=== PATIENT | male | born 1965 | race Caucasian/White ===

== ENCOUNTER 2022-01-12 10:28 | Outpatient (CLI) | payer OTHER, SELFPAY ==
--- NOTE | ~2022-01-12 | XR_ITS ---
XR lumbar spine min 4V DATE: 01/12/2022 10:41 INDICATION: Low back pain TECHNIQUE: AP, lateral, coned lateral lumbosacral and bilateral oblique views COMPARISON: None FINDINGS: There is diffuse idiopathic skeletal hyperostosis of the included lower thoracic spine. No fracture or bone destruction, spondylolysis or spondylolisthesis of the lumbar spine. There is mil d lumbar degenerative disc disease. The sacroiliac joints are intact. IMPRESSION: Diffuse idiopathic skeletal hyperostosis of the thoracic spine Mild degenerative disc disease of the lumbar spine Reviewed, dictated and finalized at location A. ING PROFESSOR
[2022-01-12 18:24] LABS: Basophils Absolute Auto 0.1 K/mm3 (0.0-0.1); Eosinophils Absolute Auto 0.1 K/mm3 (0-0.3); Eosinophils Percent Auto 0.7 % (0-4.4); Hematocrit 46.8 % (42.0-52.0); Hemoglobin 15.6 g/dL (14.0-18.0); Immature Granulocyte Absolute 0.03 K/mm3 (0.00-0.031); Immature Granulocyte Percent A 0.4 % (0-0.5); Lymphocytes Absolute Auto 1.49 K/mm3 (0.9-3.2); Lymphocytes Percent Auto 21.8 % (18.3-44.2); Mean Corpuscular HGB Conc 33.3 g/dl (32-36); Mean Corpuscular Hemoglobin 33.8 pg (26-34); Mean Corpuscular Volume 101.5 fl (80-100); Mean Platelet Volume 11.5 fl (7.4-10.4); Monocytes Percent Auto 13.9 % (2.6-8.5); Neutrophils Absolute Auto 4.3 K/mm3 (1.3-6.7); Neutrophils Percent Auto 62.2 % (45.5-73.1); Platelet Count Result 200 k/mm3 (150-375); Red Blood Count 4.61 M/mm3 (4.6-6.20); Red Cell Distribution Width 11.3 % (11.5-14.5); White Blood Count 6.8 K/mm3 (4.5-10.0)
[2022-01-12 18:52] LABS: Alanine Aminotransferase 228 U/L (6-50); Albumin Level 4.8 g/dL (3.5-5.1); Alkaline Phosphatase 77 U/L (38-126); Anion Gap 11 mmol/L (8-16); Aspartate Amino Transferase 221 U/L (17-59); Bilirubin,Total 0.5 mg/dL (0.2-1.3); Blood Urea Nitrogen 8 mg/dL (9-20); Calcium 8.9 mg/dL (8.4-10.2); Carbon Dioxide 26 mmol/L (22-30); Chloride 99 mmol/L (98-107); Cholesterol 164 mg/dL (0-200); Estimated Glomerular Filt Rate > 60; Glucose 104 mg/dL (65-110); HDL Direct 56 mg/dL; Potassium 4.9 mmol/L (3.4-5.0); Sodium 136 mmol/L (137-145); Triglycerides 54 mg/dL (<150)
[2022-01-12 19:05] LABS: LDL Cholesterol Direct 90 mg/dL
[2022-01-12 19:12] LABS: Prostate Specific Antigen 1.1 ng/mL (< OR = 4.0)
== END 2022-01-12 10:29 | disposition home or self-care (01) ==
LOC: ANHBWCLAB 10:29
PROVIDERS: PCP Family Medicine; Visit Provider Family Medicine
DX: Z00.00 Encounter for general adult medical examination without abnormal findings (principal); F41.9 Anxiety disorder, unspecified; I10 Essential (primary) hypertension; J44.9 Chronic obstructive pulmonary disease, unspecified; M19.90 Unspecified osteoarthritis, unspecified site; T78.40XA Allergy, unspecified, initial encounter; M54.50 Low back pain, unspecified; M51.36 Other intervertebral disc degeneration, lumbar region; M48.16 Ankylosing hyperostosis [Forestier], lumbar region
CPT/HCPCS: 36415; 72110; 80053; 80061; 84153; 85025; G0103

== ENCOUNTER 2022-02-03 10:00 | Outpatient (CLI) | payer OTHER, SELFPAY ==
[2022-02-03 18:51] LABS: Alanine Aminotransferase 250 U/L (6-50); Albumin Level 4.5 g/dL (3.5-5.1); Alkaline Phosphatase 74 U/L (38-126); Aspartate Amino Transferase 272 U/L (17-59); Bilirubin,Total 0.7 mg/dL (0.2-1.3)
[2022-02-03 19:23] LABS: Hepatitis B Surface Antigen Negative (Negative)
[2022-02-03 19:29] LABS: HAV RESULT Negative (Negative); Hepatitis B Core IgM Result Negative (Negative)
[2022-02-03 19:40] LABS: Hepatitis C Virus Antibody Negative (Negative)
[2022-02-09 21:47] LABS: ALT 208 U/L (9-46); Alpha-2-Macroglobulin 233 mg/dL (106-279); Apolipoprotein A1 162 mg/dL (94-176); Fibrosis Score 0.47; Fibrosis Stage F1-F2; GGT 225 U/L (3-85); Haptoglobin 190 mg/dL (43-212); Necroinflammat Act Grade A3; Total Bilirubin 0.6 mg/dL (0.2-1.2)
== END 2022-02-03 10:01 | disposition home or self-care (01) ==
LOC: ANHBWCLAB 10:01
PROVIDERS: PCP Family Medicine; Visit Provider Family Medicine
DX: R74.8 Abnormal levels of other serum enzymes (principal)
CPT/HCPCS: 36415; 80074; 80076; 81596

== ENCOUNTER 2022-02-23 10:28 | Outpatient (CLI) | payer OTHER, SELFPAY ==
--- NOTE | ~2022-02-23 | US_ITS ---
Limited Abdominal Sonogram: Real-time sonographic imaging of the right upper quadrant was performed. Clinical History: Abnormal serum enzymes Findings: The liver appears echogenic, with no evidence of mass lesion or bile duct dilatation. Main portal vein demonstrates normal direction of flow. The gallbladder is well distended, and appears no rmal with no evidence of gallstone or wall thickening. The common bile duct measures 5 mm. The visua lized pancreas, aorta, and IVC are unremarkable. Impression: Diffuse fatty infiltration of the liver. Reviewed, dictated and finalized at location M. 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
== END 2022-02-23 10:29 | disposition home or self-care (01) ==
PROVIDERS: PCP Family Medicine; Visit Provider Family Medicine
DX: R74.8 Abnormal levels of other serum enzymes (principal); F10.20 Alcohol dependence, uncomplicated; K76.0 Fatty (change of) liver, not elsewhere classified
CPT/HCPCS: 76705

== ENCOUNTER 2022-03-30 07:59 | Outpatient (CLI) | payer OTHER, SELFPAY ==
[2022-03-30 20:05] LABS: Alanine Aminotransferase 184 U/L (6-50); Albumin Level 4.2 g/dL (3.5-5.1); Alkaline Phosphatase 76 U/L (38-126); Aspartate Amino Transferase 160 U/L (17-59); Bilirubin,Total 0.4 mg/dL (0.2-1.3)
== END 2022-03-30 08:00 | disposition home or self-care (01) ==
LOC: ANHBWCLAB 08:00
PROVIDERS: PCP Family Medicine; Visit Provider Family Medicine
DX: R74.8 Abnormal levels of other serum enzymes (principal)
CPT/HCPCS: 36415; 80076

== ENCOUNTER 2022-07-09 08:07 | Outpatient (CLI) | payer OTHER, SELFPAY ==
--- NOTE | ~2022-07-09 | XR_ITS ---
EXAMINATION: XR lumbar spine 6V w bending DATE: 07/09/2022 09:05 INDICATION: Low back pain. TECHNIQUE: 7 views of lumbar spine including flexion and extension views were obtained. COMPARISON: Lumbar spine radiographs 01/12/2022 FINDINGS: There is 7 degrees dextrocurvature of lumbar spine. The spine is hypomobile with flexion an d extension. Vertebral body heights and intervertebral disc heights are normal. There are endplate os teophytes at all levels. There is multilevel facet joint osteoarthritis, severe on the right from L3- L4 through L5-S1 and severe on the left at L2-L3 and L4-L5. IMPRESSION: 1. Mild lumbar spondylosis. Reviewed, dictated and finalized at location A. IMPRESSION: 1. Mild lumbar spondylosis.
--- NOTE | ~2022-07-09 | XR_ITS ---
Cervical Spine: AP, lateral, open-mouth views Clinical History: Pain Findings: The normal lordotic curve is maintained. The vertebral bodies and posterior elements appea r intact. Facet joint degenerative changes are present throughout the cervical spine. There is advanc ed degenerative disc narrowing at C5-C6 and C6-C7. Pre-vertebral soft tissues are unremarkable. Impression: [id number] degenerative spondylosis, as above. Reviewed, dictated and finalized at location M. Impression: [id number] degenerative spondylosis, as above.
== END 2022-07-09 08:08 | disposition home or self-care (01) ==
PROVIDERS: PCP Family Medicine; Referring Provider Anesthesiology Pain Medicine; Visit Provider Nurse Practitioner Adult Health
DX: M47.816 Spondylosis without myelopathy or radiculopathy, lumbar region (principal); M47.892 Other spondylosis, cervical region
CPT/HCPCS: 72050; 72114

== ENCOUNTER 2022-08-12 00:40 | Observation (INO) | payer OTHER, SELFPAY ==
[2022-08-12] VITALS (44 sets, daily range): BP systolic 84–162; BP diastolic 59–92; PULSE 60–81; RESP 13–22; TEMP 35.8–36.9; O2SAT 97–100
--- NOTE | 2022-08-12 01:22 | ECG_ITS ---
Measurements Intervals [place] Rate: 69 P: 58 [place]: 136 QRS: 56 QRSD: 98 T: 58 QT: 454 QTc: 488 Interpretive Statements SINUS RHYTHM MINIMAL ST DEPRESSION [0.025+ mV ST DEPRESSION] PROLONGED QT INTERVAL NO PREVIOUS ECG AVAILABLE FOR COMPARISON Electronically Signed On 08-12-2022 10:53:07 CDT by Beny Bhat M.D.
[2022-08-12] MEDS: methocarbamoL 750 MG TABLET 1500 MG PO (02:21)
[2022-08-12] MEDS: ACETAMINOPHEN 500 MG TABLET 1000 MG PO (02:21)
[2022-08-12] MEDS: LIDOCAINE 5% PATCH 1 PATCH TRANSDERM (02:22)
[2022-08-12] MEDS: KETOROLAC 15 MG/ML VIAL (*BKC) IV PUSH (02:23)
[2022-08-12] MEDS: SODIUM CHLORIDE 0.9% IV 1,000 ML 999 ML IV CONT ×2 (02:24→02:41)
[2022-08-12 02:32] LABS: Basophils Absolute Auto 0.1 K/mm3 (0.0-0.1); Basophils Percent Auto 0.9 % (0.2-1.2); Eosinophils Absolute Auto 0.1 K/mm3 (0-0.3); Eosinophils Percent Auto 1.4 % (0-4.4); Hemoglobin 12.2 g/dL (14.0-18.0); Immature Granulocyte Absolute 0.02 K/mm3 (0.00-0.031); Immature Granulocyte Percent A 0.3 % (0-0.5); Lymphocytes Absolute Auto 1.85 K/mm3 (0.9-3.2); Mean Corpuscular HGB Conc 35.9 g/dl (32-36); Mean Corpuscular Hemoglobin 35.4 pg (26-34); Mean Corpuscular Volume 98.6 fl (80-100); Mean Platelet Volume 10.7 fl (7.4-10.4); Monocytes Absolute Auto 0.8 K/mm3 (0.1-0.6); Monocytes Percent Auto 13.8 % (2.6-8.5); Neutrophils Percent Auto 51.6 % (45.5-73.1); Platelet Count Result 199 k/mm3 (150-375); Red Blood Count 3.45 M/mm3 (4.6-6.20); White Blood Count 5.8 K/mm3 (4.5-10.0)
[2022-08-12 02:41] LABS: Magnesium 1.6 mg/dL (1.6-2.3)
[2022-08-12 02:45] LABS: Alanine Aminotransferase 87 U/L (6-50); Alkaline Phosphatase 57 U/L (38-126); Anion Gap 13 mmol/L (8-16); Aspartate Amino Transferase 96 U/L (17-59); Bilirubin,Total 0.4 mg/dL (0.2-1.3); Blood Urea Nitrogen 10 mg/dL (9-20); Calcium 8.5 mg/dL (8.4-10.2); Carbon Dioxide 28 mmol/L (22-30); Chloride 95 mmol/L (98-107); Estimated CRCL calculation 34 ml/min; Estimated Glomerular Filt Rate 33; Glucose 110 mg/dL (65-110); Potassium 2.5 mmol/L (3.4-5.0); Sodium 136 mmol/L (137-145)
--- NOTE | 2022-08-12 03:08 | ED.GENADULT ---
HPI - General Adult General Chief complaint: Recheck/Abnormal Lab/Rx Stated complaint: low blood pressure Time Seen by Provider: 08/12/22 01:38 History of Present Illness HPI narrative: This is a 56-year-old male with history of chronic alcohol use presenting with neck and shoulder pain as well as numbness/tingling in his hands and feet. Patient's first complaint is chest and back pain. He has chronic arthritis and is trying to get approved for surgery. He has not had any new trauma. He has not taken anything for pain. Patient is also complaining of tingling and numbness to his hands and feet. This has never happened before. Patient is a daily drinker. He the neck does not report withdrawal symptoms. Cannot remember the last a he went without drinking. Related Data Allergies Allergy/AdvReac Type Severity Reaction Status Date / Time No Known Allergies Allergy Verified 08/12/22 00:45 [facility] Social History Social History (Updated 02/03/22 @ 09:26 by Lesly Jose MA) Smoking packs per day: 2 Smoking cigarettes per day: 40.0 Smoking status: Current every day smoker Alcohol intake: current Alcohol use details: Beer Rum Substance use: never Substance use type: does not use Lack of Transportation: No Lack of Food: Never True Concerned About Future Housing: Decline to Answer Difficulty Paying Gas/Electric Bills: Decline to Answer Difficulty Paying for Meds: Decline to Answer Currently Unemployed: Decline to Answer Education: High School Diploma/GED Difficulty w/ Childcare or Family Care: No Living arrangements: alone Additional occupation/education comments: [employer] Gender identity (if verbalized by the patient): Male Agree to blood products: Yes Exam Narrative: APPEARANCE: No apparent distress. Head: atraumatic. EYES: EOMI, NOSE: Atraumatic NECK: Trachea midline RESPIRATORY: No increased rate of breathing Clear to auscultation CARDIOVASCULAR: RRR, ABDOMINAL: Non-distended, soft nontender MUSCULOSKELETAl: No obvious deformities NEURO: Alert. Cranial nerves 2-12 grossly intact. Sensation light touch, motor function cerebellar function intact for 4 extremities. Gait exam was deferred SKIN:: Warm, dry. Normal color PSYCHIATRIC: Normal affect Course Vital Signs Vital signs: Vital Signs Temperature 98.4 F 08/12/22 00:46 Pulse Rate 70 08/12/22 00:46 Respiratory Rate 18 08/12/22 00:46 Blood Pressure 116/74 08/12/22 00:46 Pulse Oximetry 100 08/12/22 00:46 Oxygen Delivery Room Air 08/12/22 00:46 Temperature 98.4 F 08/12/22 00:46 Pulse Rate 66 08/12/22 02:28 Respiratory Rate 15 08/12/22 02:28 Blood Pressure 90/64 L 08/12/22 02:28 Pulse Oximetry 100 08/12/22 02:28 Oxygen Delivery Room Air 08/12/22 00:46 Medical Decision Making [facility] Narrative Medical decision making narrative: -Presentation: 56-year-old male presenting with acute on chronic neck and back pain. Additionally he has soft blood pressure is having tingling in his hands and feet. Given his history of alcoholism will fluid resuscitate him and check his electrolytes. No indication for imaging for his chronic pain. -DDX includes but is not limited to: A acute on chronic back pain. 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 This may explain the patient's new hypotension. -Hx from independent Sources: at bedside -Discussion of Management/Consultants: Diana - Hospitalist -Independent interpretation of studies: CBC within acceptable limits. Metabolic panel showed a potassium of 2.5. Creatinine is elevated at 2.1 which is increased from creatinine .7 on 01/27. Liver e
[2022-08-12] MEDS: POTASSIUM CHLORIDE 20 MEQ TABLET 80 MEQ PO (03:18)
[2022-08-12] MEDS: POTASSIUM CHLORIDE INJ 40 MEQ in SODIUM CHLORIDE 0.9% IV 500 ML 130 MEQ IVPB (03:34)
[2022-08-12] MEDS: MAGNESIUM SULF 2 GM/WATER 50ML 2 GM/50 ML BAG IVPB (03:35)
[2022-08-12] MEDS: FAMOTIDINE 20 MG/2 ML VIAL IV PUSH (03:55)
[2022-08-12] MEDS: HYDROcodone/acetaminophen (*CRX) 5-325 MG TABLET 1 TAB PO ×3 (03:57→23:45)
[2022-08-12] MEDS: NICOTINE (*PBKC) 21 MG PATCH 1 PATCH TRANSDERM (04:02)
[2022-08-12] MEDS: MAG HYDROX/AL HYDROX/SIMETH 30 ML UDC PO (04:05)
--- NOTE | 2022-08-12 05:51 | ADMGEN ---
This patient, Taran Griffin, was admitted to 3 [facility] Surg Room 320-01. Patient/family oriented to hospital policies and general routines including ID bracelet, bed and alarms, visiting hours, pain management, procedures, bathroom and other care routines, personal items, smoking policy, room service/diet, and visiting hours. Information on how to activate the Rapid Response Team has been discussed. Patient/Family are encouraged to report perceived risks to care and to ask questions if they do not understand what they are told or what they should do.
[2022-08-12 06:47] LABS: Glucose Point of Care 132 mg/dl (65-105)
[2022-08-12 07:05] LABS: Anion Gap 15 mmol/L (8-16); Blood Urea Nitrogen 9 mg/dL (9-20); Calcium 7.4 mg/dL (8.4-10.2); Carbon Dioxide 22 mmol/L (22-30); Chloride 100 mmol/L (98-107); Estimated CRCL calculation 45 ml/min; Estimated Glomerular Filt Rate 45; Glucose 104 mg/dL (65-110); Potassium 3.1 mmol/L (3.4-5.0); Sodium 137 mmol/L (137-145)
[2022-08-12] MEDS: traMADol HCL (*CRX) 50 MG TABLET PO (07:55)
[2022-08-12 09:59] LABS: Magnesium 2.4 mg/dL (1.6-2.3)
[2022-08-12 11:06] LABS: Folic Acid 4.8 ng/mL (2.76->20)
[2022-08-12] MEDS: POTASSIUM CHLORIDE 20 MEQ TABLET 40 MEQ PO (11:37)
[2022-08-12 11:42] LABS: Glucose Point of Care 103 mg/dl (65-105)
[2022-08-12] MEDS: chlordiazePOXIDE (*CRX) 25 MG CAPSULE PO ×3 (12:30→23:45)
--- NOTE | 2022-08-12 16:53 | PM.IMHP ---
H&P: HPI History of Present Illness Date/Time: 08/12/22 16:53 Chief Complaint: Low blood pressure Narrative: ED-HPI narrative: ? This is a 56-year-old male with history of chronic alcohol use presenting with neck and shoulder pain as well as numbness/tingling in his hands and feet. ? Patient's first complaint is chest and back pain.? He has chronic arthritis and is trying to get approved for surgery.? He has not had any new trauma.? He has not taken anything for pain. ?Patient is also complaining of tingling and numbness to his hands and feet.? This has never happened before.? Patient is a daily drinker.? He the neck does not report withdrawal symptoms.? Cannot remember the last a he went without drinking. 56-year-old male with chronic history of alcohol abuse presented to emergency department with low blood pressure upon arrival patient systolic blood pressure was 84/59 most likely secondary to dehydration with alcohol, patient is being hydrated and his blood pressure is trending up, patient with hypokalemia most likely secondary to alcohol abuse and poor p.o. intake, patient is a daily drinker and has never been off alcohol concerning DT we have started the patient on CIWA and Librium 25 mg every 6 hours, continue to monitor, patient also complains of back pain and numbness and tingling in his upper and lower extremitis, concerning for vitamin B 12 deficiency and neuropathy, will check vitamin B12 level, we have started the patient banana bag daily will continue to monitor patient family is present in the room, patient admitted as observation status [facility] Social History Social History (Updated 02/03/22 @ 09:26 by Lesly Jose MA) Smoking packs per day: 1.5 Smoking cigarettes per day: 30.0 Smoking status: Current every day smoker Tobacco type: cigarettes Alcohol intake: current Alcohol use details: Beer Rum Substance use: never Substance use type: does not use Lack of Transportation: YES Lack of Food: Never True Current Housing: I Have Housing Concerned About Future Housing: No Difficulty Paying Gas/Electric Bills: No Difficulty Paying for Meds: No Currently Unemployed: No Education: High School Diploma/GED Difficulty w/ Childcare or Family Care: No Living arrangements: alone Additional occupation/education comments: [employer] Gender identity (if verbalized by the patient): Male Spiritual care concerns: No Agree to blood products: Yes Meds Home Medications and Allergies Home Medications Medication Instructions Recorded Confirmed Type amlodipine 10 mg tablet 10 mg PO DAILY #90 tabs 03/04/22 08/12/22 Rx tamsulosin 0.4 mg capsule 0.8 mg PO DAILY #90 caps 03/04/22 08/12/22 Rx albuterol sulfate 90 mcg/actuation 1 inh inhalation Q4H PRN shortness 05/17/22 08/12/22 Rx aerosol inhaler of breath or wheezing #8.5 grams fluticasone propionate 115 2 puff inhalation BID #12 grams 05/17/22 08/12/22 Rx mcg-salmeterol 21 mcg/actuation HFA inhaler (Advair HFA) finasteride 5 mg tablet See Rx Instructions .Route 06/11/22 08/12/22 Rx .COMPLEX #90 tabs losartan 100 1 tablet PO DAILY #90 tabs 07/05/22 08/12/22 Rx mg-hydrochlorothiazide 12.5 mg tablet carvedilol 12.5 mg tablet 12.5 mg PO Q12H #90 tabs 07/20/22 08/12/22 Rx celecoxib 200 mg capsule See Rx Instructions .Route 07/28/22 08/12/22 Rx .COMPLEX #30 caps Allergies Allergy/AdvReac Type Severity Reaction Status Date / Time No Known Allergies Allergy Verified 08/12/22 00:45 Vital Signs Vital Signs - 24 hr 08/12/22 00:46 08/12/22 02:28 08/12/22 03:45 Temperature 98.4 F Pulse Rate 70 66 64 Respiratory Rate 18 15 14 Blood Pressure 116/74 90/64 L 128/92 H Pulse Oximetry 100 100 100 Oxygen Delivery Room Air 08/12/22 01:37 08/12/22 01:38 08/12/22 01:45 Temperature Pulse Rate 72 71 64 Respiratory Rate 21 H 19 20 Blood Pressure 92/69 L Pulse Oximetry 100 99 Oxygen Delivery
[2022-08-12 16:55] LABS: Glucose Point of Care 97 mg/dl (65-105)
[2022-08-12] MEDS: CYANOCOBALAMIN INJ 1,000 MCG/ML VIAL 1000 MCG IM (17:04)
[2022-08-12 23:59] LABS: Glucose Point of Care 92 mg/dl (65-105)
[2022-08-13 04:00] VITALS: PULSE 58
[2022-08-13] MEDS: chlordiazePOXIDE (*CRX) 25 MG CAPSULE PO (05:01)
[2022-08-13 05:02] VITALS: BP 179/101; PULSE 76; RESP 18; TEMP 36.2; O2SAT 100
[2022-08-13 05:45] VITALS: BP 179/101; PULSE 76; RESP 18; TEMP 36.2; O2SAT 100
--- NOTE | 2022-08-13 05:45 | PC.NURSE ---
called DO Mike d/t elevated bp 179/101, pt home bp meds not restarted at this time.
[2022-08-13 06:16] LABS: Hematocrit 33.3 % (42.0-52.0); Hemoglobin 11.7 g/dL (14.0-18.0); Mean Corpuscular HGB Conc 35.1 g/dl (32-36); Mean Corpuscular Hemoglobin 36.1 pg (26-34); Mean Corpuscular Volume 102.8 fl (80-100); Mean Platelet Volume 11.3 fl (7.4-10.4); Platelet Count Result 157 k/mm3 (150-375); Red Blood Count 3.24 M/mm3 (4.6-6.20); White Blood Count 3.6 K/mm3 (4.5-10.0)
[2022-08-13 06:27] LABS: Anion Gap 4 mmol/L (8-16); Blood Urea Nitrogen 8 mg/dL (9-20); Calcium 7.9 mg/dL (8.4-10.2); Carbon Dioxide 32 mmol/L (22-30); Chloride 99 mmol/L (98-107); Estimated CRCL calculation 77 ml/min; Estimated Glomerular Filt Rate > 60; Glucose 106 mg/dL (65-110); Magnesium 1.8 mg/dL (1.6-2.3); Potassium 3.1 mmol/L (3.4-5.0); Sodium 135 mmol/L (137-145)
[2022-08-13 06:50] LABS: Glucose Point of Care 95 mg/dl (65-105)
[2022-08-13] MEDS: HYDROcodone/acetaminophen (*CRX) 5-325 MG TABLET 1 TAB PO (07:43)
[2022-08-13] MEDS: CYANOCOBALAMIN INJ 1,000 MCG/ML VIAL 1000 MCG IM (07:44)
[2022-08-13 08:00] VITALS: PULSE 69
[2022-08-13] MEDS: POTASSIUM CHLORIDE 20 MEQ TABLET 40 MEQ PO (08:50)
[2022-08-13] MEDS: TAMSULOSIN HCL 0.4 MG CAPSULE 0.8 MG PO (08:50)
[2022-08-13] MEDS: amLODIPine BESYLATE 5 MG TABLET 10 MG PO (08:51)
[2022-08-13] MEDS: LOSARTAN POTASSIUM 100 MG TABLET PO (08:51)
[2022-08-13] MEDS: FINASTERIDE 5 MG TABLET BY MOUTH (08:51)
[2022-08-13] MEDS: hydroCHLOROthiazide 12.5 MG CAPSULE PO (08:51)
[2022-08-13] MEDS: carvediloL 12.5 MG TABLET PO (08:51)
[2022-08-13] MEDS: FLUTICASONE/SALMETEROL 115-21 MCG INHALER 1 PUFF 2 PUFF INHALATION (08:56)
[2022-08-13 08:57] VITALS: O2SAT 94
[2022-08-13] MEDS: CELECOXIB 200 MG CAPSULE BY MOUTH (09:51)
[2022-08-13 12:00] VITALS: PULSE 70
[2022-08-13 12:24] LABS: Glucose Point of Care 105 mg/dl (65-105)
--- NOTE | 2022-08-13 12:37 | PM.DS ---
DS: Admitting Diagnosis Discharge Date 08/13/2022 Admitting Diagnosis Low blood pressure DS: Discharge Diagnosis Discharge Diagnosis (1) Acute hypokalemia: Code(s): E87.6 - Hypokalemia Status: Acute Assessment and Plan: ED-[facility] narrative: ? This is a 56-year-old male with history of chronic alcohol use presenting with neck and shoulder pain as well as numbness/tingling in his hands and feet. ? Patient's first complaint is chest and back pain.? He has chronic arthritis and is trying to get approved for surgery.? He has not had any new trauma.? He has not taken anything for pain. ?Patient is also complaining of tingling and numbness to his hands and feet.? This has never happened before.? Patient is a daily drinker.? He the neck does not report withdrawal symptoms.? Cannot remember the last a he went without drinking. 56-year-old male with chronic history of alcohol abuse presented to emergency department with low blood pressure upon arrival patient systolic blood pressure was 84/59 most likely secondary to dehydration with alcohol, patient is being hydrated and his blood pressure is trending up, patient with hypokalemia most likely secondary to alcohol abuse and poor p.o. intake, patient is a daily drinker and has never been off alcohol concerning DT we have started the patient on CIWA and Librium 25 mg every 6 hours, continue to monitor, patient also complains of back pain and numbness and tingling in his upper and lower extremitis, concerning for vitamin B 12 deficiency and neuropathy, will check vitamin B12 level, we have started the patient banana bag daily will continue to monitor patient family is present in the room, (2) Acute hypotension: Code(s): I95.9 - Hypotension, unspecified Status: Acute Assessment and Plan: Most likely secondary to dehydration due to alcohol abuse and poor p.o. intake (3) ETOH abuse: Code(s): F10.10 - Alcohol abuse, uncomplicated Status: Acute Assessment and Plan: Patient with history of daily drinking for long time, high risk of DT we have placed the patient CIWA protocol and will monitor with a Librium, will monitor patient electrolytes and supplement (4) Cervicalgia: Code(s): M54.2 - Cervicalgia Status: Acute Assessment and Plan: Patient with chronic neck pain CT scan of the cervical spine shows degenerative disc disease (5) Chronic pain: Code(s): G89.29 - Other chronic pain Status: Acute Assessment and Plan: Most likely secondary to osteoarthritis DS: Summary Hospital Course Reason for hospitalization: Low blood pressure Narrative: ED-HPI narrative: ? This is a 56-year-old male with history of chronic alcohol use presenting with neck and shoulder pain as well as numbness/tingling in his hands and feet. ? Patient's first complaint is chest and back pain.? He has chronic arthritis and is trying to get approved for surgery.? He has not had any new trauma.? He has not taken anything for pain. ?Patient is also complaining of tingling and numbness to his hands and feet.? This has never happened before.? Patient is a daily drinker.? He the neck does not report withdrawal symptoms.? Cannot remember the last a he went without drinking. 56-year-old male with chronic history of alcohol abuse presented to emergency department with low blood pressure upon arrival patient systolic blood pressure was 84/59 most likely secondary to dehydration with alcohol, patient is being hydrated and his blood pressure is trending up, patient with hypokalemia most likely secondary to alcohol abuse and poor p.o. intake,? patient is a daily drinker and has never been off alcohol concerning DT we have started the patient on CIWA and Librium 25 mg every 6 hours, continue to monitor, patient also complains of back pain and numbness and tingling in his upper and lower extremitis, concerning for vitamin B 12 deficiency and neuropathy, will check vitamin B12 l
== END 2022-08-13 13:25 | disposition home or self-care (01) ==
LOC: ANHED 03:34 → ANH3MEDSUR 06:09
PROVIDERS: Internal Medicine; Admitting Provider Family Medicine; Emergency Provider Emergency Medicine; PCP Family Medicine; Visit Provider Family Medicine
DX: E87.6 Hypokalemia (principal); I95.9 Hypotension, unspecified; M54.2 Cervicalgia; G89.29 Other chronic pain; M19.90 Unspecified osteoarthritis, unspecified site; R20.0 Anesthesia of skin; I10 Essential (primary) hypertension; R94.31 Abnormal electrocardiogram [ECG] [EKG]; F10.10 Alcohol abuse, uncomplicated; F17.210 Nicotine dependence, cigarettes, uncomplicated; Z79.51 Long term (current) use of inhaled steroids; Z79.899 Other long term (current) drug therapy
CPT/HCPCS: 36415; 80048; 80053; 82607; 82746; 82948; 83735; 84100; 85025; 85027; 93005; 94640; 96361; 96365; 96366; 96367; 96368; 96372; 96374; 96375; 99285; A9270; G0378; G0379; J1885; J3411; J3420; J3475; J3480; J7030; J7040; J7121

== ENCOUNTER 2022-12-20 15:59 | Emergency (ER) | payer OTHER, SELFPAY ==
--- NOTE | ~2022-12-20 | XR_ITS ---
EXAMINATION: XR chest 2V DATE: 12/20/2022 16:29 INDICATION: Right chest pain. TECHNIQUE: Frontal and lateral views of the chest were obtained. COMPARISON: None. FINDINGS: There is no pneumonia, pleural effusion, or pneumothorax. The heart size is normal. There i s mild chronic anterior wedging of multiple vertebral bodies. IMPRESSION: 1. No acute cardiopulmonary disease. Reviewed, dictated and finalized at location E.
--- NOTE | 2022-12-20 16:01 | ECG_ITS ---
Measurements Intervals [place] Rate: 71 P: 60 [place]: 150 QRS: 65 QRSD: 98 T: 56 QT: 412 QTc: 448 Interpretive Statements SINUS RHYTHM POSSIBLE RIGHT VENTRICULAR CONDUCTION DELAY [RSR (QR) IN V1/V2] BORDERLINE ECG COMPARED TO ECG 08/12/2022 01:24:59 PROLONGED QT INTERVAL NO LONGER PRESENT Electronically Signed On 12-20-2022 17:29:01 CDT by Landry Xiong M.D.
[2022-12-20 16:19] LABS: Basophils Absolute Auto 0.1 K/mm3 (0.0-0.1); Basophils Percent Auto 1.3 % (0.2-1.2); Eosinophils Percent Auto 0.6 % (0-4.4); Hematocrit 39.5 % (42.0-52.0); Hemoglobin 13.9 g/dL (14.0-18.0); Immature Granulocyte Absolute 0.03 K/mm3 (0.00-0.031); Immature Granulocyte Percent A 0.5 % (0-0.5); Lymphocytes Absolute Auto 2.62 K/mm3 (0.9-3.2); Lymphocytes Percent Auto 41.9 % (18.3-44.2); Mean Corpuscular HGB Conc 35.2 g/dl (32-36); Mean Corpuscular Hemoglobin 35.8 pg (26-34); Mean Corpuscular Volume 101.8 fl (80-100); Mean Platelet Volume 10.6 fl (7.4-10.4); Monocytes Absolute Auto 0.8 K/mm3 (0.1-0.6); Monocytes Percent Auto 13.4 % (2.6-8.5); Neutrophils Absolute Auto 2.7 K/mm3 (1.3-6.7); Neutrophils Percent Auto 42.3 % (45.5-73.1); Platelet Count Result 165 k/mm3 (150-375); Red Blood Count 3.88 M/mm3 (4.6-6.20); Red Cell Distribution Width 13.1 % (11.5-14.5); White Blood Count 6.3 K/mm3 (4.5-10.0)
[2022-12-20 16:20] VITALS: BP 162/90; PULSE 72; RESP 16; TEMP 36.6; O2SAT 98
[2022-12-20 16:34] LABS: Alanine Aminotransferase 53 U/L (6-50); Albumin Level 3.9 g/dL (3.5-5.1); Alkaline Phosphatase 61 U/L (38-126); Anion Gap 11 mmol/L (8-16); Aspartate Amino Transferase 85 U/L (17-59); Bilirubin,Total 0.7 mg/dL (0.2-1.3); Blood Urea Nitrogen 7 mg/dL (9-20); Carbon Dioxide 25 mmol/L (22-30); Chloride 101 mmol/L (98-107); Estimated CRCL calculation 88 ml/min; Estimated Glomerular Filt Rate > 60; Glucose 114 mg/dL (65-110); Lipase 213 U/L (23-300); Potassium 2.6 mmol/L (3.4-5.0); Sodium 137 mmol/L (137-145)
[2022-12-20 16:36] LABS: Prothrombin Time 13.7 Seconds (11.1-14.7)
[2022-12-20 16:37] LABS: Partial Thromboplastin Time 33.2 SECONDS (22.3-36.8)
[2022-12-20 16:42] LABS: Troponin I < 0.012 ng/mL (0.000-0.034)
--- NOTE | 2022-12-20 17:09 | ED.GENADULT ---
HPI - General Adult General Chief complaint: Chest Pain <LULÚ Whitt Last Filed: 12/21/22 01:48> Stated complaint: right chest pain <LULÚ Whitt Last Filed: 12/21/22 01:48> Time Seen by Provider: 12/20/22 17:05 <Alcides Vail PA-C - Last Filed: 12/21/22 01:48> Source: patient <LULÚ Whitt Last Filed: 12/21/22 01:48> Mode of arrival: ambulatory <LULÚ Whitt Last Filed: 12/21/22 01:48> Limitations: no limitations <LULÚ Whitt Last Filed: 12/21/22 01:48> History of Present Illness HPI narrative: This is a 57-year-old male with PMH of EtOH abuse, suspect lumbar ago, COPD, hypokalemia who presents to the ED with chief complaint right-sided chest wall pain onset 1 month ago. Reports a localized lump to the right chest that he has noticed is painful only when palpating. Denies exertional chest pain, shortness of breath, rashes, fevers, vomiting, nausea, LOC, any injury. Denies palpitations or leg swelling. <Alcides Vail PA-C - Last Filed: 12/21/22 01:48> Related Data Allergies/adverse reactions: Allergies Allergy/AdvReac Type Severity Reaction Status Date / Time No Known Allergies Allergy Verified 12/20/22 16:44 <LULÚ Whitt Last Filed: 12/21/22 01:48> Review of Systems Review of Systems: All systems as dictated in HPI <Alcides Vail PA-C - Last Filed: 12/21/22 01:48> [facility] Social History Social History: Social History (Updated 02/03/22 @ 09:26 by Lesly Jose MA) Smoking packs per day: 1.5 Smoking cigarettes per day: 30.0 Smoking status: Current every day smoker Tobacco type: cigarettes Alcohol intake: current Alcohol use details: Beer Rum Substance use: never Substance use type: does not use Lack of Transportation: YES Lack of Food: Never True Current Housing: I Have Housing Concerned About Future Housing: No Difficulty Paying Gas/Electric Bills: No Difficulty Paying for Meds: No Currently Unemployed: No Education: High School Diploma/GED Difficulty w/ Childcare or Family Care: No Living arrangements: alone Additional occupation/education comments: [employer] Gender identity (if verbalized by the patient): Male Spiritual care concerns: No Agree to blood products: Yes <Alcides Vail PA-C - Last Filed: 12/21/22 01:48> Exam Narrative: GENERAL: Well-appearing, well-nourished, and in no acute distress. HEAD: Normocephalic, atraumatic. EYES: PERRLA and EOMI. ENT: Nares clear, no rhinorrhea or epistaxis. Mucous membranes moist. Oropharynx without tonsillar hypertrophy exudate or other lesions. NECK: Supple. No adenopathy or masses. CHEST: No respiratory distress. Clear to auscultation. No wheezes rales or rhonchi HEART: Regular rate and rhythm. No murmur heard. Normal peripheral pulses. ABDOMEN: Soft, nontender, nondistended, normal active bowel sounds. MSK: Normal range of motion. No edema. SKIN: There is a 2 cm x 2 cm area of rubbery, mobile mass to the right chest wall inferior to the nipple. No erythema, induration or fluctuance present. Minimal tenderness. Warm, dry, no rash. NEURO: Alert and oriented x3. No focal deficits. PSYCH: Normal mood and affect. 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 <Cassie Duggan MD - Last Filed: 12/21/22 06:14> Vital Signs Vital signs: Vital Signs Temperature 36.6 C 12/20/22 16:20 Pulse Rate 72 12/20/22 16:20 Respiratory Rate 16 12/20/22 16:20 Blood Pressure 162/90 H 12/20/22 16:20 Pulse Oximetry 98 12/20/22 16:20 Oxygen Delivery Room Air 12/20/22 16:20 Temperature 36.6 C 12/20/22 16:20 Pulse Rate 68 12/20/22 19:57 Respiratory Rate 20 12/20/22 19:57 Blood Pressure 148/95 H 12/20
[2022-12-20 17:25] VITALS: BP 143/93; PULSE 70; RESP 18; O2SAT 98
[2022-12-20] MEDS: POTASSIUM CHLORIDE 20 MEQ PACKET (FOR LIQUID) 40 MEQ PO (19:00)
[2022-12-20 19:38] LABS: Troponin I < 0.012 ng/mL (0.000-0.034)
[2022-12-20 19:57] VITALS: BP 148/95; PULSE 68; RESP 20; O2SAT 98
[2022-12-20] MEDS: KCL 20 MEQ/SW 100 ML 100 ML 50 MEQ IVPB (20:10)
[2022-12-20 22:37] LABS: Anion Gap 10 mmol/L (8-16); Blood Urea Nitrogen 7 mg/dL (9-20); Calcium 8.3 mg/dL (8.4-10.2); Carbon Dioxide 25 mmol/L (22-30); Chloride 102 mmol/L (98-107); Estimated CRCL calculation 99 ml/min; Estimated Glomerular Filt Rate > 60; Glucose 92 mg/dL (65-110); Potassium 3.5 mmol/L (3.4-5.0); Sodium 137 mmol/L (137-145)
[2022-12-20 22:42] LABS: Troponin I < 0.012 ng/mL (0.000-0.034)
== END 2022-12-20 22:53 | disposition home or self-care (01) ==
PROVIDERS: Emergency Medicine; Emergency Provider Physician Assistant; PCP Family Medicine
DX: R07.89 Other chest pain (principal); E87.6 Hypokalemia; J44.9 Chronic obstructive pulmonary disease, unspecified; F17.210 Nicotine dependence, cigarettes, uncomplicated; N63.10 Unspecified lump in the right breast, unspecified quadrant
CPT/HCPCS: 36415; 71046; 80048; 80053; 83690; 84484; 85025; 85610; 85730; 93005; 96365; 96366; 99284; A9270; J3480

== ENCOUNTER 2023-03-10 22:39 | Emergency (ER) | payer OTHER, SELFPAY ==
[2023-03-10 22:45] VITALS: BP 146/97; PULSE 112; RESP 20; TEMP 36.7; O2SAT 100
[2023-03-11 02:53] LABS: Influenza A QL RT-PCR Positive (Negative); Influenza B QL RT-PCR Negative (Negative); RSV RNA, RT-PCR Negative (Negative); SARS-CoV-2 RNA PCR Negative (Negative)
--- NOTE | 2023-03-11 04:14 | ED.URI ---
HPI - URI/Sore Throat General Chief Complaint: Upper Respiratory Infection Stated Complaint: uri Time Seen by Provider: 03/11/23 02:24 Source: patient Limitations: no limitations History of Present Illness HPI Narrative: Patient is a 57-year-old male presents to the emergency department complaining of 1 week of a cough productive of scant clear sputum. Patient is unsure if he has had no fevers, admits to some mild body aches, admits to his being a sick contact. Patient admits to being vaccinated. Patient in his to trying [id number] medications without any significant relief. Patient admits to mild dehydration. Patient denies chest pain, difficulty breathing, rash, urinary discomfort, diarrhea, vomiting, recent injuries. Patient admits to some intermittent nasal congestion and runny nose. Patient denies ear pain, confusion, headache. Related Data Allergies Allergy/AdvReac Type Severity Reaction Status Date / Time No Known Allergies Allergy Verified 03/10/23 22:53 Review of Systems Review of Systems: A 10 system review of systems was completed on the patient and is negative except for what is stated in the HPI. Nursing and ancillary documentation was reviewed. [facility] Social History Social History (Updated 02/03/22 @ 09:26 by Lesly Jose MA) Smoking packs per day: 1.5 Smoking cigarettes per day: 30.0 Smoking status: Current every day smoker Tobacco type: cigarettes Alcohol intake: current Alcohol use details: Beer Rum Substance use: never Substance use type: does not use Lack of Transportation: YES Lack of Food: Never True Current Housing: I Have Housing Concerned About Future Housing: No Difficulty Paying Gas/Electric Bills: No Difficulty Paying for Meds: No Currently Unemployed: No Education: High School Diploma/GED Difficulty w/ Childcare or Family Care: No Living arrangements: alone Additional occupation/education comments: [employer] Gender identity (if verbalized by the patient): Male Spiritual care concerns: No Agree to blood products: Yes Comments At time of signature, I have reviewed and agree with nursing past medical, surgical, social and family history unless otherwise noted. Please see the nursing chart for further information. There is no relevant family history pertinent to the presenting complaint. Exam Narrative: CONST: No acute distress. Well nourished. HENMT: Head is normocephalic and atraumatic. Tacky mucous membranes. No posterior oropharynx erythema. EYES: No conjunctival icterus, injection, or pallor. PERRL. NECK: No meningeal signs. RESP: Able to speak in full sentences. Normal respiratory effort. CTAB. CARDIO: Regular rate. Regular rhythm. 2+ DP and radial pulses bilaterally. GI: Nondistended. No tenderness to palpation. Soft. : No CVA tenderness to palpation. SKIN: No rashes or lesions noted on exposed skin. NEURO: Oriented x3. Moves all extremities. EXTREM: No pedal edema. PSYCH: Normal affect. Course Vital Signs Vital signs: Vital Signs Temperature 98.0 F 03/10/23 22:45 Pulse Rate 112 H 03/10/23 22:45 Respiratory Rate 20 03/10/23 22:45 Blood Pressure 146/97 H 03/10/23 22:45 Pulse Oximetry 100 03/10/23 22:45 Oxygen Delivery Room Air 03/10/23 22:45 Temperature 98.0 F 03/10/23 22:45 Pulse Rate 92 03/11/23 04:30 Respiratory Rate 16 03/11/23 04:30 Blood Pressure 148/72 H 03/11/23 04:30 Pulse Oximetry 98 03/11/23 04:30 Oxygen Delivery Room Air 03/10/23 22:45 MDM - URI/Sore Throat MDM Narrative Medical decision making narrative: Patient presents with the above complaint. . Examination as noted above. Discussed plan to obtain viral swab. The patient has remained stable throughout the entire ED visit. Counseled patient regarding diagnostic results, potential diagnosis. Anticipatory guidance provided. Follow up established. Patient counseled o
[2023-03-11 04:30] VITALS: BP 148/72; PULSE 92; RESP 16; O2SAT 98
== END 2023-03-11 04:31 | disposition home or self-care (01) ==
PROVIDERS: Emergency Provider Student in an Organized Health Care Education/Training Program; PCP Family Medicine
DX: J10.1 Influenza due to other identified influenza virus with other respiratory manifestations (principal); Z20.822 Contact with and (suspected) exposure to COVID-19; F17.210 Nicotine dependence, cigarettes, uncomplicated
CPT/HCPCS: 87637; 99283

== ENCOUNTER 2023-03-16 08:38 | Outpatient (CLI) | payer OTHER, SELFPAY ==
--- NOTE | ~2023-03-16 | MR_ITS ---
MRI of the lumbar spine Clinical History: Degenerative disc disease Technique: Axial T2-weighted images, and sagittal T1-weighted, T2-weighted, and and T2 fat-sat images were acquired. Findings: There is no fracture or subluxation in the lumbar spine. Vertebral bodies maintain normal h eight and alignment. No suspicious marrow signal abnormality seen. At L1-L2, there is no significant disc bulge or herniation. There is moderate facet arthropathy. No c entral canal stenosis or neural foraminal narrowing. At L2-L3, there is minimal disc bulge and advanced facet arthropathy. No central canal stenosis. Ther e is mild left neural foraminal narrowing. At L3-L4, there is minimal disc bulge and moderate facet arthropathy. No central canal stenosis. Ther e is mild right neural foraminal narrowing. At L4-L5, there is minimal disc bulge with moderate facet arthropathy. No central canal stenosis. The re is mild bilateral neural foraminal narrowing. At L5-S1, there is mild disc bulge and moderate facet arthropathy. No central canal stenosis. There i s moderate bilateral neural foraminal narrowing. Paravertebral soft tissues are unremarkable. Impression: Mild degenerative spondylosis, as above. Reviewed, dictated and finalized at location . [facility] Impression: Mild degenerative spondylosis, as above.
== END 2023-03-16 08:39 | disposition home or self-care (01) ==
PROVIDERS: PCP Family Medicine; Visit Provider Nurse Practitioner Adult Health
DX: M51.36 Other intervertebral disc degeneration, lumbar region (principal); M47.896 Other spondylosis, lumbar region
CPT/HCPCS: 72148

== ENCOUNTER 2023-04-11 09:34 | Outpatient (CLI) | payer OTHER, SELFPAY ==
[2023-04-11 18:20] LABS: Hematocrit 40.8 % (42.0-52.0); Hemoglobin 13.4 g/dL (14.0-18.0); Mean Corpuscular HGB Conc 32.8 g/dl (32-36); Mean Corpuscular Hemoglobin 36.3 pg (26-34); Mean Corpuscular Volume 110.6 fl (80-100); Mean Platelet Volume 11.1 fl (7.4-10.4); Platelet Count Result 238 k/mm3 (150-375); Red Blood Count 3.69 M/mm3 (4.6-6.20); Red Cell Distribution Width 14.6 % (11.5-14.5); White Blood Count 7.1 K/mm3 (4.5-10.0)
[2023-04-11 18:49] LABS: Alanine Aminotransferase 85 U/L (6-50); Albumin Level 4.2 g/dL (3.5-5.1); Alkaline Phosphatase 88 U/L (38-126); Anion Gap 8 mmol/L (8-16); Aspartate Amino Transferase 138 U/L (17-59); Blood Urea Nitrogen 13 mg/dL (9-20); Calcium 9.2 mg/dL (8.4-10.2); Carbon Dioxide 30 mmol/L (22-30); Chloride 101 mmol/L (98-107); Estimated Glomerular Filt Rate > 60; Glucose 111 mg/dL (65-110); Potassium 3.3 mmol/L (3.4-5.0); Sodium 139 mmol/L (137-145)
== END 2023-04-11 09:35 | disposition home or self-care (01) ==
LOC: ANHBWCLAB 09:36
PROVIDERS: PCP Family Medicine; Visit Provider Family Medicine
DX: Z00.00 Encounter for general adult medical examination without abnormal findings (principal); F10.20 Alcohol dependence, uncomplicated; I10 Essential (primary) hypertension; I16.0 Hypertensive urgency; J44.9 Chronic obstructive pulmonary disease, unspecified
CPT/HCPCS: 36415; 80053; 85027

== ENCOUNTER 2023-04-13 05:01 | Emergency (ER) | payer OTHER, SELFPAY ==
--- NOTE | ~2023-04-13 | XR_ITS ---
Clinical Indication: Shortness of breath PA and lateral views of the chest: Comparison: 12/20/2022 Findings: The lungs are clear, without evidence of focal consolidation or pleural effusion. Cardiome diastinal silhouette is within normal limits. Bones and soft tissues are unremarkable. Impression: Normal chest. Reviewed, dictated and finalized at [facility]. [place] [employer] Impression: Normal chest.
[2023-04-13 05:03] VITALS: BP 151/88; PULSE 94; RESP 20; TEMP 36.7; O2SAT 100
--- NOTE | 2023-04-13 05:08 | ECG_ITS ---
Measurements Intervals [place] Rate: 82 P: 58 NM: 140 QRS: 60 QRSD: 100 T: 49 QT: 402 QTc: 472 Interpretive Statements SINUS RHYTHM MODERATE ST DEPRESSION [0.05+ mV ST DEPRESSION] COMPARED TO ECG 12/20/2022 16:06:08 NO SIGNIFICANT CHANGES Electronically Signed On 04-13-2023 15:22:44 WEEKEND ANCHOR by Beny Bhat M.D.
[2023-04-13 05:20] VITALS: BP 177/93; PULSE 77; PULSE 80; RESP 25; O2SAT 100; O2SAT 98
[2023-04-13 05:45] LABS: Basophils Absolute Auto 0.1 K/mm3 (0.0-0.1); Eosinophils Absolute Auto 0.1 K/mm3 (0-0.3); Eosinophils Percent Auto 0.8 % (0-4.4); Hematocrit 38.3 % (42.0-52.0); Hemoglobin 13.3 g/dL (14.0-18.0); Immature Granulocyte Absolute 0.03 K/mm3 (0.00-0.031); Immature Granulocyte Percent A 0.5 % (0-0.5); Lymphocytes Absolute Auto 1.65 K/mm3 (0.9-3.2); Mean Corpuscular HGB Conc 34.7 g/dl (32-36); Mean Corpuscular Hemoglobin 36.6 pg (26-34); Mean Corpuscular Volume 105.5 fl (80-100); Mean Platelet Volume 10.8 fl (7.4-10.4); Monocytes Absolute Auto 0.7 K/mm3 (0.1-0.6); Monocytes Percent Auto 11.5 % (2.6-8.5); Neutrophils Absolute Auto 3.6 K/mm3 (1.3-6.7); Neutrophils Percent Auto 59.2 % (45.5-73.1); Platelet Count Result 216 k/mm3 (150-375); Red Blood Count 3.63 M/mm3 (4.6-6.20); Red Cell Distribution Width 13.8 % (11.5-14.5); White Blood Count 6.1 K/mm3 (4.5-10.0)
[2023-04-13 06:06] LABS: Alanine Aminotransferase 93 U/L (6-50); Albumin Level 4.5 g/dL (3.5-5.1); Alkaline Phosphatase 86 U/L (38-126); Anion Gap 9 mmol/L (8-16); Aspartate Amino Transferase 140 U/L (17-59); Bilirubin,Total 1.1 mg/dL (0.2-1.3); Blood Urea Nitrogen 8 mg/dL (9-20); Calcium 9.5 mg/dL (8.4-10.2); Carbon Dioxide 30 mmol/L (22-30); Chloride 98 mmol/L (98-107); Estimated CRCL calculation 69 ml/min; Estimated Glomerular Filt Rate > 60; Glucose 106 mg/dL (65-110); Potassium 2.6 mmol/L (3.4-5.0); Sodium 137 mmol/L (137-145)
[2023-04-13 06:31] VITALS: PULSE 85; RESP 19; O2SAT 100
[2023-04-13 06:45] LABS: Lipase 281 U/L (23-300)
[2023-04-13 06:57] LABS: INR 0.9; Prothrombin Time 12.4 Seconds (11.1-14.7)
[2023-04-13 06:58] LABS: Partial Thromboplastin Time 31.5 SECONDS (22.3-36.8)
[2023-04-13] MEDS: KCL 20 MEQ/SW 100 ML 100 ML 50 MEQ IVPB (07:25)
[2023-04-13 07:27] VITALS: BP 168/89; PULSE 78; RESP 15; O2SAT 99
[2023-04-13 07:35] LABS: Magnesium 1.7 mg/dL (1.6-2.3)
--- NOTE | 2023-04-13 07:35 | ED.SOB ---
HPI - SOB/Dyspnea General Chief Complaint: Shortness of Breath/Dyspnea Stated Complaint: shortness of breath/dizziness Time Seen by Provider: 04/13/23 07:00 Source: patient and family Limitations: no limitations History of Present Illness HPI Narrative: Patient is a 57-year-old male presents to the emergency department complaining of difficulty breathing and lightheadedness that started around 4:00 a.m. this morning when he woke up the patient has a history of this in the past noted that it was mild and does not know is causing it. Patient is to being a smoker. Patient admits to chronic cough with production of clear sputum and gets some slight discomfort in his chest when he coughs. Patient is to having influenza 1 month ago. Patient admits to chronic alcohol consumption regularly and history of elevated liver enzymes. Patient denies any history of heart disease or blood clots. Patient denies unilateral lower extremity swelling. Patient denies bloody bowel movements, urinary discomfort, abdominal pain, sore throat, nasal congestion, fever, new or change medications. Patient admits to taking potassium supplements at home regularly for chronically low potassium. Related Data Allergies Allergy/AdvReac Type Severity Reaction Status Date / Time No Known Allergies Allergy Verified 04/13/23 05:22 Review of Systems Review of Systems: A 10 system review of systems was completed on the patient and is negative except for what is stated in the HPI. Nursing and ancillary documentation was reviewed. [facility] Social History Social History (Updated 02/03/22 @ 09:26 by Lesly Jose MA) Smoking packs per day: 1.5 Smoking cigarettes per day: 30.0 Smoking status: Current every day smoker Tobacco type: cigarettes Alcohol intake: current Alcohol use details: Beer Rum Substance use: never Substance use type: does not use Lack of Transportation: YES Lack of Food: Never True Current Housing: I Have Housing Concerned About Future Housing: No Difficulty Paying Gas/Electric Bills: No Difficulty Paying for Meds: No Currently Unemployed: No Education: High School Diploma/GED Difficulty w/ Childcare or Family Care: No Living arrangements: alone Additional occupation/education comments: [employer] Gender identity (if verbalized by the patient): Male Spiritual care concerns: No Agree to blood products: Yes Comments At time of signature, I have reviewed and agree with nursing past medical, surgical, social and family history unless otherwise noted. Please see the nursing chart for further information. There is no relevant family history pertinent to the presenting complaint. Exam Narrative: CONST: No acute distress. Well nourished. HENMT: Head is normocephalic and atraumatic. Moist mucous membranes. No posterior oropharynx erythema. EYES: No conjunctival icterus, injection, or pallor. PERRL. NECK: No meningeal signs. RESP: Able to speak in full sentences. Normal respiratory effort. CTAB. CARDIO: Regular rate. Regular rhythm. 2+ DP and radial pulses bilaterally. GI: Nondistended. No tenderness to palpation. Soft. : No CVA tenderness to palpation. SKIN: No rashes or lesions noted on exposed skin. NEURO: Oriented x3. Moves all extremities. No focal neurological deficits. EXTREM/MSK/BACK: No pedal edema. PSYCH: Normal affect. Course Vital Signs Vital signs: Vital Signs Temperature 98.1 F 04/13/23 05:03 Pulse Rate 94 04/13/23 05:03 Respiratory Rate 20 04/13/23 05:03 Blood Pressure 151/88 H 04/13/23 05:03 Pulse Oximetry 100 04/13/23 05:03 Oxygen Delivery Room Air 04/13/23 05:03 Temperature 98.1 F 04/13/23 05:03 Pulse Rate 84 04/13/23 10:45 Respiratory Rate 16 04/13/23 10:45 Blood Pressure 148/92 H 04/13/23 10:45 Pulse Oximetry 98 04/13/23 10:45 Oxygen Delivery Room Air 04/13/23 05:20 MDM - SOB/Dyspnea MDM Narrat
[2023-04-13] MEDS: MAGNESIUM SULF 2 GM/WATER 50ML 2 GM/50 ML BAG IVPB (08:02)
[2023-04-13] MEDS: SODIUM CHLORIDE 0.9% IV 500 ML 999 ML IV CONT (08:02)
[2023-04-13] MEDS: THIAMINE HCL 200 MG/2 ML VIAL 100 MG IV PUSH (08:02)
[2023-04-13] MEDS: POTASSIUM CHLORIDE 20 MEQ PACKET (FOR LIQUID) 40 MEQ PO (08:03)
[2023-04-13] MEDS: NICOTINE (*PBKC) 21 MG PATCH 1 PATCH TRANSDERM (08:08)
[2023-04-13 08:10] VITALS: BP 190/94; PULSE 91; RESP 16; O2SAT 99
[2023-04-13 08:25] LABS: D Dimer 0.54 ug/mL (<0.48)
--- NOTE | 2023-04-13 08:32 | ECG_ITS ---
Measurements Intervals [place] Rate: 77 P: 65 AL: 143 QRS: 58 QRSD: 92 T: 51 QT: 394 QTc: 446 Interpretive Statements SINUS RHYTHM MODERATE ST DEPRESSION [0.05+ mV ST DEPRESSION] COMPARED TO ECG 04/13/2023 05:13:34 NO SIGNIFICANT CHANGES Electronically Signed On 04-13-2023 15:30:38 [employer] by Beny Bhat M.D.
[2023-04-13 08:35] LABS: Influenza A QL RT-PCR Negative (Negative); Influenza B QL RT-PCR Negative (Negative); SARS-CoV-2 RNA PCR Negative (Negative)
[2023-04-13 08:47] LABS: Troponin I 0.013 ng/mL (0.000-0.034)
[2023-04-13 08:53] LABS: NT Pro B Type Natriuretic Pept 27 pg/mL (19.9-100)
[2023-04-13 09:22] LABS: Troponin I < 0.012 ng/mL (0.000-0.034)
[2023-04-13 10:45] VITALS: BP 148/92; PULSE 84; RESP 16; O2SAT 98
== END 2023-04-13 11:11 | disposition home or self-care (01) ==
PROVIDERS: Emergency Medicine; Emergency Provider Student in an Organized Health Care Education/Training Program; PCP Family Medicine
DX: E87.6 Hypokalemia (principal); R06.00 Dyspnea, unspecified; R55 Syncope and collapse; R74.01 Elevation of levels of liver transaminase levels; F17.210 Nicotine dependence, cigarettes, uncomplicated; Z20.822 Contact with and (suspected) exposure to COVID-19
CPT/HCPCS: 36415; 71046; 80053; 83690; 83735; 83880; 84484; 85025; 85380; 85610; 85730; 87636; 93005; 96365; 96366; 96368; 96375; 99284; A9270; J3411; J3475; J3480; J7040

== ENCOUNTER 2023-04-18 13:30 | Outpatient (CLI) | payer OTHER, SELFPAY ==
[2023-04-18 21:14] LABS: Anion Gap 11 mmol/L (8-16); Blood Urea Nitrogen 9 mg/dL (9-20); Calcium 9.3 mg/dL (8.4-10.2); Carbon Dioxide 28 mmol/L (22-30); Chloride 96 mmol/L (98-107); Estimated Glomerular Filt Rate > 60; Glucose 101 mg/dL (65-110); Sodium 135 mmol/L (137-145)
== END 2023-04-18 13:31 | disposition home or self-care (01) ==
LOC: ANHBWCLAB 13:32
PROVIDERS: PCP Family Medicine; Visit Provider Family Medicine
DX: E87.6 Hypokalemia (principal); J44.9 Chronic obstructive pulmonary disease, unspecified; F41.9 Anxiety disorder, unspecified; I16.0 Hypertensive urgency; I95.9 Hypotension, unspecified; F10.10 Alcohol abuse, uncomplicated; N52.9 Male erectile dysfunction, unspecified; I10 Essential (primary) hypertension
CPT/HCPCS: 36415; 80048

== ENCOUNTER 2023-06-01 19:50 | Inpatient (IN) | payer OTHER, SELFPAY ==
--- NOTE | ~2023-06-01 | MR_ITS ---
EXAMINATION: MR brain/brain stem wo/w con DATE: 06/02/2023 15:11 INDICATION: Vertigo. TECHNIQUE: Magnetic resonance imaging (MRI) of the brain and brainstem was performed without and with 16 mL MultiHance intravenous contrast. COMPARISON: Head CT 06/01/2023 FINDINGS: There is an acute infarct in left lentiform nucleus. There are scattered areas of nonspecif ic increased T2-weighted signal intensity in the cerebral white matter, which is within normal limits for the patient's age. There is no intracranial hemorrhage or abnormal mass lesion. The ventricles a re normal in size. The paranasal sinuses are clear. The orbits are normal. There is a trace right mas toid effusion. IMPRESSION: 1. Acute infarct in the left basal ganglia. Reviewed, dictated and finalized at location A.
--- NOTE | ~2023-06-01 | CT_ITS ---
EXAMINATION: CT brain wo con DATE: 06/01/2023 21:03 INDICATION: dizzy . TECHNIQUE: Computed tomography (CT) of the head was performed without intravenous contrast. The mA wa s adjusted according to patient size. Iterative reconstruction technique was employed. The dose-lengt h product was 681.00 mGy-cm. COMPARISON: None. FINDINGS: No acute intracranial hemorrhage or extra-axial fluid collection. No hydrocephalus, mass, or herniation. No acute ischemic infarct. Unremarkable dural venous sinus attenuation. No acute osseous abnormality. The aerated spaces are clear. Mild atrophy and chronic white matter change. Atherosclerotic intracranial calcification. IMPRESSION: No acute intracranial process. Reviewed, dictated and finalized at location K.
--- NOTE | ~2023-06-01 | CT_ITS ---
EXAMINATION: CT cervical spine wo con DATE: 06/01/2023 21:03 INDICATION: chronic neck pain TECHNIQUE: Computed tomography (CT) of the cervical spine was performed without intravenous contrast. Automated exposure control and iterative reconstruction technique were employed. The dose-length pro duct was 681.00 mGy-cm. COMPARISON: None. FINDINGS: Vertebral Body Alignment: Intact. Craniocervical and atlantoaxial alignment: Moderate degenerative change. Alignment intact. Osseous structures/fracture: No evidence of a lytic or blastic process in the visualized spine. No e vidence of acute fracture. Cervical soft tissues: The paraspinal soft tissues planes are maintained. Biapical pleural scarring. Degenerative changes: Multilevel severe degenerative disc disease and facet arthropathy. Multilevel s evere bilateral neural foraminal narrowing. No severe central canal narrowing. IMPRESSION: No acute fracture or traumatic malalignment in the cervical spine. Reviewed, dictated and finalized at location K.
--- NOTE | ~2023-06-01 | MR_ITS ---
EXAMINATION: MR cervical spine wo/w con DATE: 06/02/2023 15:11 INDICATION: Neck pain. TECHNIQUE: Magnetic resonance imaging (MRI) of the cervical spine was performed without and with 16 m L MultiHance intravenous contrast. COMPARISON: CT cervical spine 06/01/2023 FINDINGS: There is 6 degrees levocurvature of cervicothoracic spine. There is 2 mm retrolisthesis of C5 on C6. Vertebral body heights are normal. There is mildly decreased disc height at C3-C4 and sever armida decreased disc height at C5-C6. The spinal cord signal intensity is normal. The following disc le vels are specifically discussed: C2-C3: There is a central extrusion. There is mild bilateral uncovertebral joint osteoarthritis. Ther e is severe bilateral facet joint osteoarthritis. There is mild bilateral neural foraminal stenosis. There is mild central canal stenosis. C3-C4: There is a central extrusion. There is severe bilateral uncovertebral joint osteoarthritis. Th ere is severe right and moderate left facet joint osteoarthritis. There is moderate bilateral neural foraminal stenosis. There is mild central canal stenosis. C4-C5: There is a central extrusion. There is mild bilateral uncovertebral joint osteoarthritis. Ther e is severe right and moderate left facet joint osteoarthritis. There is mild bilateral neural forami nal stenosis. There is mild central canal stenosis. C5-C6: The disc is bulging. There is severe bilateral uncovertebral joint osteoarthritis. There is mi ld bilateral facet joint osteoarthritis. There is moderate and severe left neural foraminal stenosis. There is mild central canal stenosis. C6-C7: There is a central extrusion. There is severe right and moderate left uncovertebral joint oste oarthritis. There is severe bilateral facet joint osteoarthritis. There is mild bilateral neural fora corby stenosis. There is mild central canal stenosis. C7-T1: The disc does not extend beyond the endplate margin. There is no uncovertebral joint osteoarth ritis. There is severe right and moderate left facet joint osteoarthritis. There is mild bilateral ne ural foraminal stenosis. There is no central canal stenosis. IMPRESSION: 1. Severe cervical spondylosis. Reviewed, dictated and finalized at location A.
--- NOTE | ~2023-06-01 | CT_ITS ---
EXAMINATION: CTA brain carotid DATE: 06/02/2023 17:39 INDICATION: acute infarct L basal ganglia TECHNIQUE: Computed tomographic angiography (CTA) of the head was performed without and with 100 mL O [id number] intravenous contrast. CTA of the neck was performed with intravenous contrast. Automated exposure control and iterative reconstruction technique were employed. The dose-length product was 1 871.39 mGy-cm. Maximum intensity projection and volume rendered 3D-reconstructions were created by mio technologist on a separate workstation. COMPARISON: MR brain, same date; CT brain 06/01/2023. FINDINGS: CT BRAIN: No acute large vessel infarct, intracranial hemorrhage, mass, or hydrocephalus. Known small left basa l ganglia acute infarct not confidently identified. CTA HEAD: No large vessel occlusion, aneurysm, high flow vascular malformation, nidus or extravasation. Patent cerebral veins. Symmetric parenchymal enhancement. CTA NECK: Aortic arch and proximal great vessels: Normal arch anatomy. Minimal arch calcification. Right common carotid, carotid bifurcation, and internal carotid artery: Mild calcified and noncalcifi ed plaque at the bifurcation and bulb.There is 0% stenosis of the proximal right internal carotid art sergio relative to normal distal artery lumen diameter (NASCET criteria). Left common carotid, carotid bifurcation, and internal carotid artery: Minimal calcified and noncalci fied plaque at the bifurcation.There is 0% stenosis of the proximal left internal carotid artery rela tive to normal distal artery lumen diameter (NASCET criteria). Vertebral arteries: No significant plaque or stenosis. Right vertebral artery is dominant. Other findings: Degenerative changes in the cervical spine. Mild emphysematous change. IMPRESSION: No acute intracranial process. The known small left basal ganglia infarct is not confidently identifi ed by CT at this time. No large vessel intracranial occlusion, high-grade intracranial stenosis, or aneurysm. No carotid or vertebral artery occlusion, dissection, or significant stenosis. Reviewed, dictated and finalized at location K. IMPRESSION: No acute intracranial process. The known small left basal ganglia infarct is no t confidently identified by CT at this time. No large vessel intracranial occlusion, high-grade intracranial stenosis, or an eurysm. No carotid or vertebral artery occlusion, dissection, or significant stenosis.
[2023-06-01 19:56] VITALS: BP 96/70; PULSE 74; RESP 15; TEMP 36.5; O2SAT 98
[2023-06-01 20:45] VITALS: BP 100/62; PULSE 77; RESP 15; O2SAT 98
--- NOTE | 2023-06-01 20:50 | ECG_ITS ---
Measurements Intervals [place] Rate: 80 P: 54 AR: 160 QRS: 74 QRSD: 97 T: 55 QT: 357 QTc: 412 Interpretive Statements SINUS RHYTHM BASELINE ARTIFACT- I, II, III, AVR, AVL, AVF, V1 NORMAL ECG COMPARED TO ECG 04/13/2023 08:36:06 NO SIGNIFICANT CHANGES Electronically Signed On 06-02-2023 6:24:26 CDT by Shaan Brody D.O.
[2023-06-01] MEDS: MECLIZINE HCL 25 MG TABLET 12.5 MG PO (21:09)
[2023-06-01] MEDS: SODIUM CHLORIDE 0.9% IV 1,000 ML 999 ML IV CONT (21:10)
[2023-06-01 21:19] LABS: Basophils Absolute Auto 0.1 K/mm3 (0.0-0.1); Basophils Percent Auto 0.6 % (0.2-1.2); Eosinophils Absolute Auto 0.1 K/mm3 (0-0.3); Eosinophils Percent Auto 1.6 % (0-4.4); Hemoglobin 14.1 g/dL (14.0-18.0); Immature Granulocyte Absolute 0.04 K/mm3 (0.00-0.031); Immature Granulocyte Percent A 0.5 % (0-0.5); Lymphocytes Absolute Auto 1.44 K/mm3 (0.9-3.2); Lymphocytes Percent Auto 18.7 % (18.3-44.2); Mean Corpuscular HGB Conc 37.1 g/dl (32-36); Mean Corpuscular Volume 96.9 fl (80-100); Mean Platelet Volume 11.8 fl (7.4-10.4); Monocytes Absolute Auto 0.9 K/mm3 (0.1-0.6); Monocytes Percent Auto 12.1 % (2.6-8.5); Neutrophils Absolute Auto 5.1 K/mm3 (1.3-6.7); Neutrophils Percent Auto 66.5 % (45.5-73.1); Platelet Count Result 218 k/mm3 (150-375); Red Blood Count 3.92 M/mm3 (4.6-6.20); Red Cell Distribution Width 12.1 % (11.5-14.5); White Blood Count 7.7 K/mm3 (4.5-10.0)
[2023-06-01 21:36] LABS: Lactic Acid Reflex 1.5 mmol/L (0.7-2.0)
[2023-06-01 21:37] LABS: Alanine Aminotransferase 58 U/L (6-50); Albumin Level 4.3 g/dL (3.5-5.1); Alkaline Phosphatase 70 U/L (38-126); Anion Gap 12 mmol/L (4-12); Aspartate Amino Transferase 53 U/L (17-59); Bilirubin,Total 1.1 mg/dL (0.2-1.3); Blood Urea Nitrogen 12 mg/dL (9-20); Calcium 9.7 mg/dL (8.4-10.2); Carbon Dioxide 24 mmol/L (22-30); Chloride 81 mmol/L (98-107); Estimated CRCL calculation 41 ml/min; Estimated Glomerular Filt Rate 42; Glucose 109 mg/dL (65-110); Magnesium 1.7 mg/dL (1.6-2.3); Potassium 3.6 mmol/L (3.4-5.0); Sodium 117 mmol/L (137-145)
--- NOTE | 2023-06-01 22:03 | ED.DIZZY ---
HPI - Dizziness General Chief Complaint: Dizziness Stated Complaint: dizziness Time Seen by Provider: 06/01/23 20:30 History of Present Illness HPI Narrative: Patient is a 57-year-old male who presents to the emergency department this evening complaining of dizziness. Patient states that this dizziness has been ongoing for the past month and it is precipitated by head movement. Patient states that any time he looks up or down wider left he gets dizzy and if he moves his head a lot he gets double vision. If he keeps his head still, patient denies any dizziness or any changes in vision. Patient denies any similar symptoms in the past and is currently denying any focal weakness, numbness and/or tingling. Patient also denies any nausea or vomiting, any fevers or chills and denies any additional symptoms at this time. There are no other modifying, alleviating, or precipitating factors. Related Data Allergies Allergy/AdvReac Type Severity Reaction Status Date / Time No Known Allergies Allergy Verified 06/01/23 20:03 Review of Systems Review of Systems: All systems are reviewed and are negative unless stated otherwise in the HPI. [facility] Social History Social History Smoking packs per day: 1.5 Smoking cigarettes per day: 30.0 Smoking status: Current every day smoker Tobacco type: cigarettes Alcohol intake: current Alcohol use details: Beer Rum Substance use: never Substance use type: does not use Lack of Transportation: YES Lack of Food: Never True Current Housing: I Have Housing Concerned About Future Housing: No Difficulty Paying Gas/Electric Bills: No Difficulty Paying for Meds: No Currently Unemployed: No Education: High School Diploma/GED Difficulty w/ Childcare or Family Care: No Living arrangements: alone Additional occupation/education comments: [employer] Gender identity (if verbalized by the patient): Male Spiritual care concerns: No Agree to blood products: Yes Exam Narrative: General: Alert, awake, afebrile, in no acute distress. HEENT: PERRL, no rhinorrhea, no post nasal drip, oropharynx clear, no nystagmus. Neck: Trachea midline, no JVD, no lymphadenopathy. Cardiovascular: Regular rate and rhythm, no murmurs, rubs or gallops, no peripheral edema. Respiratory: Clear to auscultation bilaterally, no tachypnea, no wheezing, no rhonchi, no rubs, no respiratory distress. Abdomen: Soft, nontender, nondistended, no rebound, no guarding, no peritoneal signs. Musculoskeletal: No joint swelling or deformity, normal muscle tone. Skin: No rashes or petechia, no signs of infection. Psychiatric: Alert and oriented, normal behavior and judgment for situation. Neurological: Alert and oriented to person, place, and time. Follows all commands. 5/5 motor strength in the bilateral upper and lower extremity, sensation intact in the bilateral upper and lower extremity, cranial nerves 2-12 grossly intact, speech is clear and fluent. Course Vital Signs Vital signs: Vital Signs Temperature 97.7 F 06/01/23 19:56 Pulse Rate 74 06/01/23 19:56 Respiratory Rate 15 06/01/23 19:56 Blood Pressure 96/70 L 06/01/23 19:56 Pulse Oximetry 98 06/01/23 19:56 Oxygen Delivery Room Air 06/01/23 19:56 Temperature 97.7 F 06/01/23 19:56 Pulse Rate 77 06/01/23 22:21 Respiratory Rate 15 06/01/23 22:21 Blood Pressure 102/66 06/01/23 22:21 Pulse Oximetry 100 06/01/23 22:21 Oxygen Delivery Room Air 06/01/23 19:56 MDM - Dizziness MDM Narrative Medical decision making narrative: The patient was evaluated by myself in the emergency department. History is obtained from patient who is an independent historian and physical exam was performed. External medical records were reviewed at this time. IV was established and pertinent tests were ordered. Patient was administered a 1 L IV fluid bolus
[2023-06-01 22:21] VITALS: BP 102/66; PULSE 77; RESP 15; O2SAT 100
[2023-06-01] MEDS: SODIUM CHLORIDE 0.9% IV 1,000 ML 100 ML IV CONT (22:47)
[2023-06-02] VITALS (10 sets, daily range): BP systolic 102–150; BP diastolic 71–80; PULSE 67–86; RESP 18–20; TEMP 36.2–36.6; O2SAT 97–99; BMI 26.9
[2023-06-02] LABS: Appearance Urine Clear (Clear); Color Urine Yellow (Yellow); Protein Urine Negative (Negative)
[2023-06-02 00:02] LABS: Bacteria Urine None Seen /hpf; Non Pathogenic Casts 0-2; RBC Urine 0-2 /hpf (0-2); Squamous Epithelial Cell Urine None Seen /hpf (Few); WBC Urine 0-5 /hpf (0-3)
[2023-06-02 00:03] LABS: Bilirubin Urine Negative (Negative); Blood Urine Negative (Negative); Glucose Urine UA Negative (Negative); Ketones Urine 1+ mg/dL (Negative); Leukocyte Esterase Ur Negative LEU/UL (Negative); Nitrate Urine Negative (Negative); Urobilinogen Urine 0.2 mg/dL (<2.0)
[2023-06-02 00:07] LABS: Add Urine Microscopic? YES
--- NOTE | 2023-06-02 01:13 | PC.NURSE ---
Critical Sodium level of 118 reported to this nurse by Moon Morin RN. Dr. Mckeon on floor during this time as patient being admitted to floor and aware of results. Started IVF orders as they were verified by pharmacy.
[2023-06-02 01:14] LABS: Anion Gap 7 mmol/L (4-12); Blood Urea Nitrogen 12 mg/dL (9-20); Calcium 9.1 mg/dL (8.4-10.2); Carbon Dioxide 23 mmol/L (22-30); Chloride 88 mmol/L (98-107); Estimated CRCL calculation 47 ml/min; Estimated Glomerular Filt Rate 48; Glucose 106 mg/dL (65-110); Potassium 3.9 mmol/L (3.4-5.0); Sodium 118 mmol/L (137-145)
[2023-06-02 01:20] LABS: Folic Acid 4.6 ng/mL (2.76->20)
--- NOTE | 2023-06-02 02:56 | PM.IMHP ---
H&P: HPI History of Present Illness Date/Time: 06/02/23 02:56 Chief Complaint: Dizziness Narrative: 57-year-old male with past medical history of alcoholism in recovery, BPH, essential hypertension, COPD, obstructive sleep apnea without use of CPAP, chronic back pain and GERD who presented to the ER with a month or 2 of dizziness that has worsened over the last couple of days. Patient reports the dizziness is accompanied by intermittent double vision and specially when he looks to the left. S symptoms can be worse when he looks up and down as well. He denies any recent head trauma, ear fullness, ear pain, upper respiratory symptoms fever or chills. He states that he has not drink any alcohol in 2-3 months. He had a CT of brain performed in the ER that was negative for any acute process. A CT of the neck was performed as the patient stated that he is having chronic neck pain and did not think that he would be able to participate in maneuvers to help relieve benign positional vertigo. CT of the neck did not demonstrate any acute process. The patient's electrolyte panel did demonstrate severe hyponatremia which is new compared to April. His sodium was 117. Patient received 1 L of IV fluid bolus and was placed on maintenance fluids with his sodium coming up to 118. The patient does admit to drinking 8-10 20 oz bottles of water a day. He reports frequent urination and routinely estate at 2-3 times a night to urinate. His abdomen is distended but he denies any known history of cirrhosis. He does have a prior ultrasound of the abdomen in 2021 that demonstrated hepatic steatosis. He reports he has been compliant with his medications. He denies any recent medication changes. However review of his external medication history suggest patient was recently was started on duloxetine on May 18 and recently restarted on losartan hydrochlorothiazide in April. Patient's creatinine in the ER was noted to be 1.7 up from baseline 0.9. Patient does have chronic urinary frequency and urgency. He does have a history of BPH and is on medications. He denies sensation of incomplete bladder emptying. Patient does have chronic pens and needles sensation is feet more so on the left foot. He reports that is unchanged from baseline. Review of Systems Review of Systems: 12 systems were reviewed with pertinent positives and negatives per HPI. Except as documented in the HPI, all other systems were reviewed and are negative. [facility] Past Medical History Medical History (Updated 06/02/23 @ 03:32 by Nerissa Mckeon DO) BPH (benign prostatic hyperplasia) Cervicalgia Severe degenerative disc disease and facet arthropathy multiple level severe bilateral neural foraminal narrowing no severe central canal narrowing changes noted on CT 06/01/2023 Erectile dysfunction Essential hypertension GERD (gastroesophageal reflux disease) Hepatic steatosis History of ETOH abuse Lumbago Mild degenerative spondylosis noted on MRI 03/2023 Obstructive sleep apnea Intolerant to CPAP Skin cancer of arm Surgical History Surgical History (Updated 06/02/23 @ 03:19 by Nerissa Mckeon DO) History of arthroscopic knee surgery History of arthroscopic procedure on shoulder Family History Family History (Updated 06/02/23 @ 03:20 by Nerissa Mckeon DO) Mother In good health Father , Age 70 Malignant neoplasm of prostate Social History Social History (Updated 06/02/23 @ 03:21 by Nerissa Mckeon DO) Social History: 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 He reports he is in the process of trying to apply for disability. He is living with his mother. He is . He used to drink at least 6 beers a day but quit doing so about 2 months ago. He continues to smoke 1-1.5 packs of cigarettes per day and has done so since his early 20s. He denies illicit substance use. Code st
[2023-06-02 05:47] LABS: Sodium 119 mmol/L (137-145)
--- NOTE | 2023-06-02 05:47 | PC.NURSE ---
Critical sodium level of 119 called from lab at this time. Reported to Dr. Mckeon and she had already seen the result and was continuing IV fluids and scheduled sodium draws were ordered.
[2023-06-02 06:03] LABS: Free T4 Free Thyroxine 1.62 ng/mL (0.78-2.19)
[2023-06-02] MEDS: FINASTERIDE 5 MG TABLET PO (08:36)
[2023-06-02] MEDS: NICOTINE (*PBKC) 21 MG PATCH 1 PATCH TRANSDERM (08:36)
[2023-06-02] MEDS: DULoxetine HCL 30 MG CAPSULE.DR PO (08:36)
[2023-06-02] MEDS: amLODIPine BESYLATE 5 MG TABLET 10 MG PO (08:36)
[2023-06-02] MEDS: POTASSIUM CHLORIDE 10 MEQ ER TABLET PO ×2 (08:36→17:42)
[2023-06-02] MEDS: TAMSULOSIN HCL 0.4 MG CAPSULE 0.8 MG PO (08:36)
[2023-06-02] MEDS: LOSARTAN POTASSIUM 100 MG TABLET PO (08:36)
[2023-06-02 09:06] LABS: Hematocrit 35.7 % (42.0-52.0); Hemoglobin 12.9 g/dL (14.0-18.0); Mean Corpuscular HGB Conc 36.1 g/dl (32-36); Mean Corpuscular Volume 99.7 fl (80-100); Mean Platelet Volume 11.7 fl (7.4-10.4); Platelet Count Result 183 k/mm3 (150-375); Red Blood Count 3.58 M/mm3 (4.6-6.20); Red Cell Distribution Width 12.1 % (11.5-14.5); White Blood Count 6.7 K/mm3 (4.5-10.0)
[2023-06-02 09:31] LABS: Anion Gap 5 mmol/L (4-12); Blood Urea Nitrogen 9 mg/dL (9-20); Calcium 9.2 mg/dL (8.4-10.2); Carbon Dioxide 24 mmol/L (22-30); Chloride 93 mmol/L (98-107); Estimated CRCL calculation 58 ml/min; Estimated Glomerular Filt Rate > 60; Glucose 90 mg/dL (65-110); Potassium 3.8 mmol/L (3.4-5.0); Sodium 122 mmol/L (137-145)
--- NOTE | 2023-06-02 13:07 | P.PNIM_ITS ---
Progress Note: A&P Assessment and Plan (1) Acute hyponatremia: Code(s): E87.1 - Hypo-osmolality and hyponatremia Status: Acute Assessment and Plan: The patient has acute hyponatremia. Cause could be multifactorial. Alcohol use less likely cause given patient's cessation of alcohol a couple of months ago. * Could be cirrhosis but no other symptoms suggestive of cirrhosis and patient's LFTs have improved compared to prior values. * Free water intake of approximately 10 20 oz bottles of water a day. * Patient's hyponatremia could also be due to medication effect given recent initiation of hydrochlorothiazide and duloxetine. * At this time patient's duloxetine and hydrochlorothiazide will be held. * Patient recieved 2L of IV fluid in ED. Labs improved. * Patient seems euvolemic thus will hold fluid at this time. * Encourage p.o. intake. (2) Acute kidney injury: Code(s): N17.9 - Acute kidney failure, unspecified Status: Acute Assessment and Plan: Patient does not have history of kidney disease. * Presented with a creatinine of 1.7. * Creatinine improved with IV fluids. * Likely due to dehydration from hydrochlorothiazide * Continue to trend. (3) Positional vertigo: Status: Acute Assessment and Plan: patient presented due to dizziness and diplopia worsened with changes of position. * IV fluids and meclizine improving patient's symptoms. * Patient refused this tubular therapy due to neck injury. * MRI of the brain and brainstem ordered * meclizine 12.5 q.i.d. (4) History of ETOH abuse: Code(s): F10.11 - Alcohol abuse, in remission Status: Acute Assessment and Plan: According to family patient/drink was 2-3 months ago. (5) Essential hypertension: Code(s): I10 - Essential (primary) hypertension Status: Acute Assessment and Plan: Hold hydrochlorothiazide. Continue amlodipine and carvedilol (6) Cervicalgia: Code(s): M54.2 - Cervicalgia Status: Acute Assessment and Plan: * Patient denies an injury to his neck. * He has had neck pain for months. * Will at cervical spine to MRI orders. * Analgesics as needed (7) Elevated TSH: Code(s): R79.89 - Other specified abnormal findings of blood chemistry Status: Acute Assessment and Plan: TSH 6.4, T4 1.6 Plan The patient received 1 L fluid bolus in the ER and maintenance fluids. Lavonne ent's sodium increased by 1. Will continue to check serial sodiums with the next check at 04:00. Depending on response will determine if patient has continued on IV fluids versus fluid restriction. Patient's creatinine did improve with IV fluid administration in the ER. Will continue patient's home losartan and monitor urine output. Will check postvoid residual to evaluate for possible urinary retention. Will continue the patient's home medications for BPH. Will hold the patient's home diclofenac given acute kidney injury. Will check urine electrolytes. Patient does have significant vertigo it seems she worsening. 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 Will obtain MRI of the brain and brainstem to rule out CVA. Patient does have mildly elevated TSH. Will check free T4 with repeat labs. Patient does have a history of alcohol abuse but is not currently drinking and alcohol and reportedly has not done so in a couple of months. B12 f
--- NOTE | 2023-06-02 13:07 | PM.IMPN ---
Progress Note: A&P Assessment and Plan (1) Acute hyponatremia: Code(s): E87.1 - Hypo-osmolality and hyponatremia Status: Acute Assessment and Plan: The patient has acute hyponatremia. Cause could be multifactorial. Alcohol use less likely cause given patient's cessation of alcohol a couple of months ago. Could be cirrhosis but no other symptoms suggestive of cirrhosis and patient's LFTs have improved compared to prior values. Free water intake of approximately 10 20 oz bottles of water a day. Patient's hyponatremia could also be due to medication effect given recent initiation of hydrochlorothiazide and duloxetine. At this time patient's duloxetine and hydrochlorothiazide will be held. Patient recieved 2L of IV fluid in ED. Labs improved. Patient seems euvolemic thus will hold fluid at this time. Encourage p.o. intake. (2) Acute kidney injury: Code(s): N17.9 - Acute kidney failure, unspecified Status: Acute Assessment and Plan: Patient does not have history of kidney disease. Presented with a creatinine of 1.7. Creatinine improved with IV fluids. Likely due to dehydration from hydrochlorothiazide Continue to trend. (3) Positional vertigo: Status: Acute Assessment and Plan: patient presented due to dizziness and diplopia worsened with changes of position. IV fluids and meclizine improving patient's symptoms. Patient refused this tubular therapy due to neck injury. MRI of the brain and brainstem ordered meclizine 12.5 q.i.d. (4) History of ETOH abuse: Code(s): F10.11 - Alcohol abuse, in remission Status: Acute Assessment and Plan: According to family patient/drink was 2-3 months ago. (5) Essential hypertension: Code(s): I10 - Essential (primary) hypertension Status: Acute Assessment and Plan: Hold hydrochlorothiazide. Continue amlodipine and carvedilol (6) Cervicalgia: Code(s): M54.2 - Cervicalgia Status: Acute Assessment and Plan: Patient denies an injury to his neck. He has had neck pain for months. Will at cervical spine to MRI orders. Analgesics as needed (7) Elevated TSH: Code(s): R79.89 - Other specified abnormal findings of blood chemistry Status: Acute Assessment and Plan: TSH 6.4, T4 1.6 Plan The patient received 1 L fluid bolus in the ER and maintenance fluids. Patient's sodium increased by 1. Will continue to check serial sodiums with the next check at 04:00. Depending on response will determine if patient has continued on IV fluids versus fluid restriction. Patient's creatinine did improve with IV fluid administration in the ER. Will continue patient's home losartan and monitor urine output. Will check postvoid residual to evaluate for possible urinary retention. Will continue the patient's home medications for BPH. Will hold the patient's home diclofenac given acute kidney injury. Will check urine electrolytes. Patient does have significant vertigo it seems she worsening. 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 Will obtain MRI of the brain and brainstem to rule out CVA. Patient does have mildly elevated TSH. Will check free T4 with repeat labs. Patient does have a history of alcohol abuse but is not currently drinking and alcohol and reportedly has not done so in a couple of months. B12 folate levels were within normal limits. Patient does have chronic neck pain CT did not demonstrate acute process. Patient has requesting an MRI of his neck at this time. Again do not feel that an MRI would change our acute management of the patient in this setting a.m. will defer this as an outpatient evaluation. Patient has been admitted as observation status. Subjective Date/time seen: 06/02/23 13:08 Interval history:
[2023-06-02 14:13] LABS: Sodium 121 mmol/L (137-145)
[2023-06-02] MEDS: MECLIZINE HCL 12.5 MG TABLET PO ×2 (17:42→20:20)
--- NOTE | 2023-06-02 18:22 | PC.NURSE ---
On 06/02/23, the JOINT CLEANING MACHINE OPERATOR, Radha Watts], provided care and completed [facility] documentation on this patient. I have reviewed the JOINT CLEANING MACHINE OPERATOR's documentation and agree with the findings.
[2023-06-02] MEDS: carvediloL 12.5 MG TABLET PO (20:20)
[2023-06-02] MEDS: ACETAMINOPHEN 325 MG TABLET 650 MG PO (20:20)
[2023-06-02 21:20] LABS: Creatinine Urine 18.8 mg/dL
[2023-06-03] VITALS (9 sets, daily range): BP systolic 95–114; BP diastolic 63–74; PULSE 55–84; RESP 16–20; TEMP 35.6–36.4; O2SAT 97–99
--- NOTE | 2023-06-03 | ECHO_ITS ---
Patient Info Name: Taran Griffin Age: 57 years : 1965 Gender: Male Ht: 68 in Wt: 176 lbs BSA: 1.97 m2 HR: 72 bpm BP: 114 / 72 mmHg Heart Rhythm: Sinus Rhythm Technical Quality: Fair Exam Date: 06/03/2023 2:00 PM Exam Location: Echo Lab Patient Status: Inpatient Admit Date: 06/03/2023 Staff Ordering Physician: Ria Back PA-C Ad Taker: Matilde Silva RDCS Attending Provider: Nerissa Mckeon DO Referring Physician: Wong CERVANTES; Exam Type: CA echo dop bubble study w con Study Info Indications - CVA Complete two-dimentional, color flow and Doppler transthoracic echocardiogram is performed with agitated saline and with contrast to opacify the left ventricle and to improve the delineation of the left ventricle endocardial borders. Contrast/Agitated Saline Contrast/Ag. Saline: Definity Amount: 3.00 ml Administered By: Matilde Silva RDCS Existing IV Access: Yes IV Access Condition: patent with no signs of infiltration Contrast/Ag. Saline: Agitated Saline Amount: 20.00 ml Existing IV Access: Yes IV Access Condition: patent with no signs of infiltration Summary 1. Definity contrast administered improved wall motion interpretation. 2. Left ventricular chamber dimension is normal. 3. Left ventricular systolic function is normal, estimated at 60-65%. 4. The left ventricular diastolic function is grade I diastolic dysfunction. 5. E/e' 9 is minimally elevated. 6. No pulmonary hypertension, estimated pulmonary arterial systolic pressure is 22 mmHg. Left Ventricle E/e' 9 is minimally elevated. Definity contrast administered improved wall motion interpretation. Left ventricular chamber dimension is normal. Left ventricular systolic function is normal, estimated at 60-65%. The left ventricular diastolic function is grade I diastolic dysfunction. Right Ventricle Right ventricular systolic function is normal and with normal TAPSE 2.3 cm. Right ventricular chamber dimension is normal. Left Atria Left atrial chamber dimension is normal. Right Atria Right atrial chamber dimension is normal. Atrial Septum Agitated saline injection with and without valsalva maneuver opacified right side cardiac chambers without shunt to left side cardiac chambers. Intact interatrial septum visualized by 2D and agitated saline imaging. Aortic Valve The aortic valve is trileaflet. There is no aortic valve stenosis. There is no aortic valve regurgitation. Pulmonic Valve There is no pulmonic regurgitation. Mitral Valve There is no mitral valve stenosis. There is no mitral valve regurgitation. Tricuspid Valve There is no tricuspid valve regurgitation. No pulmonary hypertension, estimated pulmonary arterial systolic pressure is 22 mmHg. Pericardium/Pleural There is no pericardial effusion. Inferior Vena Cava Normal inferior vena cava with >50% collapse upon inspiration consistent with normal right atrial pressure, 5 mmHg. Aorta The aortic root size at the sinus of Valsalva is normal. Left Ventricular Outflow Tract Name Value Normal LVOT 2D LVOT Diameter 2.0 cm LVOT Doppler LVOT Peak Gradi
[2023-06-03 07:00] LABS: Hematocrit 37.4 % (42.0-52.0); Hemoglobin 12.9 g/dL (14.0-18.0); Mean Corpuscular HGB Conc 34.5 g/dl (32-36); Mean Corpuscular Hemoglobin 35.3 pg (26-34); Mean Corpuscular Volume 102.5 fl (80-100); Mean Platelet Volume 12.5 fl (7.4-10.4); Platelet Count Result 184 k/mm3 (150-375); Red Blood Count 3.65 M/mm3 (4.6-6.20); White Blood Count 6.1 K/mm3 (4.5-10.0)
[2023-06-03 07:12] LABS: Anion Gap 6 mmol/L (4-12); Blood Urea Nitrogen 6 mg/dL (9-20); Calcium 9.7 mg/dL (8.4-10.2); Carbon Dioxide 24 mmol/L (22-30); Chloride 93 mmol/L (98-107); Cholesterol 166 mg/dL (0-200); Estimated CRCL calculation 69 ml/min; Estimated Glomerular Filt Rate > 60; Glucose 82 mg/dL (65-110); HDL Direct 28 mg/dL; Potassium 3.7 mmol/L (3.4-5.0); Sodium 123 mmol/L (137-145); Triglycerides 85 mg/dL (<150)
[2023-06-03 07:23] LABS: LDL Cholesterol Direct 119 mg/dL
[2023-06-03 07:53] LABS: Hemoglobin A1C 5.2 % (<5.7)
[2023-06-03] MEDS: LOSARTAN POTASSIUM 100 MG TABLET PO (08:30)
[2023-06-03] MEDS: POTASSIUM CHLORIDE 10 MEQ ER TABLET PO ×2 (08:30→17:34)
[2023-06-03] MEDS: DULoxetine HCL 30 MG CAPSULE.DR PO (08:30)
[2023-06-03] MEDS: ASPIRIN 81 MG ENTERIC TABLET PO (08:30)
[2023-06-03] MEDS: CLOPIDOGREL BISULFATE 75 MG TABLET PO (08:30)
[2023-06-03] MEDS: FINASTERIDE 5 MG TABLET PO (08:30)
[2023-06-03] MEDS: amLODIPine BESYLATE 5 MG TABLET 10 MG PO (08:30)
[2023-06-03] MEDS: carvediloL 12.5 MG TABLET PO ×2 (08:30→21:21)
[2023-06-03] MEDS: TAMSULOSIN HCL 0.4 MG CAPSULE 0.8 MG PO (08:30)
[2023-06-03] MEDS: MECLIZINE HCL 12.5 MG TABLET PO ×4 (08:30→21:21)
[2023-06-03] MEDS: ATORVASTATIN 40 MG TABLET PO (08:30)
[2023-06-03] MEDS: NICOTINE (*PBKC) 21 MG PATCH 1 PATCH TRANSDERM (08:34)
--- NOTE | 2023-06-03 11:38 | WPDNEURCNPN ---
Assessment and Plan Assessment and plan (1) Cervicalgia: Code(s): M54.2 - Cervicalgia Status: Acute (2) Essential hypertension: Code(s): I10 - Essential (primary) hypertension Status: Acute (3) BPH (benign prostatic hyperplasia): Qualifiers: Lower urinary tract symptom presence: symptoms present Lower urinary tract symptom detail: urinary frequency Qualified Code(s): N40.1 - Benign prostatic hyperplasia with lower urinary tract symptoms; R35.0 - Frequency of micturition Code(s): N40.0 - Benign prostatic hyperplasia without lower urinary tract symptoms Status: Acute (4) Elevated TSH: Code(s): R79.89 - Other specified abnormal findings of blood chemistry Status: Acute (5) History of ETOH abuse: Code(s): F10.11 - Alcohol abuse, in remission Status: Acute (6) Acute hyponatremia: Code(s): E87.1 - Hypo-osmolality and hyponatremia Status: Acute Assessment and Plan: Serum sodium was 117 and is being treated by the Nephrology and hospitalist service. I suspect these may be due to compulsive water drinking sees since this he has a dry mouth and does not want to eat and take a lot of water. Start which can also lead to ketonuria and slight high creatinine particularly since he has a being was normal. However I shall leave this up to the Nephrology Services. (7) Acute kidney injury: Code(s): N17.9 - Acute kidney failure, unspecified Status: Acute (8) Positional vertigo: Status: Acute (9) EtOH dependence: Code(s): F10.20 - Alcohol dependence, uncomplicated Status: Acute (10) Elevated liver enzymes: Code(s): R74.8 - Abnormal levels of other serum enzymes Status: Acute (11) Left sided lacunar stroke: Code(s): I63.81 - Other cerebral infarction due to occlusion or stenosis of small artery Status: Acute Assessment and Plan: most likely associated with heavy smoking and hypertension the this may not be the cause for the dizziness which is most likely from hyponatremia. Plan The CT angiogram head and neck was within normal range. He be given advice regarding risk factor management. The more important issues of course the hyponatremia is the severe and the meds further continued attention by the Nephrology Services. History is he was slightly high. He should be treated with the antiplatelets and statins shall evaluate this further. Consult date: 06/03/23 Time Seen: 11:38 Reason for consult: the patient is 57 years old right-handed white male seen for initial neurological evaluation. He started having vertigo for 2 months. Symptoms developed gradually. His brought to the hospital was found to have a low serum sodium of 117. Patient admits to having dryness of the mouth due to having some procedure done on his salivary glands. He also does not have desire to eat very much. He drinks a lot a water on account of the drive feeling in the mouth. He also has been drinking alcohol in the past heavily but he states that for last 2 months he has not been drinking. The dizziness is described as sense of rotation but no nausea or vomiting. It was also noted that he has a acute infarct in the left basal ganglia on MRI of the brain which was done mainly to look into possible causes for vertigo. CT angiogram head and neck did not show any significant large vessel disease. He also smokes less than 1 biopsy today. There is no family history of stroke. The patient lives with his mother. He is single. No prior history of stroke. He does have history of hypertension. No history of diabetes mellitus. No history of psychiatric problems. Nephrology is also looking into his a hyponatremia. It was noted that his creatinine is also 1.7. TSH was slightly high at 6.5. HPI: Taran Griffin is a 57 year old male Review of Systems Review of Systems: All systems reviewed & are unremarkable exce
--- NOTE | 2023-06-03 13:27 | P.PNIM_ITS ---
Progress Note: A&P Assessment and Plan (1) Left sided lacunar stroke: Code(s): I63.81 - Other cerebral infarction due to occlusion or stenosis of small artery Status: Acute Assessment and Plan: MRI of brain and brainstem showing acute infarct in the left basal ganglia.? - Patient had an LDL of 119 - will start him on Lipitor 40 mg daily - repeat lipid panel - order A1c 5.2 - patient started on 81 mg aspirin and 75 mg Plavix - neurology consulted - PT and OT ordered and cleared patient - ECHO ordered. - check Vasc score - NIHSS 0 (2) Acute hyponatremia: Code(s): E87.1 - Hypo-osmolality and hyponatremia Status: Acute Assessment and Plan: The patient has acute hyponatremia. Cause could be multifactorial. Alcohol use less likely cause given patient's cessation of alcohol a couple of months ago. * Could be cirrhosis but no other symptoms suggestive of cirrhosis and patient's LFTs have improved compared to prior values. * Free water intake of approximately 10 20 oz bottles of water a day. * Patient's hyponatremia could also be due to medication effect given recent initiation of hydrochlorothiazide and duloxetine. * At this time patient's duloxetine and hydrochlorothiazide will be held. * Patient received 2L of IV fluid in ED. Labs improved. * Patient seems euvolemic thus will hold fluid at this time. * Encourage p.o. intake. * Today sodium 123 (3) Acute kidney injury: Code(s): N17.9 - Acute kidney failure, unspecified Status: Acute Assessment and Plan: Patient does not have history of kidney disease. * Presented with a creatinine of 1.7. * Creatinine improved with IV fluids. * Likely due to dehydration from hydrochlorothiazide * Continue to trend. Resolved. (4) Positional vertigo: Status: Acute Assessment and Plan: patient presented due to dizziness and diplopia worsened with changes of position. * IV fluids and meclizine improving patient's symptoms. * Patient refused this tubular therapy due to neck injury. * MRI of the brain and brainstem Revealed a acute infarct in the left basal ganglia * meclizine 12.5 q.i.d. (5) History of ETOH abuse: Code(s): F10.11 - Alcohol abuse, in remission Status: Acute Assessment and Plan: According to family patient/drink was 2-3 months ago. (6) Essential hypertension: Code(s): I10 - Essential (primary) hypertension Status: Acute Assessment and Plan: Hold hydrochlorothiazide. Continue amlodipine and carvedilol (7) Cervicalgia: Code(s): M54.2 - Cervicalgia Status: Acute Assessment and Plan: * Patient denies an injury to his neck. * He has had neck pain for months. * Will at cervical spine to MRI orders. * Analgesics as needed (8) Elevated TSH: Code(s): R79.89 - Other specified abnormal findings of blood chemistry Status: Acute Assessment and Plan: TSH 6.4, T4 1.6 Subjective Date/time seen: 06/03/23 13:27 Interval history: Patient feeling well today. He states that dizziness improved. His sodium is still very low. 1 more day in the hospital can hopefully help improve sodium some more. Patient was found to have an acute CVA. Home neurology consulted on his case. Exam Narrative: GENERAL: Comfortable, no acute d
--- NOTE | 2023-06-03 13:27 | PM.IMPN ---
Progress Note: A&P Assessment and Plan (1) Left sided lacunar stroke: Code(s): I63.81 - Other cerebral infarction due to occlusion or stenosis of small artery Status: Acute Assessment and Plan: MRI of brain and brainstem showing acute infarct in the left basal ganglia.? - Patient had an LDL of 119 - will start him on Lipitor 40 mg daily - repeat lipid panel - order A1c 5.2 - patient started on 81 mg aspirin and 75 mg Plavix - neurology consulted - PT and OT ordered and cleared patient - ECHO ordered. - check Vasc score - NIHSS 0 (2) Acute hyponatremia: Code(s): E87.1 - Hypo-osmolality and hyponatremia Status: Acute Assessment and Plan: The patient has acute hyponatremia. Cause could be multifactorial. Alcohol use less likely cause given patient's cessation of alcohol a couple of months ago. Could be cirrhosis but no other symptoms suggestive of cirrhosis and patient's LFTs have improved compared to prior values. Free water intake of approximately 10 20 oz bottles of water a day. Patient's hyponatremia could also be due to medication effect given recent initiation of hydrochlorothiazide and duloxetine. At this time patient's duloxetine and hydrochlorothiazide will be held. Patient received 2L of IV fluid in ED. Labs improved. Patient seems euvolemic thus will hold fluid at this time. Encourage p.o. intake. Today sodium 123 (3) Acute kidney injury: Code(s): N17.9 - Acute kidney failure, unspecified Status: Acute Assessment and Plan: Patient does not have history of kidney disease. Presented with a creatinine of 1.7. Creatinine improved with IV fluids. Likely due to dehydration from hydrochlorothiazide Continue to trend. Resolved. (4) Positional vertigo: Status: Acute Assessment and Plan: patient presented due to dizziness and diplopia worsened with changes of position. IV fluids and meclizine improving patient's symptoms. Patient refused this tubular therapy due to neck injury. MRI of the brain and brainstem Revealed a acute infarct in the left basal ganglia meclizine 12.5 q.i.d. (5) History of ETOH abuse: Code(s): F10.11 - Alcohol abuse, in remission Status: Acute Assessment and Plan: According to family patient/drink was 2-3 months ago. (6) Essential hypertension: Code(s): I10 - Essential (primary) hypertension Status: Acute Assessment and Plan: Hold hydrochlorothiazide. Continue amlodipine and carvedilol (7) Cervicalgia: Code(s): M54.2 - Cervicalgia Status: Acute Assessment and Plan: Patient denies an injury to his neck. He has had neck pain for months. Will at cervical spine to MRI orders. Analgesics as needed (8) Elevated TSH: Code(s): R79.89 - Other specified abnormal findings of blood chemistry Status: Acute Assessment and Plan: TSH 6.4, T4 1.6 Subjective Date/time seen: 06/03/23 13:27 Interval history: Patient feeling well today. He states that dizziness improved. His sodium is still very low. 1 more day in the hospital can hopefully help improve sodium some more. Patient was found to have an acute CVA. Home neurology consulted on his case. Exam Narrative: GENERAL: Comfortable, no acute distress HENMT: moist mucous membranes EYES: EOM intact b/l NECK: no lymphadenopathy RESPIRATORY: clear to auscultation, no increased respiratory effort CARDIO: Regular rate and rhythm GI: soft, nontender, bowel sounds present SKIN/EXTREMITIES: no rashes, no edema, no redness or tenderness NEURO: PROM intact, answers questions appropriately, A&O x4 Objective Data Vital Signs Vital Signs: Vital Signs - 24 hr 06/02/23 14:00 06/02/23 16:00 06/02/23 20:00 Temperature 97.6 F Pulse Rate 80 86 82 Respiratory Rate 20 18 Blood Pressu
[2023-06-03] MEDS: PERFLUTREN LIPID MICROSPHERES 1.5 ML VIAL DILUTED TO 10 ML TOTAL VOLUME IV PUSH (14:40)
--- NOTE | 2023-06-03 15:07 | IVDEFINITY ---
Prior to administration of IV Definity the patient was educated on the risks and benefits of the imaging enhancing agent including potential adverse side effects. The patient verbalized understanding. Allergies were verified. No exclusion criteria were identified and at least one of the following inclusion criteria were met: 1) physician request, 2) patient technically difficult to image (per the [place] [employer] guidelines of two or more segments not discernable within the apical view), or 3) questionable left ventricular function. ?
[2023-06-04] VITALS: PULSE 67
[2023-06-04 04:00] VITALS: PULSE 68
[2023-06-04 05:15] VITALS: BP 136/82; PULSE 66; RESP 18; TEMP 36.4; O2SAT 99
[2023-06-04 07:06] LABS: Hematocrit 38.2 % (42.0-52.0); Hemoglobin 13.1 g/dL (14.0-18.0); Mean Corpuscular HGB Conc 34.3 g/dl (32-36); Mean Corpuscular Hemoglobin 35.3 pg (26-34); Mean Platelet Volume 12.3 fl (7.4-10.4); Platelet Count Result 174 k/mm3 (150-375); Red Blood Count 3.71 M/mm3 (4.6-6.20); Red Cell Distribution Width 11.9 % (11.5-14.5); White Blood Count 6.4 K/mm3 (4.5-10.0)
[2023-06-04 07:15] LABS: Anion Gap 8 mmol/L (4-12); Blood Urea Nitrogen 8 mg/dL (9-20); Carbon Dioxide 23 mmol/L (22-30); Chloride 95 mmol/L (98-107); Estimated CRCL calculation 63 ml/min; Estimated Glomerular Filt Rate > 60; Glucose 94 mg/dL (65-110); Sodium 126 mmol/L (137-145)
[2023-06-04 08:00] VITALS: PULSE 78
[2023-06-04] MEDS: FINASTERIDE 5 MG TABLET PO (08:33)
[2023-06-04] MEDS: CLOPIDOGREL BISULFATE 75 MG TABLET PO (08:33)
[2023-06-04] MEDS: DULoxetine HCL 30 MG CAPSULE.DR PO (08:33)
[2023-06-04] MEDS: amLODIPine BESYLATE 5 MG TABLET 10 MG PO (08:33)
[2023-06-04] MEDS: TAMSULOSIN HCL 0.4 MG CAPSULE 0.8 MG PO (08:33)
[2023-06-04 08:34] VITALS: PULSE 67
[2023-06-04] MEDS: POTASSIUM CHLORIDE 10 MEQ ER TABLET PO (08:34)
[2023-06-04] MEDS: ASPIRIN 81 MG ENTERIC TABLET PO (08:34)
[2023-06-04] MEDS: LOSARTAN POTASSIUM 100 MG TABLET PO (08:34)
[2023-06-04] MEDS: ATORVASTATIN 40 MG TABLET PO (08:34)
[2023-06-04] MEDS: carvediloL 12.5 MG TABLET PO (08:34)
[2023-06-04] MEDS: MECLIZINE HCL 12.5 MG TABLET PO (08:34)
[2023-06-04] MEDS: NICOTINE (*PBKC) 21 MG PATCH 1 PATCH TRANSDERM (08:41)
[2023-06-04 10:39] VITALS: O2SAT 98
--- NOTE | 2023-06-04 11:28 | WPDNEUROPN ---
Progress Note: A&P Assessment and Plan (1) Left sided lacunar stroke: Code(s): I63.81 - Other cerebral infarction due to occlusion or stenosis of small artery Status: Acute (2) Essential hypertension: Code(s): I10 - Essential (primary) hypertension Status: Acute (3) Hyperlipidemia: Code(s): E78.5 - Hyperlipidemia, unspecified Status: Acute Plan Mr. Griffin is a 57 year old male with a history of alcoholism, HTN, COPD, FRANCK presenting for evaluation of dizziness. He was found to have hyponatremia with sodium of 117. MRI brain was done for evaluation of central cause which showed acute left basal ganglia stroke. CTA brain/carotid was negative. LDL is 119. He is a chronic smoker. He has several risk factors for stroke. Etiology of stroke is likely small vessel stroke (lacunar). This stroke is also an incidental finding, unrelated to symptoms of dizziness (which is likely related to hyponatremia). - Aspirin 81mg daily - Plavix 75mg daily for 3 weeks only - Agree with Lipitor 40mg - Patient has multiple uncontrolled risk factors for stroke. However, given his 'younger' age I would like for him to get a 30 day event monitor prior to discharge Subjective Date/time seen: 06/04/23 11:28 Interval history: Mr. Griffin is a 57 year old male with a history of alcoholism, HTN, COPD, FRANCK presenting for evaluation of dizziness. He was found to have hyponatremia with sodium of 117. MRI brain was done for evaluation of central cause which showed acute left basal ganglia stroke. CTA brain/carotid was negative. LDL is 119. HgbA1c is 5.2. Surface echocardiogram with bubble study was negative for shunt. Patient does not appear to have any symptoms related to the stroke. He was not previously taking any blood thinners. He has been started on aspirin, Plavix, and Lipitor 40mg daily. Blood pressure during this admission has been fairly normal, with the highest being 150 systolic. I do see a documented BP from an admission in April that was as high as 215 systolic. Patient is a chronic smoker. Review of Systems Review of Systems: All systems reviewed & are unremarkable except as noted in HPI and below Exam Const: General: comfortable and no acute distress HENMT: Mouth: Yes moist mucous membranes Eyes: Pupils: Equal, round and reactive pupils present EOM: EOMs intact bilaterally Resp: Effort & Inspection: normal respiratory effort Skin: General skin exam: normal color Neuro: Other: Pupils equal and reactive bilaterally, EOMI, face symmetric, facial sensation intact, tongue protrudes midline. Strength 5/5 throughout. Sensation intact throughout, FNF normal bilaterally. Language comprehension and fluency intact. Gait deferred. Extrem: General: normal to inspection Psych: Mental Status: mental status grossly normal Objective Data Vital Signs Vital Signs: Vital Signs - 24 hr 06/03/23 14:00 06/03/23 12:00 06/03/23 21:21 Temperature 35.6 C L Pulse Rate 84 71 74 Respiratory Rate 16 Blood Pressure 95/63 L Pulse Oximetry 97 Oxygen Delivery 06/03/23 21:56 06/03/23 20:00 06/03/23 20:00 Temperature 36.1 C L Pulse Rate 74 71 Respiratory Rate 18 Blood Pressure 107/66 Pulse Oximetry 99 Oxygen Delivery Room Air 06/04/23 00:00 06/04/23 04:00 06/04/23 05:15 Temperature 36.4 C Pulse Rate 67 68 66 Respiratory Rate 18 Blood Pressure 136/82 Pulse Oximetry 99 Oxygen Delivery 06/04/23 08:34 06/04/23 10:39 Temperature Pulse Rate 67 Respiratory Rate Blood Pressure Pulse Oximetry 98 Oxygen Delivery Room Air Intake/Output Intake/Output: Intake & Output 06/01/23 06/02/23 06/03/23 06/04/23 23:59 23:59 23:59 23:59 Intake Total 1000 1720 1820 1300 Balance 1000 1720 1820 1300 Meds/Results Medications: Active Medications Generic Name Dose Route Start Last Admin Trade Name Freq PRN Reason Stop Dose Admin Acetaminophen 650 m
--- NOTE | 2023-06-04 12:05 | PM.DS ---
DS: Admitting Diagnosis Discharge Date 06/04/23 Admitting Diagnosis dizziness DS: Discharge Diagnosis Discharge Diagnosis (1) Left sided lacunar stroke: Code(s): I63.81 - Other cerebral infarction due to occlusion or stenosis of small artery Status: Acute (2) Acute hyponatremia: Code(s): E87.1 - Hypo-osmolality and hyponatremia Status: Acute (3) Acute kidney injury: Code(s): N17.9 - Acute kidney failure, unspecified Status: Acute (4) Positional vertigo: Status: Acute (5) History of ETOH abuse: Code(s): F10.11 - Alcohol abuse, in remission Status: Acute (6) Essential hypertension: Code(s): I10 - Essential (primary) hypertension Status: Acute (7) Cervicalgia: Code(s): M54.2 - Cervicalgia Status: Acute (8) Elevated TSH: Code(s): R79.89 - Other specified abnormal findings of blood chemistry Status: Acute DS: Summary Hospital Course Hospital Course: this is a 57-year-old male with a past medical history of alcoholism, BPH, hypertension, COPD, obstructive sleep apnea without use of CPAP, chronic back pain GERD presents to the ED due to a month or 2 of dizziness that had worsened the past couple days. Patient did not have any recent trauma, upper respiratory symptoms, fever or chills. CT of the neck was performed as the patient stated that he is having chronic neck pain and did not think that he would be able to participate in maneuvers to help relieve benign positional vertigo.? CT of the neck did not demonstrate any acute process. He was found to have severe hyponatremia with a sodium of 117. 1 L bolus improved patient's sodium to 118. He received an additional bag of fluids and sodium improved to low 120s. IV fluids were discontinued and patient continued p.o. intake without fluid restriction and sodium slowly corrected over the next couple days. His hydrochlorothiazide was held. He was also found have an elevated creatinine of 1.7. This improved with fluids as well. Patient had MRI done due to dizziness. MRI of brain and brainstem showing acute infarct in the left basal ganglia. Lipid panel showed an LDL of 119 patient was started on Lipitor. Patient started on 81 mg aspirin and 75 mg Plavix. Echocardiogram did not show any acute concerning findings. Patient's NIHSS score was 0. Neurology consulted. Neurology recommending a 30 day event monitor at discharge. His labs and vital signs are stable and he is medically clear for discharge at this time. Repeat labs in 1 week. Time Spent with Patient Time attestation: Total time spent providing and/or coordinating discharge services: Exam Narrative: GENERAL: Comfortable, no acute distress HENMT: moist mucous membranes EYES: EOM intact b/l NECK: no lymphadenopathy RESPIRATORY: clear to auscultation, no increased respiratory effort CARDIO: Regular rate and rhythm GI: soft, nontender, bowel sounds present SKIN/EXTREMITIES: no rashes, no edema, no redness or tenderness NEURO: PROM intact, answers questions appropriately, A&O x4 DS: Data Data Completed and Pending Labs on day of discharge: Labs from last 24 hours 06/04/23 06:41 WBC 6.4 RBC 3.71 L Hgb 13.1 L Hct 38.2 L MCV 103.0 H MCH 35.3 H MCHC 34.3 RDW 11.9 Plt Count 174 MPV 12.3 H Sodium 126 L Potassium 4.0 Chloride 95 L Carbon Dioxide 23 Anion Gap 8 BUN 8 L Creatinine 1.10 Estim Creat Clear Calc 63 Estimated GFR > 60 Glucose 94 Calcium 10.0 Discharge Plan Discharge Attending physician on discharge: aMrtha Torre Consulting providers: Shameka Sorto Discharging Clinician: Ria Back Patient Disposition: Home, Self-Care Activity: as tolerated Diet: heart healthy Discharge Instructions: Medications: Plavix daily for 3 weeks. Aspirin 81 mg daily. Atorvastatin 40 mg daily. Meclizine as needed for dizziness Repeat labs in 1 week. 3
[2023-06-05 19:47] LABS: Osmolality, Urine 157 mOsm/kg (50-1200)
== END 2023-06-04 12:50 | disposition home or self-care (01) | DRG 426 ==
LOC: ANHED 23:20 → ANH3MEDSUR 06-02 00:32
PROVIDERS: Internal Medicine Critical Care Medicine; Admitting Provider Internal Medicine; Emergency Provider Emergency Medicine; PCP Family Medicine; Visit Provider Hospitalist
DX: E87.1 Hypo-osmolality and hyponatremia (principal); T50.2X5A Adverse effect of carbonic-anhydrase inhibitors, benzothiadiazides and other diuretics, initial encounter; T43.215A Adverse effect of selective serotonin and norepinephrine reuptake inhibitors, initial encounter; I63.81 Other cerebral infarction due to occlusion or stenosis of small artery; N17.9 Acute kidney failure, unspecified; I10 Essential (primary) hypertension; M54.2 Cervicalgia; N40.0 Benign prostatic hyperplasia without lower urinary tract symptoms; J44.9 Chronic obstructive pulmonary disease, unspecified; G47.33 Obstructive sleep apnea (adult) (pediatric); K21.9 Gastro-esophageal reflux disease without esophagitis; F10.11 Alcohol abuse, in remission; Z85.828 Personal history of other malignant neoplasm of skin; E86.0 Dehydration; H81.10 Benign paroxysmal vertigo, unspecified ear; M47.816 Spondylosis without myelopathy or radiculopathy, lumbar region; K76.0 Fatty (change of) liver, not elsewhere classified; F17.210 Nicotine dependence, cigarettes, uncomplicated; R79.89 Other specified abnormal findings of blood chemistry; R29.700 NIHSS score 0
CPT/HCPCS: 36415; 70450; 70496; 70498; 70553; 72125; 72156; 80048; 80053; 80061; 81001; 82570; 82607; 82746; 83036; 83605; 83735; 83935; 84295; 84439; 84443; 85025; 85027; 93005; 96360; 96375; 97161; 97165; 99285; A9270; A9577; C8929; G0378; G0379; J7030; Q9957; Q9967

== ENCOUNTER 2023-06-15 15:56 | Outpatient (CLI) | payer OTHER, SELFPAY ==
[2023-06-15 18:27] LABS: Hematocrit 40.4 % (42.0-52.0); Hemoglobin 14.1 g/dL (14.0-18.0); Mean Corpuscular HGB Conc 34.9 g/dl (32-36); Mean Corpuscular Hemoglobin 34.5 pg (26-34); Mean Corpuscular Volume 98.8 fl (80-100); Mean Platelet Volume 12.2 fl (7.4-10.4); Platelet Count Result 264 k/mm3 (150-375); Red Blood Count 4.09 M/mm3 (4.6-6.20); Red Cell Distribution Width 12.3 % (11.5-14.5)
[2023-06-15 20:34] LABS: Alanine Aminotransferase 39 U/L (6-50); Albumin Level 4.7 g/dL (3.5-5.1); Alkaline Phosphatase 70 U/L (38-126); Anion Gap 11 mmol/L (4-12); Aspartate Amino Transferase 76 U/L (17-59); Bilirubin,Total 0.8 mg/dL (0.2-1.3); Blood Urea Nitrogen 8 mg/dL (9-20); Calcium 10.4 mg/dL (8.4-10.2); Carbon Dioxide 24 mmol/L (22-30); Chloride 91 mmol/L (98-107); Estimated Glomerular Filt Rate 52; Glucose 115 mg/dL (65-110); Potassium 3.5 mmol/L (3.4-5.0); Sodium 126 mmol/L (137-145)
[2023-06-15 20:58] LABS: Prostate Specific Antigen 0.8 ng/mL (< OR = 4.0)
== END 2023-06-15 15:57 | disposition home or self-care (01) ==
LOC: ANHBWCLAB 15:57
PROVIDERS: PCP Family Medicine; Visit Provider Family Medicine
DX: G89.29 Other chronic pain (principal); I10 Essential (primary) hypertension; I63.81 Other cerebral infarction due to occlusion or stenosis of small artery; M19.90 Unspecified osteoarthritis, unspecified site; R74.8 Abnormal levels of other serum enzymes
CPT/HCPCS: 36415; 80053; 84153; 85027; G0103

== ENCOUNTER 2023-06-29 13:11 | Outpatient (CLI) | payer OTHER, SELFPAY ==
[2023-06-29 21:21] LABS: Alanine Aminotransferase 28 U/L (6-50); Albumin Level 4.4 g/dL (3.5-5.1); Alkaline Phosphatase 68 U/L (38-126); Anion Gap 6 mmol/L (4-12); Aspartate Amino Transferase 93 U/L (17-59); Bilirubin,Total 0.8 mg/dL (0.2-1.3); Blood Urea Nitrogen 11 mg/dL (9-20); Calcium 9.6 mg/dL (8.4-10.2); Carbon Dioxide 28 mmol/L (22-30); Chloride 85 mmol/L (98-107); Estimated Glomerular Filt Rate 57; Glucose 110 mg/dL (65-110); Phosphorus 3.4 mg/dL (2.5-4.5); Potassium 3.1 mmol/L (3.4-5.0); Sodium 119 mmol/L (137-145)
[2023-07-01 15:23] LABS: Ionized Calcium 5.1 mg/dL (4.7-5.5)
== END 2023-06-29 13:12 | disposition home or self-care (01) ==
PROVIDERS: PCP Family Medicine; Visit Provider Family Medicine
DX: E87.1 Hypo-osmolality and hyponatremia (principal); F10.20 Alcohol dependence, uncomplicated; N17.9 Acute kidney failure, unspecified; R74.8 Abnormal levels of other serum enzymes; R79.89 Other specified abnormal findings of blood chemistry
CPT/HCPCS: 36415; 80069; 80076; 82330; 82977; 84443

== ENCOUNTER 2023-06-29 22:21 | Emergency (ER) | payer OTHER, SELFPAY ==
[2023-06-29 22:26] VITALS: BP 119/66; PULSE 80; RESP 15; TEMP 36.1; O2SAT 100
[2023-06-29 22:38] LABS: Hemoglobin 12.6 g/dL (14.0-18.0); Mean Corpuscular Hemoglobin 34.2 pg (26-34); Mean Corpuscular Volume 95.1 fl (80-100); Platelet Count Result 194 k/mm3 (150-375); Red Blood Count 3.68 M/mm3 (4.6-6.20); Red Cell Distribution Width 12.1 % (11.5-14.5); White Blood Count 7.1 K/mm3 (4.5-10.0)
[2023-06-29 23:00] LABS: Alanine Aminotransferase 26 U/L (6-50); Albumin Level 4.7 g/dL (3.5-5.1); Alkaline Phosphatase 63 U/L (38-126); Anion Gap 13 mmol/L (4-12); Aspartate Amino Transferase 36 U/L (17-59); Bilirubin,Total 0.7 mg/dL (0.2-1.3); Blood Urea Nitrogen 9 mg/dL (9-20); Calcium 9.8 mg/dL (8.4-10.2); Carbon Dioxide 24 mmol/L (22-30); Chloride 85 mmol/L (98-107); Estimated CRCL calculation 54 ml/min; Estimated Glomerular Filt Rate 57; Glucose 106 mg/dL (65-110); Potassium 2.8 mmol/L (3.4-5.0); Sodium 122 mmol/L (137-145)
[2023-06-29 23:02] LABS: Eosinophils Absolute Manual 0.49 K/mm3 (0.02-0.50); Eosinophils Percent Manual 7 % (0-4); Lymphocytes Percent Manual 31 % (18-44); Monocytes Absolute Manual 0.56 K/mm3 (0.1-0.90); Monocytes Percent Manual 8 % (3-9); Neutrophils Percent Manual 54 % (46-73); Total Cells Counted 100
[2023-06-29 23:03] LABS: Platelet Estimate Adequate (Adequate)
[2023-06-29 23:04] LABS: Schistocytes None Seen
[2023-06-29 23:14] VITALS: BP 124/61; PULSE 75; RESP 14; O2SAT 100
[2023-06-29] MEDS: SODIUM CHLORIDE 0.9% IV 1,000 ML 150 ML IV CONT (23:14)
[2023-06-29 23:59] LABS: Magnesium 1.7 mg/dL (1.6-2.3)
[2023-06-29] MEDS: POTASSIUM CHLORIDE 20 MEQ ER TABLET 40 MEQ PO ×2 (23:59)
[2023-06-30] MEDS: MAGNESIUM SULF 1 GM/D5W 100 ML 1 GM/100 ML BAG IVPB (00:06)
--- NOTE | 2023-06-30 01:00 | ED.GENADULT ---
HPI - General Adult General Chief complaint: Recheck/Abnormal Lab/Rx Stated complaint: low sodium Time Seen by Provider: 06/29/23 23:17 History of Present Illness HPI narrative: Patient is a 57 year old male who presents to the emergency department this evening after getting a call from his primary care physician stating that his sodium level was low at 119. Patient does have a history of low sodium which is likely multifactorial as patient does have a history of alcohol abuse. Patient states that he quit drinking alcohol approximately 3 months ago. Patient was recently admitted to our facility for hyponatremia and had a full workup including an MRI to rule out any central causes. Patient was evaluated by Neurology. His hydrochlorothiazide/losartan blood pressure was stopped for a short period, however, patient admits that he is currently still taking this medication which could be contributing to his low sodium level. Patient is currently asymptomatic and states that he is only here because he was told to come here secondary to his low sodium. Related Data Home Medications Medication Instructions Recorded Confirmed diclofenac sodium 75 mg 75 mg PO BID PRN Pain 06/02/23 06/02/23 tablet,delayed release duloxetine 30 mg capsule,delayed 30 mg PO DAILY 06/02/23 06/02/23 release duloxetine 60 mg capsule,delayed 60 mg PO DAILY 06/02/23 06/02/23 release finasteride 5 mg tablet 5 mg PO DAILY 06/02/23 06/02/23 Allergies Allergy/AdvReac Type Severity Reaction Status Date / Time No Known Allergies Allergy Verified 06/15/23 09:58 Review of Systems Review of Systems: All systems are reviewed and are negative unless stated otherwise in the HPI. [facility] Past Medical History Medical History BPH (benign prostatic hyperplasia) Cervicalgia Severe degenerative disc disease and facet arthropathy multiple level severe bilateral neural foraminal narrowing no severe central canal narrowing changes noted on CT 06/01/2023 Erectile dysfunction Essential hypertension GERD (gastroesophageal reflux disease) Hepatic steatosis History of ETOH abuse Left sided lacunar stroke Lumbago Mild degenerative spondylosis noted on MRI 03/2023 Obstructive sleep apnea Intolerant to CPAP Skin cancer of arm Surgical History Surgical History History of arthroscopic knee surgery History of arthroscopic procedure on shoulder Family History Family History Mother In good health Father , Age 70 Malignant neoplasm of prostate Social History Social History Social History: 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 He reports he is in the process of trying to apply for disability. He is living with his mother. He is . He used to drink at least 6 beers a day but quit doing so about 2 months ago. He continues to smoke 1-1.5 packs of cigarettes per day and has done so since his early 20s. He denies illicit substance use. Code status: Full code Surrogate decision maker: Mother Smoking packs per day: 1.5 Smoking cigarettes per day: 30.0 Smoking status: Current every day smoker Tobacco type: cigarettes Alcohol intake: current Alcohol use details: Beer Rum Substance use: never Substance use type: does not use Do You Feel Safe in your Home?: Yes Lack of Transportation: YES Lack of Food: Never True Current Housing: I Have Housing Concerned About Future Housing: No Difficulty Paying Gas/Electric Bills: No Difficulty Paying for Meds: No Currently Unemployed: No Education: High School Diploma/GED Difficulty w/ Childcare or Family Care: No Living arrangements: alone Additional occupation/education comme
[2023-06-30 01:49] LABS: Anion Gap 5 mmol/L (4-12); Blood Urea Nitrogen 9 mg/dL (9-20); Carbon Dioxide 27 mmol/L (22-30); Chloride 89 mmol/L (98-107); Estimated CRCL calculation 63 ml/min; Estimated Glomerular Filt Rate > 60; Glucose 101 mg/dL (65-110); Potassium 3.3 mmol/L (3.4-5.0); Sodium 121 mmol/L (137-145)
[2023-06-30 02:53] VITALS: BP 150/75; PULSE 72; RESP 17; O2SAT 99
== END 2023-06-30 02:54 | disposition home or self-care (01) ==
PROVIDERS: Emergency Provider Emergency Medicine; PCP Family Medicine
DX: E87.1 Hypo-osmolality and hyponatremia (principal); E87.6 Hypokalemia; N40.0 Benign prostatic hyperplasia without lower urinary tract symptoms; I10 Essential (primary) hypertension; K21.9 Gastro-esophageal reflux disease without esophagitis; G47.33 Obstructive sleep apnea (adult) (pediatric); Z85.828 Personal history of other malignant neoplasm of skin; F17.210 Nicotine dependence, cigarettes, uncomplicated
CPT/HCPCS: 36415; 80048; 80053; 80069; 80076; 82330; 82977; 83735; 84443; 85025; 96361; 96365; 99284; A9270; J3475; J7030

== ENCOUNTER 2023-09-28 00:59 | Day surgery (SDC) | payer OTHER, SELFPAY ==
[2023-09-23 12:37] VITALS: BMI 25.9
--- NOTE | 2023-09-23 12:55 | PC.NURSE ---
spoke with pt. He loss his phone and that is why we were unable to reach him.
--- NOTE | 2023-09-23 12:57 | PC.NURSE ---
Pt states his Plavix and asa were discontinued by DR. SALINAS.
[2023-09-28 11:29] VITALS: BP 148/93; PULSE 80; RESP 18; TEMP 36.2; O2SAT 100; BMI 23.6
[2023-09-28] MEDS: LACTATED RINGERS 1,000 ML 150 ML IV CONT (11:33)
--- NOTE | 2023-09-28 12:13 | WPDANESEPPF ---
Anes - Initial Pre Proc Eval Procedure: Operation Date: 09/28/23 15:00 Proposed Procedures p Esophagogastroduodenoscopy - Dev Black MD Date/Time: 09/28/23 12:13 Surgeon: Dev Black MD Pre Op Diagnosis: GERD Patient Data Age: 57 Gender: M Height: 1.75 m Weight: 72.4 kg Last Vital Signs Temp 36.2 C L 09/28/23 11:29 Pulse 80 09/28/23 11:29 Resp 18 09/28/23 11:29 BP 148/93 H 09/28/23 11:29 Pulse Ox 100 09/28/23 11:29 O2 Del Method Room Air 09/28/23 11:29 Allergies Allergy/AdvReac Type Severity Reaction Status Date / Time No Known Allergies Allergy Verified 09/28/23 11:28 Home Medications Medication Instructions Recorded Confirmed Type albuterol sulfate 90 mcg/actuation 1 inh inhalation Q4H PRN shortness 05/17/22 09/28/23 Rx aerosol inhaler of breath or wheezing #8.5 grams tamsulosin 0.4 mg capsule 0.8 mg PO DAILY #90 caps 04/11/23 09/28/23 Rx finasteride 5 mg tablet 5 mg PO DAILY 06/02/23 09/28/23 History famotidine 40 mg tablet 40 mg PO DAILY #90 tabs 06/15/23 09/28/23 Rx losartan 100 mg tablet 100 mg PO DAILY #90 tabs 06/30/23 09/28/23 Rx carvedilol 12.5 mg tablet 12.5 mg PO Q12H #90 tabs 07/13/23 09/28/23 Rx Patient hx anesthesia problems: none Family hx anesthesia problems: none Results Review: All pre-operative results and documents have been reviewed as part of the pre-operative evaluation. [facility] Past Medical History Medical History BPH (benign prostatic hyperplasia) Cervicalgia Severe degenerative disc disease and facet arthropathy multiple level severe bilateral neural foraminal narrowing no severe central canal narrowing changes noted on CT 06/01/2023 Erectile dysfunction Essential hypertension GERD (gastroesophageal reflux disease) Hepatic steatosis History of ETOH abuse Hyponatremia Left sided lacunar stroke Lumbago Mild degenerative spondylosis noted on MRI 03/2023 Obstructive sleep apnea Intolerant to CPAP Skin cancer of arm Surgical History Surgical History History of arthroscopic knee surgery History of arthroscopic procedure on shoulder Family History Family History Mother In good health Father , Age 70 Malignant neoplasm of prostate Social History Social History Social History: 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 He reports he is in the process of trying to apply for disability. He is living with his mother. He is . He used to drink at least 6 beers a day but quit doing so about 2 months ago. He continues to smoke 1-1.5 packs of cigarettes per day and has done so since his early 20s. He denies illicit substance use. Code status: Full code Surrogate decision maker: Mother Smoking packs per day: 1 Smoking cigarettes per day: 20.0 Years smoked: 28 Smoking pack-years: 28.00 Smoking status: Current every day smoker Tobacco type: cigarettes Alcohol intake: current Drinks per week: 36 Alcohol use details: BEERS Substance use: never Substance use type: does not use Do You Feel Safe in your Home?: Yes Lack of Transportation: No Lack of Food: Never True Current Housing: I Have Housing Concerned About Future Housing: No Difficulty Paying Gas/Electric Bills: No Difficulty Paying for Meds: No Currently Unemployed: No Education: High School Diploma/GED Difficulty w/ Childcare or Family Care: No Living arrangements: with family Additional occupation/education comments: [employer] Gender identity (if verbalized by the patient): Male Spiritual care concerns: No Agree to blood products: Yes Anes - Eval Final PreProcedure Day of Procedure
--- NOTE | 2023-09-28 12:48 | PM.HPGS ---
History of Present Illness History of Present Illness Consent: Risks, benefits, and alternatives have been discussed and questions answered. Patient agrees to proceed with procedure. Chief complaint: GERD Narrative: Taran Griffin is a 57 year old male with gerd but better since using famotidine, never had egd Review of Systems Review of Systems: All systems reviewed & are unremarkable except as noted in HPI and below PMFSH Past Medical History Medical History (Updated 09/28/23 @ 12:50 by Dev Black MD) BPH (benign prostatic hyperplasia) Cervicalgia Severe degenerative disc disease and facet arthropathy multiple level severe bilateral neural foraminal narrowing no severe central canal narrowing changes noted on CT 06/01/2023 Erectile dysfunction Essential hypertension GERD (gastroesophageal reflux disease) Hepatic steatosis History of ETOH abuse Hyponatremia Left sided lacunar stroke Lumbago Mild degenerative spondylosis noted on MRI 03/2023 Obstructive sleep apnea Intolerant to CPAP Skin cancer of arm Surgical History Surgical History History of arthroscopic knee surgery History of arthroscopic procedure on shoulder Family History Family History Mother In good health Father , Age 70 Malignant neoplasm of prostate Social History Social History Social History: 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 He reports he is in the process of trying to apply for disability. He is living with his mother. He is . He used to drink at least 6 beers a day but quit doing so about 2 months ago. He continues to smoke 1-1.5 packs of cigarettes per day and has done so since his early 20s. He denies illicit substance use. Code status: Full code Surrogate decision maker: Mother Smoking packs per day: 1 Smoking cigarettes per day: 20.0 Years smoked: 28 Smoking pack-years: 28.00 Smoking status: Current every day smoker Tobacco type: cigarettes Alcohol intake: current Drinks per week: 36 Alcohol use details: BEERS Substance use: never Substance use type: does not use Do You Feel Safe in your Home?: Yes Lack of Transportation: No Lack of Food: Never True Current Housing: I Have Housing Concerned About Future Housing: No Difficulty Paying Gas/Electric Bills: No Difficulty Paying for Meds: No Currently Unemployed: No Education: High School Diploma/GED Difficulty w/ Childcare or Family Care: No Living arrangements: with family Additional occupation/education comments: [employer] Gender identity (if verbalized by the patient): Male Spiritual care concerns: No Agree to blood products: Yes Meds Home Medications and Allergies Home Medications Medication Instructions Recorded Confirmed Type albuterol sulfate 90 mcg/actuation 1 inh inhalation Q4H PRN shortness 05/17/22 09/28/23 Rx aerosol inhaler of breath or wheezing #8.5 grams tamsulosin 0.4 mg capsule 0.8 mg PO DAILY #90 caps 04/11/23 09/28/23 Rx finasteride 5 mg tablet 5 mg PO DAILY 06/02/23 09/28/23 History famotidine 40 mg tablet 40 mg PO DAILY #90 tabs 06/15/23 09/28/23 Rx losartan 100 mg tablet 100 mg PO DAILY #90 tabs 06/30/23 09/28/23 Rx carvedilol 12.5 mg tablet 12.5 mg PO Q12H #90 tabs 07/13/23 09/28/23 Rx Allergies Allergy/AdvReac Type Severity Reaction Status Date / Time No Known Allergies Allergy Verified 09/28/23 11:28 Vital Signs Vital Signs - 24 hr 09/28/23 11:29 Temperature 97.2 F L Pulse Rate 80 Respiratory Rate 18 Blood Pressure 148/93 H Pulse Oximetry 100 Oxygen Delivery Room Air Exam Const: General: comfortable and no acute distress HENMT: Face/Nose/Sinus: Normal nares present Eyes: Ge
[2023-09-28 12:58] VITALS: BP 149/86; PULSE 75; RESP 20; O2SAT 100
[2023-09-28 13:08] VITALS: BP 121/76; PULSE 68; RESP 17; O2SAT 100
[2023-09-28 13:18] VITALS: BP 152/91; PULSE 62; RESP 23; O2SAT 100
== END 2023-09-28 13:25 | disposition home or self-care (01) ==
PROVIDERS: PCP Family Medicine; Visit Provider Internal Medicine Gastroenterology
PROC: 0DJ08ZZ Inspection of Upper Intestinal Tract, Via Natural or Artificial Opening Endoscopic (ICD-10-PCS; CPT 43235; principal; 2023-09-28 15:00)
DX: K29.50 Unspecified chronic gastritis without bleeding (principal); K21.9 Gastro-esophageal reflux disease without esophagitis; I10 Essential (primary) hypertension; G47.33 Obstructive sleep apnea (adult) (pediatric); N40.0 Benign prostatic hyperplasia without lower urinary tract symptoms; K76.0 Fatty (change of) liver, not elsewhere classified; Z79.51 Long term (current) use of inhaled steroids; F17.210 Nicotine dependence, cigarettes, uncomplicated
CPT/HCPCS: 43239; 88305; 88342; J2704; J7120

== ENCOUNTER 2024-06-07 09:34 | Inpatient (IN) | payer OTHER, SELFPAY ==
[2024-06-07] VITALS (37 sets, daily range): BP systolic 157–230; BP diastolic 94–123; PULSE 68–129; RESP 10–22; TEMP 36.6–36.9; O2SAT 96–100; BMI 27.8
--- NOTE | ~2024-06-07 | NM_ITS ---
EXAMINATION: NM martin stress w perfusion DATE: 06/08/2024 14:32 INDICATION: Chest pressure. Hypertension. Nausea and vomiting. TECHNIQUE: Rest images were obtained following intravenous administration of 10.4 mCi Tc99m tetrofosm in (Myoview). The patient was infused intravenously with Lexiscan (Regadenoson). Then, 34.7 mCi Tc99m tetrofosmin (Myoview) was administered intravenously, and stress images were obtained. Data was shay nstructed into short axis and horizontal and vertical long axis SPECT images. Gated SPECT images were also obtained. COMPARISON: None. FINDINGS: There is no definite reversible or fixed perfusion abnormality to suggest ischemia or infar ction. There is normal left ventricular chamber size, wall motion and ejection fraction. Left ventr icular ejection fraction measures 67%. IMPRESSION: 1. Normal myocardial perfusion at rest and during stress. 2. Left ventricular ejection fraction measuring 67%. Reviewed, dictated and finalized at location A.
--- NOTE | ~2024-06-07 | CT_ITS ---
EXAMINATION: CTA chest PE abdomen pel DATE: 06/07/2024 11:20 INDICATION: Chest pain, shortness of breath, abdominal pain and elevated lipase. TECHNIQUE: Computed tomography (CT) pulmonary angiogram of the chest was performed with 100 mL Omnipa que-350 intravenous contrast. Additional 3D reconstructions utilizing coronal maximum intensity proje ction (MIP) were performed. CT of the abdomen and pelvis was performed with intravenous contrast util izing the same contrast bolus following a short delay. Automated exposure control and iterative recon struction technique were employed. The dose-length product was 852.41 mGy-cm. COMPARISON: None FINDINGS: Chest: No pulmonary embolism. Mild emphysema. Calcified nodule at the lingula consistent with old granulomat ous disease. No pneumonia, pulmonary edema or pleural effusion. Mild cardiomegaly. No pericardial eff usion. Thoracic aorta is normal in caliber with no dissection. No pathologically enlarged thoracic ly mphadenopathy. Bone island at the sternum. Moderate thoracic spondylosis with chronic minimal to mild anterior wedging of a few mid to lower thoracic vertebral bodies. Abdomen/pelvis: Diffuse hepatic steatosis with focal sparing along the gallbladder fossa. Gallbladder, pancreas, bila teral adrenal glands and kidneys are normal. Splenic calcific lesions consistent with old granulomato us disease. Bowels including the appendix are normal. Bladder is normal. Small fat-containing right i nguinal hernia. No free intraperitoneal gas or fluid. No pathologically enlarged abdominal or pelvic lymphadenopathy. Mild lumbar spondylosis. IMPRESSION: 1. No pulmonary embolism or other acute cardiopulmonary disease. 2. Cardiomegaly. 3. No acute intra-abdominal/pelvic process. 4. Diffuse hepatic steatosis. Reviewed, dictated and finalized at location A.
--- NOTE | 2024-06-07 09:40 | ECG_ITS ---
Test Date: 2024-06-07 09:47:13 Measurements Intervals [place] Rate: 75 P: 56 PA: 124 QRS: 50 QRSD: 105 T: 23 QT: 390 QTc: 436 Interpretive Statements SINUS RHYTHM BORDERLINE R WAVE PROGRESSION, ANTERIOR LEADS BORDERLINE ST-T WAVE ABNORMALITY- INF/LAT LEADS BASELINE ARTIFACT- I, II, III, AVR, AVL, AVF BORDERLINE ECG No previous ECG available for comparison Electronically Signed On 06-07-2024 10:59:30 CDT by Shaan Brody D.O.
[2024-06-07 09:56] LABS: Basophils Absolute Auto 0.1 K/mm3 (0.0-0.1); Basophils Percent Auto 1.4 % (0.2-1.2); Eosinophils Absolute Auto 0.1 K/mm3 (0-0.3); Eosinophils Percent Auto 1.4 % (0-4.4); Hematocrit 37.4 % (42.0-52.0); Hemoglobin 12.8 g/dL (14.0-18.0); Immature Granulocyte Absolute 0.02 K/mm3 (0.00-0.031); Immature Granulocyte Percent A 0.4 % (0-0.5); Lymphocytes Absolute Auto 1.13 K/mm3 (0.9-3.2); Lymphocytes Percent Auto 22.2 % (18.3-44.2); Mean Corpuscular HGB Conc 34.2 g/dl (32-36); Mean Corpuscular Hemoglobin 35.7 pg (26-34); Mean Corpuscular Volume 104.2 fl (80-100); Mean Platelet Volume 10.7 fl (7.4-10.4); Monocytes Absolute Auto 0.8 K/mm3 (0.1-0.6); Neutrophils Percent Auto 59.6 % (45.5-73.1); Platelet Count Result 150 k/mm3 (150-375); Red Blood Count 3.59 M/mm3 (4.6-6.20); Red Cell Distribution Width 12.8 % (11.5-14.5); White Blood Count 5.1 K/mm3 (4.5-10.0)
--- OUTSIDE RECORDS SUMMARY | 2024-06-07 09:59 | XMS_ITS | Clinical Summary ---
Author Organization [facility] Address [address] [place] [address] Phone Care Team Providers Care Painting Technician Name Role Phone Angelito Bhat MD Primary Care Provider Allergies Active Allergy Reactions Criticality Noted Date Comments Lisinopril Other (see Comments) 06/16/2021 Sluggish Medications Escitalopram Oxalate 5 MG Tablet Take 1 Tablet by mouth daily. 30 Tablet 1 2 Active albuterol 108 (90 Base) MCG/ACT Aerosol Solution take 2 Puffs by inhalation every 6 hours as needed for Wheezing. 18 g 2 Active oxyCODONE-aceta minophen (PERCOCET) 5-325 MG Tablet Take 1 Tablet by mouth. 2 Active losartan (COZAAR) 50 MG Tablet Take 1 Tablet by mouth daily. 30 Tablet 3 2 Active dilTIAZem (CARDIZEM CD) 180 MG CAPSULE SR 24 HR Take 1 Capsule by mouth daily. 30 Capsule 2 2 Active Active Problems Problem Noted Date Diagnosed Date Generalized anxiety disorder 08/05/2021 Rotator cuff tear arthropathy of left shoulder 0 08/05/2021 Centrilobular emphysema 08/05/2021 Essential hypertension, benign 06/16/2021 Family History Medical History Relation Name Comments Congestive Heart Failure Mother Hypertension Mother Relation Name Status Comments Father Mother Alive Social History Tobacco Use Types Packs/Day Years Used Date Smoking Tobacco: Every Day Cigarettes Smokeless Tobacco: Never Tobacco Cessation:Ready to Q uit: No; Counseling Given: No Alcohol Use Standard Drinks/Week Comments Yes 0 (1 standard drink = 0.6 oz pur e alcohol) PHQ-2 Answer Date Recorded Total Score - Questions 1-9 0 08/06 Sexually Active Control Partners Comments Yes Sex and Gender Information Value Date Recorded Sex Assigned at Not on file Legal Sex Male 12:40 AM CDT Gender Identity Not on file Sexual Orientation Not on file Last Filed Vital Signs Vital Sign Reading Time Taken Comments Blood Pressure 152/98 08/25/2021 7:21 AM CDT Pulse 92 08/25/2021 7:21 AM CDT Temperature 36.6 C (97.8 F) 08/25/2021 7:21 AM CDT Respiratory Rate 16 08/05/2021 7:37 AM CDT Oxygen Saturation 97% 08/25/2021 7:21 AM CDT Inhaled Oxygen Concentration - - Weight 76.2 kg (168 lb) 08/25/2021 7:21 AM CDT Height 172.7 cm (5' 8 ) 08/25/2021 7:21 AM CDT Body Mass Index 25.54 08/25/2021 7:21 AM CDT Plan of Treatment Health Maintenance Due Date Last Done Comments Hepatitis C Virus (HCV) Screening 1965 TdaP Immunization 1965 Hepatitis B Immunization (1 of 3 - 19+ 3-dose series) 11/11/1983 Pneumococcal Immunization (5 0+ years) (1 of 2 - PCV) 11/11/1983 Colonoscopy 2009 Colorectal Cancer Screening 2009 Cologuard 2014 Immunochemical Fecal Occult Blood 2014 Zoster Immunization (1 of 2) 2014 Influenza Immunization (#1) 2023 SARS-COV-2 Immunization ( season) 2023 Respiratory Syncytial Virus (RSV) Immunization (Adult) (1 - 1-dose 75+ series) 11/11/2039 PSA Discussion Completed 08/05/2021 Meningococcal Immunization (ACWY) Aged Out No longer eligible based on patient's age to complete this topic Rotavirus Immunization Aged Out No lo nger eligible based on patient's age to complete this topic Procedures Procedure Name Priority Date/Time Associated Diagnosis Comments PSA SCREEN Routine 08/05/2021 12:00 AM CDT Screening for prostate cancer from Last 3 Months or Most Recently Relevant to Health Maintenance Results * PSA SCREEN (08/05/2021 12:00 AM CDT) PSA (PROSTATE SPECIFIC ANTIGEN) 0.76 ng/mL SCAN Blood 08/05/2021 Angelito Bhat MD CHEMISTRY ORDERABLES Final Result SCAN from Last 3 Months or Most Recently Relevant to Health Maintenance Insurance MEDICAID [employer] [facility] Care Teams Painting Technician Relationship Specialty Start Date End Date Angelito Bhat MD [address] [place] [id number] PCP - General Internal Medicine 05/27/21
--- OUTSIDE RECORDS SUMMARY | 2024-06-07 09:59 | XMS_ITS | Clinical Summary ---
Author Organization [email or web address] Address [address] [place] [address] Care Team Providers Care Microbiology Instructor Name Role Phone Clifton Garcia MD Primary Care Provider [phone] Source Comments [facility] [email or web address],non-owned Affiliates and Associated Physician Practices is amultiple site organization consisting of ambulatory clinics and hospital sitesin [place], [place], [place] and [place]. This disclosure is being madepursuant to the Care Everywhere program and may not contain all information available regarding this patient. Last updated 17.[facility] [email or web address] Allergies Active Allergy Reactions Criticality Noted Date Comments Lisinopril Other 06/16/2021 Sluggish Medications * Be aware that medications may not be up to date on this document. Alwaysverify current medications with the patient. Medication Sig Dispensed Refills Start Date End Date Status amLODIPine (Norvasc) 10 MG tablet Take 1 (one) tablet by mouth once daily 04/11/2023 Active atorvastatin (Lipitor) 40 MG tablet once daily 06/04/2023 Active carvedilol (Coreg) 12.5 MG tablet TAKE 1 TABLET BY MOUTH EVERY 12 HOURS WITH FOOD OR A MEAL. Active clopidogrel (plaVIX) 75 MG tablet Take 1 (one) tablet by mouth every morning 06/04/2023 Active diclofenac sodium EC (Voltaren) 75 MG tablet 05/19/2023 Active DULoxetine (Cymbalta) 60 MG capsule Active famotidine (Pepcid) 40 MG tablet Take 1 (one) tablet by mouth once daily 10/27/2023 Active finasteride (Proscar) 5 MG tablet Take 1 (one) tablet by mouth once daily 07/13/2023 Active losartan (Cozaar) 100 MG tablet Take 1 (one) tablet by mouth once daily 10/27/2023 Active tamsulosin (Flomax) 0.4 MG capsule Take 2 (two) capsules by mouth once daily Active gabapentin (Neurontin) 300 MG capsule Take 1 (one) capsule by mouth 3 times daily for 30 days 90 capsule 01/11/2024 Active Active Problems No known active problems Social History Tobacco Use Types Packs/Day Years Used Date Smoking Tobacco: Every Day Cigarettes Smokeless Tobacco: Never Tobacco Cessation:Ready to Q uit: Not Asked; Counseling Given: Not Answered Sex and Gender Information Value Date Recorded Sex Assigned at Not on file Gender Identity Not on file Sexual Orientation Not on file Last Filed Vital Signs Vital Sign Reading Time Taken Comments Blood Pressure 161/94 02/14/2024 2:20 PM COMPLIANCE CLERK Pulse 97 02/14/2024 2:20 PM COMPLIANCE CLERK Temperature 36.6 C (97.9 F) 02/14/2024 2:20 PM COMPLIANCE CLERK Respiratory Rate 18 02/14/2024 2:20 PM COMPLIANCE CLERK Oxygen Saturation 100% 02/14/2024 2:20 PM COMPLIANCE CLERK Inhaled Oxygen Concentration - - Weight 77.1 kg (170 lb) 02/14/2024 2:20 PM COMPLIANCE CLERK Height 166.4 cm (5' 5.5 ) 02/14/2024 2:20 PM COMPLIANCE CLERK Body Mass Index 27.86 02/14/2024 2:20 PM COMPLIANCE CLERK Plan of Treatment Upcoming Encounters Date Type Department Care Team (Late st Contact Info) Description 06/11/2024 10:30 AM CDT Appointment [facility] MRI [address] [place] [address] Alberto Bruce MD [address] [place] [address] [address] [place] [address] 06/11/2024 11:30 AM CDT Office Visit [facility] - Neurosurgery [address] [place] [address], [place] [id number] Alberto Bruce MD [address] [place] [address] [address] [place] [address] Health Maintenance Due Date Last Done Comments COLOGUARD (AGES 45-75) - COL ON CA SCREENING 1964 COLON MONITORING 1964 COLONOSCOPY - COLON CA SCREENING 1964 CT COLONOGRAPHY - COLON CA SCREENING 1964 Colorectal Cancer Screening 1964 FIT - COLON CA SCREENING 1964 FLEX SIG - COLON CA SCREENING 1964 HIV SCREENING 11/11/1979 HEPATITIS C SCREENING 11/06/1982 DTAP/TDAP/TD VACCINES (1 - Tdap) 11/11/1983 HEPATITIS B VACCINE (1 of 3 - 19+ 3-dose series) 11/11/1983 PNEUMOCOCCAL VACCINE 50+ (1 of 2 - PCV) 11/11/1983 ZOSTER VACCINE (1 of 2) 2014 COVID-19 VACCINE (1 - 2023-2 5 season) 2023 DEPRESSION SCREENING 03/07/2024 INFLUENZA VACCINE (Season Ended) 2024 01/12/2022 SCREENING FOR DIABETES 02/13/2027 4, 01/11/2024 HIB VACCINE Aged Out No longer eligi ble based on patient's age to complete this topic HPV VACCINE Aged Out No longer eligi ble based on patient's age to complete this topic MENINGOCOCCAL (Group B) VACCINE SHARED DECISION-MAKING Aged Out No longer eligible based on patient's age to complete this topic MENINGOCOCCAL GROUPS A/C/Y/W VACCINE Aged Out No longer eligible b ased on patient's age to complete this topic Procedures Procedure Name Priority Date/Time Associated Diagnosis Comments COMPREHENSIVE METABOLIC PANEL Routine 02/14/2024 2:09 PM COMPLIANCE CLERK Abnormal MRI, lumbar spine from Last 3 Months or Most Recently Relevant to Health Maintenance Results * (ABNORMAL) COMPREHENSIVE METABOLIC PANEL (02/14/2024 2:09 PM COMPLIANCE CLERK) BUN 8 7 - 26 mg/dL 02/14/2024 2:46 PM [facility] Creatinine 1.11 0.71 - 1.16 mg/dL 02/14/2024 2:46 PM [facility] Sodium 135(L) 136 - 145 mmol/L 02/14/2024 2:46 PM [facility] Potassium 4.4 3.5 - 4.5 mmol/L 02/14/2024 2:46 PM [facility] Chloride 102 98 - 107 mmol/L 02/14/2024 2:46 PM [facility] CO2 23 22 - 29 mmol/L 02/14/2024 2:46 PM [facility] Glucose 95 70 - 99 mg/dL 02/14/2024 2:46 PM [facility] Calcium 9.4 8.4 - 10.2 mg/dL 02/14/2024 2:46 PM [facility] Protein Total 7.6 6.0 - 8.3 g/dL 02/14/2024 2:46 PM [facility] Albumin 3.7 3.4 - 5.0 g/dL 02/14/2024 2:46 PM [facility] Bilirubin Total 0.9 0.2 - 1.2 mg/dL 02/14/2024 2:46 PM [facility] Alkaline Phosphatase 85 40 - 150 U/L 02/14/2024 2:46 PM [facility] ALT 36 5 - 55 U/L 02/14/2024 2:46 PM [facility] AST 94(H) 5 - 34 U/L 02/14/2024 2:46 PM [facility] Anion Gap 10 6 - 16 02/14/2024 2:46 PM [facility] BUN/Creatinine Ratio 7 7 - 23 02/14/2024 2:46 PM [facility] Osmolality Calculated 278 275 - 295 mOsm/kg 02/14/2024 2:46 PM [facility] Albumin/Globulin Ratio 0.9(L) 1.1 - 2.3 02/14/2024 2:46 PM [facility] eGFR by CKD-EPI 76(L) >=90 mL/min/1.7 3 m2 02/14/2024 2:46 PM [facility] Blood BLOOD SPECIMEN / Unknown Venipuncture / Unknown 02/14/2024 2:09 PM COMPLIANCE CLERK 02/14/2024 2:15 PM [facility] Christofer Lloyd MD LAB - CHEMISTRY VERÓNICA ALLISON [facility] Organization Address City/State/ZIP Co de Phone Number [facility] [address] [place] [address], [facility] [phone] from Last 3 Months or Most Recently Relevant to Health Maintenance Care Teams Microbiology Instructor Relationship Specialty Start Date End Date Clifton Garcia MD [address] [place] [address] PCP - General Family Medicine 10/07/23
--- OUTSIDE RECORDS SUMMARY | 2024-06-07 09:59 | XMS_ITS | Clinical Summary ---
Author Organization [facility] [address] [facility] Address [address] [place] [address] Care Team Providers Care Veterinary Medicine Doctor Name Role Phone Ron Lee Unavailable [phone] Clifton Garcia MD Primary Care Provider [phone] Allergies No known active allergies Medications albuterol HFA (PROVENTIL HFA,VENTOLIN HFA,PROAIR HFA) 90 mcg/actuation inhaler Inhale 2 puffs 04/20/2019 Active ergocalciferol (VITAMIN D) 50,000 unit capsule 04/23/2019 Active dilTIAZem CD 180 mg 24 hr capsule 06/16/2021 Active escitalopram (LEXAPRO) 5 mg tablet Take 5 mg by mouth daily 06/23/2021 Active ascorbic acid (VITAMIN C) 500 mg tablet,chewable Take 1 tablet/chew tab (500 mg total) by mouth 2 (two) times a day 60 tablet/chew tab 08/10/2021 Active cholecalciferol (VITAMIN D-3) 2000 unit capsule Take 1 capsule (2,000 Units total) by mouth daily 30 capsule 08/10/2021 Active losartan (COZAAR) 50 mg tablet 08/25/2021 Active oxyCODONE-aceta minophen (PERCOCET) 5-325 mg per tabletIndicatio ns:Pain Take 1 tablet by mouth every 6 (six) hours as needed for pain 28 tablet 09/30/2021 Active triamcinolone (KENALOG) 0.1 % cream Apply to affected area 1-2 times daily as needed. Avoid face and groin. 30 g 06/05/2023 Active Active Problems Problem Noted Date Diagnosed Date Centrilobular emphysema 08/05/2021 Generalized anxiety disorder 08/05/2021 Rotator cuff tear arthropathy of left shoulder 0 08/05/2021 Superior glenoid labrum lesion of left shoulder 07/24/2021 Overview (07/24/2021): Added automatically from request for surgery [id number] Arthritis of left acromioclavicular joint 2021 Overview (07/24/2021): Added automatically from request for surgery [id number] Bicipital tendinitis, left 07/24/2021 Overview (07/24/2021): Added automatically from request for surgery [id number] Impingement syndrome of left shoulder 07/24/2021 Overview (07/24/2021): Added automatically from request for surgery [id number] Essential hypertension, benign 06/16/2021 Surgical History Surgery Date Site/Laterality Comments KNEE SURGERY Medical History Medical History Date Comments Hypertension GERD (gastroesophageal reflux disease) Family History Medical History Relation Name Comments Cancer Other Relation Name Status Comments Other Social History Tobacco Use Types Packs/Day Years Used Date Smoking Tobacco: Every Day Cigarettes Smokeless Tobacco: Never Alcohol Use Standard Drinks/Week Comments Yes 0 (1 standard drink = 0.6 oz pur e alcohol) AUDIT-C Answer Date Recorded Q1: How often do you have a drink containing alc ohol? 2-3 times a week 08/10/2021 Q2: How many drinks containi ng alcohol do you have on a typical day when you are drinking? 5 or 6 08/10/2021 Q3: How often do you have si x or more drinks on one occasion? 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 Gender Identity Not on file Sexual Orientation Not on file Obstetrics History Last Filed Vital Signs Vital Sign Reading Time Taken Comments Blood Pressure 90/60 06/05/2023 2:52 PM CDT Pulse 84 06/05/2023 2:52 PM CDT Temperature 37.1 C (98.8 F) 06/05/2023 2:52 PM CDT Respiratory Rate 18 08/11/2021 4:47 PM CDT Oxygen Saturation 98% 06/05/2023 2:52 PM CDT Inhaled Oxygen Concentration - - Weight 78.5 kg (173 lb 1.6 oz) 06/05/2023 2:52 P M CDT Height 172.7 cm (5' 8 ) 06/05/2023 2:52 PM CDT Body Mass Index 26.32 06/05/2023 2:52 PM CDT Plan of Treatment Health Maintenance Due Date Last Done Comments Colon Cancer Screening-Colonoscopy 1964 Depression Screening 1964 Hepatitis C Screening 1964 Prostate Cancer Screening-PSA 1964 Hepatitis B Screening 1982 Regular Well Visit/Exam 18-64 1982 Pneumococcal vaccine <65 (1 of 2 - PCV) 11/11/1983 Zoster Vaccine (1 of 2) 2014 Influenza Vaccine (#1) 2023 01/12/2022 DTaP/Tdap/Td Vaccine (2 - Td or Tdap) 01/13/203210/2021 Insurance [facility] Care Teams Veterinary Medicine Doctor Relationship Specialty Start Date End Date Clifton Garcia MD [address] [place] [address] PCP - General Family Practice 06/05/23 Ron Lee PA [address] [place] [address] Physician Small Machine Bindery Operator Orthopedic Surgery 08/11/21
--- OUTSIDE RECORDS SUMMARY | 2024-06-07 09:59 | XMS_ITS | Referral Summary ---
Author Organization [facility] Address [address] [place] [address] Care Team Providers Care Wrapper Leaf Inspector Name Role Phone Ron Lee Unavailable [phone] Clifton Garcia MD Primary Care Provider [phone] Allergies No known active allergies Medications albuterol [...] (07/24/2021): Added automatically from request for surgery [id number] Arthritis of left acromioclavicular joint 2021 Overview (07/24/2021): Added automatically from request for surgery [id number] Bicipital tendinitis, left 07/24/2021 Overview (07/24/2021): Added automatically from request for surgery [id number] Impingement syndrome of left shoulder 07/24/2021 Overview (07/24/2021): Added automatically from request for surgery [id number] Essential hypertension, benign 06/16/2021 Social History Tobacco Use Types Packs/Day Years [...] on file 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
[2024-06-07 10:07] LABS: INR 0.9; Prothrombin Time 12.3 Seconds (11.1-14.7)
[2024-06-07 10:08] LABS: Partial Thromboplastin Time 28.3 Seconds (22.3-36.8)
[2024-06-07 10:11] LABS: Alanine Aminotransferase 193 U/L (6-50); Albumin Level 4.5 g/dL (3.5-5.1); Alkaline Phosphatase 79 U/L (38-126); Anion Gap 13 mmol/L (4-12); Aspartate Amino Transferase 269 U/L (17-59); Bilirubin,Total 0.7 mg/dL (0.2-1.3); Blood Urea Nitrogen 17 mg/dL (9-20); Calcium 9.2 mg/dL (8.4-10.2); Carbon Dioxide 27 mmol/L (22-30); Chloride 101 mmol/L (98-107); D Dimer 0.54 ug/mL (<0.48); Estimated CRCL calculation 48 ml/min; Estimated Glomerular Filt Rate 50; Glucose 115 mg/dL (65-110); Lipase 887 U/L (23-300); Potassium 3.6 mmol/L (3.4-5.0); Sodium 141 mmol/L (137-145)
[2024-06-07 10:23] LABS: Troponin I 0.013 ng/mL (0.000-0.034)
--- OUTSIDE RECORDS SUMMARY | 2024-06-07 10:37 | XMS_ITS | Clinical Summary ---
Author Organization [facility] [address] [facility] Address [address] [place] [address] Care Team Providers Care Park Maintenance Technician Name Role Phone Ron Lee Unavailable [phone] Clifton Garcia MD Primary Care Provider [phone] Allergies No known active allergies Medications albuterol [...] (07/24/2021): Added automatically from request for surgery [id number] Arthritis of left acromioclavicular joint 2021 Overview (07/24/2021): Added automatically from request for surgery [id number] Bicipital tendinitis, left 07/24/2021 Overview (07/24/2021): Added automatically from request for surgery [id number] Impingement syndrome of left shoulder 07/24/2021 Overview (07/24/2021): Added automatically from request for surgery [id number] Essential hypertension, benign 06/16/2021 Surgical History Surgery [...] on file 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
--- OUTSIDE RECORDS SUMMARY | 2024-06-07 10:37 | XMS_ITS | Clinical Summary ---
Author Organization [facility] Address [address] [place] [address] Phone Care Team Providers Care Machine Rough Rounder Name Role Phone Angelito Bhat MD Primary [...] Relevant to Health Maintenance Insurance MEDICAID [employer]ETNA [facility] Care Teams Machine Rough Rounder Relationship Specialty Start Date End Date Angelito Bhat MD [address] [place] [address] PCP - General Internal Medicine 05/27/21
--- OUTSIDE RECORDS SUMMARY | 2024-06-07 10:37 | XMS_ITS | Clinical Summary ---
Author Organization [facility] Address [address] [place] [address] Care Team Providers Care Maintenance Craftsman Name Role Phone Clifton Garcia MD Primary Care Provider [phone] Source Comments [facility],non-owned Affiliates and Associated Physician Practices is amultiple site organization consisting of ambulatory clinics and hospital sitesin [place], [place], [place] and [place]. This disclosure is being madepursuant to the Care Everywhere program and may not contain all information available regarding this patient. Last updated 17.[facility] Allergies Active Allergy Reactions Criticality Noted Date [...] Comments Blood Pressure 161/94 02/14/2024 2:20 PM TRAINING COORDINATOR Pulse 97 02/14/2024 2:20 PM TRAINING COORDINATOR Temperature 36.6 C (97.9 F) 02/14/2024 2:20 PM TRAINING COORDINATOR Respiratory Rate 18 02/14/2024 2:20 PM TRAINING COORDINATOR Oxygen Saturation 100% 02/14/2024 2:20 PM TRAINING COORDINATOR Inhaled Oxygen Concentration - - Weight 77.1 kg (170 lb) 02/14/2024 2:20 PM TRAINING COORDINATOR Height 166.4 cm (5' 5.5 ) 02/14/2024 2:20 PM TRAINING COORDINATOR Body Mass Index 27.86 02/14/2024 2:20 PM TRAINING COORDINATOR Plan of Treatment Upcoming Encounters Date Type Department Care Team (Late st Contact Info) Description 06/11/2024 10:30 AM CDT Appointment [facility] MRI [address] [place] [address] Alberto Bruce MD [address] [place] [address] [address] [place] [address] 06/11/2024 11:30 AM CDT Office Visit [facility] - Neurosurgery [address] [place] [address], [place] [address] Alberto Bruce MD [address] [place] [address] [address] [place] [address] Health Maintenance Due Date Last Done Comments [...] COMPREHENSIVE METABOLIC PANEL Routine 02/14/2024 2:09 PM TRAINING COORDINATOR Abnormal MRI, lumbar spine from Last 3 Months or Most Recently Relevant to Health Maintenance Results * (ABNORMAL) COMPREHENSIVE METABOLIC PANEL (02/14/2024 2:09 PM TRAINING COORDINATOR) BUN 8 7 - 26 mg/dL 02/14/2024 2:46 PM [facility] Creatinine 1.11 0.71 - 1.16 mg/dL 02/14/2024 2:46 PM [facility] Sodium 135(L) 136 - 145 mmol/L 02/14/2024 2:46 PM [facility] Potassium 4.4 3.5 - 4.5 mmol/L 02/14/2024 2:46 PM [facility] Chloride 102 98 - 107 mmol/L 02/14/2024 2:46 PM [facility] CO2 23 22 - 29 mmol/L 02/14/2024 2:46 PM [facility] Glucose 95 70 - 99 mg/dL 02/14/2024 2:46 PM [facility] Calcium 9.4 8.4 - 10.2 mg/dL 02/14/2024 2:46 PM [facility] Protein Total 7.6 6.0 - 8.3 g/dL 02/14/2024 2:46 PM [facility] Albumin 3.7 3.4 - 5.0 g/dL 02/14/2024 2:46 PM [facility] Bilirubin Total 0.9 0.2 - 1.2 mg/dL 02/14/2024 2:46 PM [facility] Alkaline Phosphatase 85 40 - 150 U/L 02/14/2024 2:46 PM [facility] ALT 36 5 - 55 U/L 02/14/2024 2:46 PM [facility] AST 94(H) 5 - 34 U/L 02/14/2024 2:46 PM [facility] Anion Gap 10 6 - 16 02/14/2024 2:46 PM [facility] BUN/Creatinine Ratio 7 7 - 23 02/14/2024 2:46 PM [facility] Osmolality Calculated 278 275 - 295 mOsm/kg 02/14/2024 2:46 PM [facility] Albumin/Globulin Ratio 0.9(L) 1.1 - 2.3 02/14/2024 2:46 PM [facility] eGFR by CKD-EPI 76(L) >=90 mL/min/1.7 3 m2 02/14/2024 2:46 PM [facility] Blood BLOOD SPECIMEN / Unknown Venipuncture / Unknown 02/14/2024 2:09 PM TRAINING COORDINATOR 02/14/2024 2:15 PM [facility] Christofer Lloyd MD LAB - CHEMISTRY VERÓNICA ALLISON [facility] Organization Address City/State/ZIP Co de Phone Number [facility] [address] [place] [address], [facility] [phone] from Last 3 Months or Most Recently Relevant to Health Maintenance Care Teams Maintenance Craftsman Relationship Specialty Start Date End Date Clifton Garcia MD [address] [place] [address] PCP - General Family Medicine 10/07/23
--- OUTSIDE RECORDS SUMMARY | 2024-06-07 10:37 | XMS_ITS | Referral Summary ---
Author Organization [facility] Address [address] [place] [address] Care Team Providers Care Golf Sales Associate Name Role Phone Ron Lee Unavailable [phone] Clifton Garcia MD Primary Care Provider [phone] Allergies No known active allergies Medications albuterol [...] (07/24/2021): Added automatically from request for surgery [id number] Arthritis of left acromioclavicular joint 2021 Overview (07/24/2021): Added automatically from request for surgery [id number] Bicipital tendinitis, left 07/24/2021 Overview (07/24/2021): Added automatically from request for surgery [id number] Impingement syndrome of left shoulder 07/24/2021 Overview (07/24/2021): Added automatically from request for surgery [id number] Essential hypertension, benign 06/16/2021 Social History Tobacco [...] on file 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
[2024-06-07 10:39] LABS: Influenza A QL RT-PCR Negative (Negative); Influenza B QL RT-PCR Negative (Negative); RSV RNA, RT-PCR Negative (Negative); SARS-CoV-2 RNA PCR Negative (Negative)
--- NOTE | 2024-06-07 11:07 | ED.SOB ---
HPI - SOB/Dyspnea General Chief Complaint: Shortness of Breath/Dyspnea <LULÚ Chaidez Last Filed: 06/07/24 18:18> Stated Complaint: SOB <LULÚ Chaidez Last Filed: 06/07/24 18:18> Time Seen by Provider: 06/07/24 09:51 <LULÚ Chaidez Last Filed: 06/07/24 18:18> Source: patient <LULÚ Chaidez Last Filed: 06/07/24 18:18> Mode of arrival: ambulatory <LULÚ Chaidez Last Filed: 06/07/24 18:18> Limitations: no limitations <LULÚ Chaidez Last Filed: 06/07/24 18:18> History of Present Illness HPI Narrative: Patient is a 58 year old male, with PMH of HTN, daily alcohol use, who presents the ED with report of chest pain. Patient reports he woke up this morning with midsternal chest heaviness. Denies radiation of the pain. Denies aggravating or alleviating factors to the pain. Reports having shortness of breath, lightheadedness. No previous history similar symptoms. No previous cardiac issues. 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 Denies pain or swelling in legs. Denies abdominal pain, nausea, vomiting. Does report having recent productive cough for the past 1 month. Denies fevers. <LULÚ Chaidez Last Filed: 06/07/24 18:18> Related Data Allergies/Adverse Reactions: Allergies Allergy/AdvReac Type Severity Reaction Status Date / Time No Known Allergies Allergy Verified 06/07/24 09:59 <LULÚ hCaidez Last Filed: 06/07/24 18:18> Review of Systems Review of Systems: All systems reviewed & are unremarkable except as noted in HPI. <LULÚ Chaidez Last Filed: 06/07/24 18:18> All systems reviewed & are unremarkable except as noted in HPI and below <LULÚ Chaidez Last Filed: 06/07/24 18:18> [facility] Past Medical History Medical History: Medical History Erectile dysfunction BPH (benign prostatic hyperplasia) CVA (cerebral vascular accident) left basal ganglia COPD (chronic obstructive pulmonary disease) Hyponatremia Left sided lacunar stroke Skin cancer of arm GERD (gastroesophageal reflux disease) Obstructive sleep apnea Intolerant to CPAP Essential hypertension Hepatic steatosis History of ETOH abuse Cervicalgia Severe degenerative disc disease and facet arthropathy multiple level severe bilateral neural foraminal narrowing no severe central canal narrowing changes noted on CT 06/01/2023 Lumbago Mild degenerative spondylosis noted on MRI 03/2023 <LULÚ Chaidez Last Filed: 06/07/24 18:18> Surgical History Surgical History: Surgical History History of arthroscopic procedure on shoulder History of arthroscopic knee surgery <LULÚ Chaidez Last Filed: 06/07/24 18:18> Family History Family History: Family History Mother In good health Father , Age 70 Malignant neoplasm of prostate <LULÚ Chaidez Last Filed: 06/07/24 18:18> Social History Social History: Social History Social History: 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 He reports he is in the process of trying to apply for disability. He is living with his mother. He is . He used to drink at least 6 beers a day but quit doing so about 2 months ago. He continues to smoke 1-1.5 packs of cigarettes per day and has done so since his early 20s. He denies illicit substance use. Code status: Full code Surrogate decision maker: Mother Smoking packs per day: 1 Smoking cigarettes per day: 20.0 Years smoked: 28 Smoking pack-years: 28.00 Smoking status: Current every day smoker Tobacco type: cigarettes Second hand tobacco smoke exposure: Yes Alcohol intake: current Drinks per week: 36 Alcohol use details: BEERS Substance use: never Substance use type: does not use Do You Feel Safe in your Home?: Yes Lack of Transportation: No Lack of Food: Never True Current Housing: I Have Housing Concerned About Future Housing: No Difficulty Paying Gas/Electric Bills: No Difficulty Paying for Meds: No Currently Unemployed: No Education: High School Diploma/GED Difficulty w/ Childcare or Family Care: No Living arrangements: with family Additional occupation/education comments: [employer] Gender identity (if verbalized by the patient): Male Spiritual care concerns: No Agree to blood products: Yes <Josseline Hein PA-C - Last Filed: 06/07/24 18:18> Exam Narrative: GENERAL: Appears older than stated age, non-toxic, in no acute distress. HEAD: Normocephalic, atraumatic. ENT: Rhinophyma RESPIRATORY: Airway patent, respirations nonlabored. Clear to auscultation bilaterally, no rales, rhonchi, wheezing. No significant focal lung sounds. CARDIOVASCULAR: Regular rate and rhythm without murmurs, rubs, or gallops. ABDOMINAL: Soft, no significant tenderness throughout upper abdomen, nondistended. Normoactive BS. MUSCULOSKELETAL: Moves all extremities. No gross deformities. Mild TTP in midsternal chest region. No peripheral edema. No calf tenderness. SKIN: Warm, dry, normal color. NEURO: A&O X3. Speech clear. Cranial nerves II-XII grossly intact. Steady gait. No ataxic movements. PSYCHIATRIC: Appropriate mood and affect. Normal interaction. <Josseline Hein PA-C - Last Filed: 06/07/24 18:18> Course PHOTORESIST CONTACT PRINTER/PA Physician Supervision This visit was performed by both a physician and an APC. I performed all aspects of the MDM as documented. <Michael Montes MD - Last Filed: 06/07/24 22:11> Vital Signs Vital signs: Vital Signs Temperature 97.9 F 06/07/24 09:36 Pulse Rate 72 06/07/24 09:36 Respiratory Rate 20 06/07/24 09:36 Blood Pressure 157/119 H 06/07/24 09:36 Pulse Oximetry 100 06/07/24 09:36 Oxygen Delivery Room Air 06/07/24 09:36 Temperature 98 F 06/07/24 19:53 Pulse Rate 86 06/07/24 20:00 Respiratory Rate 18 06/07/24 20:00 Blood Pressure 184/103 H 06/07/24 21:54 Pulse Oximetry 96 06/07/24 20:00 Oxygen Delivery Room Air 06/07/24 20:00 <Josseline Hein PA-C - Last Filed: 06/07/24 18:18> Vital Signs Temperature 97.9 F 06/07/24 09:36 Pulse Rate 72 06/07/24 09:36 Respiratory Rate 20 06/07/24 09:36 Blood Pressure 157/119 H 06/07/24 09:36 Pulse Oximetry 100 06/07/24 09:36 Oxygen Delivery Room Air 06/07/24 09:36 Temperature 98 F 06/07/24 19:53 Pulse Rate 86 06/07/24 20:00 Respiratory Rate 18 06/07/24 20:00 Blood Pressure 184/103 H 06/07/24 21:54 Pulse Oximetry 96 06/07/24 20:00 Oxygen Delivery Room Air 06/07/24 20:00 <Michael Montes MD - Last Filed: 06/07/24 22:11> MDM - SOB/Dyspnea MDM Narrative Medical decision making narrative: Patient presented to ED with chest pain, shortness of breath, lightheadedness that began this morning. No previous history of heart disease. History of hypertension, daily alcohol use. Patient hypertensive upon arrival. Takes carvedilol and losartan for hypertension. States he took both of these today. EKG with some nonspecific ST depression in lateral leads. No STEMI. Baseline troponin is 0.013. Will continue to trend. D-dimer did result mildly elevated at 0.54. Remainder basic laboratory studies notable for mild anemia, consistent with previous records. Anion gap of 13. Fluids ongoing. Creatinine 1.45. Slight FARTUN compared to previous records. Baseline around 1.1. Blood sugar within normal range. Moderate transaminitis noted, AST 69, ALT 193. Total bilirubin within normal range. Lipase is mildly elevated to 887. Patient denies previous history of pancreatitis. Viral swabs are negative. CTA of chest w/ abd/pelvis obtained and unremarkable. No PE or other abnormalities. Hepatic steatosis. No evidence of acute pancreatitis. Patient reported resolution of chest pain with nitroglycerin in the ED. This did however cause vomiting and he refused any other NTG. CP has since returned. 3 Hr also undetectable. HEART score =4. Patient continues to have intermittent chest pain. Blood pressure continues to be elevated despite pain medication, Ativan, hydralazine. Patient will be admitted for further evaluation. Discussed case with Mishel Joaquin NP hospitalist, accepted patient for admission. Patient in agreement with plan and admission. CIWA protocol ordered. Patient also given protonix, thiamine. <LULÚ Chaidez Last Filed: 06/07/24 18:18> Medical Records Attestation: I reviewed the patient's medical records. <LULÚ Chaidez Last Filed: 06/07/24 18:18> Lab Data Attestation: I reviewed the patient's lab results. <Josseline Hein PA-C - Last Filed: 06/07/24 18:18> Result diagrams: 06/07/24 09:50 06/07/24 09:50 <Josseline Hein PA-C - Last Filed: 06/07/24 18:18> Labs: Lab Results 06/07/24 06/07/24 06/07/24 Range/Units 09:50 09:59 12:45 WBC 5.1 (4.5-10.0) K/mm3 RBC 3.59 L (4.6-6.20) M/mm3 Hgb 12.8 L (14.0-18.0) g/dL Hct 37.4 L (42.0-52.0) % MCV 104.2 H (80-100) fl MCH 35.7 H (26-34) pg MCHC 34.2 (32-36) g/dl RDW 12.8 (11.5-14.5) % Plt Count 150 (150-375) k/mm3 MPV 10.7 H (7.4-10.4) fl Immature Gran % (Auto) 0.4 (0-0.5) % Neut % (Auto) 59.6 (45.5-73.1) % Lymph % (Auto) 22.2 (18.3-44.2) % Potter % (Auto) 15.0 H (2.6-8.5) % Eos % (Auto) 1.4 (0-4.4) % Baso % (Auto) 1.4 H (0.2-1.2) % Lymph # (Auto) 1.13 (0.9-3.2) K/mm3 Potter # (Auto) 0.8 H (0.1-0.6) K/mm3 Eos # (Auto) 0.1 (0-0.3) K/mm3 Baso # (Auto) 0.1 (0.0-0.1) K/mm3 Abs Immat Gran (auto) 0.02 (0.00-0.031) K/mm3 Absolute Neuts (auto) 3.0 (1.3-6.7) K/mm3 Absolute Nucleated RBC 0.000 (0.0-0.012) K/mm3 Nucleated RBC % 0.0 (0.0-0.2) % PT 12.3 (11.1-14.7) Seconds INR 0.9 APTT 28.3 (22.3-36.8) Seconds D-Dimer 0.54 H (<0.48) ug/mL Sodium 141 (137-145) mmol/L Potassium 3.6 (3.4-5.0) mmol/L Chloride 101 (98-107) mmol/L Carbon Dioxide 27 (22-30) mmol/L Anion Gap 13 H (4-12) mmol/L BUN 17 (9-20) mg/dL Creatinine 1.45 H (0.7-1.3) mg/dL Estim Creat Clear Calc 48 ml/min Estimated GFR 50 L (59 - ) Glucose 115 H (65-110) mg/dL POC Capillary Glucose (65-105) mg/dl Calcium 9.2 (8.4-10.2) mg/dL Total Bilirubin 0.7 (0.2-1.3) mg/dL AST 269 H (17-59) U/L ALT 193 H (6-50) U/L Alkaline Phosphatase 79 (38-126) U/L Troponin I 0.013 < 0.012 (0.000-0.034) ng/mL Total Protein 8.0 (6.3-8.2) g/dL Albumin 4.5 (3.5-5.1) g/dL Lipase 887 H (23-300) U/L Influenza A (RT-PCR) Negative (Negative) Influenza B (RT-PCR) Negative (Negative) RSV (RT-PCR) Negative (Negative) SARS-CoV-2 RNA (RT-PCR) Negative (Negative) 06/07/24 Range/Units 14:09 WBC (4.5-10.0) K/mm3 RBC (4.6-6.20) M/mm3 Hgb (14.0-18.0) g/dL Hct (42.0-52.0) % MCV (80-100) fl MCH (26-34) pg MCHC (32-36) g/dl RDW (11.5-14.5) % Plt Count (150-375) k/mm3 MPV (7.4-10.4) fl Immature Gran % (Auto) (0-0.5) % Neut % (Auto) (45.5-73.1) % Lymph % (Auto) (18.3-44.2) % Potter % (Auto) (2.6-8.5) % Eos % (Auto) (0-4.4) % Baso % (Auto) (0.2-1.2) % Lymph # (Auto) (0.9-3.2) K/mm3 Potter # (Auto) (0.1-0.6) K/mm3 Eos # (Auto) (0-0.3) K/mm3 Baso # (Auto) (0.0-0.1) K/mm3 Abs Immat Gran (auto) (0.00-0.031) K/mm3 Absolute Neuts (auto) (1.3-6.7) K/mm3 Absolute Nucleated RBC (0.0-0.012) K/mm3 Nucleated RBC % (0.0-0.2) % PT (11.1-14.7) Seconds INR APTT (22.3-36.8) Seconds D-Dimer (<0.48) ug/mL Sodium (137-145) mmol/L Potassium (3.4-5.0) mmol/L Chloride (98-107) mmol/L Carbon Dioxide (22-30) mmol/L Anion Gap (4-12) mmol/L BUN (9-20) mg/dL Creatinine (0.7-1.3) mg/dL Estim Creat Clear Calc ml/min Estimated GFR (59 - ) Glucose (65-110) mg/dL POC Capillary Glucose 97 (65-105) mg/dl Calcium (8.4-10.2) mg/dL Total Bilirubin (0.2-1.3) mg/dL AST (17-59) U/L ALT (6-50) U/L Alkaline Phosphatase (38-126) U/L Troponin I (0.000-0.034) ng/mL Total Protein (6.3-8.2) g/dL Albumin (3.5-5.1) g/dL Lipase (23-300) U/L Influenza A (RT-PCR) (Negative) Influenza B (RT-PCR) (Negative) RSV (RT-PCR) (Negative) SARS-CoV-2 RNA (RT-PCR) (Negative) <Josseline Hein PA-C - Last Filed: 06/07/24 18:18> Lab Results 06/07/24 06/07/24 06/07/24 Range/Units 09:50 09:59 12:45 WBC 5.1 (4.5-10.0) K/mm3 RBC 3.59 L (4.6-6.20) M/mm3 Hgb 12.8 L (14.0-18.0) g/dL Hct 37.4 L (42.0-52.0) % MCV 104.2 H (80-100) fl MCH 35.7 H (26-34) pg MCHC 34.2 (32-36) g/dl RDW 12.8 (11.5-14.5) % Plt Count 150 (150-375) k/mm3 MPV 10.7 H (7.4-10.4) fl Immature Gran % (Auto) 0.4 (0-0.5) % Neut % (Auto) 59.6 (45.5-73.1) % Lymph % (Auto) 22.2 (18.3-44.2) % Potter % (Auto) 15.0 H (2.6-8.5) % Eos % (Auto) 1.4 (0-4.4) % Baso % (Auto) 1.4 H (0.2-1.2) % Lymph # (Auto) 1.13 (0.9-3.2) K/mm3 Potter # (Auto) 0.8 H (0.1-0.6) K/mm3 Eos # (Auto) 0.1 (0-0.3) K/mm3 Baso # (Auto) 0.1 (0.0-0.1) K/mm3 Abs Immat Gran (auto) 0.02 (0.00-0.031) K/mm3 Absolute Neuts (auto) 3.0 (1.3-6.7) K/mm3 Absolute Nucleated RBC 0.000 (0.0-0.012) K/mm3 Nucleated RBC % 0.0 (0.0-0.2) % PT 12.3 (11.1-14.7) Seconds INR 0.9 APTT 28.3 (22.3-36.8) Seconds D-Dimer 0.54 H (<0.48) ug/mL Sodium 141 (137-145) mmol/L Potassium 3.6 (3.4-5.0) mmol/L Chloride 101 (98-107) mmol/L Carbon Dioxide 27 (22-30) mmol/L Anion Gap 13 H (4-12) mmol/L BUN 17 (9-20) mg/dL Creatinine 1.45 H (0.7-1.3) mg/dL Estim Creat Clear Calc 48 ml/min Estimated GFR 50 L (59 - ) Glucose 115 H (65-110) mg/dL POC Capillary Glucose (65-105) mg/dl Calcium 9.2 (8.4-10.2) mg/dL Total Bilirubin 0.7 (0.2-1.3) mg/dL AST 269 H (17-59) U/L ALT 193 H (6-50) U/L Alkaline Phosphatase 79 (38-126) U/L Troponin I 0.013 < 0.012 (0.000-0.034) ng/mL Total Protein 8.0 (6.3-8.2) g/dL Albumin 4.5 (3.5-5.1) g/dL Lipase 887 H (23-300) U/L Influenza A (RT-PCR) Negative (Negative) Influenza B (RT-PCR) Negative (Negative) RSV (RT-PCR) Negative (Negative) SARS-CoV-2 RNA (RT-PCR) Negative (Negative) 06/07/24 Range/Units 14:09 WBC (4.5-10.0) K/mm3 RBC (4.6-6.20) M/mm3 Hgb (14.0-18.0) g/dL Hct (42.0-52.0) % MCV (80-100) fl MCH (26-34) pg MCHC (32-36) g/dl RDW (11.5-14.5) % Plt Count (150-375) k/mm3 MPV (7.4-10.4) fl Immature Gran % (Auto) (0-0.5) % Neut % (Auto) (45.5-73.1) % Lymph % (Auto) (18.3-44.2) % Potter % (Auto) (2.6-8.5) % Eos % (Auto) (0-4.4) % Baso % (Auto) (0.2-1.2) % Lymph # (Auto) (0.9-3.2) K/mm3 Potter # (Auto) (0.1-0.6) K/mm3 Eos # (Auto) (0-0.3) K/mm3 Baso # (Auto) (0.0-0.1) K/mm3 Abs Immat Gran (auto) (0.00-0.031) K/mm3 Absolute Neuts (auto) (1.3-6.7) K/mm3 Absolute Nucleated RBC (0.0-0.012) K/mm3 Nucleated RBC % (0.0-0.2) % PT (11.1-14.7) Seconds INR APTT (22.3-36.8) Seconds D-Dimer (<0.48) ug/mL Sodium (137-145) mmol/L Potassium (3.4-5.0) mmol/L Chloride (98-107) mmol/L Carbon Dioxide (22-30) mmol/L Anion Gap (4-12) mmol/L BUN (9-20) mg/dL Creatinine (0.7-1.3) mg/dL Estim Creat Clear Calc ml/min Estimated GFR (59 - ) Glucose (65-110) mg/dL POC Capillary Glucose 97 (65-105) mg/dl Calcium (8.4-10.2) mg/dL Total Bilirubin (0.2-1.3) mg/dL AST (17-59) U/L ALT (6-50) U/L Alkaline Phosphatase (38-126) U/L Troponin I (0.000-0.034) ng/mL Total Protein (6.3-8.2) g/dL Albumin (3.5-5.1) g/dL Lipase (23-300) U/L Influenza A (RT-PCR) (Negative) Influenza B (RT-PCR) (Negative) RSV (RT-PCR) (Negative) SARS-CoV-2 RNA (RT-PCR) (Negative) <Michael Montes MD - Last Filed: 06/07/24 22:11> Imaging Data Attestation: I personally reviewed and interpreted this imaging study as follows: <Josseline Hein PA-C - Last Filed: 06/07/24 18:18> Radiologist's impression: ITS Impressions Chest/Abdomen/Pelvis CTA 06/07/24 11:23 IMPRESSION: 1. No pulmonary embolism or other acute cardiopulmonary disease. 2. Cardiomegaly. 3. No acute intra-abdominal/pelvic process. 4. Diffuse hepatic steatosis. <Josseline Hein PA-C - Last Filed: 06/07/24 18:18> ECG Data EKG #1: Attestation: I personally reviewed and interpreted this ECG as follows: <Josseline Hein PA-C - Last Filed: 06/07/24 18:18> ECG completion date: 06/07/24 <Josseline Hein PA-C - Last Filed: 06/07/24 18:18> ECG completion time: 09:47 <Josseline Hein PA-C - Last Filed: 06/07/24 18:18> EKG Interpretation: normal rate (75), sinus rhythm and non-specific ST changes <Josseline Hein PA-C - Last Filed: 06/07/24 18:18> Discharge Plan Discharge Clinical Impression: Atypical chest pain, Elevated blood pressure reading with diagnosis of hypertension, Alcohol abuse, Transaminitis, Elevated lipase, FARTUN (acute kidney injury) <Josseline Hein PA-C - Last Filed: 06/07/24 18:18> Patient Disposition: Still a Patient <Josseline Hein PA-C - Last Filed: 06/07/24 18:18> Condition: Stable <Josseline Heni PA-C - Last Filed: 06/07/24 18:18> Quality HEART score for chest pain patients History: moderately suspicious <Josseline Hein PA-C - Last Filed: 06/07/24 18:18> ECG: non specific repolarization disturbance/LBTB/PM <Josseline Hein PA-C - Last Filed: 06/07/24 18:18> Age: > 45 and < 65 years <Josseline Hein PA-C - Last Filed: 06/07/24 18:18> Risk factors: 1 or 2 risk factors <Josseline Hein PA-C - Last Filed: 06/07/24 18:18> Troponin: < or = to 1x normal limit <Josseline Hein PA-C - Last Filed: 06/07/24 18:18> Heart score: 4 <Josseline Hein PA-C - Last Filed: 06/07/24 18:18> 4 <Michael Montes MD - Last Filed: 06/07/24 22:11>
[2024-06-07] MEDS: ONDANSETRON INJ 4 MG/2 ML VIAL IV PUSH ×2 (11:23→17:51)
[2024-06-07] MEDS: MORPHINE SULFATE (*CRX) 4 MG/ML INJ IV PUSH (11:23)
[2024-06-07] MEDS: SODIUM CHLORIDE 0.9% IV 1,000 ML 999 ML IV CONT (11:25)
[2024-06-07] MEDS: NITROGLYCERIN SL 0.4 MG TABLET SUBLINGUAL (12:10)
--- NOTE | 2024-06-07 12:13 | PC.NURSE ---
1211 nitro given, 5/10 chest pain. pt says feels like pressure 1216 no second dose required
--- NOTE | 2024-06-07 12:41 | ECG_ITS ---
Test Date: 2024-06-07 12:47:27 Measurements Intervals [place] Rate: 76 P: 52 HI: 152 QRS: 32 QRSD: 93 T: 28 QT: 391 QTc: 442 Interpretive Statements SINUS RHYTHM BORDERLINE R WAVE PROGRESSION, ANTERIOR LEADS BORDERLINE ST-T WAVE ABNORMALITY- INF/LAT LEADS BORDERLINE ECG Compared to ECG 06/07/2024 09:47:13 No significant changes Electronically Signed On 06-07-2024 12:55:27 CDT by Shaan Brody D.O.
[2024-06-07 13:14] LABS: Troponin I < 0.012 ng/mL (0.000-0.034)
--- NOTE | 2024-06-07 14:06 | PC.NURSE ---
blood sugar is 97 at this time
[2024-06-07] MEDS: hydrALAZINE HCL 20 MG/ML VIAL 10 MG IV PUSH ×2 (14:07→20:19)
[2024-06-07] MEDS: THIAMINE HCL 200 MG/2 ML VIAL 100 MG IV PUSH (14:10)
[2024-06-07] MEDS: LORazepam INJ (*CRX) 2 MG/ML VIAL 1 MG IV PUSH (14:15)
[2024-06-07 15:03] LABS: Glucose Point of Care 97 mg/dl (65-105)
[2024-06-07] MEDS: PANTOPRAZOLE SODIUM IV 40 MG VIAL IV PUSH (15:14)
[2024-06-07] MEDS: NICOTINE (*PBKC) 21 MG PATCH 1 PATCH TRANSDERM (15:22)
--- NOTE | 2024-06-07 15:39 | ECG_ITS ---
Test Date: 2024-06-07 15:44:20 Measurements Intervals [place] Rate: 74 P: 66 [place]: 124 QRS: 58 QRSD: 98 T: 40 QT: 397 QTc: 441 Interpretive Statements SINUS RHYTHM BORDERLINE R WAVE PROGRESSION, ANTERIOR LEADS BORDERLINE ST ABNORMALITY- INF/LAT LEADS BORDERLINE ECG Compared to ECG 06/07/2024 12:47:27 NO SIGNIFICANT CHANGE Electronically Signed On 06-07-2024 15:58:58 CDT by Shaan Brody D.O.
--- NOTE | 2024-06-07 16:00 | PC.NURSE ---
Mishel Joaquin NP notified of pt's BP after receiving report from ED; pt is in route to IMU 232. Pt received 10mg IVP of hydralazine in ED at 1407, with no decrease in BP. No new orders at this time
[2024-06-07 16:15] LABS: Troponin I 0.013 ng/mL (0.000-0.034)
[2024-06-07] MEDS: LABETALOL HCL INJ 100 MG/20 ML VIAL 20 MG IV PUSH (16:48)
--- NOTE | 2024-06-07 17:22 | ADMGEN ---
This patient, Taran Griffin, was admitted to IMU Room 231-01 at 1621. Patient/family oriented to hospital policies and general routines including ID bracelet, bed and alarms, visiting hours, pain management, procedures, bathroom and other care routines, personal items, smoking policy, room service/diet, and visiting hours. Information on how to activate the Rapid Response Team has been discussed. Patient/Family are encouraged to report perceived risks to care and to ask questions if they do not understand what they are told or what they should do.
--- NOTE | 2024-06-07 17:43 | PM.IMHP ---
H&P: HPI History of Present Illness Date/Time: 06/07/24 17:43 Chief Complaint: Shortness of Breath Narrative: 58 y/o M with PMH of CVA, BPH, hyponatremia, FRANCK intolerant of CPAP, HTN, hepatic steatosis, daily ETOH use, chronic back pain, COPD, skin cancer (BUE), and anxiety presents here with shortness of breath and chest pain. The patient presents here with shortness of breath from home. He reports he was woken up with shortness of breath and midsternal chest pain this morning around 0700. He describes the pain as a heaviness, nonradiating, constant, and no aggravating/alleviating factors. Chest pain is accompanied by mild shortness of breath, lightheadedness, dizziness, and headache. Denies associated nausea, vomiting, diaphoresis, blurred vision. No previous cardiac history. He reports he has significantly elevated blood pressure at baseline, 150/100 - 200/115. Patient also has history of daily alcohol use, has been guarded on quantity. Last drink yesterday evening. No previous history of withdrawal. Initial VS at presentation: 97.9? F, HR 72, RR 20, 157/119, and 100% on RA. ED workup showed: No leukocytosis, hemoglobin 12.8 (at baseline), elevated D-dimer, creatinine 1.45 and GFR 50 (previously 1.1 and GFR >60 06/2023), AST 269, ALT 193, initial troponin 0.013, lipase 887. CTA chest/abd/pelvis showed no PE, no acute cardiopulmonary disease, cardiomegaly, no acute intra-abdominal/pelvic process, diffuse hepatic steatosis. EKG showed sinus rhythm, rate 75, borderline R-wave progression anterior leads, borderline ST-T-wave abnormality inferior/lateral leads, baseline artifact. Review of Systems Review of Systems: All systems reviewed & are unremarkable except as noted in HPI and below PMFSH Past Medical History Medical History Erectile dysfunction BPH (benign prostatic hyperplasia) CVA (cerebral vascular accident) left basal ganglia COPD (chronic obstructive pulmonary disease) Hyponatremia Left sided lacunar stroke Skin cancer of arm GERD (gastroesophageal reflux disease) Obstructive sleep apnea Intolerant to CPAP Essential hypertension Hepatic steatosis History of ETOH abuse Cervicalgia Severe degenerative disc disease and facet arthropathy multiple level severe bilateral neural foraminal narrowing no severe central canal narrowing changes noted on CT 06/01/2023 Lumbago Mild degenerative spondylosis noted on MRI 03/2023 Surgical History Surgical History History of arthroscopic procedure on shoulder History of arthroscopic knee surgery Family History Family History Mother In good health Father , Age 70 Malignant neoplasm of prostate Social History Social History Social History: 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 He reports he is in the process of trying to apply for disability. He is living with his mother. He is . He used to drink at least 6 beers a day but quit doing so about 2 months ago. He continues to smoke 1-1.5 packs of cigarettes per day and has done so since his early 20s. He denies illicit substance use. Code status: Full code Surrogate decision maker: Mother Smoking packs per day: 1 Smoking cigarettes per day: 20.0 Years smoked: 28 Smoking pack-years: 28.00 Smoking status: Current every day smoker Tobacco type: cigarettes Second hand tobacco smoke exposure: Yes Alcohol intake: current Drinks per week: 36 Alcohol use details: BEERS Substance use: never Substance use type: does not use Do You Feel Safe in your Home?: Yes Lack of Transportation: No Lack of Food: Never True Current Housing: I Have Housing Concerned About Future Housing: No Difficulty Paying Gas/Electric Bills: No Difficulty Paying for Meds: No Currently Unemployed: No Education: High School Diploma/GED Difficulty w/ Childcare or Family Care: No Living arrangements: with family Additional occupation/education comments: [employer] Gender identity (if verbalized by the patient): Male Spiritual care concerns: No Agree to blood products: Yes Meds Home Medications and Allergies Home Medications ?Medication ?Instructions ?Recorded ?Confirmed ?Type albuterol sulfate 90 mcg/actuation 1 inh inhalation Q4H PRN shortness 05/17/22 06/07/24 Rx aerosol inhaler of breath or wheezing #8.5 grams famotidine 40 mg tablet 40 mg PO DAILY #90 tabs 10/27/23 06/07/24 Rx carvedilol 12.5 mg tablet See Rx Instructions .Route 02/07/24 06/07/24 Rx .COMPLEX #90 tabs losartan 100 mg tablet 100 mg PO DAILY #90 tabs 05/07/24 06/07/24 Rx Allergies Allergy/AdvReac Type Severity Reaction Status Date / Time No Known Allergies Allergy Verified 06/07/24 09:59 Vital Signs Vital Signs - 24 hr 06/07/24 09:36 06/07/24 09:50 06/07/24 09:53 Temperature 97.9 F Pulse Rate 72 74 73 Respiratory Rate 20 14 Blood Pressure 157/119 H 158/101 H Pulse Oximetry 100 100 Oxygen Delivery Room Air 06/07/24 09:59 06/07/24 10:00 06/07/24 10:16 Temperature Pulse Rate 72 81 Respiratory Rate 16 14 Blood Pressure 185/101 H 191/109 H Pulse Oximetry 100 99 100 Oxygen Delivery Room Air 06/07/24 10:31 06/07/24 10:46 06/07/24 11:01 Temperature Pulse Rate 78 68 69 Respiratory Rate 16 13 14 Blood Pressure 187/105 H 214/111 H 209/105 H Pulse Oximetry 100 99 99 Oxygen Delivery 06/07/24 11:25 06/07/24 11:31 06/07/24 11:46 Temperature Pulse Rate 81 87 84 Respiratory Rate 15 14 13 Blood Pressure 217/108 H 203/104 H 215/118 H Pulse Oximetry 99 98 98 Oxygen Delivery 06/07/24 12:01 06/07/24 12:13 06/07/24 12:13 Temperature Pulse Rate 78 89 88 Respiratory Rate 13 17 15 Blood Pressure 204/101 H 188/104 H 188/104 H Pulse Oximetry 97 96 96 Oxygen Delivery 06/07/24 12:16 06/07/24 12:31 06/07/24 12:46 Temperature Pulse Rate 94 78 80 Respiratory Rate 17 15 22 H Blood Pressure 183/94 H 191/110 H 199/118 H Pulse Oximetry 96 98 99 Oxygen Delivery 06/07/24 13:01 06/07/24 13:16 06/07/24 13:31 Temperature Pulse Rate 74 71 76 Respiratory Rate 13 10 L 17 Blood Pressure 193/115 H 197/116 H 217/117 H Pulse Oximetry 98 99 97 Oxygen Delivery 06/07/24 13:52 06/07/24 14:01 06/07/24 14:16 Temperature Pulse Rate 82 76 79 Respiratory Rate 18 19 15 Blood Pressure 230/121 H 203/119 H 211/116 H Pulse Oximetry 100 100 100 Oxygen Delivery 06/07/24 14:31 06/07/24 14:46 06/07/24 15:01 Temperature Pulse Rate 82 73 74 Respiratory Rate 12 11 L 14 Blood Pressure 213/116 H 218/115 H 215/110 H Pulse Oximetry 100 99 99 Oxygen Delivery 06/07/24 15:16 06/07/24 15:31 06/07/24 16:27 Temperature Pulse Rate 79 73 Respiratory Rate 15 11 L Blood Pressure 207/119 H 218/123 H Pulse Oximetry 98 99 Oxygen Delivery Room Air 06/07/24 16:33 06/07/24 16:48 Temperature 98.4 F Pulse Rate 81 129 H Respiratory Rate 16 Blood Pressure 229/105 H Pulse Oximetry 100 Oxygen Delivery Exam Const: General: comfortable and no acute distress Other: , male, nontoxic appearance HENMT: Face/Nose/Sinus: Normal nares present Mouth: Yes moist mucous membranes Eyes: General: appearance normal, both eyes and all related structures Sclera: sclerae normal Pupils: Equal, round and reactive pupils present EOM: EOMs intact bilaterally Resp: Effort & Inspection: normal respiratory effort Auscultation: clear to auscultation bilaterally Cardio: Rate: regular rate Rhythm: regular rhythm Other: S1-S2 present without murmur, rub, ectopy GI: Other: Abdomen rounded, soft, nontender. Skin: General skin exam: no rashes or lesions noted Wounds: no wounds Other: + cailin complexion Neuro: Speech: normal speech Motor exam (neuro): 5/5 motor strength present throughout Sensory Exam: normal sensation Other: A&O x4, fine tremor to bilateral upper extremities. Extrem: General: normal to inspection Psych: Mental Status: mental status grossly normal Affect: normal affect Other: Good insight and judgment, pleasant. H&P: Results Labs Labs: Short CBC 06/07/24 Range/Units 09:50 WBC 5.1 (4.5-10.0) K/mm3 Hgb 12.8 L (14.0-18.0) g/dL Hct 37.4 L (42.0-52.0) % Plt Count 150 (150-375) k/mm3 BMP 06/07/24 09:50 Sodium 141 Potassium 3.6 Chloride 101 Carbon Dioxide 27 BUN 17 Creatinine 1.45 H Glucose 115 H Calcium 9.2 Cardiac Enzymes 06/07/24 06/07/24 06/07/24 Range/Units 09:50 12:45 15:42 Troponin I 0.013 < 0.012 0.013 (0.000-0.034) ng/mL Liver Function 06/07/24 Range/Units 09:50 Total Bilirubin 0.7 (0.2-1.3) mg/dL AST 269 H (17-59) U/L ALT 193 H (6-50) U/L Alkaline Phosphatase 79 (38-126) U/L Albumin 4.5 (3.5-5.1) g/dL Assessment and Plan Assessment and plan (1) Hypertensive urgency: Code(s): I16.0 - Hypertensive urgency Status: Acute Assessment and Plan: BP upon arrival 187/119. Currently 229/105 despite hydralazine, labetalol, morphine and nitropaste. The patient is currently on carvedilol 12.5 mg b.i.d. and losartan 100 mg daily. Reports he took his home medications this morning. BP at baseline significantly elevated and has on multiple occasions been offered EMS transport from primary care office due to his blood pressure. Will increase patient's carvedilol to 25 mg this evening, assess toleration. Suspect patient will need carvedilol 25 mg b.i.d. Spoke with side panel padder, recommended addition of Norvasc 10 mg daily. Will give dose now. Repeat hydralazine and labetalol IV, if no change than okay to transfer to ICU for Cardene gtt. (2) Shortness of breath: Code(s): R06.02 - Shortness of breath Status: Acute Assessment and Plan: Hemoglobin at baseline. Viral PCR negative. CTA chest/abdomen/pelvis showed no PE or other acute findings, chronic findings including cardiomegaly and diffuse hepatic steatosis. EKG showed sinus rhythm, borderline R-wave progression anterior leads, borderline ST-T-wave abnormality inferior/lateral leads, baseline artifact. Suspect shortness of breath secondary to hypertensive urgency. (3) Atypical chest pain: Code(s): R07.89 - Other chest pain Status: Acute Assessment and Plan: Initial EKG showed sinus rhythm, repeat EKG x2 showed no significant change. Troponin 0.013 -> <0.012 -> than 0.013. Flat. Suspect chest pain secondary to elevated blood pressure, see above. (4) FARTUN (acute kidney injury): Code(s): N17.9 - Acute kidney failure, unspecified Status: Acute Assessment and Plan: Creatinine 1.45, BUN 17, GFR 50. Previously 1.1 and GFR >60 06/2023. Check CK, urine sodium, protein/creatinine, urine protein, urine creatinine, and urea. Monitor I&Os. Consider nephrology consultation if no improvement with fluids and reduction in blood pressure. (5) Transaminitis: Code(s): R74.01 - Elevation of levels of liver transaminase levels Status: Chronic Assessment and Plan: AST 269, ALT 193. Elevated compared to prior in June of 2023. Has history of hepatic steatosis and continues to drink daily. Differential includes worsening liver function secondary to alcohol use verses organ damage secondary to uncontrolled hypertension. Trend. (6) Alcohol abuse: Code(s): F10.10 - Alcohol abuse, uncomplicated Status: Acute Assessment and Plan: Patient is a current daily drinker. Guarded on amount. Last drink yesterday evening. No previous history of withdrawal, DTs, or withdrawal seizures. [facility] protocol in place. Librium and Ativan p.r.n.. Seizure precautions. Neuro checks Q2. Plan Diet: Heart healthy GI Prophylaxis: Pantoprazole DVT Prophylaxis: Lovenox Lines: Peripheral Code Status: Full code Quality VTE Prophylaxis VTE prophylaxis: pharmacologic ordered Critical Care Time: I personally spent 40 minutes of direct patient care including (but not limited to) the physical examination, decision-making, bedside evaluation, review of medical records, review of labs and imaging, discussion with nursing staff and other providers for collaborative, critical care management of this patient. Hospitalist [facility] Advance Care Plan I have confirmed that the patient's Advanced Care Plan is present, code status is documented, or surrogate decision maker is listed in patient medical record.: Yes Medication Reconciliation I have utilized all available resources to obtain, update and review the patients current medications (includes all prescriptions, OTC, herbals, cannabis, and nutritional supplements).: Yes
[2024-06-07] MEDS: NITROGLYCERIN OINTMENT 1 INCH DOSE TRANSDERM (17:49)
[2024-06-07] MEDS: MORPHINE SULFATE (*CRX) 2 MG/ML INJ IV PUSH (17:49)
[2024-06-07] MEDS: chlordiazePOXIDE (*CRX) 25 MG CAPSULE PO (17:50)
[2024-06-07 17:52] LABS: Glucose Point of Care 97 mg/dl (65-105)
[2024-06-07] MEDS: carvediloL 12.5 MG TABLET PO ×2 (19:09→20:19)
[2024-06-07 19:25] LABS: Amphetamine Screen Urine Negative (Negative); Barbiturate Screen Urine Negative (Negative); Benzodiazepines Screen Urine Negative (Negative); Cannabinoid Screen Urine Negative (Negative); Cocaine Screen Urine Negative (Negative); Methadone Screen Urine Negative (Negative); Opiate Screen Urine Positive (Negative); Phencyclidine Screen Urine Negative (Negative)
[2024-06-07] MEDS: amLODIPine BESYLATE 10 MG TABLET PO (20:19)
[2024-06-07 23:56] LABS: Glucose Point of Care 111 mg/dl (65-105)
[2024-06-08] VITALS (19 sets, daily range): BP systolic 134–207; BP diastolic 82–113; PULSE 73–110; RESP 18–20; TEMP 36.4–36.9; O2SAT 85–100
--- NOTE | 2024-06-08 | EST_ITS ---
Patient Info Name: Taran Griffin Age: 58 years : 1965 Gender: Male Ht: 68 in Wt: 185 lbs BSA: 2.03 m2 HR: 73 bpm BP: 198 / 100 mmHg Exam Date: 06/08/2024 1:39 PM Exam Location: Echo Lab Patient Status: Inpatient Admit Date: 06/08/2024 Staff Ordering Physician: Kirill Troy MD Attending Provider: Kirill Troy MD Exercise Technologist: sal avitia Exercise Physician: Shaan Brody DO Exam Type: CA stress martin w NM Study Info Indications - chest pressure A regadenoson stress test was performed. Summary 1. 1. Abnormal lexiscan stress test for ischemic ST changes by ECG criteria. 2. 2. Baseline hypertension. 3. 3. Nuclear scan to follow and will be reported separately. Please correlate with it. 4. 4. Patient informed of the above results. Protocol: Lexiscan Stress ECG Details Stage: REST Duration (min): 2 min : 27 sec HR (bpm): 75 SBP (mmHg): 198 DBP (mmHg): 100 Stage: REST Duration (min): 6 min : 58 sec HR (bpm): 82 SBP (mmHg): 198 DBP (mmHg): 100 Stage: STAGE 1 Duration (min): 0 min : 59 sec HR (bpm): 101 SBP (mmHg): 198 DBP (mmHg): 100 Stage: RECOVERY Duration (min): 1 min : 0 sec HR (bpm): 111 SBP (mmHg): 184 DBP (mmHg): 94 Stage: RECOVERY Duration (min): 2 min : 0 sec HR (bpm): 107 SBP (mmHg): 184 DBP (mmHg): 94 Stage: RECOVERY Duration (min): 3 min : 0 sec HR (bpm): 104 SBP (mmHg): 187 DBP (mmHg): 91 Stage: RECOVERY Duration (min): 3 min : 33 sec HR (bpm): 103 SBP (mmHg): 187 DBP (mmHg): 91 Rest HR: 82 bpm Peak HR: 111 bpm Rest Sys BP: 198 mmHg Peak Sys BP: 187 mmHg Max Pred HR: 161 bpm % Max Pred HR: 69 % Target HR: 137 bpm Max RPP: 20,757 bpm*mmHg Termination Reason: Completed protocol Cardiac Symptoms: Shortness of breath Total Time: 1 min : 0 sec Rest Man BP: 100 mmHg Peak Man BP: 91 mmHg Total Dose: 0.4 mg Resting ECG Sinus rhythm. Stress ECG [address] depression in inferior leads and V5-V6. Arrhythmias None. Report Signatures
[2024-06-08] MEDS: LABETALOL HCL INJ 100 MG/20 ML VIAL 20 MG IV PUSH ×2 (00:28→17:03)
[2024-06-08 06:57] LABS: Glucose Point of Care 101 mg/dl (65-105)
[2024-06-08] MEDS: LOSARTAN POTASSIUM 100 MG TABLET PO (08:43)
[2024-06-08] MEDS: carvediloL 12.5 MG TABLET PO ×2 (08:43→20:28)
[2024-06-08] MEDS: amLODIPine BESYLATE 10 MG TABLET PO (08:43)
[2024-06-08] MEDS: chlordiazePOXIDE (*CRX) 25 MG CAPSULE PO ×2 (08:43→20:28)
[2024-06-08] MEDS: THIAMINE HCL 200 MG/2 ML VIAL 100 MG IV PUSH (08:44)
[2024-06-08] MEDS: NICOTINE (*PBKC) 21 MG PATCH 1 PATCH TRANSDERM (08:44)
[2024-06-08] MEDS: FAMOTIDINE 20 MG TABLET 40 MG PO (08:44)
[2024-06-08] MEDS: PANTOPRAZOLE SODIUM IV 40 MG VIAL IV PUSH (08:44)
[2024-06-08] MEDS: ENOXAPARIN 40 MG/0.4 ML SYRINGE SUB-Q (08:45)
--- NOTE | 2024-06-08 08:50 | ECG_ITS ---
Test Date: 2024-06-08 09:21:22 Measurements Intervals Angela Rate: 78 P: 57 [place]: 142 QRS: 28 QRSD: 94 T: 24 QT: 397 QTc: 454 Interpretive Statements SINUS RHYTHM BORDERLINE ST-T WAVE ABNORMALITY- INFERIOR LEADS BASELINE ARTIFACT- I, II, III, AVR, AVL, AVF BORDERLINE ECG Compared to ECG 06/07/2024 15:44:20 No significant changes Electronically Signed On 06-08-2024 09:34:42 CDT by Shaan Brody D.O.
[2024-06-08] MEDS: ONDANSETRON INJ 4 MG/2 ML VIAL IV PUSH (09:05)
[2024-06-08] MEDS: MORPHINE SULFATE (*CRX) 2 MG/ML INJ IV PUSH ×2 (09:29→15:05)
[2024-06-08 11:19] LABS: Glucose Point of Care 105 mg/dl (65-105)
[2024-06-08 15:36] LABS: Troponin I < 0.012 ng/mL (0.000-0.034)
--- NOTE | 2024-06-08 15:54 | PM.IMPN ---
Progress Note: A&P Assessment and Plan (1) Hypertensive urgency: Code(s): I16.0 - Hypertensive urgency Status: Acute Assessment and Plan: BP upon arrival 187/119. Currently 229/105 despite hydralazine, labetalol, morphine and nitropaste. The patient is currently on carvedilol 12.5 mg b.i.d. and losartan 100 mg daily. Reports he took his home medications this morning. BP at baseline significantly elevated and has on multiple occasions been offered EMS transport from primary care office due to his blood pressure. continue norvasc, coreg, losartan. hydralazin as needed (2) Shortness of breath: Code(s): R06.02 - Shortness of breath Status: Acute Assessment and Plan: Hemoglobin at baseline. Viral PCR negative. CTA chest/abdomen/pelvis showed no PE or other acute findings, chronic findings including cardiomegaly and diffuse hepatic steatosis. EKG showed sinus rhythm, borderline R-wave progression anterior leads, borderline ST-T-wave abnormality inferior/lateral leads, baseline artifact. Suspect shortness of breath secondary to hypertensive urgency. stress test negative (3) Atypical chest pain: Code(s): R07.89 - Other chest pain Status: Acute Assessment and Plan: Initial EKG showed sinus rhythm, repeat EKG x2 showed no significant change. Troponin 0.013 -> <0.012 -> than 0.013. Flat. Suspect chest pain secondary to elevated blood pressure, see above. stress test negative (4) FARTUN (acute kidney injury): Code(s): N17.9 - Acute kidney failure, unspecified Status: Acute Assessment and Plan: Creatinine 1.45, BUN 17, GFR 50. Previously 1.1 and GFR >60 06/2023. Check CK, urine sodium, protein/creatinine, urine protein, urine creatinine, and urea. will repeat rfp (5) Transaminitis: Code(s): R74.01 - Elevation of levels of liver transaminase levels Status: Chronic Assessment and Plan: AST 269, ALT 193. Elevated compared to prior in June of 2023. Has history of hepatic steatosis and continues to drink daily. Differential includes worsening liver function secondary to alcohol use verses organ damage secondary to uncontrolled hypertension. Trend. (6) Alcohol abuse: Code(s): F10.10 - Alcohol abuse, uncomplicated Status: Acute Assessment and Plan: Patient is a current daily drinker. Guarded on amount. Last drink yesterday evening. No previous history of withdrawal, DTs, or withdrawal seizures. [facility] protocol in place. Librium and Ativan p.r.n.. Seizure precautions. Neuro checks Q2. Plan Diet: Heart healthy GI Prophylaxis: Pantoprazole DVT Prophylaxis: Lovenox Lines: Peripheral Code Status: Full code Subjective Date/time seen: 06/08/24 15:54 Interval history: per HPI: 58 y/o M with PMH of CVA, BPH, hyponatremia, FRANCK intolerant of CPAP, HTN, hepatic steatosis, daily ETOH use, chronic back pain, COPD, skin cancer (BUE), and anxiety presents here with shortness of breath and chest pain. The patient presents here with shortness of breath from home. He reports he was woken up with shortness of breath and midsternal chest pain this morning around 0700. He describes the pain as a heaviness, nonradiating, constant, and no aggravating/alleviating factors. Chest pain is accompanied by mild shortness of breath, lightheadedness, dizziness, and headache. Denies associated nausea, vomiting, diaphoresis, blurred vision. No previous cardiac history. He reports he has significantly elevated blood pressure at baseline, 150/100 - 200/115. Patient also has history of daily alcohol use, has been guarded on quantity. Last drink yesterday evening. No previous history of withdrawal. Initial VS at presentation: 97.9? F, HR 72, RR 20, 157/119, and 100% on RA. ED workup showed: No leukocytosis, hemoglobin 12.8 (at baseline), elevated D-dimer, creatinine 1.45 and GFR 50 (previously 1.1 and GFR >60 06/2023), AST 269, ALT 193, initial troponin 0.013, lipase 887. CTA chest/abd/pelvis showed no PE, no acute cardiopulmonary disease, cardiomegaly, no acute intra-abdominal/pelvic process, diffuse hepatic steatosis. EKG showed sinus rhythm, rate 75, borderline R-wave progression anterior leads, borderline ST-T-wave abnormality inferior/lateral leads, baseline artifact. 06/08/24 Patient was seen and examined at bedside. He is feeling better. Chest pain improving. He described chest pain as heaviness midsternal Did not radiate. Patient had nausea vomiting, sweating. Troponin negative. stress test normal. Uncontrolled blood pressure. Continue with amlodipine, Coreg. Hydralazine p.r.n., Review of Systems Review of Systems: All systems reviewed & are unremarkable except as noted in HPI and below Exam Const: General: comfortable and no acute distress Other: , male, nontoxic appearance HENMT: Face/Nose/Sinus: Normal nares present Mouth: Yes moist mucous membranes Eyes: General: appearance normal, both eyes and all related structures Sclera: sclerae normal Pupils: Equal, round and reactive pupils present EOM: EOMs intact bilaterally Resp: Effort & Inspection: normal respiratory effort Auscultation: clear to auscultation bilaterally Cardio: Rate: regular rate Rhythm: regular rhythm Other: S1-S2 present without murmur, rub, ectopy GI: Other: Abdomen rounded, soft, nontender. Skin: General skin exam: no rashes or lesions noted Wounds: no wounds Other: + cailin complexion Neuro: Cranial nerves: Yes Equal, round and reactive pupils present Speech: normal speech Motor exam (neuro): 5/5 motor strength present throughout Sensory Exam: normal sensation Other: A&O x4, fine tremor to bilateral upper extremities. Extrem: General: normal to inspection Psych: Mental Status: mental status grossly normal Affect: normal affect Other: Good insight and judgment, pleasant. Objective Data Vital Signs Vital Signs: Vital Signs - 24 hr 06/07/24 16:27 06/07/24 16:33 06/07/24 16:48 Temperature 98.4 F Pulse Rate 81 129 H Pulse Rate [Monitor] Respiratory Rate 16 Blood Pressure 229/105 H Pulse Oximetry 100 Oxygen Delivery Room Air 06/07/24 18:00 06/07/24 19:09 06/07/24 19:53 Temperature 98 F Pulse Rate 100 81 86 Pulse Rate [Monitor] Respiratory Rate 18 Blood Pressure 215/101 H Pulse Oximetry 96 Oxygen Delivery 06/07/24 20:00 06/07/24 20:00 06/07/24 21:54 Temperature Pulse Rate 86 82 Pulse Rate [Monitor] Respiratory Rate 18 Blood Pressure 184/103 H Pulse Oximetry 96 Oxygen Delivery Room Air 06/07/24 22:00 06/07/24 23:57 06/08/24 00:00 Temperature 98.2 F Pulse Rate 82 80 Pulse Rate [Monitor] Respiratory Rate 18 Blood Pressure 181/97 H 181/97 H Pulse Oximetry 99 Oxygen Delivery 06/08/24 00:00 06/08/24 00:00 06/08/24 04:00 Temperature Pulse Rate 80 77 Pulse Rate [Monitor] Respiratory Rate 18 Blood Pressure Pulse Oximetry 99 97 Oxygen Delivery Room Air Room Air 06/08/24 04:00 06/08/24 04:00 06/08/24 05:57 Temperature 98.2 F Pulse Rate 73 92 76 Pulse Rate [Monitor] Respiratory Rate 18 Blood Pressure 162/101 H Pulse Oximetry 98 Oxygen Delivery 06/08/24 07:36 06/08/24 08:00 06/08/24 08:00 Temperature 98.4 F Pulse Rate 90 102 H Pulse Rate [Monitor] Respiratory Rate 20 Blood Pressure 206/113 H 206/113 H Pulse Oximetry 97 Oxygen Delivery 06/08/24 09:02 06/08/24 10:00 06/08/24 11:35 Temperature 98.2 F Pulse Rate 85 80 80 Pulse Rate [Monitor] Respiratory Rate 20 Blood Pressure 173/102 H 142/93 H Pulse Oximetry 100 Oxygen Delivery 06/08/24 12:00 06/08/24 12:00 06/08/24 12:00 Temperature Pulse Rate 78 Pulse Rate [Monitor] 87 Respiratory Rate Blood Pressure 142/93 H Pulse Oximetry Oxygen Delivery Room Air 06/08/24 14:21 06/08/24 14:30 Temperature 97.5 F L Pulse Rate 110 H 84 Pulse Rate [Monitor] Respiratory Rate 20 Blood Pressure 182/91 H Pulse Oximetry 100 Oxygen Delivery Intake/Output Intake/Output: Intake & Output 06/05/24 06/06/24 06/07/24 06/08/24 23:59 23:59 23:59 23:59 Intake Total 1650 1800 Output Total 400 701 Balance 1250 1099 Meds/Results Medications: Active Medications Generic Name Dose Route Start Last Admin Trade Name Freq PRN Reason Stop Dose Admin Acetaminophen 650 mg 06/07/24 14:53 Acetaminophen 325 Mg Tablet PO Q4H PRN Mild Pain (1-3) or Fever Albuterol 1 puff 06/07/24 19:05 Albuterol Sulfate (*Sp) Aerosol 1 Puff INHALATION Q4H PRN shortness of breath or wheezing Amlodipine Besylate 10 mg 06/07/24 20:15 06/08/24 08:43 Amlodipine Besylate 10 Mg Tablet PO 10 mg DAILY AKIKO Administration Carvedilol 12.5 mg 06/07/24 19:10 06/08/24 08:43 Carvedilol 12.5 Mg Tablet PO 12.5 mg Q12HR AKIKO Administration Chlordiazepoxide HCl 25 mg 06/07/24 17:39 06/08/24 08:43 Chlordiazepoxide (*Crx) 25 Mg Capsule PO 25 mg Q6H PRN Administration Withdrawal Enoxaparin Sodium 40 mg 06/08/24 09:00 06/08/24 08:45 Enoxaparin 40 Mg/0.4 Ml Syringe SUB-Q 40 mg DAILY AKIKO Administration Famotidine 40 mg 06/08/24 09:00 06/08/24 08:44 Famotidine 20 Mg Tablet PO 40 mg DAILY [facility] Administration Labetalol HCl 20 mg 06/07/24 22:12 06/08/24 00:28 Labetalol Hcl Inj 100 Mg/20 Ml Vial IV PUSH 20 mg Q4HR PRN Administration Hypertension Lorazepam 2 mg 06/07/24 13:53 Lorazepam Inj (*Crx) 2 Mg/Ml Vial IV PUSH Q2H PRN CIWA > 15 Losartan Potassium 100 mg 06/08/24 09:00 06/08/24 08:43 Losartan Potassium 100 Mg Tablet PO 100 mg DAILY [facility] Administration Morphine Sulfate 2 mg 06/07/24 17:39 06/08/24 15:05 Morphine Sulfate (*Crx) 2 Mg/Ml Inj IV PUSH 2 mg Q4H PRN Administration Pain Rated 7-10 Nicotine 1 patch 06/07/24 15:20 06/08/24 08:44 Nicotine (*Pbkc) 21 Mg Patch TRANSDERM 1 patch DAILY AKIKO Administration Nitroglycerin 0.4 mg 06/07/24 14:59 Nitroglycerin Sl 0.4 Mg Tablet SUBLINGUAL Q5MIN PRN Chest Pain Ondansetron HCl 4 mg 06/07/24 13:53 06/08/24 09:05 Ondansetron Inj 4 Mg/2 Ml Vial IV PUSH 4 mg Q6H PRN Administration Nausea And Vomiting Pantoprazole Sodium 40 mg 06/08/24 09:00 06/08/24 08:44 Pantoprazole Sodium Iv 40 Mg Vial IV PUSH 40 mg QAM AKIKO Administration Thiamine HCl 100 mg 06/08/24 09:00 06/08/24 08:44 Thiamine Hcl 200 Mg/2 Ml Vial IV PUSH 100 mg QAM AKIKO Administration Radiology Results: ITS Impressions Chest/Abdomen/Pelvis CTA 06/07/24 11:23 IMPRESSION: 1. No pulmonary embolism or other acute cardiopulmonary disease. 2. Cardiomegaly. 3. No acute intra-abdominal/pelvic process. 4. Diffuse hepatic steatosis. Lexiscan Stress Test 06/08/24 15:06 IMPRESSION: 1. Normal myocardial perfusion at rest and during stress. 2. Left ventricular ejection fraction measuring 67%. Labs Labs: Laboratory Results - last 24 hr 06/07/24 06/07/24 06/07/24 15:42 17:50 18:53 POC Capillary Glucose 97 Troponin I 0.013 Urine Opiates Screen Positive A Urine Methadone Screen Negative Ur Barbiturates Screen Negative Ur Phencyclidine Scrn Negative Ur Amphetamine Screen Negative U Benzodiazepines Scrn Negative Urine Cocaine Screen Negative U Cannabinoids Screen Negative 06/07/24 06/08/24 06/08/24 23:49 06:50 11:16 POC Capillary Glucose 111 H 101 105 Troponin I Urine Opiates Screen Urine Methadone Screen Ur Barbiturates Screen Ur Phencyclidine Scrn Ur Amphetamine Screen U Benzodiazepines Scrn Urine Cocaine Screen U Cannabinoids Screen 06/08/24 14:52 POC Capillary Glucose Troponin I < 0.012 Urine Opiates Screen Urine Methadone Screen Ur Barbiturates Screen Ur Phencyclidine Scrn Ur Amphetamine Screen U Benzodiazepines Scrn Urine Cocaine Screen U Cannabinoids Screen Quality VTE Prophylaxis VTE prophylaxis: pharmacologic ordered
[2024-06-08 16:49] LABS: Albumin Level 4.2 g/dL (3.5-5.1); Anion Gap 10 mmol/L (4-12); Blood Urea Nitrogen 18 mg/dL (9-20); Carbon Dioxide 28 mmol/L (22-30); Chloride 94 mmol/L (98-107); Estimated CRCL calculation 60 ml/min; Estimated Glomerular Filt Rate > 60; Glucose 99 mg/dL (65-110); Phosphorus 2.1 mg/dL (2.5-4.5); Potassium 2.9 mmol/L (3.4-5.0); Sodium 132 mmol/L (137-145)
[2024-06-08] MEDS: POTASSIUM CHLORIDE 20 MEQ PACKET (FOR LIQUID) 40 MEQ PO (18:03)
[2024-06-08] MEDS: hydrALAZINE HCL 25 MG TABLET PO (18:04)
[2024-06-08 18:19] LABS: Glucose Point of Care 115 mg/dl (65-105)
[2024-06-09] VITALS (18 sets, daily range): BP systolic 144–201; BP diastolic 83–106; PULSE 68–106; RESP 16–20; TEMP 36.6–36.8; O2SAT 96–100
[2024-06-09 00:35] LABS: Glucose Point of Care 84 mg/dl (65-105)
[2024-06-09 05:04] LABS: Anion Gap 10 mmol/L (4-12); Blood Urea Nitrogen 15 mg/dL (9-20); Calcium 8.8 mg/dL (8.4-10.2); Carbon Dioxide 26 mmol/L (22-30); Chloride 96 mmol/L (98-107); Estimated CRCL calculation 62 ml/min; Estimated Glomerular Filt Rate > 60; Glucose 86 mg/dL (65-110); Potassium 2.7 mmol/L (3.4-5.0); Sodium 132 mmol/L (137-145)
[2024-06-09 05:26] LABS: Magnesium 1.4 mg/dL (1.6-2.3)
[2024-06-09 05:43] LABS: Hematocrit 34.8 % (42.0-52.0); Hemoglobin 12.1 g/dL (14.0-18.0); Immature Platelet Fraction Pct 11.1 % (0.9-11.2); Mean Corpuscular HGB Conc 34.8 g/dl (32-36); Mean Corpuscular Hemoglobin 35.8 pg (26-34); Mean Platelet Volume 10.9 fl (7.4-10.4); Platelet Count Result 83 k/mm3 (150-375); Red Blood Count 3.38 M/mm3 (4.6-6.20); Red Cell Distribution Width 12.3 % (11.5-14.5); White Blood Count 5.1 K/mm3 (4.5-10.0)
[2024-06-09] MEDS: POTASSIUM CHLORIDE INJ 40 MEQ in SODIUM CHLORIDE 0.9% IV 500 ML 130 MEQ IVPB (06:13)
[2024-06-09] MEDS: chlordiazePOXIDE (*CRX) 25 MG CAPSULE PO (06:15)
[2024-06-09] MEDS: NICOTINE (*PBKC) 21 MG PATCH 1 PATCH TRANSDERM (09:17)
[2024-06-09] MEDS: amLODIPine BESYLATE 10 MG TABLET PO (09:18)
[2024-06-09] MEDS: hydrALAZINE HCL 25 MG TABLET PO ×3 (09:18→17:44)
[2024-06-09] MEDS: LOSARTAN POTASSIUM 100 MG TABLET PO (09:18)
[2024-06-09] MEDS: THIAMINE HCL 200 MG/2 ML VIAL 100 MG IV PUSH (09:18)
[2024-06-09] MEDS: carvediloL 12.5 MG TABLET PO ×2 (09:18→22:23)
[2024-06-09] MEDS: FAMOTIDINE 20 MG TABLET 40 MG PO (09:18)
[2024-06-09] MEDS: PANTOPRAZOLE SODIUM IV 40 MG VIAL IV PUSH (09:19)
[2024-06-09] MEDS: POTASSIUM CHLORIDE 20 MEQ PACKET (FOR LIQUID) 40 MEQ PO (09:19)
[2024-06-09 10:30] LABS: Alanine Aminotransferase 137 U/L (6-50); Albumin Level 3.8 g/dL (3.5-5.1); Alkaline Phosphatase 64 U/L (38-126); Aspartate Amino Transferase 148 U/L (17-59); Bilirubin,Total 1.7 mg/dL (0.2-1.3)
[2024-06-09] MEDS: MAGNESIUM SULF 2 GM/WATER 50ML 2 GM/50 ML BAG IVPB (11:24)
[2024-06-09 11:32] LABS: Glucose Point of Care 90 mg/dl (65-105)
--- NOTE | 2024-06-09 14:40 | P.PNIM_ITS ---
Progress Note: A&P Assessment and Plan (1) Hypertensive urgency: Code(s): I16.0 - Hypertensive urgency Status: Acute Assessment and Plan: under better control continue norvasc, coreg, losartan. hydralazinadded will increase to 50 mg (2) Shortness of breath: Code(s): R06.02 - Shortness of breath Status: Acute Assessment and Plan: Hemoglobin at baseline. Viral PCR negative. CTA chest/abdomen/pelvis showed no PE or other acute findings, chronic findings including cardiomegaly and diffuse hepatic steatosis. EKG showed sinus rhythm, borderline R-wave progression anterior leads, borderline ST-T-wave abnormality inferior/lateral leads, baseline artifact. Suspect shortness of breath secondary to hypertensive urgency. stress test negative (3) Atypical chest pain: Code(s): R07.89 - Other chest pain Status: Acute Assessment and Plan: Initial EKG showed sinus rhythm, repeat EKG x2 showed no significant change. Troponin 0.013 -> <0.012 -> than 0.013. Flat. Suspect chest pain secondary to elevated blood pressure, see above. stress test negative (4) FARTUN (acute kidney injury): Code(s): N17.9 - Acute kidney failure, unspecified Status: Acute Assessment and Plan: improving, continue to monitor (5) Transaminitis: Code(s): R74.01 - Elevation of levels of liver transaminase levels Status: Chronic Assessment and Plan: AST 269, ALT 193. Elevated compared to prior in June of 2023. Has history of hepatic steatosis and continues to drink daily. Differential includes worsening liver function secondary to alcohol use verses organ damage secondary to uncontrolled hypertension. Trend.improving ASt and ALT (6) Alcohol abuse: Code(s): F10.10 - Alcohol abuse, uncomplicated Status: Acute Assessment and Plan: Patient is a current daily drinker. Guarded on amount. Last drink 2 days ago. No previous history of withdrawal, DTs, or withdrawal seizures. [facility] protocol in place. Librium and Ativan p.r.n.. Seizure precautions. Neuro checks Q2. (7) Electrolyte abnormality: Code(s): E87.8 - Other disorders of electrolyte and fluid balance, not elsewhere classified Status: Acute Assessment and Plan: Replete as needed (8) Thrombocytopenia: Code(s): D69.6 - Thrombocytopenia, unspecified Status: Acute Assessment and Plan: possible liver disease/alcohol abuse Hold Lovenox continue to monitor Plan Diet: Heart healthy GI Prophylaxis: Pantoprazole DVT Prophylaxis: Lovenox Lines: Peripheral Code Status: Full code Subjective Date/time seen: 06/09/24 14:40 Interval history: per HPI: 58 y/o M with PMH of CVA, BPH, hyponatremia, FRANCK intolerant of CPAP, HTN, hepatic steatosis, daily ETOH use, chronic back pain, COPD, skin cancer (BUE), and anxiety presents here with shortness of breath and chest pain. The patient presents here with shortness of breath from home. He reports he was woken up with shortness of breath and midsternal chest pain this morning around 0700. He describes the pain as a heaviness, nonradiating, constant, and no aggravating/alleviating factors. Chest pain is accompanied by mild shortness of breath, lightheadedness, dizziness, and headache. Denies associated nausea, vomiting, diaphoresis, blurred vision. No previous cardiac history. He reports he has significantly elevated blood pressure at baseline, 150/100 - 200/115. Patient also has history of daily alcohol use, has been guarded on quantity. Last drink yesterday evening. No previous history of withdrawal. Initial VS at presentation: 97.9? F, HR 72, RR 20, 157/119, and 100% on RA. ED workup showed: No leukocytosis, hemoglobin 12.8 (at baseline), elevated D- dimer, creatinine 1.45 and GFR 50 (previously 1.1 and GFR >60 06/2023), AST 269, ALT 193, initial troponin 0.013, lipase 887. CTA chest/abd/pelvis showed no PE, no acute cardiopulmonary disease, cardiomegaly, no acute intra-abdominal/pelvic process, diffuse hepatic steatosis. EKG showed sinus rhythm, rate 75, borderline R-wave progression anterior leads, borderline ST-T-wave abnormality inferior/l ateral leads, baseline artifact. 06/08/24 Patient was seen and examined at bedside. He is feeling better. Chest pain improving. He described chest pain as heaviness midsternal Did not radiate. Juan wong had nausea vomiting, sweating. Troponin negative. stress test normal. Uncontrolled blood pressure. Continue with amlodipine, Coreg. Hydralazine p.r.n., 06/09/24 Patient was seen and examined at bedside. he is feeling better. denies chest pain, abd pain, nausea vomiting. Bp still is high but under better control. potassium 2.7, mag 1.4. plt is 86. discussed with the patient will keep patient overnight to better control BP and replete electrolyte and monitor low PLT. Review of Systems Review of Systems: All systems reviewed & are unremarkable except as noted in HPI and below Exam Const: General: comfortable and no acute distress Other: , male, nontoxic appearance HENMT: Face/Nose/Sinus: Normal nares present Mouth: Yes moist mucous membranes Eyes: General: appearance normal, both eyes and all related structures Sclera: sclerae normal Pupils: Equal, round and reactive pupils present EOM: EOMs intact bilaterally Resp: Effort & Inspection: normal respiratory effort Auscultation: clear to auscultation bilaterally Cardio: Rate: regular rate Rhythm: regular rhythm Other: S1-S2 present without murmur, rub, ectopy GI: Other: Abdomen rounded, soft, nontender. Skin: General skin exam: no rashes or lesions noted Wounds: no wounds Other: + cailin complexion Neuro: Cranial nerves: Yes Equal, round and reactive pupils present Speech: normal speech Motor exam (neuro): 5/5 motor strength present throughout Sensory Exam: normal sensation Other: A&O x4, fine tremor to bilateral upper extremities. Extrem: General: normal to inspection Psych: Mental Status: mental status grossly normal Affect: normal affect Other: Good insight and judgment, pleasant. Objective Data Vital Signs Vital Signs: Vital Signs - 24 hr 06/08/24 16:00 06/08/24 16:00 06/08/24 16:00 Temperature Pulse Rate 81 Pulse Rate [Monitor] 87 Respiratory Rate Blood Pressure 191/102 H Pulse Oximetry Oxygen Delivery Room Air 06/08/24 16:10 06/08/24 17:00 06/08/24 18:00 Temperature 98.3 F Pulse Rate 96 87 Pulse Rate [Monitor] Respiratory Rate 20 Blood Pressure 207/105 H 191/102 H Pulse Oximetry 85 L Oxygen Delivery 06/08/24 18:00 06/08/24 18:35 06/08/24 20:00 Temperature 98.3 F Pulse Rate 81 85 Pulse Rate [Monitor] Respiratory Rate 20 Blood Pressure 134/83 148/82 H Pulse Oximetry 99 Oxygen Delivery 06/08/24 20:00 06/08/24 20:28 06/08/24 22:00 Temperature Pulse Rate 81 76 Pulse Rate [Monitor] Respiratory Rate Blood Pressure Pulse Oximetry Oxygen Delivery Room Air 06/09/24 00:00 06/09/24 00:00 06/09/24 00:00 Temperature 98 F Pulse Rate 85 74 Pulse Rate [Monitor] Respiratory Rate 18 Blood Pressure 144/91 H Pulse Oximetry 100 Oxygen Delivery Room Air 06/09/24 02:00 06/09/24 04:00 06/09/24 04:00 Temperature Pulse Rate 69 68 Pulse Rate [Monitor] Respiratory Rate Blood Pressure Pulse Oximetry Oxygen Delivery Room Air 06/09/24 05:50 06/09/24 06:00 06/09/24 08:00 Temperature 97.9 F Pulse Rate 76 80 Pulse Rate [Monitor] 87 Respiratory Rate 16 Blood Pressure 174/100 H 174/91 H Pulse Oximetry 96 Oxygen Delivery 06/09/24 08:00 06/09/24 08:00 06/09/24 08:03 Temperature 98.3 F Pulse Rate 76 73 Pulse Rate [Monitor] Respiratory Rate 20 Blood Pressure 169/95 H Pulse Oximetry 100 Oxygen Delivery Room Air 06/09/24 11:48 06/09/24 12:00 06/09/24 12:00 Temperature 97.9 F Pulse Rate 80 Pulse Rate [Monitor] 87 Respiratory Rate 18 Blood Pressure 174/91 H Pulse Oximetry 100 Oxygen Delivery Room Air Intake/Output Intake/Output: Intake & Output 06/06/24 06/07/24 06/08/24 06/09/24 23:59 23:59 23:59 23:59 Intake Total 1650 3300 360 Output Total 400 701 301 Balance 1250 2599 59 Meds/Results Medications: Active Medications Generic Name Dose Route Start Last Admin Trade Name Freq PRN Reason Stop Dose Admin Acetaminophen 650 mg 06/07/24 14:53 Acetaminophen 325 Mg Tablet PO Q4H PRN Mild Pain (1-3) or Fever Albuterol 1 puff 06/07/24 19:05 Albuterol Sulfate (*Sp) Aerosol 1 Puff INHALATION Q4H PRN shortness of breath or wheezing Amlodipine Besylate 10 mg 06/07/24 20:15 06/09/24 09:18 Amlodipine Besylate 10 Mg Tablet PO 10 mg DAILY AKIKO Administration Carvedilol 12.5 mg 06/07/24 19:10 06/09/24 09:18 Carvedilol 12.5 Mg Tablet PO 12.5 mg Q12HR AKIKO Administration Chlordiazepoxide HCl 25 mg 06/07/24 17:39 06/09/24 06:15 Chlordiazepoxide (*Crx) 25 Mg Capsule PO 25 mg Q6H PRN Administration Withdrawal Enoxaparin Sodium 40 mg 06/08/24 09:00 06/08/24 08:45 Enoxaparin 40 Mg/0.4 Ml Syringe SUB-Q 40 mg DAILY AKIKO Administration Famotidine 40 mg 06/08/24 09:00 06/09/24 09:18 Famotidine 20 Mg Tablet PO 40 mg DAILY [facility] Administration Hydralazine HCl 25 mg 06/08/24 17:40 06/09/24 13:41 Hydralazine Hcl 25 Mg Tablet PO 25 mg TID AKIKO Administration Labetalol HCl 20 mg 06/07/24 22:12 06/08/24 17:03 Labetalol Hcl Inj 100 Mg/20 Ml Vial IV PUSH 20 mg Q4HR PRN Administration Hypertension Lorazepam 2 mg 06/07/24 13:53 Lorazepam Inj (*Crx) 2 Mg/Ml Vial IV PUSH Q2H PRN CIWA > 15 Losartan Potassium 100 mg 06/08/24 09:00 06/09/24 09:18 Losartan Potassium 100 Mg Tablet PO 100 mg DAILY [facility] Administration Morphine Sulfate 2 mg 06/07/24 17:39 06/08/24 15:05 Morphine Sulfate (*Crx) 2 Mg/Ml Inj IV PUSH 2 mg Q4H PRN Administration Pain Rated 7-10 Nicotine 1 patch 06/07/24 15:20 06/09/24 09:17 Nicotine (*Pbkc) 21 Mg Patch TRANSDERM 1 patch DAILY [facility] Administration Nitroglycerin 0.4 mg 06/07/24 14:59 Nitroglycerin Sl 0.4 Mg Tablet SUBLINGUAL Q5MIN PRN Chest Pain Ondansetron HCl 4 mg 06/07/24 13:53 06/08/24 09:05 Ondansetron Inj 4 Mg/2 Ml Vial IV PUSH 4 mg Q6H PRN Administration Nausea And Vomiting Pantoprazole Sodium 40 mg 06/08/24 09:00 06/09/24 09:19 Pantoprazole Sodium Iv 40 Mg Vial IV PUSH 40 mg QAM AKIKO Administration Thiamine HCl 100 mg 06/08/24 09:00 06/09/24 09:18 Thiamine Hcl 200 Mg/2 Ml Vial IV PUSH 100 mg QAM AKIKO Administration Radiology Results: ITS Impressions Chest/Abdomen/Pelvis CTA 06/07/24 11:23 IMPRESSION: 1. No pulmonary embolism or other acute cardiopulmonary disease. 2. Cardiomegaly. 3. No acute intra-abdominal/pelvic process. 4. Diffuse hepatic steatosis. Lexiscan Stress Test 06/08/24 15:06 IMPRESSION: 1. Normal myocardial perfusion at rest and during stress. 2. Left ventricular ejection fraction measuring 67%. Labs Labs: Laboratory Results - last 24 hr 06/08/24 06/08/24 06/09/24 14:52 18:07 00:33 WBC RBC Hgb Hct MCV MCH MCHC RDW Plt Count MPV % Immature Plt Fraction Sodium 132 L Potassium 2.9 L Chloride 94 L Carbon Dioxide 28 Anion Gap 10 BUN 18 Creatinine 1.15 Estim Creat Clear Calc 60 Estimated GFR > 60 Glucose 99 POC Capillary Glucose 115 H 84 Calcium 9.0 Phosphorus 2.1 L Magnesium Total Bilirubin AST ALT Alkaline Phosphatase Troponin I < 0.012 Total Protein Albumin 4.2 06/09/24 06/09/24 06/09/24 04:31 04:41 05:37 WBC 5.1 RBC 3.38 L Hgb 12.1 L Hct 34.8 L MCV 103.0 H MCH 35.8 H MCHC 34.8 RDW 12.3 Plt Count 83 L MPV 10.9 H % Immature Plt Fraction 11.1 Sodium 132 L Potassium 2.7 L* Chloride 96 L Carbon Dioxide 26 Anion Gap 10 BUN 15 Creatinine 1.10 Estim Creat Clear Calc 62 Estimated GFR > 60 Glucose 86 POC Capillary Glucose Calcium 8.8 Phosphorus Magnesium 1.4 L Cancelled Total Bilirubin 1.7 H AST 148 H ALT 137 H Alkaline Phosphatase 64 Troponin I Total Protein 7.0 Albumin 3.8 06/09/24 11:29 WBC RBC Hgb Hct MCV MCH MCHC RDW Plt Count MPV % Immature Plt Fraction Sodium Potassium Chloride Carbon Dioxide Anion Gap BUN Creatinine Estim Creat Clear Calc Estimated GFR Glucose POC Capillary Glucose 90 Calcium Phosphorus Magnesium Total Bilirubin AST ALT Alkaline Phosphatase Troponin I Total Protein Albumin Quality VTE Prophylaxis VTE prophylaxis: pharmacologic ordered
[2024-06-09 15:52] LABS: Glucose Point of Care 100 mg/dl (65-105)
[2024-06-10] VITALS (9 sets, daily range): BP systolic 147–184; BP diastolic 90–100; PULSE 68–102; RESP 16–20; TEMP 36.8–37; O2SAT 100
[2024-06-10] LABS: Glucose Point of Care 133 mg/dl (65-105)
[2024-06-10] MEDS: LABETALOL HCL INJ 100 MG/20 ML VIAL 20 MG IV PUSH (00:14)
[2024-06-10 04:56] LABS: Hemoglobin 11.6 g/dL (14.0-18.0); Immature Platelet Fraction Pct 12.8 % (0.9-11.2); Mean Corpuscular HGB Conc 34.1 g/dl (32-36); Mean Corpuscular Hemoglobin 35.9 pg (26-34); Mean Corpuscular Volume 105.3 fl (80-100); Mean Platelet Volume 11.9 fl (7.4-10.4); Red Blood Count 3.23 M/mm3 (4.6-6.20); Red Cell Distribution Width 12.3 % (11.5-14.5); White Blood Count 5.5 K/mm3 (4.5-10.0)
[2024-06-10 04:59] LABS: Platelet Count Result 77 k/mm3 (150-375)
[2024-06-10 05:07] LABS: Alanine Aminotransferase 151 U/L (6-50); Alkaline Phosphatase 65 U/L (38-126); Anion Gap 12 mmol/L (4-12); Aspartate Amino Transferase 182 U/L (17-59); Bilirubin,Total 1.7 mg/dL (0.2-1.3); Blood Urea Nitrogen 12 mg/dL (9-20); Calcium 8.9 mg/dL (8.4-10.2); Carbon Dioxide 21 mmol/L (22-30); Chloride 100 mmol/L (98-107); Estimated CRCL calculation 66 ml/min; Estimated Glomerular Filt Rate > 60; Glucose 90 mg/dL (65-110); Potassium 2.9 mmol/L (3.4-5.0); Sodium 133 mmol/L (137-145)
[2024-06-10 06:09] LABS: Glucose Point of Care 84 mg/dl (65-105)
[2024-06-10] MEDS: THIAMINE HCL 200 MG/2 ML VIAL 100 MG IV PUSH (09:18)
[2024-06-10] MEDS: PANTOPRAZOLE SODIUM IV 40 MG VIAL IV PUSH (09:18)
[2024-06-10] MEDS: NICOTINE (*PBKC) 21 MG PATCH 1 PATCH TRANSDERM (09:18)
[2024-06-10] MEDS: hydrALAZINE HCL 25 MG TABLET PO (09:19)
[2024-06-10] MEDS: carvediloL 12.5 MG TABLET PO (09:19)
[2024-06-10] MEDS: LOSARTAN POTASSIUM 100 MG TABLET PO (09:19)
[2024-06-10] MEDS: amLODIPine BESYLATE 10 MG TABLET PO (09:19)
[2024-06-10] MEDS: FAMOTIDINE 20 MG TABLET 40 MG PO (09:19)
[2024-06-10] MEDS: POTASSIUM CHLORIDE 20 MEQ PACKET (FOR LIQUID) 40 MEQ PO (09:22)
--- NOTE | 2024-06-10 11:37 | PM.DS ---
DS: Admitting Diagnosis Discharge Date 06/10/24 Admitting Diagnosis SOB, Chest pain DS: Discharge Diagnosis Discharge Diagnosis (1) Hypertensive urgency: Code(s): I16.0 - Hypertensive urgency Status: Acute Assessment and Plan: under better control continue norvasc, coreg, losartan. hydralazina 50 mg (2) Shortness of breath: Code(s): R06.02 - Shortness of breath Status: Acute Assessment and Plan: Hemoglobin at baseline. Viral PCR negative. CTA chest/abdomen/pelvis showed no PE or other acute findings, chronic findings including cardiomegaly and diffuse hepatic steatosis. EKG showed sinus rhythm, borderline R-wave progression anterior leads, borderline ST-T-wave abnormality inferior/lateral leads, baseline artifact. Suspect shortness of breath secondary to hypertensive urgency. stress test negative (3) Atypical chest pain: Code(s): R07.89 - Other chest pain Status: Acute Assessment and Plan: Initial EKG showed sinus rhythm, repeat EKG x2 showed no significant change. Troponin 0.013 -> <0.012 -> than 0.013. Flat. Suspect chest pain secondary to elevated blood pressure, see above. stress test negative (4) FARTUN (acute kidney injury): Code(s): N17.9 - Acute kidney failure, unspecified Status: Acute Assessment and Plan: improving, continue to monitor (5) Transaminitis: Code(s): R74.01 - Elevation of levels of liver transaminase levels Status: Chronic Assessment and Plan: AST 269, ALT 193. Elevated compared to prior in June of 2023. Has history of hepatic steatosis and continues to drink daily. Differential includes worsening liver function secondary to alcohol use verses organ damage secondary to uncontrolled hypertension. Trend.improving ASt and ALT (6) Alcohol abuse: Code(s): F10.10 - Alcohol abuse, uncomplicated Status: Acute Assessment and Plan: Patient is a current daily drinker. Guarded on amount. Last drink 2 days ago. No previous history of withdrawal, DTs, or withdrawal seizures. [facility] protocol in place. Librium and Ativan p.r.n.. Seizure precautions. Neuro checks Q2. (7) Electrolyte abnormality: Code(s): E87.8 - Other disorders of electrolyte and fluid balance, not elsewhere classified Status: Acute Assessment and Plan: Replete as needed (8) Thrombocytopenia: Code(s): D69.6 - Thrombocytopenia, unspecified Status: Acute Assessment and Plan: possible liver disease/alcohol abuse Hold Lovenox continue to monitor Plan Diet: Heart healthy GI Prophylaxis: Pantoprazole DVT Prophylaxis: Lines: Peripheral Code Status: Full code DS: Summary Hospital Course Hospital Course: per HPI: 58 y/o M with PMH of CVA, BPH, hyponatremia, FRANCK intolerant of CPAP, HTN, hepatic steatosis, daily ETOH use, chronic back pain, COPD, skin cancer (BUE), and anxiety presents here with shortness of breath and chest pain. The patient presents here with shortness of breath from home. He reports he was woken up with shortness of breath and midsternal chest pain this morning around 0700. He describes the pain as a heaviness, nonradiating, constant, and no aggravating/alleviating factors. Chest pain is accompanied by mild shortness of breath, lightheadedness, dizziness, and headache. Denies associated nausea, vomiting, diaphoresis, blurred vision. No previous cardiac history. He reports he has significantly elevated blood pressure at baseline, 150/100 - 200/115. Patient also has history of daily alcohol use, has been guarded on quantity. Last drink yesterday evening. No previous history of withdrawal. Initial VS at presentation: 97.9? F, HR 72, RR 20, 157/119, and 100% on RA. ED workup showed: No leukocytosis, hemoglobin 12.8 (at baseline), elevated D-dimer, creatinine 1.45 and GFR 50 (previously 1.1 and GFR >60 06/2023), AST 269, ALT 193, initial troponin 0.013, lipase 887. CTA chest/abd/pelvis showed no PE, no acute cardiopulmonary disease, cardiomegaly, no acute intra-abdominal/pelvic process, diffuse hepatic steatosis. EKG showed sinus rhythm, rate 75, borderline R-wave progression anterior leads, borderline ST-T-wave abnormality inferior/lateral leads, baseline artifact. 06/10/24 Patient was seen and examined at bedside. He is feeling better. Chest pain improving. He described chest pain as heaviness midsternal Did not radiate. Patient had nausea vomiting, sweating. Troponin negative. stress test normal. Uncontrolled blood pressure. Continue with amlodipine, Coreg. Hydralazine 50 mg tid, blood pressure was under better control. Patient had low potassium and replete electrolyte. Patient had low platelet. abnormal LFTs GI team consulted. Patient left AMA Status at Discharge Overall status at discharge: patient is progressing back to baseline Time Spent with Patient Time attestation: Total time spent providing and/or coordinating discharge services: Exam Const: General: comfortable and no acute distress Other: , male, nontoxic appearance HENMT: Face/Nose/Sinus: Normal nares present Mouth: Yes moist mucous membranes Eyes: General: appearance normal, both eyes and all related structures Sclera: sclerae normal Pupils: Equal, round and reactive pupils present EOM: EOMs intact bilaterally Resp: Effort & Inspection: normal respiratory effort Auscultation: clear to auscultation bilaterally Cardio: Rate: regular rate Rhythm: regular rhythm Other: S1-S2 present without murmur, rub, ectopy GI: Other: Abdomen rounded, soft, nontender. Skin: General skin exam: no rashes or lesions noted Wounds: no wounds Other: + cailin complexion Neuro: Cranial nerves: Yes Equal, round and reactive pupils present Speech: normal speech Motor exam (neuro): 5/5 motor strength present throughout Sensory Exam: normal sensation Other: A&O x4, fine tremor to bilateral upper extremities. Extrem: General: normal to inspection Psych: Mental Status: mental status grossly normal Affect: normal affect Other: Good insight and judgment, pleasant. DS: Data Data Completed and Pending Labs on day of discharge: Labs from last 24 hours 06/10/24 06/10/24 06/09/24 06:06 04:43 23:58 WBC 5.5 RBC 3.23 L Hgb 11.6 L Hct 34.0 L MCV 105.3 H MCH 35.9 H MCHC 34.1 RDW 12.3 Plt Count 77 L MPV 11.9 H % Immature Plt Fraction 12.8 H Sodium 133 L Potassium 2.9 L Chloride 100 Carbon Dioxide 21 L Anion Gap 12 BUN 12 Creatinine 1.03 Estim Creat Clear Calc 66 Estimated GFR > 60 Glucose 90 POC Capillary Glucose 84 133 H Calcium 8.9 Total Bilirubin 1.7 H AST 182 H ALT 151 H Alkaline Phosphatase 65 Total Protein 7.0 Albumin 4.0 06/09/24 15:31 WBC RBC Hgb Hct MCV MCH MCHC RDW Plt Count MPV % Immature Plt Fraction Sodium Potassium Chloride Carbon Dioxide Anion Gap BUN Creatinine Estim Creat Clear Calc Estimated GFR Glucose POC Capillary Glucose 100 Calcium Total Bilirubin AST ALT Alkaline Phosphatase Total Protein Albumin Discharge Plan Discharge Consulting providers: Dev Black Patient Disposition: Left Against Medical Advice Activity: as tolerated Diet: as tolerated, heart healthy and low sodium Discharge Instructions: patient follow-up with GI, Hematology and PCP as outpatient Quit alcohol/smoking Patient Language: Brazilian Follow-up/Referrals: Clifton Garcia MD [Primary Care Provider] - Dev Black MD [Physician] - Discharge Medications: New amlodipine 10 mg Tablet 10 mg PO DAILY Qty: 30 0RF hydralazine 25 mg Tablet 25 mg PO TID Qty: 90 0RF Continued albuterol sulfate 90 mcg/actuation HFA aerosol inhaler 1 inh inhalation Q4H PRN (Reason: shortness of breath or wheezing) Qty: 8.5 0RF famotidine 40 mg tablet 40 mg PO DAILY Qty: 90 1RF carvedilol 12.5 mg tablet See Rx Instructions .ROUTE .COMPLEX Qty: 90 0RF Dose Instruction: TAKE 1 TABLET BY MOUTH EVERY 12 HOURS Rx Instructions: TAKE 1 TABLET BY MOUTH EVERY 12 HOURS losartan 100 mg tablet 100 mg PO DAILY Qty: 90 1RF Date of admission: 06/08/24 09:28 Primary Care Provider: Clifton Garcia Admitting Provider: Yaa Weldon Attending physician on admission: Kirill Troy Condition: Stable Quality VTE Prophylaxis VTE prophylaxis: pharmacologic ordered
== END 2024-06-10 11:39 | disposition left against medical advice (07) | DRG 199 ==
LOC: ANHED 09:57 → ANHIMU 15:37
PROVIDERS: Emergency Medicine; Student in an Organized Health Care Education/Training Program; Admitting Provider Internal Medicine; Emergency Provider Physician Assistant; PCP Family Medicine; Visit Provider Internal Medicine
DX: I16.0 Hypertensive urgency (principal); N17.9 Acute kidney failure, unspecified; I10 Essential (primary) hypertension; J44.9 Chronic obstructive pulmonary disease, unspecified; D69.6 Thrombocytopenia, unspecified; K21.9 Gastro-esophageal reflux disease without esophagitis; K76.0 Fatty (change of) liver, not elsewhere classified; N40.0 Benign prostatic hyperplasia without lower urinary tract symptoms; M50.30 Other cervical disc degeneration, unspecified cervical region; M54.50 Low back pain, unspecified; G89.29 Other chronic pain; G47.33 Obstructive sleep apnea (adult) (pediatric); F10.90 Alcohol use, unspecified, uncomplicated; F17.210 Nicotine dependence, cigarettes, uncomplicated; Z20.822 Contact with and (suspected) exposure to COVID-19; Z86.73 Personal history of transient ischemic attack (TIA), and cerebral infarction without residual deficits
CPT/HCPCS: 36415; 71275; 74177; 78452; 80048; 80053; 80069; 80307; 82040; 82247; 82948; 83690; 83735; 84075; 84155; 84450; 84460; 84484; 85025; 85027; 85055; 85380; 85610; 85730; 87637; 93005; 93017; 96361; 96372; 96374; 96375; 96376; 99285; A9270; A9502; G0378; G0379; J0360; J1650; J2060; J2270; J2405; J2470; J2785; J3411; J3475; J3480; J7030; J7040; Q9967

== ENCOUNTER 2024-12-08 19:22 | Observation (INO) | payer OTHER, SELFPAY ==
[2024-12-08] VITALS (7 sets, daily range): BP systolic 171–193; BP diastolic 89–104; PULSE 79–110; RESP 18–25; TEMP 36.3; O2SAT 97–100
--- NOTE | ~2024-12-08 | CT_ITS ---
CT abdomen pelvis w con Clinical History: N/V/D 1 month; hypokalemia . Comparison: CT chest abdomen pelvis 06/07/2024 Technique: Axial images lung bases to symphysis pubis 100 mL Omnipaque 350 Coronal, sagittal reformats CT images acquired with automatic exposure control for dose reduction DLP: 296 mGy-cm Findings: Lung bases: Clear. Visualized heart and pericardium: Unremarkable. Liver: Steatosis. Gallbladder: Unremarkable. Spleen: Unremarkable. Pancreas: Unremarkable. Adrenal glands: Unremarkable. Kidneys: Right kidney- No hydronephrosis. No renal stones. Left kidney- No hydronephrosis. No renal stones. Distal esophagus/stomach: Unremarkable. Small bowel loops: Normal caliber and wall thickness. Colon: Areas of apparent wall thickening likely merely underdistention. Normal RLQ appendix. Nodes: No enlarged nodes. Peritoneum: No ascites. No free air. Urinary bladder: Unremarkable. Prostate: Unremarkable. Bones: No acute bony abnormality. Soft tissues: Unremarkable. Aorta: No aneurysm or dissection. Atherosclerotic disease. IVC: Unremarkable. Main portal vein/SMV/splenic vein: Patent. IMPRESSION: 1. No acute findings. Reviewed, dictated and finalized at location R. IMPRESSION: 1. No acute findings.
--- NOTE | ~2024-12-08 | XR_ITS ---
Examination: XR chest 1V Clinical History: intermittent CP/SOB Comparison: CTA chest 06/07/2024 Technique: Portable AP Findings: Mild cardiomegaly. Lungs clear. No acute bony abnormality. IMPRESSION: 1. No acute cardiopulmonary findings given portable technique. Reviewed, dictated and finalized at location R.
--- OUTSIDE RECORDS SUMMARY | 2024-12-08 19:24 | XMS_ITS | Clinical Summary ---
Author Organization [facility] [place] [facility] Address [address] [place] [address] Phone Care Team Providers Care Furnace Packer Name Role Phone Angelito Bhat MD Primary Care Provider [phone] Allergies Active Allergy Reactions Criticality Noted Date [...] 7:21 AM CDT Height 172.7 cm (5' 8) 08/25/2021 7:21 AM CDT Body Mass Index 25.54 08/25/2021 7:21 AM CDT Plan of Treatment Health Maintenance Due Date Last Done Comments Hepatitis C Virus (HCV) Screening 1965 TdaP Immunization 1964 Pneumococcal Immunization (5 0+ years) (1 of 2 - PCV) 11/11/1983 Cologuard 2009 Colonoscopy 2009 Colorectal Cancer Screening 2009 Immunochemical Fecal Occult Blood 2009 Zoster Immunization (1 of 2) 2014 Influenza Immunization (#1) 2024 SARS-COV-2 Immunization ( season) 2024 Respiratory Syncytial Virus (RSV) Immunization (Adult) (1 - Risk 60-74 years 1-dose series) 2024 PSA Discussion Completed 08/05/2021 Hepatitis B Immunization Aged Out No longer eligible based on patient's age to complete this topic Human Papillomavirus (HPV) Immunization Aged Out No longer eligible b ased on patient's age to complete this topic Meningococcal Immunization (ACWY) Aged Out No longer [...] Relevant to Health Maintenance Insurance MEDICAID [facility] Care Teams Furnace Packer Relationship Specialty Start Date End Date Angelito Bhat MD PCP - General Internal Medicine 05/27/21
--- OUTSIDE RECORDS SUMMARY | 2024-12-08 19:24 | XMS_ITS | Clinical Summary ---
Author Organization [facility] Address [address] [place] [address] Care Team Providers Care Community Living Specialist Name Role Phone Clifton Garcia MD Primary Care Provider [phone] Source Comments [facility],non-owned Affiliates and Associated Physician Practices is amultiple site organization consisting of ambulatory clinics and hospital sitesin [place], [place], [place] and [place]. This disclosure is being madepursuant to the Care Everywhere program and may not contain all information available regarding this patient. Last updated 17.[facility] Allergies Active Allergy Reactions Criticality Noted Date Comments Lisinopril Other 06/16/2021 Sluggish Medications * Be aware that medications may not be up to date on this document. Alwaysverify current medications with the patient. 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 Gender Identity Not on file Sexual Orientation Not on file Last Filed Vital Signs Vital Sign Reading Time Taken Comments Blood Pressure 161/94 02/14/2024 2:20 PM LE[employer] AND LAND SUPERVISOR Pulse 97 02/14/2024 2:20 PM LEASES AND LAND SUPERVISOR Temperature 36.6 C (97.9 F) 02/14/2024 2:20 PM LE[employer]ES AND LAND SUPERVISOR Respiratory Rate 18 02/14/2024 2:20 PM LEASES AND LAND SUPERVISOR Oxygen Saturation 100% 02/14/2024 2:20 PM LE[employer]ES AND LAND SUPERVISOR Inhaled Oxygen Concentration - - Weight 77.1 kg (170 lb) 02/14/2024 2:20 PM LEASES AND LAND SUPERVISOR Height 166.4 cm (5' 5.5) 02/14/2024 2:20 PM LEASES AND LAND SUPERVISOR Body Mass Index 27.86 02/14/2024 2:20 PM LEASES AND LAND SUPERVISOR Plan of Treatment Health Maintenance Due Date [...] 11/06/1982 DTAP/TDAP/TD VACCINES (1 - Tdap) 11/11/1983 PNEUMOCOCCAL VACCINE 50+ (1 of 2 - PCV) 11/11/1983 ZOSTER VACCINE (1 of 2) 2014 DEPRESSION SCREENING 03/07/2024 COVID-19 VACCINE (1 - 2023-2 5 season) 2024 INFLUENZA VACCINE (#1) 2024 01/12/2022 SCREENING FOR DIABETES 02/13/2027 , 01/11/2024 Respiratory Syncytial Virus (RSV) Vaccine Pt: or over 60 yrs (1 - 1-dose 75+ series) 11/11/2039 HEPATITIS B VACCINE Aged Out No longe r eligible based on patient's age to complete this topic HIB VACCINE Aged Out No longer eligi [...] COMPREHENSIVE METABOLIC PANEL Routine 02/14/2024 2:09 PM [employer]AND SUPERVISOR Abnormal MRI, lumbar spine from Last 3 Months or Most Recently Relevant to Health Maintenance Results * (ABNORMAL) COMPREHENSIVE METABOLIC PANEL (02/14/2024 2:09 PM LEAS[employer] AND LAND SUPERVISOR) BUN 8 7 - 26 mg/dL 02/14/2024 2:46 PM [facility] Creatinine 1.11 0.71 - 1.16 mg/dL 02/14/2024 2:46 PM [facility] Sodium 135(L) 136 - 145 mmol/L 02/14/2024 2:46 PM [facility] Potassium 4.4 3.5 - 4.5 mmol/L 02/14/2024 2:46 PM [facility] Chloride 102 98 - 107 mmol/L 02/14/2024 2:46 PM [facility] CO2 23 22 - 29 mmol/L 02/14/2024 2:46 PM [facility] Glucose 95 70 - 99 mg/dL 02/14/2024 2:46 PM [facility] Calcium 9.4 8.4 - 10.2 mg/dL 02/14/2024 2:46 PM [facility] Protein Total 7.6 6.0 - 8.3 g/dL 02/14/2024 2:46 PM [facility] Albumin 3.7 3.4 - 5.0 g/dL 02/14/2024 2:46 PM [facility] Bilirubin Total 0.9 0.2 - 1.2 mg/dL 02/14/2024 2:46 PM [facility] Alkaline Phosphatase 85 40 - 150 U/L 02/14/2024 2:46 PM [facility] ALT 36 5 - 55 U/L 02/14/2024 2:46 PM [facility] AST 94(H) 5 - 34 U/L 02/14/2024 2:46 PM [facility] Anion Gap 10 6 - 16 02/14/2024 2:46 PM [facility] BUN/Creatinine Ratio 7 7 - 23 02/14/2024 2:46 PM [facility] Osmolality Calculated 278 275 - 295 mOsm/kg 02/14/2024 2:46 PM [facility] Albumin/Globulin Ratio 0.9(L) 1.1 - 2.3 02/14/2024 2:46 PM [facility] eGFR by CKD-EPI 76(L) >=90 mL/min/1.7 3 m2 02/14/2024 2:46 PM [facility] Blood BLOOD SPECIMEN / Unknown Venipuncture / Unknown 02/14/2024 2:09 PM [employer]AND SUPERVISOR 02/14/2024 2:15 PM [facility] us Christofer Lloyd MD LAB - CHEMISTRY ORDERABLES Fin al Result Performing Organization Address [facility]/State/ZIP Co de Phone Number [facility] [address] [place] [address], [facility] [phone] from Last 3 Months or Most Recently Relevant to Health Maintenance Insurance [facility] Care Teams Community Living Specialist Relationship Specialty Start Date End Date Clifton Garcia MD [address] [place] [address] PCP - General Family Medicine 10/07/23
--- OUTSIDE RECORDS SUMMARY | 2024-12-08 19:24 | XMS_ITS | Clinical Summary ---
Author Organization [facility] Address [address] [place] [address] Care Team Providers Care Public Transportation Inspector Name Role Phone Ron Lee Unavailable [phone] Clifton Garcia MD Primary Care Provider [phone] Allergies No known active allergies Medications albuterol [...] (07/24/2021): Added automatically from request for surgery [id number] Arthritis of left acromioclavicular joint 2021 Overview (07/24/2021): Added automatically from request for surgery [id number] Bicipital tendinitis, left 07/24/2021 Overview (07/24/2021): Added automatically from request for surgery [id number] Impingement syndrome of left shoulder 07/24/2021 Overview (07/24/2021): Added automatically from request for surgery [id number] Essential hypertension, benign 06/16/2021 Surgical History Surgery [...] on file Legal 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 Gender Identity Not on file Sexual Orientation [...] P M CDT Height 172.7 cm (5' 8) 06/05/2023 2:52 PM CDT Body Mass Index [...] (1 of 2) 2014 Influenza Vaccine (#1) 2024 01/12/2022 DTaP/Tdap/Td Vaccine (2 - Td or Tdap) 01/13/203210/2021 Insurance [facility] Care Teams Public Transportation Inspector Relationship Specialty Start Date End Date Clifton Garcia MD [address] [place] [address] PCP - General Family Practice 06/05/23 Ron Lee PA [address] [place] [address] Physician [employer]ber [employer] Worker Orthopedic Surgery 08/11/21
--- NOTE | 2024-12-08 21:54 | PC.NURSE ---
Pt significant other pulled this RN out of room to mention that the pt has a hx of alcoholism. Pt last drink was 4 days ago per significant other. She continues to state that pt has a hx of enlarged liver from drinking and it has gone into his pancreas.
--- NOTE | 2024-12-08 21:56 | ED_ITS ---
HPI - Nausea/Vomiting/Diarrhea General Chief complaint: Weakness Stated complaint: flu like symptoms, diarrhea, n/v x1 month Time Seen by Provider: 12/08/24 21:54 Source: patient and other (Girlfriend) Mode of arrival: ambulatory Limitations: no limitations History of Present Illness HPI Narrative: Patient presents report of flu-like symptoms. In particular he has been experiencing nausea, vomiting, and diarrhea for 1 month. Diarrhea and emesis have been bloody. He has experienced weight loss. He continues to feel nauseated. He notes he will occasionally experience chest pain and shortness of breath he does smoke 2 packs per day. He has been feeling weak. He has not seen his primary care physician for this although he does have 1 (Dr Garcia). He is having bowel daily that loose fluffy pieces. No recent travel or antibiotics. He will occasionally experience abdominal pain. He has chronic back pain his waiting insurance approval obtain for discussion potential future surgery. Lives with his girlfriend but otherwise no sick contacts. Does drink alcohol daily has been told he has enlarged liver. Girlfriend reports that he drinks a lot of rum. Related Data Allergies Allergy/AdvReac Type Severity Reaction Status Date / Time No Known Allergies Allergy Verified 06/07/24 09:59 [facility] Past Medical History Medical History Nicotine abuse Chronic GERD Erectile dysfunction BPH (benign prostatic hyperplasia) CVA (cerebral vascular accident) left basal ganglia COPD (chronic obstructive pulmonary disease) Hyponatremia Left sided lacunar stroke Skin cancer of arm GERD (gastroesophageal reflux disease) Obstructive sleep apnea Intolerant to CPAP Essential hypertension Hepatic steatosis History of ETOH abuse Cervicalgia Severe degenerative disc disease and facet arthropathy multiple level severe bilateral neural foraminal narrowing no severe central canal narrowing changes noted on CT 06/01/2023 Lumbago Mild degenerative spondylosis noted on MRI 03/2023 Surgical History Surgical History History of esophagogastroduodenoscopy (EGD) History of arthroscopic procedure on shoulder History of arthroscopic knee surgery Family History Family History Mother In good health Father , Age 70 Malignant neoplasm of prostate Social History Social History Social History: 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 He is on disability. He lives with his girlfriend. He is . He used to drink at least 6 beers a day; had stated he quit doing so about 2 months ago but does continue to drink daily (girlfriend reports heavy rum consumption) He continues to smoke up to 2 packs of cigarettes per day; has smoked since his early 20s. He denies illicit substance use. Code status: Full code Surrogate decision maker: Mother Smoking packs per day: 2 Smoking cigarettes per day: 40.0 Years smoked: 40 Smoking pack-years: 80.00 Smoking status: Current every day smoker Tobacco type: cigarettes Second hand tobacco smoke exposure: Yes Alcohol intake: current Alcohol use details: rum Substance use: current Substance use type: marijuana Do You Feel Safe in your Home?: Yes Lack of Transportation: No Lack of Food: Never True Current Housing: I Have Housing Concerned About Future Housing: No Difficulty Paying Gas/Electric Bills: No Difficulty Paying for Meds: No Currently Unemployed: No Education: High School Diploma/GED Difficulty w/ Childcare or Family Care: No Living arrangements: with family Additional living arrangements comments: girlfriend Additional occupation/education comments: [employer] Gender identity (if verbalized by the patient): Male Spiritual care concerns: No Agree to blood products: Yes Exam 2 Narrative: GENERAL: Chronically ill-appearing although in no acute distress. HEAD: Normocephalic, atraumatic. EYES: Non injected, non icteric ENT: Nares clear, no rhinorrhea or epistaxis. Gross auditory acuity intact. NECK: Supple. No meningismus. CHEST: Speaking in full sentences. No respiratory distress. HEART: Tachycaric rate and rhythm. . ABDOMEN: Soft, nondistended. No rigidity or guarding. Not peritoneal EXTREMITIES: Normal range of motion. No lower extremity edema. SKIN: Warm, dry. NEURO: No focal deficits. Alert and oriented. Answering questions. Following commands. Normal speech without aphasia or dysarthria. PSYCH: Normal mood and affect. Course Vital Signs Vital signs: Vital Signs Temperature 97.3 F L 12/08/24 19:29 Pulse Rate 110 H 12/08/24 19:29 Respiratory Rate 18 12/08/24 19:29 Blood Pressure 171/102 H 12/08/24 19:29 Pulse Oximetry 100 12/08/24 19:29 Oxygen Delivery Room Air 12/08/24 19:29 Temperature 98 F 12/09/24 16:00 Pulse Rate 82 12/09/24 18:00 Respiratory Rate 24 H 12/09/24 16:00 Blood Pressure 171/89 H 12/09/24 16:00 Pulse Oximetry 100 12/09/24 16:00 Oxygen Delivery Room Air 12/09/24 16:00 MDM - Nausea/Vomiting/Diarrhea MDM Narrative Medical decision making narrative: Patient presents with report of nausea, vomiting, and diarrhea of 1 months duration. Emesis and stool have not been bloody. He has been feeling weak. In the emergency department is afebrile with vital signs notable for hypertension and tachycardia. On repeat assessment the tachycardia resolved without interval intervention. My differential diagnosis for chronic diarrhea includes, but not limited to: Infectious (giardia, E histolytica, C difficile), medications (antibiotics, antacids, lactulose, sorbitol, chemotherapy, colchicine, gold), inflammatory etiology (such as IBD, radiation enteritis, ischemic colitis, diverticulitis). Also possible are malabsorption issues due to bile salt deficiency (cirrhosis, cholestasis, ileal disease, bacterial overgrowth), pancreatic insufficiency, mucosal abnormalities (celiac sprue, tropical sprue, Whipple disease), or lactose intolerance. They are also secretory causes such as hormonal (VIP, carcinoid tumor, medullary cancer of thyroid, a linear Taylor, glucagon, thyroxine), laxative abuse, neoplasm; finally motility issues may be the cause (IBS, scleroderma, hyperthyroidism, diabetic autonomic neuropathy). Patient has a leukocytosis and a normocytic anemia, the anemia is chronic/stable from previous. Patient's potassium is reported as 1.6, critical low. Both IV and oral repletion are ordered however he will require admission. Despite this, patient's magnesium is normal and in fact mildly elevated. Patient has acute on chronic hyponatremia, a drop of 5 mEq from previous. Hyperbilirubinemia but fractionated levels not abnormal. Patient has an AST elevation. Per review of the EMR he has chronic transaminitis and today's actually represents an improvement. Patient flags as a sepsis risk. Lactic acid, CRP, and the 1 L of IV fluids is ordered. Given intra-abdominal pathology considered, will also give a first dose of prospect antibiotics following ED sepsis protocol bundle/order set. Viral swab negative. Urinalysis with ketonuria but no marked signs of infection. UDS positive for cannabinoids. Ethanol in thyroid normal. Lipase mildly elevated not to a degree to suggest acute pancreatitis. CRP elevated. Lactic acid normal. Spoke with hospitalist ANNE Ying who accepts admission. Recommends IMU bed. This will obviously be with telemetry given the degree of hypokalemia. She will place orders for further repletion and repeat BMP. Unclear why EKG not scanning into/crossing over in EMR. Paper copy in chart. Differential Diagnosis Differential diagnosis: Likely traveler's diarrhea, food poisoning, gastroenteritis, clostridium difficile infection, drug-induced nausea and vomiting, dehydration and other (Rhabdomyolysis, thyroid dysfunction; electrolyte abnormalities, ACS; IBD; sequelae of alcohol consumption; malnutrition; malginancy) Lab Data Attestation: I reviewed the patient's lab results. 12/09/24 04:19 12/09/24 15:16 Labs: Lab Results 12/08/24 12/09/24 Range/Units 22:24 00:01 WBC 12.3 H (4.5-10.0) K/mm3 RBC 3.50 L (4.6-6.20) M/mm3 Hgb 11.2 L (14.0-18.0) g/dL Hct 33.5 L (42.0-52.0) % MCV 95.7 (80-100) fl MCH 32.0 (26-34) pg MCHC 33.4 (32-36) g/dl RDW 16.8 H (11.5-14.5) % Plt Count 280 D (150-375) k/mm3 MPV 11.9 H (7.4-10.4) fl Immature Gran % (Auto) 0.7 H (0-0.5) % Neut % (Auto) 82.7 H (45.5-73.1) % Lymph % (Auto) 9.0 L (18.3-44.2) % Wilkin % (Auto) 6.9 (2.6-8.5) % Eos % (Auto) 0.2 (0-4.4) % Baso % (Auto) 0.5 (0.2-1.2) % Lymph # (Auto) 1.10 (0.9-3.2) K/mm3 Wilkin # (Auto) 0.8 H (0.1-0.6) K/mm3 Eos # (Auto) 0.0 (0-0.3) K/mm3 Baso # (Auto) 0.1 (0.0-0.1) K/mm3 Abs Immat Gran (auto) 0.08 H (0.00-0.031) K/mm3 Absolute Neuts (auto) 10.2 H (1.3-6.7) K/mm3 Absolute Nucleated RBC 0.000 (0.0-0.012) K/mm3 Nucleated RBC % 0.0 (0.0-0.2) % Sodium 128 L (137-145) mmol/L Potassium < 2.0 L* (3.4-5.0) mmol/L Chloride 95 L (98-107) mmol/L Carbon Dioxide 22 (22-30) mmol/L Anion Gap 11 (4-12) mmol/L BUN 8 L (9-20) mg/dL Creatinine 0.80 (0.7-1.3) mg/dL Estim Creat Clear Calc Not Reportable Estimated GFR > 60 (59 - ) Glucose 108 (65-110) mg/dL Lactic Acid 1.5 (0.7-2.0) mmol/L Calcium 9.0 (8.4-10.2) mg/dL Magnesium 2.6 H (1.6-2.3) mg/dL Total Bilirubin 2.4 H (0.2-1.3) mg/dL Direct Bilirubin 0.0 (0-0.3) mg/dL Indirect Bilirubin 0.9 (0-1.1) mg/dL AST 87 H (17-59) U/L ALT 42 (6-50) U/L Alkaline Phosphatase 98 (38-126) U/L Total Creatine Kinase 55 (55-170) U/L Troponin I 0.025 (0.000-0.034) ng/mL C-Reactive Protein 8.7 H (<1.0) mg/dL Total Protein 7.4 (6.3-8.2) g/dL Albumin 3.7 (3.5-5.1) g/dL Lipase 448 H (23-300) U/L TSH 2.220 (0.465-4.680) uIU/mL Urine Color Yellow (Yellow) Urine Appearance Clear (Clear) Urine pH 7.0 (5.0-9.0) Ur Specific Jasper 1.008 (1.001-1.035) Urine Protein 1+ H (Negative) mg/dL Urine Glucose (UA) Negative (Negative) mg/dL Urine Ketones 1+ H (Negative) mg/dL Ur Blood (Man) Negative (Negative) Urine Nitrate Negative (Negative) Urine Bilirubin Negative (Negative) Urine Urobilinogen 2.0 H (<2.0) mg/dL Leukocyte Esterase Rfl Negative (Negative) KEVIN/UL Urine RBC 0-2 (0-2) /hpf Urine WBC 0-5 (0-3) /hpf Ur Squamous Epith Cells None seen (Few) /hpf Urine Bacteria None seen /hpf Urine Casts 0-2 Urine Opiates Screen Negative (Negative) Urine Methadone Screen Negative (Negative) Ur Barbiturates Screen Negative (Negative) Ur Phencyclidine Scrn Negative (Negative) Ur Amphetamine Screen Negative (Negative) U Benzodiazepines Scrn Negative (Negative) Urine Cocaine Screen Negative (Negative) U Cannabinoids Screen Positive A (Negative) Ethyl Alcohol < 10 (<10) mg/dL Influenza A (RT-PCR) Negative (Negative) Influenza B (RT-PCR) Negative (Negative) RSV (RT-PCR) Negative (Negative) SARS-CoV-2 RNA (RT-PCR) Negative (Negative) Imaging Data Attestation: I personally reviewed and interpreted this imaging study as follows: My impression: Chest x-ray with right hemidiaphragm elevation, possibly due to patient's known/ stated history of enlarged liver. Also obscured borders of heart. This is on my independent interpretation. Radiologist's impression: CT Abd Pelvis w/ contrast Stat rad: Lung bases and heart within normal limits. Liver shows hepatic steatosis. Gallbladder within normal limits. Spleen within normal limits. Pancreas within normal limits. Adrenal glands within normal limits. Kidneys within normal limits. Urinary bladder within normal limits. Gastrointestinal within normal limits. Appendix within normal limits. Vasculature: Atherosclerotic changes of the aorta. Lymphadenopathy within normal limits. Pelvic organs within normal limits. Musculoskeletal: Degenerative changes. Impression: No acute findings. ECG Data EKG #1: Attestation: I personally reviewed and interpreted this ECG as follows: ECG completion date: 12/08/24 ECG completion time: 22:39 Interpretation: Normal sinus rhythm at a rate of 81 beats per minute. AL interval 147. QRS 109. QT/QTC 414/451. Good R-wave progression across the precordial leads. Nonspecific ST and T-wave abnormalities. Normal axis. Discharge Plan Discharge Clinical Impression: Nausea and vomiting, Chronic diarrhea, Leukocytosis, Normocytic anemia, Hypokalemia, Chronic hyponatremia, Elevated AST (SGOT), Marijuana use, CRP elevated, Alcohol use, Hepatic steatosis, Aortic atherosclerosis Patient Disposition: Still a Patient Condition: Stable
[2024-12-08 22:45] LABS: Hematocrit 33.5 % (42.0-52.0); Hemoglobin 11.2 g/dL (14.0-18.0); Immature Granulocyte Percent A 0.7 % (0-0.5); Lymphocytes Absolute Auto 1.10 K/mm3 (0.9-3.2); Mean Corpuscular HGB Conc 33.4 g/dl (32-36); Mean Corpuscular Hemoglobin 32.0 pg (26-34); Mean Corpuscular Volume 95.7 fl (80-100); Nucleated Red Blood Cells Absolute Auto 0.000 K/mm3 (0.0-0.012); Nucleated Red Blood Cells Perc 0.0 % (0.0-0.2); Platelet Count Result 280 k/mm3 (150-375); Red Blood Count 3.50 M/mm3 (4.6-6.20); White Blood Count 12.3 K/mm3 (4.5-10.0)
[2024-12-08 22:51] LABS: Add Urine Microscopic? YES; Appearance Urine Clear (Clear); Glucose Urine UA Negative (Negative); Leukocyte Esterase Ur Negative LEU/UL (Negative); Nitrate Urine Negative (Negative); Non Pathogenic Casts 0-2; Specific Grav Ur 1.008 (1.001-1.035)
[2024-12-08 23:06] LABS: Cannabinoid Screen Urine Positive (Negative)
[2024-12-08 23:23] LABS: Influenza A QL RT-PCR Negative (Negative); Influenza B QL RT-PCR Negative (Negative); RSV RNA, RT-PCR Negative (Negative); SARS-CoV-2 RNA PCR Negative (Negative)
[2024-12-08 23:24] LABS: Alanine Aminotransferase 42 U/L (6-50); Albumin Level 3.7 g/dL (3.5-5.1); Alkaline Phosphatase 98 U/L (38-126); Anion Gap 11 mmol/L (4-12); Aspartate Amino Transferase 87 U/L (17-59); Bilirubin,Total 2.4 mg/dL (0.2-1.3); Blood Urea Nitrogen 8 mg/dL (9-20); Calcium 9.0 mg/dL (8.4-10.2); Carbon Dioxide 22 mmol/L (22-30); Chloride 95 mmol/L (98-107); Creatine Kinase 55 U/L (55-170); Estimated Glomerular Filt Rate > 60; Glucose 108 mg/dL (65-110); Magnesium 2.6 mg/dL (1.6-2.3); Potassium < 2.0 mmol/L (3.4-5.0); Sodium 128 mmol/L (137-145); Total Protein 7.4 g/dL (6.3-8.2)
[2024-12-08 23:33] LABS: Troponin I 0.025 ng/mL (0.000-0.034)
[2024-12-08 23:56] LABS: Lipase 448 U/L (23-300)
[2024-12-09] VITALS (18 sets, daily range): BP systolic 132–203; BP diastolic 82–105; PULSE 63–111; RESP 16–25; TEMP 36.2–36.8; O2SAT 94–100; BMI 23.1
[2024-12-09] MEDS: POTASSIUM BICARBONATE 25 MEQ TABEF 50 MEQ PO
[2024-12-09] MEDS: SODIUM CHLORIDE 0.9% IV 1,000 ML 999 ML IV CONT
[2024-12-09 00:14] LABS: Thyroid Stimulating Hormone 2.220 uIU/mL (0.465-4.680)
[2024-12-09] MEDS: KCL 20 MEQ/SW 100 ML 100 ML 50 MEQ IVPB ×2 (00:26→06:25)
[2024-12-09 00:48] LABS: CRP 8.7 mg/dL (<1.0)
[2024-12-09] MEDS: DICYCLOMINE HCL 10 MG CAPSULE PO (01:32)
[2024-12-09] MEDS: ONDANSETRON INJ 4 MG/2 ML VIAL IV PUSH (02:33)
--- NOTE | 2024-12-09 02:35 | ADMIMU ---
This patient, Taran Griffin, was admitted to IMU status, and placed in IMU Room 231-01 at 0214. Patient/family oriented to hospital policies and general routines including ID bracelet, bed and alarms, visiting hours, pain management, procedures, bathroom and other care routines, personal items, smoking policy, room service/diet, and visiting hours. Valuables list has been completed. Information on how to activate the Rapid Response Team has been discussed. Patient/Family are encouraged to report perceived risks to care and to ask questions if they do not understand what they are told or what they should do.
[2024-12-09] MEDS: VANCOMYCIN 1,750 MG/NS 500 ML 1,750 MG/500 ML BAG 250 MG IVPB (02:46)
[2024-12-09] MEDS: CEFEPIME 2 GM in SODIUM CHLORIDE 0.9% IV 50 ML 100 ML IVPB (02:46)
--- NOTE | 2024-12-09 02:55 | P.HP_ITS ---
H&P: HPI History of Present Illness Date/Time: 12/09/24 02:55 Chief Complaint: Weakness Narrative: This is a 59-year-old male patient with past history of CVA, COPD, hypertension, obstructive sleep apnea, alcoholism and hyponatremia. The patient stated that he has had flu-like symptoms for at least the last month. He has had nausea vomiting diarrhea. He stated that the stool is more like a mesh potato consi stency. He denies any blood in his stool and he denies any hematemesis. The patient stated that he has been out of his blood pressure medication for over week and has not been able to get refills. His sodium level was 128 with a baseline around 132. His potassium was less than 2.0. His chloride is low at 95. C reactive protein 8.7. Lipase 448. EKG was obtained in the emergency room and reported as no abnormalities. EKG was read as normal sinus rhythm with a heart rate 81. Nonspecific ST wave abnormalities. The patient was given potassium bicarb, potassium chloride, normal saline, cefepime, vancomycin, Bentyl, and vancomycin. CT Abd Pelvis w/ contrast Stat rad: Lung bases and heart within normal limits. Liver shows hepatic steatosis. Gallbladder within normal limits. Spleen within normal limits. Pancreas within normal limits. Adrenal glands within normal limits. Kidneys within normal limits. Urinary bladder within normal limits. Gastrointestinal within normal limits. Appendix within normal limits. Vasculature: Atherosclerotic changes of the aorta. Lymphadenopathy within normal limits. Pelvic organs within normal limits. Musculoskeletal: Degenerative changes.Impression: No acute findings. The patient is being admitted to observation status on the date of service of 12/09/2024. Review of Systems Constitutional: Constitutional: Reports as per HPI and Reports no additional constitutional complaints Eyes: Eyes: Reports as per HPI and Reports no additional eye complaints ENT: Reports no additional ear, nose, mouth, and throat complaints and Reports Normal hearing present Cardiovascular: Cardiovascular: Reports no additional cardiovascular complaints Respiratory: Respiratory: Reports as per HPI and Reports no additional respiratory complaints Gastrointestinal: Gastrointestinal: Reports as per HPI and Reports no additional gastrointestinal complaints Musculoskeletal: Musculoskeletal: Reports no additional musculoskeletal complaints Integumentary/Breasts: Skin/Breast: Reports system reviewed and no additional complaints, except as docu Neurologic: Reports no additional neurologic complaints and Reports Normal hearing present Psychiatric: Psychiatric: Reports no additional psychiatric complaints and Reports as per HPI Hematologic/Lymphatic: Hematologic/Lymphatic: Reports no additional hematologic/lymphatic complaints Allergic/Immunologic: Allergic/Immunologic: Reports no additional allergic/immunologic complaints [facility] Past Medical History Medical History Nicotine abuse Chronic GERD Erectile dysfunction BPH (benign prostatic hyperplasia) CVA (cerebral vascular accident) left basal ganglia COPD (chronic obstructive pulmonary disease) Hyponatremia Left sided lacunar stroke Skin cancer of arm GERD (gastroesophageal reflux disease) Obstructive sleep apnea Intolerant to CPAP Essential hypertension Hepatic steatosis History of ETOH abuse Cervicalgia Severe degenerative disc disease and facet arthropathy multiple level severe bilateral neural foraminal narrowing no severe central canal narrowing changes noted on CT 06/01/2023 Lumbago Mild degenerative spondylosis noted on MRI 03/2023 Surgical History Surgical History History of esophagogastroduodenoscopy (EGD) History of arthroscopic procedure on shoulder History of arthroscopic knee surgery Family History Family History Mother In good health Father , Age 70 Malignant neoplasm of prostate Social History Social History Social History: 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 He is on disability. He lives with his girlfriend. He is . He used to drink at least 6 beers a day; had stated he quit doing so about 2 months ago but does continue to drink daily (girlfriend reports heavy rum consumption) He continues to smoke up to 2 packs of cigarettes per day; has smoked since his early 20s. He denies illicit substance use. Code status: Full code Surrogate decision maker: Mother Smoking packs per day: 2 Smoking cigarettes per day: 40.0 Years smoked: 40 Smoking pack-years: 80.00 Smoking status: Current every day smoker Tobacco type: cigarettes Second hand tobacco smoke exposure: Yes Alcohol intake: current Alcohol use details: rum Substance use: current Substance use type: marijuana Do You Feel Safe in your Home?: Yes Lack of Transportation: No Lack of Food: Never True Current Housing: I Have Housing Concerned About Future Housing: No Difficulty Paying Gas/Electric Bills: No Difficulty Paying for Meds: No Currently Unemployed: No Education: High School Diploma/GED Difficulty w/ Childcare or Family Care: No Living arrangements: with family Additional living arrangements comments: girlfriend Additional occupation/education comments: [employer] Gender identity (if verbalized by the patient): Male Spiritual care concerns: No Agree to blood products: Yes Meds Home Medications and Allergies Home Medications ?Medication ?Instructions ?Recorded ?Confirmed ?Type albuterol sulfate 90 mcg/actuation 1 inh inhalation Q4 H PRN shortness 05/17/22 12/09/24 Rx aerosol inhaler of breath or wheezing #8.5 g sobia famotidine 40 mg tablet 40 mg PO DAILY #90 tabs 10/0612/09/24 Rx carvedilol 12.5 mg tablet See Rx Instructions .Route 1 04/09/23 12/09/24 Rx .COMPLEX #90 tabs losartan 100 mg tablet 100 mg PO DAILY #90 tabs 05/2912/09/24 Rx Allergies Allergy/AdvReac Type Severity Reaction Status Date / Time No Known Allergies Allergy Verified 06/07/24 09:59 Vital Signs Vital Signs - 24 hr 12/08/24 19:29 12/08/24 21:16 12/08/24 21:31 Temperature 97.3 F L Pulse Rate 110 H 80 79 Respiratory Rate 18 22 H 21 H Blood Pressure 171/102 H 193/98 H 188/89 H Pulse Oximetry 100 97 98 Oxygen Delivery Room Air 12/08/24 21:44 12/08/24 21:46 12/08/24 22:00 Temperature Pulse Rate 80 84 82 Respiratory Rate 20 22 H 25 H Blood Pressure 188/89 H 177/97 H 183/104 H Pulse Oximetry 100 100 100 Oxygen Delivery 12/08/24 23:15 12/09/24 01:22 12/09/24 02:35 Temperature 98.2 F Pulse Rate 82 111 H 106 H Respiratory Rate 23 H 25 H 19 Blood Pressure 175/94 H 187/96 H 191/97 H Pulse Oximetry 100 94 100 Oxygen Delivery Exam Const: General: cooperative, healthy appearing, comfortable, no acute distress, well developed, awake, Physically active, average body habitus and well nourished Nutritional Appearance: average body habitus and well nourished Orientation/consciousness: oriented to person, oriented to place, oriented to time and patient oriented x3 Limitations: no limitations HENMT: Head: normal to inspection, No palpable skull fracture present, normocephalic, atraumatic and abrasion Ears: hearing grossly normal bilaterally Face/Nose/Sinus: Normal external nose present Eyes: General: appearance normal, both eyes and all related structures Alignment and Position: alignment normal Periorbital: periorbital findings normal Eyelids: eyelids normal Pupils: Equal, round and reactive pupils present EOM: EOMs intact bilaterally Neck: Neck: normal visual inspection, full ROM, no lymphadenopathy, trachea midline and supple Chest: Chest palpation & inspection: normal inspection of the chest Resp: Effort & Inspection: normal respiratory effort Auscultation: clear to auscultation bilaterally Cardio: Palpation: normal PMI Rate: regular rate Rhythm: regular rhythm Heart sounds: S1 normal heart sound present and S2 normal heart sound present GI: Inspection: normal to inspection Auscultation: normal bowel sounds Rectal Exam: deferred : General: Yes no CVA tenderness Back/Spine/Pelvis: Back: no CVA tenderness Cervical Spine: cervical ROM normal Skin: General skin exam: normal color Lesions: no lesions Rashes: no rashes Trauma: no lacerations or abrasions Wounds: no wounds Hair: normal Nails: normal Neuro: General: oriented to person, oriented to place, oriented to time and patient oriented x3 Cranial nerves: Yes Equal, round and reactive pupils present and Yes Normal hearing present Cognition (Neuro): normal cognition Speech: normal speech Gait exam (Neuro): Normal gait present Motor exam (neuro): 5/5 motor strength present throughout Sensory Exam: normal sensation Extrem: General: normal to inspection Right upper extremity: normal to inspection and shoulder/upper arm Left upper extremity: normal to inspection and shoulder/upper arm Right lower extremity: normal to inspection Left lower extremity: normal to inspection Psych: Appearance: grossly normal Mental Status: mental status grossly normal Speech and movement: Normal speech and movement present Affect: normal affect Attitude: cooperative Thought process: Normal thought process present Thought content: Yes Normal thought content present Insight: Good insight present (Psych) Judgement: Good judgement present (Psych) H&P: Results Labs Labs: Short CBC 12/08/24 Range/Units 22:24 WBC 12.3 H (4.5-10.0) K/mm3 Hgb 11.2 L (14.0-18.0) g/dL Hct 33.5 L (42.0-52.0) % Plt Count 280 D (150-375) k/mm3 BMP 12/08/24 22:24 Sodium 128 L Potassium < 2.0 L* Chloride 95 L Carbon Dioxide 22 BUN 8 L Creatinine 0.80 Glucose 108 Calcium 9.0 Cardiac Enzymes 12/08/24 Range/Units 22:24 Total Creatine Kinase 55 (55-170) U/L Troponin I 0.025 (0.000-0.034) ng/mL Liver Function 12/08/24 Range/Units 22:24 Total Bilirubin 2.4 H (0.2-1.3) mg/dL Direct Bilirubin 0.0 (0-0.3) mg/dL AST 87 H (17-59) U/L ALT 42 (6-50) U/L Alkaline Phosphatase 98 (38-126) U/L Albumin 3.7 (3.5-5.1) g/dL Urine 12/08/24 Range/Units 22:24 Urine Color Yellow (Yellow) Urine Appearance Clear (Clear) Urine pH 7.0 (5.0-9.0) Ur Specific [place] 1.008 (1.001-1.035) Urine Protein 1+ H (Negative) mg/dL Urine Glucose (UA) Negative (Negative) mg/dL ECG Interpretation: EKG #1: Attestation: I personally reviewed and interpreted this ECG as follows: ECG completion date: 12/08/24 ECG completion time: 22:39 Interpretation: Normal sinus rhythm at a rate of 81 beats per minute. PA interval 147. QRS 109. QT/QTC 414/451. Good R-wave progression across the precordial leads. Nonspecific ST and T-wave abnormalities. Normal axis. Imaging CT scan - abdomen: Radiologist's impression: CT Abd Pelvis w/ contrast Stat rad: Lung bases and heart within normal limits. Liver shows hepatic steatosis. Gallbladder within normal limits. Spleen within normal limits. Pancreas within normal limits. Adrenal glands within normal limits. Kidneys within normal limits. Urinary bladder within normal limits. Gastrointestinal within normal limits. Appendix within normal limits. Vasculature: Atherosclerotic changes of the aorta. Lymphadenopathy within normal limits. Pelvic organs within normal limits. Musculoskeletal: Degenerative changes. Impression: No acute findings. Assessment and Plan Assessment and plan (1) Hypokalemia: Code(s): E87.6 - Hypokalemia Status: Acute Assessment and Plan: -patient's potassium level was less than 2. Was replenished with p.o. as well as IV potassium. -repeat potassium level in 3 hours. -may consider IV fluids with potassium in it and supplement when necessary. -IMU status -repeat EKG this a.m. -his magnesium level was elevated. -most likely this is due to the nausea vomiting and diarrhea. (2) Acute hyponatremia: Code(s): E87.1 - Hypo-osmolality and hyponatremia Status: Acute Assessment and Plan: -acute on chronic hyponatremia. -this could be related to beer potomania. The patient has a history of alcoholism. -his sodium level is 128 with a baseline of 133. - TSH is 2.220. -check urine sodium -check urine and blood osmolality. (3) GERD (gastroesophageal reflux disease): Code(s): K21.9 - Gastro-esophageal reflux disease without esophagitis Status: Acute Assessment and Plan: -IV Pepcid. -Zofran and monitor QTC. Current QTC is 482. (4) Hypertension: Code(s): I10 - Essential (primary) hypertension Status: Acute Assessment and Plan: -p.r.n. hydralazine with parameters. -the patient stated that he had been out of his blood pressure pills for 1 week. -continue with Coreg and losartan. The patient may need a prescription when he is discharged from the hospital. (5) EtOH dependence: Code(s): F10.20 - Alcohol dependence, uncomplicated Status: Acute Assessment and Plan: -CIWA scores -p.r.n. Librium. -monitor for signs and symptoms of withdrawals. -may add folic acid and thiamine. (6) Diarrhea: Code(s): R19.7 - Diarrhea, unspecified Status: Acute Assessment and Plan: -stool culture has been ordered. -may consider consulting GI. -I did not send the stool for C diff as he has mashed potato consistency stool according to the patient -replace electrolytes as necessary. -the patient stated he has been having diarrhea for 1 month. -probiotics have been started. -his white count was noted to be 12.3 and he is afebrile. -CT of the abdomen and pelvis did not show anything acute. Plan Patient's white count was mildly elevated at 12.3 which could be reactive. His CRP was elevated to 8.7 therefore the ER physician gave him a round of antibiotics. I did not continue any antibiotics at this point. The patient has already been having diarrhea and I feel that giving him empiric antibiotics with just worsen his diarrhea. His lactic is normal. No signs and symptoms of infectious process was seen at this time. CRP could be elevated for many other reasons. Quality VTE Prophylaxis VTE prophylaxis: mechanical ordered
[2024-12-09] MEDS: SODIUM CHLORIDE 0.9% IV 1,000 ML 100 ML IV CONT (03:47)
[2024-12-09 04:33] LABS: Hematocrit 29.6 % (42.0-52.0); Hemoglobin 9.9 g/dL (14.0-18.0); Mean Corpuscular HGB Conc 33.4 g/dl (32-36); Mean Corpuscular Hemoglobin 31.9 pg (26-34); Mean Corpuscular Volume 95.5 fl (80-100); Platelet Count Result 219 k/mm3 (150-375); Red Blood Count 3.10 M/mm3 (4.6-6.20); White Blood Count 11.2 K/mm3 (4.5-10.0)
--- NOTE | 2024-12-09 05:00 | ECG_ITS ---
Test Date: 2024-12-09 09:41:42 Measurements Intervals [place] Rate: 69 P: 65 WV: 158 QRS: 49 QRSD: 91 T: 48 QT: 449 QTc: 482 Interpretive Statements SINUS RHYTHM CANNOT R/O SEPTAL INFARCT, AGE INDETERMINATE ST-T WAVE ABNORMALITY IN INF/LAT LEADS- CONSIDER ISCHEMIA BASELINE ARTIFACT- I, II, III, AVR, AVL, AVF, V2 ABNORMAL ECG Compared to ECG 06/08/2024 09:21:22 POSSIBLE ISCHEMIA NOW PRESENT Electronically Signed On 12-09-2024 10:25:51 CDT by Shaan Brody D.O.
[2024-12-09 05:17] LABS: Anion Gap 11 mmol/L (4-12); Blood Urea Nitrogen 8 mg/dL (9-20); Calcium 7.9 mg/dL (8.4-10.2); Carbon Dioxide 18 mmol/L (22-30); Chloride 102 mmol/L (98-107); Estimated CRCL calculation 92 ml/min; Estimated Glomerular Filt Rate > 60; Glucose 102 mg/dL (65-110); Potassium < 2.0 mmol/L (3.4-5.0); Sodium 131 mmol/L (137-145)
[2024-12-09] MEDS: POTASSIUM CHLORIDE 20 MEQ ER TABLET 40 MEQ PO (06:05)
[2024-12-09] MEDS: NICOTINE (*PBKC) 21 MG PATCH 1 PATCH TRANSDERM (09:29)
[2024-12-09] MEDS: FAMOTIDINE 20 MG TABLET 40 MG PO (09:30)
[2024-12-09] MEDS: LOSARTAN POTASSIUM 100 MG TABLET PO (09:30)
[2024-12-09] MEDS: SACCHAROMYCES BOULARDII 250 MG CAPSULE PO ×3 (09:31→17:13)
[2024-12-09 10:29] LABS: Potassium 2.1 mmol/L (3.4-5.0)
[2024-12-09] MEDS: chlordiazePOXIDE (*CRX) 10 MG CAPSULE PO ×2 (10:58→20:00)
[2024-12-09] MEDS: THIAMINE HCL 200 MG/2 ML VIAL 100 MG IV PUSH (10:58)
[2024-12-09] MEDS: DEXTROSE 5%/0.9% SOD CHL 1,000 ML 100 ML IV CONT (11:02)
[2024-12-09] MEDS: POTASSIUM CHLORIDE INJ 40 MEQ in SODIUM CHLORIDE 0.9% IV 500 ML 130 MEQ IVPB ×2 (11:07→17:10)
[2024-12-09] MEDS: FOLIC ACID 1 MG/0.2 ML INJ IV PUSH (11:09)
[2024-12-09] MEDS: POTASSIUM CHLORIDE 20 MEQ PACKET (FOR LIQUID) 40 MEQ PO ×2 (12:28→17:14)
[2024-12-09] MEDS: MULTIVITAMINS THERAPEUTIC TAB (*BKC) 1 TABLET PO (12:31)
[2024-12-09 16:00] LABS: Anion Gap 10 mmol/L (4-12); Blood Urea Nitrogen 8 mg/dL (9-20); Calcium 7.8 mg/dL (8.4-10.2); Carbon Dioxide 16 mmol/L (22-30); Chloride 106 mmol/L (98-107); Estimated CRCL calculation 92 ml/min; Estimated Glomerular Filt Rate > 60; Glucose 109 mg/dL (65-110); Potassium 2.8 mmol/L (3.4-5.0); Sodium 132 mmol/L (137-145)
--- NOTE | 2024-12-09 16:10 | P.PNCROSS_ITS ---
Event Note Event Note Event Note: Patient's nausea and vomiting could very well be due to cannabis hyperemesis sy ndrome, or gastroenteritis/colitis. He is an active marijuana smoker. Counseling provided. Consider QTC interval when giving multiple doses of antiemetics. Could use capsaicin cream on the upper abdomen to help alleviate symptoms. Ideally, the patient should stop smoking tobacco and marijuana altogether. Subsequently, his nausea vomiting and diarrhea have caused severe electrolyte abnormalities. He is to remain in the IMU on telemetry. We are continuing to replace his potassium. Continue D5 normal saline as well. Monitor for alcohol withdrawals. He tells me he has not drank in a few weeks however his endorsement may be unreliable. Monitor diarrhea. Continue PPI/H2 beni. Thiamine, folic acid, multivitamin daily. When I told the patient I would like to keep him overnight to monitor severe electrolyte abnormalities he became verbally cantankerous and told me I should not keep him prisoner. He told me that if his potassium is greater than 2 he is safe to go home. I let him know my professional and clinical judgment deems otherwise. I let him know if he leaves against medical advice he risks rapid deterioration and possibly . This was witnessed by his SHIN Ferreira.
[2024-12-09] MEDS: FAMOTIDINE 20 MG/2 ML VIAL IV PUSH (20:00)
[2024-12-09 20:14] LABS: Anion Gap 8 mmol/L (4-12); Blood Urea Nitrogen 9 mg/dL (9-20); Calcium 7.8 mg/dL (8.4-10.2); Carbon Dioxide 16 mmol/L (22-30); Chloride 107 mmol/L (98-107); Estimated CRCL calculation 88 ml/min; Estimated Glomerular Filt Rate > 60; Glucose 100 mg/dL (65-110); Magnesium 2.3 mg/dL (1.6-2.3); Potassium 3.0 mmol/L (3.4-5.0); Sodium 131 mmol/L (137-145)
[2024-12-10] VITALS: BP 160/80; PULSE 80; PULSE 83; RESP 18; TEMP 36.3; O2SAT 100
[2024-12-10 02:00] VITALS: PULSE 88
[2024-12-10 03:18] VITALS: PULSE 76
[2024-12-10 04:00] VITALS: BP 148/84; PULSE 101; PULSE 81; RESP 18; TEMP 36.3; O2SAT 100
[2024-12-10 04:05] VITALS: PULSE 79
[2024-12-10 06:00] VITALS: PULSE 68
[2024-12-10] MEDS: DEXTROSE 5%/0.9% SOD CHL 1,000 ML 100 ML IV CONT (06:36)
--- NOTE | 2024-12-10 07:48 | PC.NURSE ---
During change of shift, patient's chair alarm started going off. This RN and the off going RN went into the room to assess the situation. The patient was up and Looking for my clothes. This RN asked the patient why he was looking for his clothes as he is hooked up to an I with medication infusing. The patient stated I am leaving. This RN discussed with the patient that he had some morning labs that still needed to be drawn, and asked if he was going to stay to have them drawn. The patient stated They have been drawing my labs. This RN stated It will be against medical advice and you will need to sign some paperwork. The patient agreed. The off going nurse had stated that the patient was saying that he was at the [facility] earlier in the morning and that she had offered him Librium as ordered and he might be starting to go through some alcohol withdraw, but the patient refused and stated he wouldn't need it he was going home. This RN left the room and called the oncoming physician to make him aware. Discussed with the physician that the patient may be in the beginnings of alcohol withdraw, but that he is refusing any medications to prevent that further. The physician asked about the patients orientation and if competent to make decisions for himself. This RN stated that I just got here, but I will do a neuro exam on him and make sure he is competent before I allow him to sign anything, however; if he is competent I will allow him to sign and leave. This RN went back into the room, discussed with the patient that I did in fact talk to the doctor and we just want to make sure it is safe for him to go. The patient is noted to be oriented to person, place, time, year, and president. When asked if he has a ride home, he states he is going to call someone to come get him. The patient did sign the AMA paperwork and used his personal phone to call for a ride. The off going RN removed his life care planner and IV. When asked a few minutes later if he had a ride, the patient stated that my mom is on the way to get me and should be here in a few minutes. The patient was still sitting in the chair drinking coffee. This RN informed him that unless he has changed his mind about staying vs. leaving, he is welcome to wait for her at the main entrance of the hospital. The patient then left the room.
--- NOTE | 2024-12-10 14:33 | PM.IMPN ---
Subjective Date/time seen: 12/10/24 14:33 Interval history: Patient left AMA before encounter this morning Objective Data Vital Signs Vital Signs: Vital Signs - 24 hr 12/09/24 16:00 12/09/24 16:00 12/09/24 16:00 Temperature 98 F Pulse Rate 80 88 Pulse Rate [Monitor] Respiratory Rate 24 H Blood Pressure 171/89 H Pulse Oximetry 100 Oxygen Delivery Room Air 12/09/24 18:00 12/09/24 20:00 12/09/24 20:00 Temperature 97.2 F L Pulse Rate 82 87 Pulse Rate [Monitor] 80 Respiratory Rate 19 Blood Pressure 178/93 H Pulse Oximetry 100 Oxygen Delivery 12/09/24 20:00 12/09/24 20:43 12/09/24 22:00 Temperature Pulse Rate 86 63 80 Pulse Rate [Monitor] Respiratory Rate 20 Blood Pressure Pulse Oximetry 97 Oxygen Delivery Room Air 12/09/24 23:18 12/10/24 00:00 12/10/24 00:00 Temperature 97.3 F L Pulse Rate 83 80 Pulse Rate [Monitor] 87 Respiratory Rate 18 Blood Pressure 160/80 H Pulse Oximetry 100 Oxygen Delivery 12/10/24 02:00 12/10/24 03:18 12/10/24 04:00 Temperature 97.4 F L Pulse Rate 88 81 Pulse Rate [Monitor] 76 Respiratory Rate 18 Blood Pressure 148/84 H Pulse Oximetry 100 Oxygen Delivery 12/10/24 04:00 12/10/24 04:05 12/10/24 06:00 Temperature Pulse Rate 101 H 68 Pulse Rate [Monitor] 79 Respiratory Rate Blood Pressure Pulse Oximetry Oxygen Delivery Intake/Output Intake/Output: Intake & Output 12/07/24 12/08/24 12/09/24 12/10/24 23:59 23:59 23:59 23:59 Intake Total 2460 1360 Output Total 251 553 Balance 2209 807 Meds/Results Radiology Results: ITS Impressions Abdomen/Pelvis CT 12/09/24 09:44 IMPRESSION: 1. No acute findings. Chest X-Ray 12/09/24 09:44 IMPRESSION: 1. No acute cardiopulmonary findings given portable technique. Labs Labs: Laboratory Results - last 24 hr 12/09/24 12/09/24 12/09/24 15:16 19:50 20:40 Sodium 132 L 131 L Potassium 2.8 L* 3.0 L Chloride 106 107 Carbon Dioxide 16 L 16 L Anion Gap 10 8 BUN 8 L 9 Creatinine 0.71 0.75 Estim Creat Clear Calc 92 88 Estimated GFR > 60 > 60 Glucose 109 100 POC Capillary Glucose 93 Calcium 7.8 L 7.8 L Magnesium 2.3 Ur Random Sodium 12/10/24 02:35 Sodium Potassium Chloride Carbon Dioxide Anion Gap BUN Creatinine Estim Creat Clear Calc Estimated GFR Glucose POC Capillary Glucose Calcium Magnesium Ur Random Sodium 45
[2024-12-13 10:09] LABS: Osmolality, Serum 271 mOsmol/kg (275-295)
== END 2024-12-10 07:43 | disposition left against medical advice (07) ==
LOC: ANHED 22:34 → ANHIMU 12-09 02:45
PROVIDERS: Nurse Practitioner; Admitting Provider General Practice; Emergency Provider Student in an Organized Health Care Education/Training Program; PCP Family Medicine; Visit Provider Internal Medicine
DX: R11.2 Nausea with vomiting, unspecified (principal); R19.7 Diarrhea, unspecified; R06.02 Shortness of breath; E87.6 Hypokalemia; E87.1 Hypo-osmolality and hyponatremia; F10.20 Alcohol dependence, uncomplicated; I10 Essential (primary) hypertension; K21.9 Gastro-esophageal reflux disease without esophagitis; Z53.29 Procedure and treatment not carried out because of patient's decision for other reasons; F12.90 Cannabis use, unspecified, uncomplicated; F17.210 Nicotine dependence, cigarettes, uncomplicated; M54.9 Dorsalgia, unspecified; G89.29 Other chronic pain; Z86.73 Personal history of transient ischemic attack (TIA), and cerebral infarction without residual deficits; G47.33 Obstructive sleep apnea (adult) (pediatric); Z99.89 Dependence on other enabling machines and devices; Z20.822 Contact with and (suspected) exposure to COVID-19
CPT/HCPCS: 36415; 71045; 74177; 80048; 80053; 80307; 81001; 82077; 82248; 82550; 82948; 83605; 83690; 83735; 83930; 84132; 84300; 84443; 84484; 85025; 85027; 86140; 87637; 93005; 96361; 96374; 96375; 99285; A9270; G0378; G0379; J0360; J0692; J2405; J3373; J3411; J3480; J7030; J7040; J7042; Q9967

== ENCOUNTER 2025-01-10 11:15 | Outpatient (CLI) | payer OTHER, SELFPAY ==
--- OUTSIDE RECORDS SUMMARY | 2025-01-10 19:03 | XMS_ITS | Clinical Summary ---
Author Organization [facility] [employer] Address [address] [place] [address] Care Team Providers Care Bond Runner Name Role Phone Clifton Garcia MD Primary Care Provider [phone] Source Comments [facility] [employer],non-owned Affiliates and Associated Physician Practices is amultiple site organization consisting of ambulatory clinics and hospital sitesin [place], [place], [place] and [place]. This disclosure is being madepursuant to the Care Everywhere program and may not contain all information available regarding this patient. 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 Gender Identity Not on file Sexual Orientation Not on file Last Filed Vital Signs Vital Sign Reading Time Taken Comments Blood Pressure 161/94 02/14/2024 2:20 PM [employer] CLE[employer] HELPER Pulse 97 02/14/2024 2:20 PM [employer] CLE[employer] HELPER Temperature 36.6 C (97.9 F) 02/14/2024 2:20 PM RUG CLE[employer]ER HELPER Respiratory Rate 18 02/14/2024 2:20 PM [employer] CLE[employer] HELPER Oxygen Saturation 100% 02/14/2024 2:20 PM RUG CLEAN[employer] HELPER Inhaled Oxygen Concentration - - Weight 77.1 kg (170 lb) 02/14/2024 2:20 PM RUG CLEANER HELPER Height 166.4 cm (5' 5.5) 02/14/2024 2:20 PM [employer] CLE[employer] HELPER Body Mass Index 27.86 02/14/2024 2:20 PM RUG CLEANER HELPER Plan of Treatment Health Maintenance Due Date [...] COMPREHENSIVE METABOLIC PANEL Routine 02/14/2024 2:09 PM [employer] CLE[employer] HELPER Abnormal MRI, lumbar spine from Last 3 Months or Most Recently Relevant to Health Maintenance Results * (ABNORMAL) COMPREHENSIVE METABOLIC PANEL (02/14/2024 2:09 PM RUG CLEANER HELPER) BUN 8 7 - 26 mg/dL 02/14/2024 2:[address] [facility] Creatinine 1.11 0.71 - 1.16 mg/dL 02/14/2024 2:[address] [facility] Sodium 135(L) 136 - 145 mmol/L 02/14/2024 2:[address] [facility] Potassium 4.4 3.5 - 4.5 mmol/L 02/14/2024 2:[address] [facility] Chloride 102 98 - 107 mmol/L 02/14/2024 2:[address] [facility] CO2 23 22 - 29 mmol/L 02/14/2024 2:[address] [facility] Glucose 95 70 - 99 mg/dL 02/14/2024 2:[address] [facility] Calcium 9.4 8.4 - 10.2 mg/dL 02/14/2024 2:[address] [facility] Protein Total 7.6 6.0 - 8.3 g/dL 02/14/2024 2:[address] [facility] Albumin 3.7 3.4 - 5.0 g/dL 02/14/2024 2:[address] [facility] Bilirubin Total 0.9 0.2 - 1.2 mg/dL 02/14/2024 2:[address] [facility] Alkaline Phosphatase 85 40 - 150 U/L 02/14/2024 2:[address] [facility] ALT 36 5 - 55 U/L 02/14/2024 2:[address] [facility] AST 94(H) 5 - 34 U/L 02/14/2024 2:[address] [facility] Anion Gap 10 6 - 16 02/14/2024 2:[address] [facility] BUN/Creatinine Ratio 7 7 - 23 02/14/2024 2:[address] [facility] Osmolality Calculated 278 275 - 295 mOsm/kg 02/14/2024 2:[address] [facility] Albumin/Globulin Ratio 0.9(L) 1.1 - 2.3 02/14/2024 2:[address] [facility] eGFR by CKD-EPI 76(L) >=90 mL/min/1.7 3 m2 02/14/2024 2:[address] [facility] Blood BLOOD SPECIMEN / Unknown Venipuncture / Unknown 02/14/2024 2:09 PM RUG CLEANER HELPER 02/14/2024 2:15 PM [employer] Christofer Lloyd MD LAB - CHEMISTRY ORDERABLES Fin al Result Performing Organization Address [facility]/State/ZIP Co de Phone Number [facility] [address] [place] [address], [facility] [phone] from Last 3 Months or Most Recently Relevant to Health Maintenance Insurance [facility] Care Teams Bond Runner Relationship Specialty Start Date End Date Clifton Garcia MD [address] [place] [address] PCP - General Family Medicine 10/07/23
--- OUTSIDE RECORDS SUMMARY | 2025-01-10 19:03 | XMS_ITS | Clinical Summary ---
Author Organization [facility] Address [address] [place] [address] Phone Care Team Providers Care Coupon And Bond Collection Clerk Name Role Phone Angelito Bhat MD Primary Care Provider [phone] Allergies Active Allergy Reactions Criticality Noted Date [...] Screening 2009 Immunochemical Fecal Occult Blood 2009 Respiratory Syncytial Virus (RSV) Immunization (Adult) (1 - Risk 50-74 years 1-dose series) 2014 Zoster Immunization (1 of 2) 2014 Influenza Immunization (#1) 2024 SARS-COV-2 Immunization ( - season) 2024 PSA Discussion Completed 08/05/2021 Hepatitis B [...] Relevant to Health Maintenance Insurance MEDICAID [employer] [facility] Care Teams Coupon And Bond Collection Clerk Relationship Specialty Start Date End Date Angelito Bhat MD PCP - General Internal Medicine 05/27/21
--- OUTSIDE RECORDS SUMMARY | 2025-01-10 19:03 | XMS_ITS | Clinical Summary ---
Author Organization [facility] 8 [facility] Address [address] [place] [address] Care Team Providers Care Binding Cutter Name Role Phone Ron Lee Unavailable [phone] Clifton Garcia MD Primary Care Provider [phone] Austin Campos MD Unavailable Allergies No known active allergies Medications albuterol HFA (PROVENTIL HFA,VENTOLIN HFA,PROAIR HFA) 90 mcg/actuation inhaler Inhale 2 puffs 0 Active ergocalciferol (VITAMIN D) 50,000 unit capsule 0 Active dilTIAZem CD 180 mg 24 hr capsule 2 Active escitalopram (LEXAPRO) 5 mg tablet Take 1 tablet (5 mg total) by mouth daily 2 Active ascorbic acid (VITAMIN C) 500 mg tablet,chewable Take 1 tablet/chew tab (500 mg total) by mouth 2 (two) times a day 60 tablet/chew tab 2 Active cholecalciferol (VITAMIN D-3) 2000 unit capsule Take 1 capsule (2,000 Units total) by mouth daily 30 capsule 2 Active losartan (COZAAR) 50 mg tablet 2 Active oxyCODONE-acetam inophen (PERCOCET) 5-325 mg per tabletIndication s:Pain Take 1 tablet by mouth every 6 (six) hours as needed for pain 28 tablet 2 Active triamcinolone (KENALOG) 0.1 % cream Apply to affected area 1-2 times daily as needed. Avoid face and groin. 30 g 4 Active aspirin 81 mg chewable tablet Take 1 tablet (81 mg total) by mouth daily 30 tablet 1 5 02/28/20 Active folic acid (FOLVITE) 1 mg tablet Take 1 tablet (1 mg total) by mouth daily 30 tablet 1 5 02/28/[address] (PROTONIX) 40 mg EC tabletIndication s:Mucositis Prophylaxis Take 1 tablet (40 mg total) by mouth daily 30 tablet 5 01/29/20 Active potassium chloride (KLOR-CON) 20 mEq packet Take 1 packet (20 mEq total) by mouth daily for 4 days Dissolve each packet in at least 4 ounces (120 mL) of cold water or other beverage prior to administratio n. 4 packet 5 01/03/20 Active Problems Problem Noted Date Diagnosed Date Elevated liver enzymes 12/27/2024 Hypokalemia 12/27/2024 Moderate protein-calorie malnutrition 12/25/2024 FARTUN (acute kidney injury) 12/24/2024 Chronic diarrhea 12/24/2024 Centrilobular emphysema 08/05/2021 Generalized anxiety disorder 08/05/2021 Rotator cuff tear arthropathy of left shoulder 0 08/05/2021 Superior glenoid labrum lesion of left shoulder 07/24/2021 Overview (07/24/2021): Added automatically from request for surgery [id number] Arthritis of left acromioclavicular joint 2021 Overview (07/24/2021): Added automatically from request for surgery [id number] Bicipital tendinitis, left 07/24/2021 Overview (07/24/2021): Added automatically from request for surgery [id number] Impingement syndrome of left shoulder 07/24/2021 Overview (07/24/2021): Added automatically from request for surgery [id number] Essential hypertension, benign 06/16/2021 Encounters Date Type Department Care Team Description 12/29/2024 Results Follow-Up [facility] Gastroenterology at [address] [place] [address] Austin Campos MD Surgical pathology, Pancreatic elastase, stool, Calprotectin, fecal, Additional followed-up results: 2 12/26/2024 10:53 AM CDT Anesthesia Event [address] [address] Ted Hernández MD 12/26/2024 10:10 AM CDT - 12/26/2024 10:40 AM CDT Surgery [address] [address] Austin Campos MD COLON REMOVAL SNARE 12/24/2024 3:09 PM CDT - 12/28/2024 5:41 PM CDT Hospital Encounter [facility] Acute Medicine [address] [place] [id number] Simon Barajas MD Sinha, Chandni, MD Nations, Matthew Austin, DO FARTUN (acute kidney injury) (Primary Dx); Hypokalemia; Colitis; Diarrhea, unspecified type; Chronic diarrhea; Elevated liver enzymes Discharge Disposition: Discharge to home or self care 12/24/2024 2:50 PM CDT - 12/24/2024 11:59 PM CDT Hospital Encounter [facility] Emergency, Room R Discharge Disposition: Discharge to home or self care from Last 3 Months Surgical History Surgery Date Site/Laterality Comments KNEE SURGERY Medical History Medical History Date Comments Hypertension GERD (gastroesophageal reflux disease) COPD (chronic obstructive pulmonary disease) Stroke (HCC) Family History Medical History Relation Name Comments Cancer Other Relation Name Status Comments Other Social History Tobacco Use Types Packs/Day Years Used Date Smoking Tobacco: Every Day Cigarettes 2 40.8 Started: 1984 Smokeless Tobacco: Never Tobacco Cessation:Ready to Q uit: Not Asked; Counseling Given: Not Answered Alcohol Use Standard Drinks/Week Comments Yes 0 (1 standard drink = 0.6 oz pur e alcohol) Social Connection and Isolation Panel Answer Date Recorded In a typical week, how many times do you talk on the phone with family, friends, or neighbors? Three times a week 12/26/19 How often do you get togethe r with friends or relatives? Three times a week 12/25/2024 How often do you attend chur ch or oriental orthodox services? Never 12/25/2024 Do you belong to any clubs o r organizations such as bahai groups, unions, fraternal or athletic groups, or school groups? No 12/25/2024 How often do you attend meet ings of the clubs or organizations you belong to? Never 12/25/2024 Are you , , di vorced, , never , or living with a partner? Living with partner 12/25/2024 AUDIT-C Answer Date Recorded Q1: How often do you have a drink containing alcohol? Never 12/24/2024 Q2: How many drinks containi ng alcohol do you have on a typical day when you are drinking? Patient does not drink Q3: How often do you have si x or more drinks on one occasion? Less than monthly 12/24/2024 Overall Financial Resource Strain (CARDIA) Answe r Date Recorded How hard is it for you to pa y for the very basics like food, housing, medical care, and heating? Not hard at all 12/25/2024 Hunger Vital Sign Answer Date Recorded Within the past 12 months, y ou worried that your food would run out before you got the money to buy more. Never true 12/26/19 25 Within the past 12 months, t he food you bought just didn't last and you didn't have money to get more. Never true 12/25/2024 PRAPARE - Transportation Answer Date Re corded In the past 12 months, has l ack of transportation kept you from medical appointments or from getting medications? No 12/06 In the past 12 months, has l ack of transportation kept you from meetings, work, or from getting things needed for daily living? No 12/25/2024 Housing Stability Vital Sign Answer Giuseppe e Recorded In the last 12 months, was t here a time when you were not able to pay the mortgage or rent on time? No 12/25/2024 In the past 12 months, how m any times have you moved where you were living? 0 12/25/2024 At any time in the past 12 m [facility], were you homeless or living in a detention (including now)? No 12/25/2024 [facility] Utilities Answer Date Recorded In the past 12 months has th [employer], gas, oil, or water company threatened to shut off services in your home? No 12/25/2024 Personal Safety Answer Date Recorded Have you ever been in or are you currently in a harmful physical or emotional relationship or is someone making you feel afraid or unsafe? Denies 12/24/2024 Sex and Gender Information Value Date Recorded Sex Assigned at Not on file Legal Sex Male 6:08 PM [employer]OL GR[employer] SURFACE Gender Identity Not on file Sexual Orientation Not on file Last Filed Vital Signs Vital Sign Reading Time Taken Comments Blood Pressure 139/98 12/28/2024 3:31 PM CDT Pulse 65 12/28/2024 3:31 PM CDT Temperature 36.2 C (97.2 F) 12/28/2024 3:31 PM CDT Respiratory Rate 20 12/28/2024 3:31 PM CDT Oxygen Saturation 100% 12/28/2024 3:31 PM CDT Inhaled Oxygen Concentration - - Weight 74.4 kg (164 lb 0.4 oz) 12/26/2024 10:42 AM CDT Height 172.7 cm (5' 8) 12/24/2024 8:53 PM CDT Body Mass Index 24.94 12/24/2024 8:53 PM CDT Plan of Treatment Health Maintenance Due Date Last Done Comments Depression Screening 1964 Hepatitis C Screening 1964 Prostate Cancer Screening-PSA 1964 Hepatitis B Screening 1982 Regular Well Visit/Exam 18-64 1982 Pneumococcal vaccine <65 (1 of 2 - PCV) 11/11/1983 Lung Cancer Screening 2014 Zoster Vaccine (1 of 2) 2014 Influenza Vaccine (#1) 2024 01/12/2022 DTaP/Tdap/Td Vaccine (2 - Td or Tdap) 01/13/203210/2021 Colon Cancer Screening-Colonoscopy 12/26/20342024 Colon Cancer Screening-CT Colonography Discontinued Colon Cancer Screening-DNA Stool Discontinued 12/27/19 Colon Cancer Screening-FIT Discontinued 12/26/2024 Colon Cancer Screening-Sigmoidoscopy Discontinued 12/06 Procedures Procedure Name Priority Date/Time Associated Diagnosis Comments EGFR Timed 12/28/2024 3:57 PM CDT BASIC METABOLIC PANEL Timed 12/28/2024 3:57 PM CDT SODIUM, URINE, RANDOM Routine 12/28/2024 2:41 PM CDT URINALYSIS AND REFLEX TO MICROSCOPIC AND CULTURE Routine 12/28/2024 2:41 PM CDT FIBRO TEST-ACTI TEST Add-On 12/28/2024 8:16 AM CDT EGFR Routine 12/28/2024 3:33 AM CDT DIFFERENTIAL AUTO Routine 12/28/2024 3:3 3 AM CDT IRON PROFILE W/ IBC Routine 12/28/2024 3 :33 AM CDT FERRITIN Routine 12/28/2024 3:33 AM CDT VITAMIN B12 Routine 12/28/2024 3:33 AM CDT FOLATE Routine 12/28/2024 3:33 AM CDT COMPREHENSIVE METABOLIC PANEL Routine 12/28/2024 3:33 AM CDT CBC WITH AUTO DIFFERENTIAL Routine 12/28/2024 3:33 AM CDT MAGNESIUM Add-On 12/28/2024 3:29 AM CDT EGFR Timed 12/27/2024 6:32 PM CDT BASIC METABOLIC PANEL Timed 12/27/2024 6:32 PM CDT US RUQ IP Routine 12/27/2024 2:49 PM CDT POTASSIUM LEVEL Timed 12/27/2024 11:31 AM CDT MAGNESIUM Routine 12/27/2024 11:31 AM CDT EGFR Routine 12/27/2024 4:39 AM CDT DIFFERENTIAL AUTO Routine 12/27/2024 4:3 9 AM CDT LIPID PANEL Routine 12/27/2024 4:39 AM CDT COMPREHENSIVE METABOLIC PANEL Routine 12/27/2024 4:39 AM CDT CBC WITH AUTO DIFFERENTIAL Routine 12/27/2024 4:39 AM CDT COLONOSCOPY 12/26/2024 10:47 AM CDT ENDO ADD ON COLON BIOPSY 12/26/2024 10:47 AM CDT Diarrhea, unspecified type COLON REMOVAL SNARE 12/26/2024 1 0:47 AM CDT Diarrhea, unspecified type SURGICAL PATHOLOGY STAT 12/26/2024 9: 42 AM CDT Diarrhea, unspecified type TISSUE TRANSGLUTAMINASE, IGA Routine 12/26/2024 3:17 AM CDT CREATINE KINASE (CK), TOTAL Add-On 12/26/2024 3:17 AM CDT EGFR Routine 12/26/2024 3:17 AM CDT DIFFERENTIAL AUTO Routine 12/26/2024 3:1 7 AM CDT CELIAC REFLEX PANEL Routine 12/26/2024 3 :17 AM CDT COMPREHENSIVE METABOLIC PANEL Routine 12/26/2024 3:17 AM CDT CBC WITH AUTO DIFFERENTIAL Routine 12/26/2024 3:17 AM CDT CRYPTOSPORIDIUM AND GIARDIA ANTIGEN ASSAY Routine 12/25/2024 10:50 PM CDT CALPROTECTIN, FECAL Routine 12/25/2024 9 :27 PM CDT FECAL FAT, QUANTITATIVE Routine 12/26/19 9:27 PM CDT PANCREATIC ELASTASE, STOOL Routine 12/25/2024 9:27 PM CDT EGFR Timed 12/25/2024 1:43 PM CDT BASIC METABOLIC PANEL Timed 12/25/2024 1:43 PM CDT TRANSTHORACIC ECHO (TTE) COMPLETE W DOPPLER/CF WO CONTRAST Routine 12/25/2024 10:45 AM CDT EGFR Routine 12/25/2024 4:58 AM CDT DIFFERENTIAL AUTO Routine 12/25/2024 4:5 8 AM CDT MAGNESIUM Routine 12/25/2024 4:58 AM CDT COMPREHENSIVE METABOLIC PANEL Routine 12/25/2024 4:58 AM CDT CBC WITH AUTO DIFFERENTIAL Routine 12/25/2024 4:58 AM CDT URINALYSIS, MICROSCOPIC ONLY STAT 12/24/2024 11:15 PM CDT DRUGS OF ABUSE SCREEN, URINE WITHOUT CONFIRMATION STAT 12/24/2024 11:15 PM CDT STOOL CULTURE Routine 12/24/2024 11:15 PM CDT C. DIFFICILE TESTING Routine 12/24/2024 11:15 PM CDT URINALYSIS AND REFLEX TO MICROSCOPIC AND CULTURE STAT 12/24/2024 11:15 PM CDT TROPONIN T HIGH-SENSITIVITY 6-HOUR Timed 12/24/2024 10:11 PM CDT BLOOD GAS, VENOUS STAT 12/24/2024 9:1 0 PM CDT D-DIMER, QUANTITATIVE Routine 12/24/2024 9:10 PM CDT TROPONIN T HIGH-SENSITIVITY 4-HR Timed 12/24/2024 9:10 PM CDT POTASSIUM LEVEL STAT 12/24/2024 6:29 PM CDT TROPONIN T HIGH-SENSITIVITY 2-HOUR Timed 12/24/2024 6:[address] CHEST ABDOMEN PELVIS WO CONTRAST ED 12/24/2024 5:37 PM CDT INFLUENZA A/B, RSV, AND COVID-19 PCR STAT 12/24/2024 4:34 PM CDT EGFR STAT 12/24/2024 4:32 PM CDT DIFFERENTIAL AUTO STAT 12/24/2024 4:3 2 PM CDT MAGNESIUM Add-On 12/24/2024 4:32 PM CDT ETHANOL STAT 12/24/2024 4:32 PM CDT TROPONIN T HIGH-SENSITIVITY SERIES (BASELINE, 2HR, 4HR, 6HR) STAT 12/24/2024 4:32 PM CDT SEPSIS LACTATE WITH REFLEX STAT 12/24/2024 4:32 PM CDT COMPREHENSIVE METABOLIC PANEL STAT 12/24/2024 4:32 PM CDT CBC WITH AUTO DIFFERENTIAL STAT 12/24/2024 4:32 PM CDT PRO B-TYPE NATRIURETIC PEPTIDE STAT 12/24/2024 4:32 PM CDT XR CHEST 1 VIEW ED 12/24/2024 3:48 PM CDT ECG 12-LEAD Routine 12/24/2024 3:14 PM CDT from Last 3 Months Results * eGFR (12/28/2024 3:57 PM CDT) eGFR >90 >=60 mL/min/1. 73 m2 Comment: Interpretive Data Reference Interval Normal >/= 90 mL/min/1.73m2 Mildly decreased* 60 - 89 mL/min/1.73m2 Mildly to moderately decreased 45 - 59 mL/min/1.73m2 Moderately to severely decreased 30 - 44 mL/min/1.73m2 Severely decreased 15 - 29 mL/min/1.73m2 Kidney Failure < 15 mL/min/1.73m2 *Relative to young adult level Estimated glomerular filtration rate is determined by the 2020 CKD-EPI equation recommended by the National Kidney Foundation (A Unifying Approach to GFR Estimation: Recommendations of the NKF-ASK Task Force on Reassessing the Inclusion of Race in Diagnosing Kidney Disease, JASN 2020). The CKD-EPI equation should not be used for patients with unstable renal function and has not been validated in children and those over 70. Current interpretive data was last reviewed 2021. Blood 12/28/2024 3:57 PM CDT 12/28/2024 4:16 PM CDT Jonathan Silveira [facility] DO LAB BLOOD ORDERABLES F inal Result HAILEE SHAFER ([place]) 1 [facility] Department [place] [address] * (ABNORMAL) Basic metabolic panel (12/28/2024 3:57 PM CDT) Sodium 133(L) 135 - 145 mmol/L Potassium, pl 4.2 3.3 - 4.9 mmol/L HAILEE SHAFER ([place]) Chloride 103 97 - 110 mmol/L [facility] ([place]) CO2 21(L) 22 - 32 mmol/L [facility] ([place]) Anion gap 9 2 - 15 mmol/L [facility] ([place]) BUN 4(L) 6 - 25 mg/dL [facility] ([place]) Creatinine 0.88 0.80 - 1.30 mg/dL [facility] ([place]) Glucose 103 70 - 199 mg/dL [facility] ([place]) Comment: Interpretive Data Fasting glucose >/= 126 mg/dl is diagnostic for diabetes. Fasting is defined as no caloric intake for at least 8 hours. Fasting glucose between 100 mg/dl to 125 mg/dl is diagnostic of prediabetes. In a patient with classic symptoms of hyperglycemia or hyperglycemic crisis, a random glucose >/= 200 mg/dl is diagnostic for diabetes. In the absence of unequivocal hyperglycemia, results should be confirmed by repeat testing. The classification and Diagnosis of Diabetes Diabetes Care 2021; 46: S19-S40. Current interpretive data was last revised 2022. Calcium 7.9(L) 8.5 - 10.3 mg/dL [facility] ([place]) Blood 12/28/2024 3:57 PM CDT 12/28/2024 4:16 PM CDT Jonathan Silveira [facility] DO LAB BLOOD ORDERABLES F inal Result [facility] ([place]) 1 [facility] Department [place] [address] * Urinalysis reflex to microscopic and culture Urine (12/28/2024 2:41 PM CDT) Color, ur Yellow Yellow Clarity, ur Clear Clear HAILEE A ([place]) Specific gravity, ur 1.008 1.003 - 1.030 [facility] ([place]) pH, urine 8.0 [facility] ([place]) Comment: Interpretive Data U rine pH is affected by diet, medications, systemic acid-base disturbances, and renal tubular function. pH may affect urinary stone formation. For example, urine pH below 6.0 may help reduce the tendency for calcium phosphate stones and pH greater than 6.0 may reduce the tendency for uric acid stone formation. Source: [facility] Current Interpretive Data was last revised on 2017 Protein, ur ql Negative Negative [facility] ([place]) Glucose, ur ql Negative Negative [facility] ([place]) Ketones, ur Negative Negative [facility] ([place]) Bilirubin, ur Negative Negative [facility] ([place]) Blood, ur Negative Negative [facility] ([place]) Urobilinogen, ur <2.0 <2.0 mg/dL [facility] ([place]) Nitrite, ur Negative Negative [facility] ([place]) Leukocyte esterase, ur Negative Negative [facility] ([place]) UA reflex comment Reflex conditions for microscopic UA and culture not met. [facility] ([place]) Urine 12/28/2024 2:41 PM CDT 12/28/2024 2:44 PM CDT us Rogelio Leiva MD LAB MICROBIOLOGY - GENERAL OR DERABLES Final Result Performing Organization Address [facility]/ZIP Co de Phone Number HAILEE SHAFER ([place]) 1 [facility] [place] [address] * Sodium, urine, random (12/28/2024 2:41 PM CDT) Pathologist [facility] Sodium, ur 92 mmol/L Comment: Interpretive Data No reference range established. Current interpretive data was last revised 2018. Urine 12/28/2024 2:41 PM CDT 12/28/2024 2:44 PM CDT Narrative [facility] ([place]) - 12/28/2024 2:55 PM CDT No normal range us Rogelio Leiva MD LAB URINE ORDERABLES Final Re sult Performing Organization Address City/[facility]/ZIP Co de Phone Number HAILEE SHAFER ([place]) 1 [facility] [place] [address] * (ABNORMAL) Fibro Test-Acti Test (12/28/2024 8:16 AM CDT) FibroTest Score 0.71 [facility] Lab FibroTest Stage F3 HARIKA SHAFER ([place]) FibroTest Interpretation SEE BELOW HAILEE SHAFER ([place]) Comment: RESULT: advanced fibrosis FibroTest estimates liver fibrosis FibroTest Score Stage Interpretation 0.00-0.21 F0 no fibrosis 0.21-0.27 F0-F1 no fibrosis 0.27-0.31 F1 minimal fibrosis 0.31-0.48 F1-F2 minimal fibrosis 0.48-0.58 F2 moderate fibrosis 0.58-0.72 F3 advanced fibrosis 0.72-0.74 F3-F4 advanced fibrosis 0.74-1.00 F4 severe fibrosis (Cirrhosis) ActiTest Score 0.37 TOMÁS SHAFER ([place]) ActiTest Grade A1-A2 TOMÁS Norman [facility] ([place]) ActiTest Interpretation SEE BELOW HAILEE SHAFER ([place]) Comment: RESULT: minimal activity ActiTest estimates necroinflammatory activity ActiTest Score Grade Interpretation 0.00-0.17 A0 no activity 0.17-0.29 A0-A1 no activity 0.29-0.36 A1 minimal activity 0.36-0.52 A1-A2 minimal activity 0.52-0.60 A2 significant activity 0.60-0.62 A2-A3 significant activity 0.62-1.00 A3 severe activity FibroTest-ActiTest Comment See Comment HAILEE SHAFER ([place]) Comment: The reliability of results is dependent on compliance with the preanalytical and analytical conditions recommended by [employer]. The tests have to be deferred for: acute hemolysis, acute hepatitis, acute inflammation, extra hepatic cholestasis. The advice of a specialist should be sought for interpretation in chronic hemolysis and Gilbert's syndrome. The test interpretation is not validated in liver transplant patients. Isolated extreme values of one of the components should lead to caution in interpreting the results. In case of discordance between a biopsy result and a test, it is recommended to seek advice of a specialist. The causes of these discordances could be due to a flaw of the test or to a flaw in the biopsy: i.e. a liver biopsy has a 33% variability rate for one fibrosis stage. FibroTest is interpretable for chronic hepatitis B and C, alcoholic and non alcoholic steatosis. ActiTest is interpretable for chronic hepatitis B and C. ADDITIONAL INFORMATION This test was developed and its performance characteristics determined by [facility] in a manner consistent with CLIA requirements. This test has not been cleared or approved by the U.S. Food and Drug Administration. [email or web address] Serial Number [id number] [facility] ([place]) APOLIPOPROTEIN A1 65(L) >=120 mg/dL [facility] ([place]) [id number], Ser 231 100 - 280 mg/dL [facility] ([place]) Haptoglobin, S 213(H) 30 - 200 mg/dL [facility] ([place]) Alanine Aminotransferase (ALT), S 43 7 - 55 Units/L [facility] ([place]) Gamma Glutamyltransferase (GGT), S 184(H) 8 - 61 Units/L [facility] ([place]) Bilirubin, Total, S 0.6 0.0 - 1.2 mg/dL [facility] ([place]) Comment: Test Performed by: [facility] [address] [place] [address] Addiction Professional: Alma Saez Ph.D.; CLIA# [id number] Test Performed by: [facility] [address] [place] [address] Addiction Professional: Alma Saez Ph.D.; CLIA# [id number] Blood 12/28/2024 8:16 AM CDT 12/28/2024 8:21 AM CDT us Austin Campos MD LAB BLOOD ORDERABLES Final Resul t [facility] ([place]) 1 [facility] Department [place] [address] [place] [facility] * eGFR (12/28/2024 3:33 AM CDT) eGFR >90 >=60 mL/min/1. 73 m2 Comment: Interpretive Data Reference Interval Normal >/= 90 mL/min/1.73m2 Mildly decreased* 60 - 89 mL/min/1.73m2 Mildly to moderately decreased 45 - 59 mL/min/1.73m2 Moderately to severely decreased 30 - 44 mL/min/1.73m2 Severely decreased 15 - 29 mL/min/1.73m2 Kidney Failure < 15 mL/min/1.73m2 *Relative to young adult level Estimated glomerular filtration rate is determined by the 2020 CKD-EPI equation recommended by the National Kidney Foundation (A Unifying Approach to GFR Estimation: Recommendations of the NKF-ASK Task Force on Reassessing the Inclusion of Race in Diagnosing Kidney Disease, JASN 2020). The CKD-EPI equation should not be used for patients with unstable renal function and has not been validated in children and those over 70. Current interpretive data was last reviewed 2021. Blood 12/28/2024 3:33 AM CDT 12/28/2024 3:41 AM CDT us Joshua Robertson MD LAB BLOOD ORDERABLES [facility] Result [facility] ([place]) 1 [facility] Department [place] [address] * Differential, auto (12/28/2024 3:33 AM CDT) Neutrophil abs 4.39 1.50 - 6.50 K/cumm Imm gran abs 0.03 0.00 - 0.10 K/cumm [facility] ([place]) Lymphocyte abs 1.47 0.80 - 3.30 K/cumm [facility] ([place]) Monocyte abs 0.57 0.20 - 0.80 K/cumm [facility] ([place]) Eosinophil abs 0.11 0.00 - 0.50 K/cumm [facility] ([place]) Basophil abs 0.03 0.00 - 0.10 K/cumm [facility] ([place]) Neutrophil pct 66.4 % [facility] ([place]) Comment: Interpretive Data Percent cell count reference ranges are not reported, since discordance with absolute values may lead to misinterpretation of CBC data. Current Interpretive Data was last revised on 2017. Imm gran pct 0.5 % [facility] ([place]) Comment: Interpretive Data Percent cell count reference ranges are not reported, since discordance with absolute values may lead to misinterpretation of CBC data. Current Interpretive Data was last revised on 2017. Lymphocyte pct 22.3 % [facility] ([place]) Comment: Interpretive Data Percent cell count reference ranges are not reported, since discordance with absolute values may lead to misinterpretation of CBC data. Current Interpretive Data was last revised on 2017. Monocyte pct 8.6 % [facility] ([place]) Comment: Interpretive Data Percent cell count reference ranges are not reported, since discordance with absolute values may lead to misinterpretation of CBC data. Current Interpretive Data was last revised on 2017. Eosinophil pct 1.7 % [facility] ([place]) Comment: Interpretive Data Percent cell count reference ranges are not reported, since discordance with absolute values may lead to misinterpretation of CBC data. Current Interpretive Data was last revised on 2017. Basophil pct 0.5 % [facility] ([place]) Comment: Interpretive Data Percent cell count reference ranges are not reported, since discordance with absolute values may lead to misinterpretation of CBC data. Current Interpretive Data was last revised on 2017. Blood 12/28/2024 3:33 AM CDT 12/28/2024 3:41 AM CDT us Joshua Robertson MD LAB BLOOD ORDERABLES Fi nal Result HAILEE SHAFER ([place]) 1 [facility] Department [place] [address] * (ABNORMAL) Iron profile w/ IBC (12/28/2024 3:33 AM CDT) Iron 50 50 - 150 mcg/dL TIBC 154(L) 250 - 400 mcg/dL HA[facility]E [facility]AFER ([place]) Transferrin saturation 32 20 - 50 % [facility] ([place]) Blood 12/28/2024 3:33 AM CDT 12/28/2024 3:41 AM CDT us Jonathan Rasmussen DO LAB BLOOD ORDERABLES F inal Result [facility] ([place]) 1 [facility] [place] [address] * (ABNORMAL) CBC with auto differential (12/28/2024 3:33 AM CDT) WBC 6.60 3.80 - 9.90 K/cumm Hgb 8.9(L) 13.0 - 17.5 g/dL [facility] ([place]) Hct 27.8(L) 38.9 - 50.3 % [facility] ([place]) Plt 218 150 - 400 K/cumm [facility] ([place]) MPV 11.3 9.1 - 12.3 fL [facility] ([place]) RBC 2.85(L) 4.30 - 5.80 M/cumm [facility] ([place]) MCV 97.5(H) 81.3 - 96.4 fL [facility] ([place]) MCH 31.2 27.1 - 33.3 pg [facility] ([place]) MCHC 32.0(L) 32.3 - 35.7 g/dL [facility] ([place]) RDW CV 14.7 11.1 - 14.9 % [facility] ([place]) RDW SD 51.1(H) 35.7 - 48.1 fL [facility] ([place]) NRBC abs 0.00 0.00 - 0.01 K/cumm [facility] ([place]) Blood 12/28/2024 3:33 AM CDT 12/28/2024 3:41 AM CDT us Joshua Robertson MD LAB BLOOD ORDERABLES Fi nal Result [facility] ([place]) 1 [facility] [place] [address] * (ABNORMAL) Folate (12/28/2024 3:33 AM CDT) [facility] Folic acid 2.4(L) >=5.0 ng/mL Blood 12/28/2024 3:33 AM CDT 12/28/2024 3:41 AM CDT [facility] DO LAB BLOOD ORDERABLES F inal Result HAILEE SHAFER ([place]) [address] [facility] [place] [address] * (ABNORMAL) Ferritin (12/28/2024 3:33 AM CDT) [facility] Ferritin 739(H) 30 - 400 ng/mL Blood 12/28/2024 3:33 AM CDT 12/28/2024 3:41 AM CDT [facility] LAB BLOOD ORDERABLES F inal Result Performing Organization Address [facility] Co de Phone Number HAILEE SHAFER ([place]) [address] [facility] [place] [address] * Vitamin B12 (12/28/2024 3:33 AM CDT) [facility] Vitamin B12 650 230 - 1,250 pg/mL Blood 12/28/2024 3:33 AM CDT 12/28/2024 3:41 AM CDT Jonathan [facility] LAB BLOOD ORDERABLES F inal Result Performing Organization Address City/[facility]/ZIP Co de Phone Number HAILEE SHAFER ([place]) [address] [facility] [place] [address] * (ABNORMAL) Comprehensive metabolic panel (12/28/2024 3:33 AM CDT) [facility] Sodium 137 135 - 145 mmol/L Potassium, pl 3.0(C) 3.3 - 4.9 mmol/L [facility] ([place]) Comment:Critical Result call ed by [id number] at 2024-12-28 04:53:55. Result Read Back by Latonya Lim RN [facility] Chloride 103 97 - 110 mmol/L [facility] ([place]) CO2 23 22 - 32 mmol/L [facility] ([place]) Anion gap 11 2 - 15 mmol/L [facility] ([place]) BUN 3(L) 6 - 25 mg/dL [facility] ([place]) Creatinine 0.90 0.80 - 1.30 mg/dL [facility] ([place]) Glucose 94 70 - 199 mg/dL [facility] ([place]) Comment: Interpretive Data Fasting glucose >/= 126 mg/dl is diagnostic for diabetes. Fasting is defined as no caloric intake for at least 8 hours. Fasting glucose between 100 mg/dl to 125 mg/dl is diagnostic of prediabetes. In a patient with classic symptoms of hyperglycemia or hyperglycemic crisis, a random glucose >/= 200 mg/dl is diagnostic for diabetes. In the absence of unequivocal hyperglycemia, results should be confirmed by repeat testing. The classification and Diagnosis of Diabetes Diabetes Care 2021; 46: S19-S40. Current interpretive data was last revised 2022. Calcium 8.0(L) 8.5 - 10.3 mg/dL [facility] ([place]) Bilirubin, total 0.5 0.1 - 1.2 mg/dL [facility] ([place]) Protein, pl 5.3(L) 6.5 - 8.5 g/dL [facility] ([place]) Albumin 2.7(L) 3.5 - 5.0 g/dL [facility] ([place]) Alk phos 79 40 - 130 Units/L [facility] ([place]) ALT 37 7 - 55 Units/L [facility] ([place]) AST 89(H) 10 - 50 Units/L [facility] ([place]) Blood 12/28/2024 3:33 AM CDT 12/28/2024 3:41 AM CDT us Joshua Robertson MD LAB BLOOD ORDERABLES Fi nal Result [facility] ([place]) 1 [facility] [place] [address] * Magnesium (12/28/2024 3:29 AM CDT) Magnesium 1.7 1.4 - 2.5 mg/dL Blood 12/28/2024 3:29 AM CDT 12/28/2024 1:33 PM CDT Jonathan Rasmussen DO LAB BLOOD ORDERABLES F inal Result HAILEE SHAFER ([place]) 1 [place] [address] * eGFR (12/27/2024 6:32 PM CDT) eGFR 90 >=60 mL/min/1. 73 m2 Comment: Interpretive Data Reference Interval Normal >/= 90 mL/min/1.73m2 Mildly decreased* 60 - 89 mL/min/1.73m2 Mildly to moderately decreased 45 - 59 mL/min/1.73m2 Moderately to severely decreased 30 - 44 mL/min/1.73m2 Severely decreased 15 - 29 mL/min/1.73m2 Kidney Failure < 15 mL/min/1.73m2 *Relative to young adult level Estimated glomerular filtration rate is determined by the 2020 CKD-EPI equation recommended by the National Kidney Foundation (A Unifying Approach to GFR Estimation: Recommendations of the NKF-ASK Task Force on Reassessing the Inclusion of Race in Diagnosing Kidney Disease, JASN 2020). The CKD-EPI equation should not be used for patients with unstable renal function and has not been validated in children and those over 70. Current interpretive data was last reviewed 2021. Blood 12/27/2024 6:32 PM CDT 12/27/2024 6:48 PM CDT us Jonathan Rasmussen DO LAB BLOOD ORDERABLES F inal Result HAILEE SHAFER ([place]) 1 [facility] [place] [address] * (ABNORMAL) Basic metabolic panel (12/27/2024 6:32 PM CDT) Sodium 134(L) 135 - 145 mmol/L Potassium, pl 3.3 3.3 - 4.9 mmol/L [facility] ([place]) Chloride 102 97 - 110 mmol/L [facility] ([place]) CO2 24 22 - 32 mmol/L [facility] ([place]) Anion gap 8 2 - 15 mmol/L [facility] ([place]) BUN 4(L) 6 - 25 mg/dL [facility] ([place]) Creatinine 0.96 0.80 - 1.30 mg/dL [facility] ([place]) Glucose 128 70 - 199 mg/dL [facility] ([place]) Comment: Interpretive Data Fasting glucose >/= 126 mg/dl is diagnostic for diabetes. Fasting is defined as no caloric intake for at least 8 hours. Fasting glucose between 100 mg/dl to 125 mg/dl is diagnostic of prediabetes. In a patient with classic symptoms of hyperglycemia or hyperglycemic crisis, a random glucose >/= 200 mg/dl is diagnostic for diabetes. In the absence of unequivocal hyperglycemia, results should be confirmed by repeat testing. The classification and Diagnosis of Diabetes Diabetes Care 2021; 46: S19-S40. Current interpretive data was last revised 2022. Calcium 7.9(L) 8.5 - 10.3 mg/dL [facility] ([place]) Blood 12/27/2024 6:32 PM CDT 12/27/2024 6:48 PM CDT Jonathan [facility] DO LAB BLOOD ORDERABLES F inal Result HAILEE SHAFER ([place]) 1 [facility] Department [place] [address] * US RUQ (12/27/2024 2:49 PM CDT) Anatomical Region Laterality Modality Abdomen N/A Ultrasound 12/27/2024 6:10 PM CDT Impressions 12/27/2024 6:10 PM CDT Hepatomegaly with hepatic steatosis. Cholelithiasis without evidence of acute cholecystitis. Small amount of ascites is seen. Electronically signed by: Ernie Crouch M.D. Narrative 12/27/2024 6:10 PM CDT EXAMINATION: [facility] ORDERING HEALTHCARE PROVIDER: POLO ADAMSON HISTORY: elevated AST. COMPARISON: CT dated December 2024 TECHNIQUE: Grayscale, color Doppler and spectral Doppler sonographic images of the right upper quadrant abdominal contents were reviewed. FINDINGS: LIVER: The liver is increased in size measuring 20 cm in greater dimension. Diffuse increase in echogenicity.. No distinct hepatic mass is identified. The main portal vein is patent with hepatopedal flow. GALLBLADDER sludge and stones are seen in the gallbladder.. BILE DUCTS: The common bile duct measures 6 mm in diameter. PANCREAS: The visualized portion of the pancreatic head and body appear normal. The pancreatic tail is obscured. RIGHT KIDNEY: Survey images of the right kidney demonstrate no hydronephrosis. OTHER: Small amount of ascites is seen. Procedure Note Ernie Crouch MD - 12/27/2024 EXAMINATION: [facility] ORDERING HEALTHCARE PROVIDER: POLO ADAMSON HISTORY: elevated AST. COMPARISON: CT dated December 2024 TECHNIQUE: Grayscale, color Doppler and spectral Doppler sonographic images of the right upper quadrant abdominal contents were reviewed. FINDINGS: LIVER: The liver is increased in size measuring 20 cm in greater dimension. Diffuse increase in echogenicity.. No distinct hepatic mass is identified. The main portal vein is patent with hepatopedal flow. GALLBLADDER sludge and stones are seen in the gallbladder.. BILE DUCTS: The common bile duct measures 6 mm in diameter. PANCREAS: The visualized portion of the pancreatic head and body appear normal. The pancreatic tail is obscured. RIGHT KIDNEY: Survey images of the right kidney demonstrate no hydronephrosis. OTHER: Small amount of ascites is seen. IMPRESSION: Hepatomegaly with hepatic steatosis. Cholelithiasis without evidence of acute cholecystitis. Small amount of ascites is seen. Electronically signed by: Ernie Crouch M.D. [facility] US PROCEDURES Final Result * (ABNORMAL) Potassium (12/27/2024 11:31 AM CDT) Potassium, pl 3.0(C) 3.3 - 4.9 mmol/L Comment:Critical Result call ed by [email or web address] at 2024-12-27 12:13:50. Result Read Back by Marion Galloway/george Blood 12/27/2024 11:3 1 AM CDT 12/27/2024 11:36 AM CDT us Rogelio Leiva MD LAB BLOOD ORDERABLES Final Re sult HAILEE SHAFER ([place]) 1 [facility] [place] [address] * (ABNORMAL) Magnesium (12/27/2024 11:31 AM CDT) Magnesium 1.3(L) 1.4 - 2.5 mg/dL Blood 12/27/2024 11:3 1 AM CDT 12/27/2024 11:36 AM CDT us Rogelio Leiva MD LAB BLOOD ORDERABLES Final Re sult HAILEE SHAFER ([place]) 1 [facility] [place] [address] * eGFR (12/27/2024 4:39 AM CDT) eGFR 86 >=60 mL/min/1. 73 m2 Comment: Interpretive Data Reference Interval Normal >/= 90 mL/min/1.73m2 Mildly decreased* 60 - 89 mL/min/1.73m2 Mildly to moderately decreased 45 - 59 mL/min/1.73m2 Moderately to severely decreased 30 - 44 mL/min/1.73m2 Severely decreased 15 - 29 mL/min/1.73m2 Kidney Failure < 15 mL/min/1.73m2 *Relative to young adult level Estimated glomerular filtration rate is determined by the 2020 CKD-EPI equation recommended by the National Kidney Foundation (A Unifying Approach to GFR Estimation: Recommendations of the NKF-ASK Task Force on Reassessing the Inclusion of Race in Diagnosing Kidney Disease, JASN 2020). The CKD-EPI equation should not be used for patients with unstable renal function and has not been validated in children and those over 70. Current interpretive data was last reviewed 2021. Blood 12/27/2024 4:39 AM CDT 12/27/2024 5:17 AM CDT us Joshua Robertson MD LAB BLOOD ORDERABLES Fi nal Result [facility] ([place]) 1 [facility] Department [place] [address] * Differential, auto (12/27/2024 4:39 AM CDT) Neutrophil abs 4.20 1.50 - 6.50 K/cumm Imm gran abs 0.04 0.00 - 0.10 K/cumm [facility] ([place]) Lymphocyte abs 1.36 0.80 - 3.30 K/cumm [facility] ([place]) Monocyte abs 0.58 0.20 - 0.80 K/cumm [facility] ([place]) Eosinophil abs 0.03 0.00 - 0.50 K/cumm [facility] ([place]) Basophil abs 0.02 0.00 - 0.10 K/cumm [facility] ([place]) Neutrophil pct 67.5 % [facility] R [facility] ([place]) Comment: Interpretive Data Percent cell count reference ranges are not reported, since discordance with absolute values may lead to misinterpretation of CBC data. Current Interpretive Data was last revised on 2017. Imm gran pct 0.6 % [facility] ([place]) Comment: Interpretive Data Percent cell count reference ranges are not reported, since discordance with absolute values may lead to misinterpretation of CBC data. Current Interpretive Data was last revised on 2017. Lymphocyte pct 21.8 % [facility] ([place]) Comment: Interpretive Data Percent cell count reference ranges are not reported, since discordance with absolute values may lead to misinterpretation of CBC data. Current Interpretive Data was last revised on 2017. Monocyte pct 9.3 % [facility] ([place]) Comment: Interpretive Data Percent cell count reference ranges are not reported, since discordance with absolute values may lead to misinterpretation of CBC data. Current Interpretive Data was last revised on 2017. Eosinophil pct 0.5 % [facility] ([place]) Comment: Interpretive Data Percent cell count reference ranges are not reported, since discordance with absolute values may lead to misinterpretation of CBC data. Current Interpretive Data was last revised on 2017. Basophil pct 0.3 % [facility] ([place]) Comment: Interpretive Data Percent cell count reference ranges are not reported, since discordance with absolute values may lead to misinterpretation of CBC data. Current Interpretive Data was last revised on 2017. Blood 12/27/2024 4:39 AM CDT 12/27/2024 5:17 AM CDT us Joshua Robertson MD LAB BLOOD ORDERABLES [facility] Result [facility] ([place]) 1 [facility] [place] [address] * (ABNORMAL) CBC with auto differential (12/27/2024 4:39 AM CDT) WBC 6.23 3.80 - 9.90 K/cumm Hgb 8.5(L) 13.0 - 17.5 g/dL [facility] ([place]) Hct 26.1(L) 38.9 - 50.3 % [facility] ([place]) Plt 217 150 - 400 K/cumm [facility] ([place]) MPV 11.2 9.1 - 12.3 fL [facility] ([place]) RBC 2.70(L) 4.30 - 5.80 M/cumm [facility] ([place]) MCV 96.7(H) 81.3 - 96.4 fL [facility] ([place]) MCH 31.5 27.1 - 33.3 pg [facility] ([place]) MCHC 32.6 32.3 - 35.7 g/dL [facility] ([place]) RDW CV 14.6 11.1 - 14.9 % [facility] ([place]) RDW SD 49.6(H) 35.7 - 48.1 fL HAILEE SONI ([place]) NRBC abs 0.00 0.00 - 0.01 K/cumm HAILEE SHAFER ([place]) Blood 12/27/2024 4:39 AM CDT 12/27/2024 5:17 AM CDT us Joshua Robertson MD LAB BLOOD ORDERABLES Fi nal Result HAILEE SHAFER ([place]) 1 [facility] [place] [address] * (ABNORMAL) Lipid panel (12/27/2024 4:39 AM CDT) Cholesterol 86 30 - 199 mg/dL Comment: Interpretive Data Ages < or = 19 years Acceptable: <170 mg/dL Borderline high: 170-199 mg/dL High: >or= 200 mg/dL Ages > or = 20 years Desirable: <200 mg/dL Borderline high: 200-239 mg/dL High: >or= 240 mg/dL Literature References: 1. Expert Panel on Integrated Guidelines for Cardiovascular Health and Risk Reduction in Children and Adolescents. Pediatrics 2011;128:S213 2. NCEP Expert Panel. Circulation 2004;110:227 Current Interpretive Data was last revised on 2017. Triglycerides 83 <=149 mg/dL HAILEE SHAFER ([place]) Comment: Interpretive Data Ages < or = 9 years Acceptable: <75 mg/dL Borderline high: 75-99 mg/dL High: >or= 100 mg/dL Ages 10 to 20 years Acceptable: <90 mg/dL Borderline high: 90-129 mg/dL High: >or= 130 mg/dL Ages > or = 20 years Desirable: <150 mg/dL Borderline high: 150-199 mg/dL High: 200-499 mg/dL Very high: >or= 499 mg/dL Literature References: 1. Expert Panel on Integrated Guidelines for Cardiovascular Health and Risk Reduction in Children and Adolescents. Pediatrics 2011;128:S213 2. NCEP Expert Panel. Circulation 2004;110:227 Current Interpretive Data was last revised on 2017. HDL 19(L) >=40 mg/dL HAILEE Soto ([place]) Comment: Interpretive Data Ages < or = 19 years Acceptable: >45 mg/dL Borderline low: 40-45 mg/dL Low: <40 mg/dL Ages > or = 20 years Desirable: >or= 60 mg/dL Low: <40 mg/dL Literature References: 1. Expert Panel on Integrated Guidelines for Cardiovascular Health and Risk Reduction in Children and Adolescents. Pediatrics 2011;128:S213 2. NCEP Expert Panel. Circulation 2004;110:227 Current Interpretive Data was last revised on 2017. LDL, calculated 50 <=129 mg/dL HAILEE SHAFER ([place]) Comment: Interpretive Data Ages < or = 19 years Acceptable: <110 mg/dL Borderline high: 110-129 mg/dL High: >or= 130 mg/dL Ages > or = 20 years Optimal: <100 mg/dL Near optimal: 100-129 mg/dL Borderline high: 130-159 mg/dL High: >160 mg/dL Calculated using the Jax LDL-C estimating equation. This equation was implemented on 2023. Prior to this date LDL-C was estimated using the Friedewald equation. Literature References: 1. Expert Panel on Integrated Guidelines for Cardiovascular Health and Risk Reduction in Children and Adolescents. Pediatrics 2011;128:S213 2. NCEP Expert Panel. Circulation 2004;110:227 3. Jax Hutchinson et al. KENNEDY Cardiol. 2019July 05;5(5):540-548. doi: 10.1001/jamacardio.2020.0013 Current Interpretive Data was last revised on 2023. Non-HDL Cholesterol 67 mg/dL HAILEE SHAFER ([place]) Comment: Interpretive Data Ages < or = 19 years Acceptable: <120 mg/dL Borderline high: 120-144 mg/dL High: >145 mg/dL Ages > or = 20 years When triglycerides are >200 mg/dL, Non-HDL cholesterol is a secondary target of therapy with treatment goals that are 30 mg/dL greater than the LDL cholesterol target. Literature References: 1. Expert Panel on Integrated Guidelines for Cardiovascular Health and Risk Reduction in Children and Adolescents. Pediatrics 2011;128:S213 2. NCEP Expert Panel. Circulation 2004;110:227 Current Interpretive Data was last revised on 2017. Chol/HDL ratio 5 [facility] ([place]) Blood 12/27/2024 4:39 AM CDT 12/27/2024 5:17 AM CDT Jonathan Rasmussen DO LAB BLOOD ORDERABLES F inal Result [facility] ([place]) 1 [facility] [place] [address] * (ABNORMAL) Comprehensive metabolic panel (12/27/2024 4:39 AM CDT) Sodium 137 135 - 145 mmol/L Potassium, pl 2.5(C) 3.3 - 4.9 mmol/L [facility] ([place]) Comment:Critical Result call ed by [email or web address] at 2024-12-27 05:58:10. Result Read Back by Monica Jose RN [facility] Chloride 102 97 - 110 mmol/L [facility] ([place]) CO2 24 22 - 32 mmol/L [facility] ([place]) Anion gap 11 2 - 15 mmol/L [facility] ([place]) BUN 5(L) 6 - 25 mg/dL [facility] ([place]) Creatinine 1.00 0.80 - 1.30 mg/dL [facility] ([place]) Glucose 105 70 - 199 mg/dL [facility] ([place]) Comment: Interpretive Data Fasting glucose >/= 126 mg/dl is diagnostic for diabetes. Fasting is defined as no caloric intake for at least 8 hours. Fasting glucose between 100 mg/dl to 125 mg/dl is diagnostic of prediabetes. In a patient with classic symptoms of hyperglycemia or hyperglycemic crisis, a random glucose >/= 200 mg/dl is diagnostic for diabetes. In the absence of unequivocal hyperglycemia, results should be confirmed by repeat testing. The classification and Diagnosis of Diabetes Diabetes Care 2022; 46: S19-S40. Current interpretive data was last revised 2022. Calcium 7.9(L) 8.5 - 10.3 mg/dL [facility] ([place]) Bilirubin, total 0.4 0.1 - 1.2 mg/dL [facility] ([place]) Protein, pl 5.2(L) 6.5 - 8.5 g/dL [facility] ([place]) Albumin 2.6(L) 3.5 - 5.0 g/dL [facility] ([place]) Alk phos 77 40 - 130 Units/L [facility] ([place]) ALT 41 7 - 55 Units/L [facility] ([place]) AST 121(H) 10 - 50 Units/L [facility] ([place]) Blood 12/27/2024 4:39 AM CDT 12/27/2024 5:17 AM CDT us Joshua Robertson MD LAB BLOOD ORDERABLES Fi nal Result [facility] ([place]) 1 [facility] [place] [address] * Colonoscopy (12/26/2024 10:47 AM CDT) Anatomical Region Laterality Modality Other Narrative Procedure Note Austin Campos MD - 12/26/2024 10:47 AM CDT [facility] Patient Name: Chelo Griffin Procedure Date: 12/26/2024 10:47AM Date of : 1965 Admit Type: Inpatient Age: 59 Gender: Male Attending MD: Austin Campos M.D., Room: [facility] ENDOSCOPY ROOM 2 Note Status: Finalized Patient Profile: This is a 59 year old male hx HTN, COPD, anxiety, depression, CVA, GERD, BPH presented to ED withSOB, generalized weakness and diarrhea. GI consulted for diarrhea. patient has been having watery non bloody diarrhea for the past month without any nocturnal symptoms. C diff and giardia negative. CT showed several mildly dilated and nondilated fluid/ gas-filled segments of small bowel with liquids/ semi-liquid stool in the colon extending from the cecum to the rectum. no prior colonoscopy and no family hx of colon cancer. Procedure: Colonoscopy Indications: Last colonoscopy: date unknown (unable to locatelast colonoscopy report), Chronic diarrhea Referring MD: Clifton Garcia M.D. Providers: Austin Campos M.D. Impression: - Preparation of the colon was inadequate. - Large perianal skin tag found on perianal exam. - One 4 mm polyp in the ascending colon, removedwith a cold snare. Resected and retrieved. - One 15 mm polyp in the descending colon, removed with a hot snare. Resected and retrieved. Clip (MR conditional) was placed. 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 - One 8 mm polyp in the sigmoid colon, removed witha cold snare. Resected and retrieved. - Congested mucosa in the entire examined colon. Biopsied. - External and internal hemorrhoids. Recommendation: - [facility] - Soft diet. - No ibuprofen, naproxen, or other non-steroidal anti-inflammatory drugs. - Await pathology results. - Repeat colonoscopy in 3 months with 2 day prep because the bowel preparation was poor with a lotof colonic spasm. Medicines: Monitored Anesthesia Care Complications: No immediate complications. Estimated Blood Loss: Estimated blood loss was minimal. Procedure: Pre-Anesthesia Assessment: - Prior to the procedure, a History and Physicalwas performed, and patient medications and allergieswere reviewed. The patient is competent. The risks and benefits of the procedure and the sedation optionsand risks were discussed with the patient. Allquestions were answered and informed consent was obtained. Patient identification and proposed procedure were verified by the physician, the cognos developer and the electrical service technician in the endoscopy suite. Mental Status Examination: normal. Prophylactic Antibiotics: The patient does not require prophylactic antibiotics. Prior Anticoagulants: The patient has taken no anticoagulant or antiplatelet agents. Afterreviewing the risks and benefits, the patient was deemed in satisfactory condition to undergo the procedure.The anesthesia plan was to use monitored anesthesiacare (MAC). Immediately prior to administration of medications, the patient was re-assessed foradequacy to receive sedatives. The heart rate, respiratory rate, oxygen saturations, blood pressure, adequacyof pulmonary ventilation, and response to care were monitored throughout the procedure. The physical status of the patient was re-assessed after the procedure. The benefits, risks and alternatives of theprocedure and sedation were discussed and informed consentwas obtained. All questions were answered. Please referto the signed informed consent document in the medical record. The scope was passed under direct vision.The Pediatric Colonoscope [id number]-[id number] was introduced through the anus and advanced to the the cecum, identified by appendiceal orifice andileocecal valve. The bowel preparation used was Miralax via split dose instruction. The bowel preparation usedwas bisacodyl tablets via split dose instruction. The colonoscopy was performed without difficulty. The patient tolerated the procedure well. The qualityof the bowel preparation was inadequate. Bowel prepwas administered using a split dose. Findings: Skin tags were found on perianal exam. A 4 mm polyp was found in the ascending colon. The polyp was sessile. The polyp was removed with a cold snare. Resection and retrieval were complete. A 15 mm polyp was found in the descending colon. The polyp wassessile. The polyp was removed with a hot snare. Resection and retrieval were complete. To prevent bleeding after the polypectomy, one hemostaticclip was successfully placed (MR conditional). 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 There was no bleeding during, or at the end, of the procedure. An 8 mm polyp was found in the sigmoid colon. The polyp was sessile.The polyp was removed with a cold snare. Resection and retrieval were complete. An area of moderately congested mucosa was found in the entire colon. This was biopsied with a cold forceps for histology. External and internal hemorrhoids were found during retroflexion. Austin Campos M.D. 12/26/2024 11:37:03 AM Number of Addenda: 0 Note Initiated On: 12/26/2024 10:47 AM Procedure Code(s): --- Professional --- 12601, Colonoscopy, flexible; with removal of tumor(s), polyp(s), or other lesion(s) by snare technique 39740, 59, Colonoscopy, flexible; with biopsy, single or multiple --- Technical --- 49651, Colonoscopy, flexible; with removal of tumor(s), polyp(s), or other lesion(s) by snare technique 80306, 59, Colonoscopy, flexible; with biopsy, single or multiple Diagnosis Code(s): --- Professional --- K64.8, Other hemorrhoids D12.2, Benign neoplasm of ascending colon D12.4, Benign neoplasm of descending colon D12.5, Benign neoplasm of sigmoid colon K63.89, Other specified diseases of intestine K64.4, Residual hemorrhoidal skin tags K52.9, Noninfective gastroenteritis and colitis, unspecified --- Technical --- K64.8, Other hemorrhoids D12.2, Benign neoplasm of ascending colon D12.4, Benign neoplasm of descending colon D12.5, Benign neoplasm of sigmoid colon K63.89, Other specified diseases of intestine K64.4, Residual hemorrhoidal skin tags K52.9, Noninfective gastroenteritis and colitis, unspecified CPT copyright 2022 [employer]. All rights reserved. The codes documented in this report are preliminary and upon teacher physically impaired reviewmay be revised to meet current compliance requirements. Recognized by the [employer] for promoting quality in endoscopy us Austin Campos MD ENDOSCOPY PROCEDURES Final Resul t * Surgical pathology (12/26/2024 9:42 AM CDT) Tissue (Colon, Biopsy) 12/26/2024 11:07 AM CDT Tissue specimen (specimen) (Polyp(s), colon/colorectal, esophageal, gastric) 12/26/2024 11:10 AM CDT Tissue specimen (specimen) (Polyp(s), colon/colorectal, esophageal, gastric) 12/26/2024 11:14 AM CDT Tissue specimen (specimen) (Polyp(s), colon/colorectal, esophageal, gastric) 12/26/2024 11:18 AM CDT Narrative PATHOLOGY [facility] ([place]) - 12/28/2024 1:13 PM CDT EPIC results best viewed via link to PDF [facility] Department of Pathology [address] [place] [address] Note to Patients: This report may contain a detailed description of human tissue sent by a health care provider to the laboratory for pathologic evaluation. The content of this report is essential for diagnosis and may provide important critical findings. This information may be unfamiliar to patients to review without a medical professional present. It is advised that the patient review this report in the presence of a health care provider who can answer questions and explain the details. Final Report Patient Name: CHELO GRIFFIN Address: [address] [place] [address] Gender: M : 1965 (Age: 59) Service: Medical Location: [facility] Hospital #: [id number] Patient Type: [facility] Taken: 12/26/2024 Received: 12/27/2024 Accessioned: 12/27/2024 Reported: 12/28/2024 Physician(s):Austin Campos MD Diagnosis: A. Colon, random, biopsy: - Focal active inflammation. - No evidence of dysplasia or malignancy. - See microscopic description. B. Colon, ascending, biopsy: - Hyperplastic polyp. - No evidence of dysplasia or malignancy. C. Colon, descending, biopsy: - Tubular adenoma. - No evidence of high-grade dysplasia or malignancy. D. Colon, sigmoid, biopsy: - Tubular adenoma. - No evidence of high-grade dysplasia or malignancy. Michael Sweeney MD Report Electronically Reviewed and Signed Out By Michael Sweeney MD 12/28/2024 13:13:32 Specimen(s) Received: A: Random colon biopsies B: Ascending colon polyp x 1 C: Descending colon polyp x 1 D: Sigmoid colon polyp x 1 Microscopic Description: A. Microscopic examination shows colonic mucosa with focal active cryptitis. There is no evidence of crypt abscess formation, crypt architectural distortion, or well-formed granulomas. There is no evidence of dysplasia or malignancy. In summary, the findings are that of focal active inflammation. There are no morphologic findings to strongly suggest a specific etiology. Recommend correlation with clinical and endoscopic findings and follow-up as clinically indicated. B. Microscopic examination shows a polypoid fragment of colonic mucosa with subtle hyperplastic glandular changes. There is no evidence of marked crypt dilation, lateral branching, or flattening of the crypt bases. The findings are consistent with a hyperplastic polyp. There is no evidence of dysplasia or malignancy. C-D. Microscopic examination shows polypoid fragments of colonic mucosa with adenomatous mucosal changes consistent with tubular adenomas. There is no evidence of high-grade dysplasia or malignancy. Clinical History: Diarrhea. Colonoscopy. Gross Description: The specimen is submitted in four containers labeled CHELO GRIFFIN. A. The first container is labeled random. It is 5 fragments of landrum tissue between <1 and 5 mm. All in A. B. The second container is labeled ascending colon polyp. It is 1 landrum tissue fragment measuring 5 mm. All in B. C. The third container is labeled descending colon polyp. It is 1 landrum polypoid tissue fragment measuring 10 mm and 3 smaller pieces between 2 and 9 mm. The largest is inked and bisected. All in C. D. The fourth container is labeled sigmoid colon polyp. It is multiple fragments of landrum tissue between 1 and 2 mm. All in D. T.A. Gutierrez Collado., P.A./Zoraida Motley M.D. REPORT IMAGES AND SCANNED DOCUMENTS, IF INCLUDED, ONLY VIEWABLE IN PDF VERSION OF REPORT The performance characteristics of some immunohistochemical stains, fluorescence in-situ hybridization tests and immunophenotyping by flow cytometry cited in this report (if any) were determined by the Surgical Pathology Department at [facility] as part of an ongoing quality assurance project manager program and in compliance with federally mandated regulations drawn from the Clinical Laboratory Improvement Act of 1988 (CLIA '88). Some of these tests rely on the use of analyte specific reagents and are subject to specific labeling requirements by the US Food and Drug Administration. Such diagnostic tests may only be performed in a facility that is certified by the Department of Health and Human Services as a high complexity laboratory under CLIA '88. The FDA has determined that such clearance or approval is not necessary. This test is used for clinical purposes. It should not be regarded as investigational or for research. Nevertheless, federal rules concerning the medical use of analyte specific reagents require that the following disclaimer be attached to the report: This test was developed and its performance characteristics determined by the Surgical Pathology Department [facility]. It has not been cleared or approved by the U. S. Food and Drug Administration. Note for decalcified specimens: This assay has not been validated on decalcified tissues. Results should be interpreted with caution given the possibility of false negativity on decalcified specimens us Austin Campos MD LAB PATHOLOGY ORDERABLES Final R esult PATHOLOGY [facility] ([place]) [address] [place] [address] * eGFR (12/26/2024 3:17 AM CDT) eGFR 67 >=60 mL/min/1. 73 m2 Comment: Interpretive Data Reference Interval Normal >/= 90 mL/min/1.73m2 Mildly decreased* 60 - 89 mL/min/1.73m2 Mildly to moderately decreased 45 - 59 mL/min/1.73m2 Moderately to severely decreased 30 - 44 mL/min/1.73m2 Severely decreased 15 - 29 mL/min/1.73m2 Kidney Failure < 15 mL/min/1.73m2 *Relative to young adult level Estimated glomerular filtration rate is determined by the 2020 CKD-EPI equation recommended by the National Kidney Foundation (A Unifying Approach to GFR Estimation: Recommendations of the NKF-ASK Task Force on Reassessing the Inclusion of Race in Diagnosing Kidney Disease, JASN 2020). The CKD-EPI equation should not be used for patients with unstable renal function and has not been validated in children and those over 70. Current interpretive data was last reviewed 2021. Blood 12/26/2024 3:17 AM CDT 12/26/2024 4:04 AM CDT us Joshua Robertson MD LAB BLOOD ORDERABLES Fi nal Result [facility] ([place] 1 [facility] Department [place] [address] * (ABNORMAL) Differential, auto (12/26/2024 3:17 AM CDT) Neutrophil abs 9.19(H) 1.50 - 6.50 K/cumm Imm gran abs 0.05 0.00 - 0.10 K/cumm [facility] ([place]) Lymphocyte abs 1.72 0.80 - 3.30 K/cumm [facility] ([place]) Monocyte abs 0.78 0.20 - 0.80 K/cumm [facility] ([place]) Eosinophil abs 0.03 0.00 - 0.50 K/cumm [facility] ([place]) Basophil abs 0.01 0.00 - 0.10 K/cumm [facility] ([place]) Neutrophil pct 78.0 % [facility] ([place]) Comment: Interpretive Data Percent cell count reference ranges are not reported, since discordance with absolute values may lead to misinterpretation of CBC data. Current Interpretive Data was last revised on 2017. Imm gran pct 0.4 % [facility] ([place]) Comment: Interpretive Data Percent cell count reference ranges are not reported, since discordance with absolute values may lead to misinterpretation of CBC data. Current Interpretive Data was last revised on 2017. Lymphocyte pct 14.6 % [facility] ([place]) Comment: Interpretive Data Percent cell count reference ranges are not reported, since discordance with absolute values may lead to misinterpretation of CBC data. Current Interpretive Data was last revised on 2017. Monocyte pct 6.6 % [facility] ([place]) Comment: Interpretive Data Percent cell count reference ranges are not reported, since discordance with absolute values may lead to misinterpretation of CBC data. Current Interpretive Data was last revised on 2017. Eosinophil pct 0.3 % [facility] ([place] Comment: Interpretive Data Percent cell count reference ranges are not reported, since discordance with absolute values may lead to misinterpretation of CBC data. Current Interpretive Data was last revised on 2017. Basophil pct 0.1 % [facility] ([place]) Comment: Interpretive Data Percent cell count reference ranges are not reported, since discordance with absolute values may lead to misinterpretation of CBC data. Current Interpretive Data was last revised on 2017. Blood 12/26/2024 3:17 AM CDT 12/26/2024 4:04 AM CDT Joshua Robertson MD LAB BLOOD ORDERABLES Fi nal Result [facility] ([place]) 1 [facility] Department [place] [address] * (ABNORMAL) CBC with auto differential (12/26/2024 3:17 AM CDT) WBC 11.78(H) 3.80 - 9.90 K/cumm Hgb 9.6(L) 13.0 - 17.5 g/dL [facility]) Hct 29.6(L) 38.9 - 50.3 % [facility]) Plt 263 150 - 400 K/cumm [facility] ([place]) MPV 10.7 9.1 - 12.3 fL [facility]) RBC 3.06(L) 4.30 - 5.80 M/cumm [facility] ([place]) MCV 96.7(H) 81.3 - 96.4 fL [facility] ([place]) MCH 31.4 27.1 - 33.3 pg [facility] ([place]) MCHC 32.4 32.3 - 35.7 g/dL [facility] ([place]) RDW CV 14.6 11.1 - 14.9 % [facility] ([place]) RDW SD 49.5(H) 35.7 - 48.1 fL [facility] ([place]) NRBC abs 0.00 0.00 - 0.01 K/cumm [facility] ([place]) Blood 12/26/2024 3:17 AM CDT 12/26/2024 4:04 AM CDT us Joshua Robertson MD LAB BLOOD ORDERABLES Fi nal Result Performing Organization Address City/[facility]/ZIP Co de Phone Number [facility] ([place]) 1 [facility] [place] [address] * (ABNORMAL) Celiac reflex panel (12/26/2024 3:17 AM CDT) IgA 383(H) 61 - 356 mg/dL [place] [facility] Celiac disease interpretation See Comment [facility] ([place]) Comment: See Comment: Negative serology. Celiac disease unlikely. However, approximately 10% of patients with celiac disease are seronegative. Also, patients who are already adhering to a gluten-free diet may be seronegative. If celiac disease is highly clinically suspected, consider HLA-DQ typing. Test Performed by: [place] [address] Addiction Professional: Alma Saez Ph.D.; CLIA# [id number] Blood 12/26/2024 3:17 AM CDT 12/26/2024 4:04 AM CDT Polo FERRO LAB BLOOD ORDERABLES Fin al Result Performing Organization Address [facility] de Phone Number [facility] ([place]) 1 [facility] [place] [address] [place] [facility] * Tissue transglutaminase IgA (TGG-IgA Ab) (12/26/2024 3:17 AM CDT) TTG ab, IgA 1.4 <4.0 (Negative) units/mL Comment: Test Performed by: [place] [address] Addiction Professional: Alma Saez Ph.D.; CLIA# [id number] Interpretive data Negative: <15 units/mL Positive: > or equal to 15 units/mL Current interpretive data was last revised on 2016. Testing performed by: [facility], 1 [facility], [place]., [address] Blood 12/26/2024 3:17 AM CDT 12/26/2024 4:04 AM CDT Polo FERRO LAB BLOOD ORDERABLES Fin al Result Performing Organization Address [facility] Co de Phone Number [facility] ([place]) [address] [facility] [place] [address] * Creatine kinase (CK), total (12/26/2024 3:17 AM CDT) Pathologist [facility] CK 116 40 - 300 Units/L Blood 12/26/2024 3:17 AM CDT 12/26/2024 7:38 AM CDT Jonathan Silveira [facility] DO LAB BLOOD ORDERABLES F inal Result [facility] ([place]) 1 [facility] Department [place] [address] * (ABNORMAL) Comprehensive metabolic panel (12/26/2024 3:17 AM CDT) Pathologist [facility] Sodium 136 135 - 145 mmol/L Potassium, pl 3.3 3.3 - 4.9 mmol/L [facility] ([place]) Chloride 104 97 - 110 mmol/L [facility] ([place]) CO2 18(L) 22 - 32 mmol/L [facility] ([place]) Anion gap 14 2 - 15 mmol/L [facility] ([place]) BUN 10 6 - 25 mg/dL [facility] ([place]) Creatinine 1.24 0.80 - 1.30 mg/dL [facility] ([place]) Glucose 113 70 - 199 mg/dL [facility] ([place]) Comment: Interpretive Data Fasting glucose >/= 126 mg/dl is diagnostic for diabetes. Fasting is defined as no caloric intake for at least 8 hours. Fasting glucose between 100 mg/dl to 125 mg/dl is diagnostic of prediabetes. In a patient with classic symptoms of hyperglycemia or hyperglycemic crisis, a random glucose >/= 200 mg/dl is diagnostic for diabetes. In the absence of unequivocal hyperglycemia, results should be confirmed by repeat testing. The classification and Diagnosis of Diabetes Diabetes Care 202; 46: S19-S40. Current interpretive data was last revised 2022. Calcium 8.8 8.5 - 10.3 mg/dL [facility] ([place]) Bilirubin, total 0.4 0.1 - 1.2 mg/dL [facility] ([place]) Protein, pl 6.3(L) 6.5 - 8.5 g/dL [facility] ([place]) Albumin 3.2(L) 3.5 - 5.0 g/dL [facility] ([place]) Alk phos 94 40 - 130 Units/L [facility]) ALT 32 7 - 55 Units/L [facility]) AST 65(H) 10 - 50 Units/L [facility] ([place]) Blood 12/26/2024 3:17 AM CDT 12/26/2024 4:04 AM CDT us Joshua Robertson MD LAB BLOOD ORDERABLES Fi nal Result [facility] ([place]) [address] [place] [address] [place] [address] * Cryptosporidium and Giardia antigen assay Stool (12/25/2024 10:50 PM CDT) Giardia Ag Negative Negative Comment:Testing performed by : [facility], [address] [place]., [address] Cryptosporidium Ag Negative Negative [facility]on [facility]ON[facility] ([place]) Comment: Interpretive data: Testing performed by the [facility] using an immunoassay that detects Cryptosporidium and Giardia antigens in stool specimens. If comprehensive examination for ova and parasites is required, please request Ova and Parasite Examination. Testing performed by: [facility], 1 [facility] [place] [address] Stool 12/25/2024 10:5 0 PM CDT 12/26/2024 4:03 AM CDT us Jonathan Rasmussen DO LAB MICROBIOLOGY - GEN ERAL ORDERABLES Final Result [facility] ([place]) 1 [facility] [place] [address] * (ABNORMAL) Calprotectin, fecal (12/25/2024 9:27 PM CDT) Pathologist [facility] Calprotectin, fecal 52.0(H) <50.0 (Normal) mcg/g [facility] Comment: Interpretation: Borderline (50.0-120 mcg/g) Test Performed by: [place] [address] Addiction Professional: Alma Saez Ph.D.; CLIA# [id number] Stool 12/25/2024 9:27 PM CDT 12/26/2024 9:15 AM CDT Polo FERRO LAB BODY FLUIDS AND STOO LS ORDERABLES Final Result Performing Organization Address City/[facility]/ZIP Co de Phone Number [facility] ([place]) 1 [facility] [place] [address] [facility] * Pancreatic elastase, stool (12/25/2024 9:27 PM CDT) Pathologist [facility] Pancreatic elastase, stool >500 >200 (Normal) mcg/g [facility] Comment: Test Performed by: [place] [address] Addiction Professional: Alma Saez Ph.D.; CLIA# [id number] Stool 12/25/2024 9:27 PM CDT 12/25/2024 9:32 PM CDT Polo FERRO LAB BODY FLUIDS AND STOO LS ORDERABLES Final Result [facility] ([place]) 1 [facility] [place] [address] [facility] * (ABNORMAL) Fecal fat, quantitative (12/25/2024 9:27 PM CDT) Weight, fecal 6 g [facility] Period, fecal Random H [facility] ([place]) Comment: More reliable results can be obtained from a timed collection. 48 and 72 hour collections will give the most reliable results. Percent Fat >20% in a random collection is suggestive of a fat malabsorption disorder and should be confirmed with a timed collection. Fat solids, 24 hr fecal Not Reported [facility] ([place]) Fat, percent of solids, fecal 21(H) <20 [facility] ([place]) Comment: ADDITIONAL INFORMATION This test was developed and its performance characteristics determined by [facility] in a manner consistent with CLIA requirements. This test has not been cleared or approved by the U.S. Food and Drug Administration. Test Performed by: [facility] [place] [address] Addiction Professional: Alma Saez Ph.D.; CLIA# [id number] Stool 12/25/2024 9:27 PM CDT 12/26/2024 9:14 AM CDT Narrative [facility] Palomo[facility]) - 12/28/2024 10:49 AM CDT Duration (In hours)->24 [facility] FERRO LAB BODY FLUIDS AND STOO LS ORDERABLES Final Result [facility] ([place]) 1 [facility] Department [place] [address] [place] ref [facility] * (ABNORMAL) eGFR (12/25/2024 1:43 PM CDT) eGFR 53(L) >=60 mL/min/1. 73 m2 Comment: Interpretive Data Reference Interval Normal >/= 90 mL/min/1.73m2 Mildly decreased* 60 - 89 mL/min/1.73m2 Mildly to moderately decreased 45 - 59 mL/min/1.73m2 Moderately to severely decreased 30 - 44 mL/min/1.73m2 Severely decreased 15 - 29 mL/min/1.73m2 Kidney Failure < 15 mL/min/1.73m2 *Relative to young adult level Estimated glomerular filtration rate is determined by the 2020 CKD-EPI equation recommended by the National Kidney Foundation (A Unifying Approach to GFR Estimation: Recommendations of the NKF-ASK Task Force on Reassessing the Inclusion of Race in Diagnosing Kidney Disease, JASN 2020). The CKD-EPI equation should not be used for patients with unstable renal function and has not been validated in children and those over 70. Current interpretive data was last reviewed 2021. Blood 12/25/2024 1:43 PM CDT 12/25/2024 2:31 PM CDT us Jonathan Silveira Grady DO LAB BLOOD ORDERABLES F inal Result [facility] ([place]) 1 [facility] Department [place] [address] * (ABNORMAL) Basic metabolic panel (12/25/2024 1:43 PM CDT) Sodium 129(L) 135 - 145 mmol/L Potassium, pl 2.9(C) 3.3 - 4.9 mmol/L [facility] ([place]) Comment:Critical Result call ed by [email or web address] at 2024-12-25 14:57:37. Result Read Back by Laila ATKINSON Chloride 99 97 - 110 mmol/L [facility] ([place]) CO2 16(L) 22 - 32 mmol/L [facility] ([place]) Anion gap 14 2 - 15 mmol/L [facility] ([place]) BUN 14 6 - 25 mg/dL [facility] ([place]) Creatinine 1.51(H) 0.80 - 1.30 mg/dL [facility] ([place]) Glucose 159 70 - 199 mg/dL [facility] ([place]) Comment: Interpretive Data Fasting glucose >/= 126 mg/dl is diagnostic for diabetes. Fasting is defined as no caloric intake for at least 8 hours. Fasting glucose between 100 mg/dl to 125 mg/dl is diagnostic of prediabetes. In a patient with classic symptoms of hyperglycemia or hyperglycemic crisis, a random glucose >/= 200 mg/dl is diagnostic for diabetes. In the absence of unequivocal hyperglycemia, results should be confirmed by repeat testing. The classification and Diagnosis of Diabetes Diabetes Care 202; 46: S19-S40. Current interpretive data was last revised 2022. Calcium 8.5 8.5 - 10.3 mg/dL [facility] ([place]) Blood 12/25/2024 1:43 PM CDT 12/25/2024 2:31 PM CDT us Jonathan Rasmussen DO LAB BLOOD ORDERABLES F inal Result [facility] ([place]) [address] [place] [address] Department [place] [address] * TRANSTHORACIC ECHO (TTE) COMPLETE W DOPPLER/CF WO CONTRAST (12/25/2024 10:45 AM CDT) EF Mod BP 70 % CONS SCIMAGE Anatomical Region Laterality Modality Ultrasound 12/25/2024 10:4 0 AM CDT Narrative 12/25/2024 2:26 PM CDT [address] [address] Echocardiogram Report Patient Name: CHELO GRIFFIN Reji : 1965 Study Date: 12/25/2024 10:40:41 AM Sex: M Tech: AA Location: [id number] Ref Provider: JOSHUA ROBERTSON Height(Cm): BSA: Weight(Kg): Quality: Good Order Provider: JOSHUA ROBERTSON PROCEDURES: Echocardiographic Report: Transthoracic echocardiogram with complete 2D, M-Mode, and color Doppler examination. INDICATIONS: Chest Pain and Shortness of breath. MEASUREMENTS: 2D/MM Value Range Doppler Value Range EF Teich 2D 57.1 % [ 52.0 - 72.0 ] VIOLETA Vmax 2.88 cm2 EF Mod BP 70 % [ 52 - 72 ] AV Mean PG 3 mmHg LVIDd 2D 3.20 cm [ 4.20 - 5.80 ] AV Peak Shashi 1.19 m/s [ 1.00 - 1.70 ] LVIDs 2D 2.27 cm [ 2.50 - 4.00 ] AV VTI 25.35 cm LVPWd 2D 1.55 cm [ 0.60 - 1.00 ] LVOT Diam 2.06 cm IVSd 2D 1.13 cm [ 0.60 - 1.00 ] LVOT Peak Shashi 1.02 m/s [ 0.70 - 1.10 ] LA Dimension MM 3.90 cm [ 3.00 - 4.00 ] LVOT VTI 19.60 cm AoR Diam MM 3.11 cm [ 3.10 - 3.70 ] MV E Peak Shashi 0.90 m/s [ 0.60 - 1.30 ] ACS MM 1.66 cm [ 1.50 - 2.60 ] MV A Peak Shashi 0.79 m/s [ 1.00 - 1.20 ] MV Mean PG 2 mmHg MV PHT 53 msec [ 20 - 100 ] MVA 2.70 MV Decel Time 183 msec [ 104 - 258 ] PV Peak Shashi 0.91 m/s [ 0.40 - 0.80 ] TR Peak Shashi 2.65 m/s [ 1.00 - 2.80 ] TR Peak PG 28 mmHg RVSP 33.00 mmHg [ 10.00 - 36.00 ] E` 0.11 m/s E/E` 8.18 [ <= 10.00 ] PA Pressure 5.00 mmHg [ 10.00 - 36.00 ] 2D/MM Value Range Doppler Value Range - FINDINGS: Atrial Septum: Normal atrial septum. Left Ventricle: Mild concentric left ventricular hypertrophy. Reduced left ventricular cavity size. Hyperdynamic left ventricular function. No focal wall motion abnormalities. Normal left ventricular diastolic function. Ejection fraction is measured at 70 %. Left Atrium: The left atrium is normal in size. Right Ventricle: Normal right ventricular size. Normal right ventricular systolic function. Right Atrium: The right atrium is normal in size. Aortic Valve: Normal structure of the aortic valve. No evidence of hemodynamically significant aortic stenosis by Doppler. Trileaflet aortic valve. Mitral Valve: Normal structure of the mitral valve. Trivial regurgitation of the mitral valve. Pulmonic Valve: Normal structure of the pulmonic valve. No evidence of pulmonic regurgitation. Tricuspid Valve: Normal structure of the tricuspid valve. Normal right ventricular systolic pressure. Trivial regurgitation in the tricuspid valve. Pericardium: Normal pericardium with no significant pericardial effusion. Aorta: Normal aortic root. Sinus of Valsalva is normal. Aortic arch is normal. Descending aorta is normal. IVC: Normal size and normal respiratory collapse consistent with normal right atrial pressure (<5 mmHg). Pulmonary Artery: Pulmonary artery not well visualized. CONCLUSIONS: Mild concentric left ventricular hypertrophy. Reduced left ventricular cavity size. Hyperdynamic left ventricular function. No focal wall motion abnormalities. Normal left ventricular diastolic function. Ejection fraction is measured at >70 %. Normal right ventricular size. Normal right ventricular systolic function. Normal structure of the mitral valve. Trivial regurgitation of the mitral valve. Normal structure of the aortic valve. No evidence of hemodynamically significant aortic stenosis by Doppler. Trileaflet aortic valve. Normal structure of the tricuspid valve. Normal right ventricular systolic pressure. Trivial regurgitation in the tricuspid valve. Normal pericardium with no significant pericardial effusion. Electronically Signed By: Karena Bowens MD 12/25/2024 2:26:16 PM CDT Procedure Note Karena Bowens MD - 12/25/[address] [address] Echocardiogram Report Patient Name: CHELO GRIFFIN D : 1965 Study Date: 12/25/2024 10:40:41 AM Sex: M Tech: Location: [place] [address] Ref Provider: JOSHUA ROBERTSON Height(Cm): BSA: Weight(Kg): Quality: Good Order Provider: JOSHUA ROBERTSON PROCEDURES: Echocardiographic Report: Transthoracic echocardiogram with complete 2D, M-Mode, and color Dopplerexamination. INDICATIONS: Chest Pain and Shortness of breath. MEASUREMENTS: 2D/MM Value Range Doppler ValueRange EF Teich 2D 57.1 % [ 52.0 - 72.0 ] VIOLETA Vmax 2.88cm2 EF Mod BP 70 % [ 52 - 72 ] AV Mean PG 3 mmHg LVIDd 2D 3.20 cm [ 4.20 - 5.80 ] AV Peak Shashi 1.19 m/s[ 1.00 - 1.70 ] LVIDs 2D 2.27 cm [ 2.50 - 4.00 ] AV VTI 25.35cm LVPWd 2D 1.55 cm [ 0.60 - 1.00 ] LVOT Diam 2.06cm IVSd 2D 1.13 cm [ 0.60 - 1.00 ] LVOT Peak Shashi 1.02 m/s[ 0.70 - 1.10 ] LA Dimension MM 3.90 cm [ 3.00 - 4.00 ] LVOT VTI 19.60cm AoR Diam MM 3.11 cm [ 3.10 - 3.70 ] MV E Peak Shashi 0.90 m/s[ 0.60 - 1.30 ] ACS MM 1.66 cm [ 1.50 - 2.60 ] MV A Peak Shashi 0.79 m/s[ 1.00 - 1.20 ] MV Mean PG 2 mmHg MV PHT 53 msec [ 20 - 100 ] MVA 2.70 MV Decel Time 183 msec [ 104 - 258 ] PV Peak Shashi 0.91 m/s [ 0.40 - 0.80 ] TR Peak Shashi 2.65 m/s [ 1.00 - 2.80 ] TR Peak PG 28 mmHg RVSP 33.00 mmHg [ 10.00 - 36.00 ] E` 0.11 m/s E/E` 8.18 [ <= 10.00 ] PA Pressure 5.00 mmHg [ 10.00 - 36.00 ] 2D/MM Value Range Doppler ValueRange - FINDINGS: Atrial Septum: Normal atrial septum. Left Ventricle: Mild concentric left ventricular hypertrophy. Reduced left ventricularcavity size. Hyperdynamic left ventricular function. No focal wall motionabnormalities. Normal left ventricular diastolic function. Ejection fraction is measured at 70 %. Left Atrium: The left atrium is normal in size. Right Ventricle: Normal right ventricular size. Normal right ventricular systolicfunction. Right Atrium: The right atrium is normal in size. Aortic Valve: Normal structure of the aortic valve. No evidence of hemodynamicallysignificant aortic stenosis by Doppler. Trileaflet aortic valve. Mitral Valve: Normal structure of the mitral valve. Trivial regurgitation of the mitralvalve. Pulmonic Valve: Normal structure of the pulmonic valve. No evidence of pulmonicregurgitation. Tricuspid Valve: Normal structure of the tricuspid valve. Normal right ventricular systolicpressure. Trivial regurgitation in the tricuspid valve. Pericardium: Normal pericardium with no significant pericardial effusion. Aorta: Normal aortic root. Sinus of Valsalva is normal. Aortic arch is normal.Descending aorta is normal. IVC: Normal size and normal respiratory collapse consistent with normal rightatrial pressure (<5 mmHg). Pulmonary Artery: Pulmonary artery not well visualized. CONCLUSIONS: Mild concentric left ventricular hypertrophy. Reduced left ventricularcavity size. Hyperdynamic left ventricular function. No focal wall motionabnormalities. Normal left ventricular diastolic function. Ejection fraction is measured at >70 %. Normal right ventricular size. Normal right ventricular systolicfunction. Normal structure of the mitral valve. Trivial regurgitation of the mitralvalve. Normal structure of the aortic valve. No evidence of hemodynamicallysignificant aortic stenosis by Doppler. Trileaflet aortic valve. Normal structure of the tricuspid valve. Normal right ventricular systolicpressure. Trivial regurgitation in the tricuspid valve. Normal pericardium with no significant pericardial effusion. Electronically Signed By: Karena Bowens MD 12/25/2024 2:26:16 PM CDT Ekanga Claude Robertson MD CV ECHO PROCEDURES Sosa l Result * (ABNORMAL) eGFR (12/25/2024 4:58 AM CDT) eGFR 53(L) >=60 mL/min/1. 73 m2 Comment: Interpretive Data Reference Interval Normal >/= 90 mL/min/1.73m2 Mildly decreased* 60 - 89 mL/min/1.73m2 Mildly to moderately decreased 45 - 59 mL/min/1.73m2 Moderately to severely decreased 30 - 44 mL/min/1.73m2 Severely decreased 15 - 29 mL/min/1.73m2 Kidney Failure < 15 mL/min/1.73m2 *Relative to young adult level Estimated glomerular filtration rate is determined by the 2020 CKD-EPI equation recommended by the National Kid[employer] (A Unifying Approach to GFR Estimation: Recommendations of the NKF-ASK Task Force on Reassessing the Inclusion of Race in Diagnosing Kidney Disease, JASN 2020). The CKD-EPI equation should not be used for patients with unstable renal function and has not been validated in children and those over 70. Current interpretive data was last reviewed 2021. Blood 12/25/2024 4:58 AM CDT 12/25/2024 5:28 AM CDT us Joshua Robertson MD LAB BLOOD ORDERABLES Fi nal Result [facility] ([place]) 1 [facility] [place] [address] * (ABNORMAL) Differential, auto (12/25/2024 4:58 AM CDT) Neutrophil abs 9.45(H) 1.50 - 6.50 K/cumm Imm gran abs 0.05 0.00 - 0.10 K/cumm [facility] ([place]) Lymphocyte abs 0.54(L) 0.80 - 3.30 K/cumm [facility] ([place]) Monocyte abs 0.08(L) 0.20 - 0.80 K/cumm [facility] ([place]) Eosinophil abs 0.00 0.00 - 0.50 K/cumm [facility] ([place]) Basophil abs 0.01 0.00 - 0.10 K/cumm [facility] ([place]) Neutrophil pct 93.3 % [facility] ([place]) Comment: Interpretive Data Percent cell count reference ranges are not reported, since discordance with absolute values may lead to misinterpretation of CBC data. Current Interpretive Data was last revised on 2017. Imm gran pct 0.5 % [facility] ([place]) Comment: Interpretive Data Percent cell count reference ranges are not reported, since discordance with absolute values may lead to misinterpretation of CBC data. Current Interpretive Data was last revised on 2017. Lymphocyte pct 5.3 % [facility] ([place]) Comment: Interpretive Data Percent cell count reference ranges are not reported, since discordance with absolute values may lead to misinterpretation of CBC data. Current Interpretive Data was last revised on 2017. Monocyte pct 0.8 % [facility] ([place]) Comment: Interpretive Data Percent cell count reference ranges are not reported, since discordance with absolute values may lead to misinterpretation of CBC data. Current Interpretive Data was last revised on 2017. Eosinophil pct 0.0 % [facility] ([place]) Comment: Interpretive Data Percent cell count reference ranges are not reported, since discordance with absolute values may lead to misinterpretation of CBC data. Current Interpretive Data was last revised on 2017. Basophil pct 0.1 % [facility] ([place]) Comment: Interpretive Data Percent cell count reference ranges are not reported, since discordance with absolute values may lead to misinterpretation of CBC data. Current Interpretive Data was last revised on 2017. Blood 12/25/2024 4:58 AM CDT 12/25/2024 5:28 AM CDT us Joshua Robertson MD LAB BLOOD ORDERABLES Fi nal Result [facility] ([place]) 1 [facility] Department [place] [address] * (ABNORMAL) CBC with auto differential (12/25/2024 4:58 AM CDT) WBC 10.13(H) 3.80 - 9.90 K/cumm Hgb 10.2(L) 13.0 - 17.5 g/dL [facility] ([place]) Hct 31.0(L) 38.9 - 50.3 % [facility] ([place]) Plt 306 150 - 400 K/cumm [facility] ([place]) MPV 11.0 9.1 - 12.3 fL [facility] ([place]) RBC 3.19(L) 4.30 - 5.80 M/cumm [facility] ([place]) MCV 97.2(H) 81.3 - 96.4 fL [facility] ([place]) MCH 32.0 27.1 - 33.3 pg [facility] ([place] MCHC 32.9 32.3 - 35.7 g/dL [facility] ([place]) RDW CV 14.6 11.1 - 14.9 % [facility] ([place]) RDW SD 50.6(H) 35.7 - 48.1 fL [facility] ([place]) NRBC abs 0.00 0.00 - 0.01 K/cumm [facility] ([place]) Blood 12/25/2024 4:58 AM CDT 12/25/2024 5:28 AM CDT Joshua Robertson MD LAB BLOOD ORDERABLES Fi nal Result Performing Organization Address City/[facility]/ZIP Co de Phone Number [facility] ([place]) 1 [facility] [place] [address] * Magnesium (12/25/2024 4:58 AM CDT) Magnesium 1.9 1.4 - 2.5 mg/dL Blood 12/25/2024 4:58 AM CDT 12/25/2024 5:28 AM CDT Joshua Robertson MD LAB BLOOD ORDERABLES Fi nal Result Performing Organization Address City/[facility] Co de Phone Number [facility] ([place]) 1 [facility] [place] [address] * (ABNORMAL) Comprehensive metabolic panel (12/25/2024 4:58 AM CDT) Sodium 131(L) 135 - 145 mmol/L Potassium, pl 2.9(C) 3.3 - 4.9 mmol/L [facility] ([place]) Comment:Critical Result call ed by [email or web address] at 2024-12-25 06:27:07. Result Read Back by Goran MENDEZ Chloride 101 97 - 110 mmol/L [facility] ([place]) CO2 13(L) 22 - 32 mmol/L [facility] ([place]) Anion gap 17(H) 2 - 15 mmol/L [facility] ([place]) BUN 11 6 - 25 mg/dL [facility] ([place]) Creatinine 1.50(H) 0.80 - 1.30 mg/dL [facility] ([place]) Glucose 150 70 - 199 mg/dL [facility] ([place]) Comment: Interpretive Data Fasting glucose >/= 126 mg/dl is diagnostic for diabetes. Fasting is defined as no caloric intake for at least 8 hours. Fasting glucose between 100 mg/dl to 125 mg/dl is diagnostic of prediabetes. In a patient with classic symptoms of hyperglycemia or hyperglycemic crisis, a random glucose >/= 200 mg/dl is diagnostic for diabetes. In the absence of unequivocal hyperglycemia, results should be confirmed by repeat testing. The classification and Diagnosis of Diabetes Diabetes Care 2021; 46: S19-S40. Current interpretive data was last revised 2022. Calcium 8.8 8.5 - 10.3 mg/dL [facility] ([place]) Bilirubin, total 0.6 0.1 - 1.2 mg/dL [facility] ([place]) Protein, pl 7.1 6.5 - 8.5 g/dL [facility] ([place]) Albumin 3.4(L) 3.5 - 5.0 g/dL [facility] ([place]) Alk phos 127 40 - 130 Units/L [facility] ([place]) ALT 39 7 - 55 Units/L [facility] ([place]) AST 87(H) 10 - 50 Units/L [facility] ([place]) Blood 12/25/2024 4:58 AM CDT 12/25/2024 5:28 AM CDT us Joshua Robertson MD LAB BLOOD ORDERABLES Fi nal Result [facility] ([place]) 1 [facility] Department [place] [address] * C. difficile testing Stool (12/24/2024 11:15 PM CDT) Pathologist [facility] Result Negative Negative Toxin Result Negative Negative [facility] ([place]) C. diff result Negative, free toxin Negative, free toxin [facility] ([place]) C. diff interp Negative for toxigenic Clostridioides (Clostridium) difficile. Analysis was performed using a glutamate dehydrogenase antigen detection assay combined with a C. difficile toxin detection assay. [facility] ([place]) Stool 12/24/2024 11:1 5 PM CDT 12/24/2024 11:22 PM CDT us Joshua Robertson MD LAB MICROBIOLOGY - [facility] ORDERABLES Final Result [facility] ([place]) 1 [facility] Department [place] [address] * (ABNORMAL) Urinalysis reflex to microscopic and culture Urine (12/24/2024 11:15 PM CDT) Color, ur Yellow Yellow Clarity, ur Clear Clear [facility] ([place]) Specific gravity, ur 1.014 1.003 - 1.030 [facility] ([place]) pH, urine 6.0 [facility] ([place]) Comment: Interpretive Data U rine pH is affected by diet, medications, systemic acid-base disturbances, and renal tubular function. pH may affect urinary stone formation. For example, urine pH below 6.0 may help reduce the tendency for calcium phosphate stones and pH greater than 6.0 may reduce the tendency for uric acid stone formation. Source: [facility] Current Interpretive Data was last revised on 2017 Protein, ur ql 1+(A) Negative [facility] ([place]) Glucose, ur ql Negative Negative [facility] ([place]) Ketones, ur Trace Negative [facility] ([place]) Bilirubin, ur Negative Negative [facility] ([place]) Blood, ur Negative Negative [facility] ([place]) Urobilinogen, ur <2.0 <2.0 mg/dL [facility] ([place]) Nitrite, ur Negative Negative [facility] ([place]) Leukocyte esterase, ur Negative Negative [facility] ([place]) UA reflex comment Reflex to microscopic UA will be performed. [facility] ([place]) Urine 12/24/2024 11:1 5 PM CDT 12/24/2024 11:22 PM CDT Joshua Robertson MD LAB MICROBIOLOGY - [facility] ORDERABLES Final Result [facility] ([place]) 1 [facility] Department [place] [address] * (ABNORMAL) Drugs of Abuse Screen, Urine without Confirmation (12/24/2024 11:15 PM CDT) Amphetamine, ur Not Detected CutOff 500ng/mL Comment: Interpretive Data - Amphetamines: Samples containing greater than 500 ng/mL d-methamphetamine or other cross-reacting amphetamine compounds are reported as positive. Amphetamine immunoassays are subject to significant false positive rates due to cross-reactivity of non-amphetamine drugs. Confirmatory testing required for definitive results. Current Interpretive Data was last reviewed 2022. Barbiturates, ur Not Detected CutOff 200ng/mL [facility] ([place]) Comment: Interpretive Data - Barbiturates: Samples containing greater than 200 ng/mL secobarbital or other cross-reacting barbiturate compounds are reported as positive. False positive and false negative results are possible. Confirmatory testing required for definitive results. Current Interpretive Data was last reviewed 2022. Benzodiazepines, ur Screen Positive, presumptive (A) CutOff 100ng/mL [facility] ([place]) Comment: Interpretive Data - Benzodiazepines: Samples containing greater than 100 ng/mL nordiazepam or other cross-reacting compounds are reported as positive. False positive and false negative results are possible. Confirmatory testing required for definitive results. Current Interpretive Data was last reviewed 2022. Cannabinoids, ur Screen Positive, presumptive (A) CutOff 50 ng/mL [facility] ([place]) Comment: Interpretive Data - Cannabinoids: Samples containing greater than 50 ng/mL delta-9 THC -COOH or other cross- reacting compounds are reported as positive. False positive and false negative results are possible. Confirmatory testing required for definitive results. Current Interpretive Data was last reviewed 2022. Cocaine, ur Not Detected CutOff 150ng/mL [facility] ([place]) Comment: Interpretive Data - Cocaine: Samples containing greater than 150 ng/mL benzoylecgonine or other cross- reacting compounds are reported as positive. False positive and false negative results are possible. Confirmatory testing required for definitive results. Current Interpretive Data was last reviewed 2022. Fentanyl, Ur Not Detected CutOff 5 ng/mL [facility] ([place]) Comment: Interpretive Data - Fentanyl: Samples containing greater than 5 ng/mL norfentanyl, fentanyl, or other cross-reacting fentanyl compounds are reported as positive. False positive and false negative results are possible. Confirmatory testing required for definitive results. Current Interpretive Data was last reviewed 2023. Methadone, ur Not Detected CutOff 300ng/mL [facility] ([place]) Comment: Interpretive Data - Methadone: Samples containing greater than 300 ng/mL d,l-methadone or other cross-reacting compounds are reported as positive. False positive and false negative results are possible. Confirmatory testing required for definitive results. Current Interpretive Data was last reviewed 2022. Opiates, ur Not Detected CutOff 300ng/mL [facility] ([place]) Comment: Interpretive Data - Opiates: Samples containing greater than 300 ng/mL morphine or other cross-reacting compounds are reported as positive. False positive and false negative results are possible. Confirmatory testing required for definitive results. Current Interpretive Data was last reviewed 2022. Oxycodone, ur NOT DETECTED CutOff 100ng/mL [facility] ([place]) Comment: Interpretive Data - Oxycodone: Samples containing greater than 100 ng/mL oxycodone or other cross-reacting compounds are reported as positive. False positive and false negative results are possible. Confirmatory testing required for definitive results. Current Interpretive Data was last reviewed 2022. Phencyclidine, ur Not Detected CutOff 25 ng/mL [facility] ([place]) Comment: Interpretive Data - Phencyclidine: Samples containing greater than 25 ng/mL phencyclidine or other cross-reacting compounds are reported as positive. False positive and false negative results are possible. Confirmatory testing required for definitive results. Current Interpretive Data was last reviewed 2022. Urine Creatinine 181 mg/dL [facility] ([place]) Comment: Interpretive Data Urine Creatinine: < 10 mg/dL is extremely dilute = or > 10 but < 20 mg/dL is dilute = or > 20 mg/dL is normal Current Interpretive Data was last revised on 2017. Urine 12/24/2024 11:1 5 PM CDT 12/24/2024 11:23 PM CDT Narrative [facility] ([place] - 12/24/2024 11:57 PM CDT Drug of Abuse screening is performed by immunoassay for medical purposes only. This is not to be used for Pain Management purposes. Joshua Robertson MD LAB URINE ORDERABLES Fi nal Result Performing Organization Address [facility] Co de Phone Number [facility] ([place]) 1 [facility] [place] [address] * (ABNORMAL) Urinalysis, microscopic only (12/24/2024 11:15 PM CDT) WBC, ur 0-5 0 - 5 /HPF RBC, ur 0-2 0 - 2 /HPF [facility] ([place]) Mucous, ur Present(A) [facility] ([place]) Hyaline casts, ur 11-20(A) 0 - 10 /LPF [facility] ([place]) Culture Reflex Comment Reflex conditions for urine culture (WBC >10) not met. [facility] ([place]) Urine 12/24/2024 11:1 5 PM CDT 12/24/2024 11:22 PM CDT Simon Barajas MD LAB URINE ORDERABLES Final R esult Performing Organization Address City/[facility] Co de Phone Number [facility] ([place]) 1 [facility] [place] [address] * Stool culture Stool Rectum (12/24/2024 11:15 PM CDT) Direct Specimen Exam Shiga Toxin Testing: Antigen detection assay for Shiga-toxin NEGATIVE for Shiga Toxin 1 and Shiga Toxin 2. Comment:Testing performed by : [facility], 1 [facility] [place] [address] Report Final Report: No growth of enteric bacterial pathogens [facility] ([place]) Comment:Testing performed by : [facility], [address] [place]., [address] Stool (Rectum) 12/24/2024 11 :15 PM CDT 12/25/2024 4:04 AM CDT Narrative [facility] ([place]) - 12/29/2024 8:55 AM CDT Testing performed by [facility] ([phone]). Routine stool cultures include procedures to detect Salmonella, Shigella, Edwardsiella, Aeromonas, Pleisiomonas, Campylobacter, Yersinia, E. coli O157, and Shiga-like toxins. Vibrio is cultured only upon special request. If Vibrio is suspected, please call the laboratory at [phone]. Interpretive data was last updated July 12, 2016. us Joshua Robertson MD LAB MICROBIOLOGY - GENE RAL ORDERABLES Final Result Performing Organization Address City/[facility] Co de Phone Number [facility] ([place]) 1 [facility] [place] [address] * (ABNORMAL) Troponin T high-sensitivity 6-hour (12/24/2024 10:11 PM CDT) Trop T hs 25(H) <=22 ng/L Comment: Interpretive Data For further hscTnT resources including the diagnostic algorithm and an aid in interpretation, copy and paste this link: https://nrl.testcatalog.org/show/hsTrop Current Interpretive Data last revised 2020. Trop T hs delta -2 ng/L [facility] ([place]) Trop T hs interp Insignificant [facility] ([place]) Blood 12/24/2024 10:1 1 PM CDT 12/24/2024 10:23 PM CDT us Simon Barajas MD LAB BLOOD ORDERABLES Final R esult Performing Organization Address City/[facility]/ZIP Co de Phone Number [facility] ([place]) 1 [facility] Department [place] [address] * (ABNORMAL) Troponin T high-sensitivity 4-hour (12/24/2024 9:10 PM CDT) Trop T hs 24(H) <=22 ng/L Comment: Interpretive Data For further hscTnT resources including the diagnostic algorithm and an aid in interpretation, copy and paste this link: https://nrl.testcatalog.org/show/hsTrop Current Interpretive Data last revised 2020. Trop T hs delta -3 ng/L [facility] ([place]) Trop T hs interp Insignificant [facility] ([place]) Blood 12/24/2024 9:10 PM CDT 12/24/2024 9:14 PM CDT Simon Barajas MD LAB BLOOD ORDERABLES Final R esult [facility] ([place]) 1 [facility] Department [place] [address] * D-dimer, quantitative (12/24/2024 9:10 PM CDT) D-Dimer 324 <=499 ng/mL FEU [facility] ([place]) Comment: Interpretive data FDA approved the D-dimer, in conjunction with a low or moderate pretest probability score, to exclude venous thromboembolic events (VTE) (PE and DVT) in outpatients when the D-dimer result is < 500 ng/ml FEU. Evidence supports using an age-adjusted D-dimer cut-off for outpatients older than 50 (age x 10) to improve specificity without sacrificing sensitivity. Example: age 68, VTE cut-off 680 ng/ml FEU. References; Schouten HT et al. Brit Med J. 2013;346:f2492. Chan et al. Annals Int Med. 2015;163:701-11. Current interpretive data was last revised on 2019. Blood 12/24/2024 9:10 PM CDT 12/24/2024 9:14 PM CDT Joshua Robertson MD LAB BLOOD ORDERABLES Fi nal Result [facility] ([place]) 1 [facility] [place] [address] * (ABNORMAL) Blood gas, venous (12/24/2024 9:10 PM CDT) pH, Venous 7.38 7.32 - 7.43 PCO2, Venous 29(L) 40 - 50 mmHg [facility] ([place]) PO2, Venous 42 mmHg [facility] ([place]) HCO3 Venous, Calculated 17(L) 20 - 30 mmol/L [facility] ([place]) BE, venous -7 mmol/L [facility] ([place]) Comment: Interpretive Data No Reference Range Established Current Interpretive Data was last revised on 2017. Blood 12/24/2024 9:10 PM CDT 12/24/2024 9:14 PM CDT Joshua Robertson MD LAB BLOOD ORDERABLES Fi nal Result Performing Organization Address City/[facility]/ZIP Co de Phone Number [facility] ([place]) 1 [facility] [place] [address] * (ABNORMAL) Troponin T high-sensitivity 2-hour (12/24/2024 6:29 PM CDT) Trop T hs 28(H) <=22 ng/L Comment: Interpretive Data For further hscTnT resources including the diagnostic algorithm and an aid in interpretation, copy and paste this link: https://nrl.testcatalog.org/show/hsTrop Current Interpretive Data last revised 2020. Trop T hs delta 1 ng/L [facility] [facility] Trop T hs interp Insignificant [facility] ([place]) Blood 12/24/2024 6:29 PM CDT 12/24/2024 6:31 PM CDT Simon Barajas MD LAB BLOOD ORDERABLES Final R esult Performing Organization Address [facility] Co de Phone Number [facility] ([place]) 1 [facility] [place] [address] * (ABNORMAL) Potassium (12/24/2024 6:29 PM CDT) Potassium, pl 2.7(C) 3.3 - 4.9 mmol/L Comment:Critical Result call ed by [id number] at 2024-12-24 19:06:52. Result Read Back by Leonardo Gonzales. ER charge Blood 12/24/2024 6:29 PM CDT 12/24/2024 6:31 PM CDT Simon Barajas MD LAB BLOOD ORDERABLES Final R esult Performing Organization Address [facility] Co de Phone Number [facility] ([place]) 1 [facility] [place] [address] * CT Chest Abdomen Pelvis WO Contrast (12/24/2024 5:37 PM CDT) Anatomical Region Laterality Modality Body N/A Computed Tomogra phy 12/24/2024 5:41 PM CDT Narrative 12/24/2024 5:51 PM CDT EXAM DESCRIPTION: CT CHEST ABDOMEN PELVIS WO CONTRAST REASON FOR STUDY: Sepsis Shortness of breath gradually worsened over the past 3 weeks with progressively worse weakness. Pt reports history of COPD but states, Kelsi never had a trouble with it. Pt c/o left chest pain that is intermittent. Family reports n/v after eating, diarrhea 5-6 times daily and weight loss over the past few months. TECHNIQUE: CT scan of the chest, abdomen, and pelvis performed without intravenous and without oral contrast using helical scanning technique. Reconstructed coronal and sagittal MPR images reviewed. All images stored on PACS. Automated exposure control was used as a dose optimization technique for this examination. COMPARISON: 12/29/2016 FINDINGS: The sensitivity for detection of visceral lesions is diminished without the use of intravenous contrast. CHEST LUNGS: Mild biapical pleuroparenchymal scarring. Mild upper lobe predominant bilateral pulmonary emphysema. Mild bilateral bronchial wall thickening which could reflect chronic bronchitis in the setting of COPD. There is a right lower lobe noncalcified pulmonary nodule measuring 2 mm at slice position 57. There is a left upper lobe 2 mm noncalcified pulmonary nodule at slice position 29. A left lower lobe noncalcified pulmonary nodule measures 3 mm at slice position 60. There is a lingular calcified granuloma. No pulmonary parenchymal consolidation or pulmonary edema. PLEURA: No pleural effusion. No pneumothorax. MEDIASTINUM/LENNY: No identified masses or lymphadenopathy. Calcified mediastinal lymph nodes due to old healed granulomatous disease. The esophagus is within normal limits. HEART: Heart size is normal with no pericardial effusion. CORONARY ARTERY CALCIFICATION: Absent VASCULATURE CHEST: No thoracic aortic aneurysm. AXILLA: No adenopathy. CHEST WALL: No masses. No subcutaneous air. Mild bilateral symmetric gynecomastia. HARDWARE/LINES/TUBES: None. MUSCULOSKELETAL CHEST: No acute fractures or aggressive bone lesions. ABDOMEN/PELVIS LIVER: Normal size. No discrete focal hepatic lesions on this noncontrast CT examination. GALLBLADDER: Subtle gallbladder intraluminal hyperattenuation can be seen with gallbladder sludge/cholelithiasis. BILE DUCTS: No intrahepatic or extrahepatic ductal dilatation. SPLEEN: Normal size. No focal lesions. There is a calcified splenic granuloma. PANCREAS: No identified cystic or solid masses. No significant calcifications. No adjacent inflammation or peripancreatic fluid collections. Pancreatic duct not dilated. ADRENALS: Normal. KIDNEYS/URINARY TRACT: No identified significant cystic or solid masses. No stones. No hydronephrosis or hydroureter. Urinary bladder is unremarkable. GI: The stomach is normal. There are several mildly dilated and nondilated fluid/gas-filled segments of small bowel throughout the abdomen along with liquid/semi liquid stool within the colon extending from the cecum to the rectum likely reflective of a rapid bowel transit state/diarrhea state. No definitive CT evidence of acute enterocolitis on this noncontrast CT examination. The appendix is normal. PERITONEUM: No ascites or free air. No lymphadenopathy. RETROPERITONEUM: No mass or adenopathy. REPRODUCTIVE: No significant abnormality. VASCULATURE ABDOMEN: No abdominal aortic aneurysm. Atherosclerotic calcifications of the abdominal aorta and its branches. MUSCULOSKELETAL ABDOMEN PELVIS: No acute fractures or aggressive bone lesions. IMPRESSION: 1. Mild upper lobe predominant bilateral pulmonary emphysema. 2. Noncalcified pulmonary nodules measuring up to 3 mm. According to updated Fleischner Society guidelines, if the patient is high risk for development of lung cancer, follow-up chest CT in 12 months could be considered. Reference: Radiographics. 2018 Nov-Dec;385):1337-135 3. several mildly dilated and nondilated fluid/gas-filled segments of small bowel throughout the abdomen along with liquid/semi liquid stool within the colon extending from the cecum to the rectum likely reflective of a rapid bowel transit state/diarrhea state. THIS IS AN ELECTRONICALLY VERIFIED FINAL REPORT 12/24/2024 5:51 PM - Electronically signed by Tho Casillas M.D. AT: AT Report ID: [id number] Reading Location: [id number] Procedure Note Tho Casillas MD - 12/24/2024 EXAM DESCRIPTION: CT CHEST ABDOMEN PELVIS WO CONTRAST REASON FOR STUDY: Sepsis Shortness of breath gradually worsened over the past 3 weeks with progressively worse weakness. Pt reports history of COPD but states, Kelsi never had a trouble with it. Pt c/o left chest pain that is intermittent. Family reports n/v after eating, diarrhea 5-6 times daily and weightloss over the past few months. TECHNIQUE: CT scan of the chest, abdomen, and pelvis performed without intravenous and without oral contrast using helical scanning technique. Reconstructed coronal and sagittal MPR images reviewed. All images storedon PACS. Automated exposure control was used as a dose optimizationtechnique for this examination. COMPARISON: 12/29/2016 FINDINGS: The sensitivity for detection of visceral lesions is diminished withoutthe use of intravenous contrast. CHEST LUNGS: Mild biapical pleuroparenchymal scarring. Mild upper lobe predominant bilateral pulmonary emphysema. Mild bilateral bronchial wall thickening which could reflect chronic bronchitis in the setting of COPD. There is a right lower lobe noncalcified pulmonary nodule measuring 2 mmat slice position 57. There is a left upper lobe 2 mm noncalcified pulmonary nodule at slice position 29. A left lower lobe noncalcified pulmonarynodule measures 3 mm at slice position 60. There is a lingular calcifiedgranuloma. No pulmonary parenchymal consolidation or pulmonary edema. PLEURA: No pleural effusion. No pneumothorax. MEDIASTINUM/LENNY: No identified masses or lymphadenopathy. Calcified mediastinal lymph nodes due to old healed granulomatous disease. The esophagus is within normal limits. HEART: Heart size is normal with no pericardial effusion. CORONARY ARTERY CALCIFICATION: Absent VASCULATURE CHEST: No thoracic aortic aneurysm. AXILLA: No adenopathy. CHEST WALL: No masses. No subcutaneous air. Mild bilateral symmetric gynecomastia. HARDWARE/LINES/TUBES: None. MUSCULOSKELETAL CHEST: No acute fractures or aggressive bone lesions. ABDOMEN/PELVIS LIVER: Normal size. No discrete focal hepatic lesions on thisnoncontrast CT examination. GALLBLADDER: Subtle gallbladder intraluminal hyperattenuation can beseen with gallbladder sludge/cholelithiasis. BILE DUCTS: No intrahepatic or extrahepatic ductal dilatation. SPLEEN: Normal size. No focal lesions. There is a calcified splenic granuloma. PANCREAS: No identified cystic or solid masses. No significant calcifications. No adjacent inflammation or peripancreatic fluidcollections. Pancreatic duct not dilated. ADRENALS: Normal. KIDNEYS/URINARY TRACT: No identified significant cystic or solid masses.No stones. No hydronephrosis or hydroureter. Urinary bladder isunremarkable. GI: The stomach is normal. There are several mildly dilated andnondilated fluid/gas-filled segments of small bowel throughout the abdomen along with liquid/semi liquid stool within the colon extending from the cecum to the rectum likely reflective of a rapid bowel transit state/diarrhea state.No definitive CT evidence of acute enterocolitis on this noncontrast CT examination. The appendix is normal. PERITONEUM: No ascites or free air. No lymphadenopathy. RETROPERITONEUM: No mass or adenopathy. REPRODUCTIVE: No significant abnormality. VASCULATURE ABDOMEN: No abdominal aortic aneurysm. Atherosclerotic calcifications of the abdominal aorta and its branches. MUSCULOSKELETAL ABDOMEN PELVIS: No acute fractures or aggressive bone lesions. IMPRESSION: 1. Mild upper lobe predominant bilateral pulmonary emphysema. 2. Noncalcified pulmonary nodules measuring up to 3 mm. According toupdated Fleischner Society guidelines, if the patient is high risk for developmentof lung cancer, follow-up chest CT in 12 months could be considered. Reference: Radiographics. 2018 Nov-Dec;38(5):1337-135 3. several mildly dilated and nondilated fluid/gas-filled segments ofsmall bowel throughout the abdomen along with liquid/semi liquid stool withinthe colon extending from the cecum to the rectum likely reflective of a rapid bowel transit state/diarrhea state. THIS IS AN ELECTRONICALLY VERIFIED FINAL REPORT 12/24/2024 5:51 PM - Electronically signed by Tho Casillas M.D. AT: AT Report ID: [id number] Reading Location: [place] [address] Simon Barajas MD IMG CT PROCEDURES Final Resu lt * Influenza A/B, RSV, and COVID-19 PCR Nasopharyngeal (12/24/2024 4:34 PM CDT) COVID-19 RNA Negative Negative Influenza A RNA Negative Negative [facility] ER [facility] ([place]) Influenza B RNA Negative Negative [facility] ER [facility] ([place]) RSV RNA Negative Negative [facility] ([place]) Comment: Interpretive data: Testing performed by [facility]. This test is performed using the [employer] Xpert Xpress CoV-2/Flu/RSV plus assay. This is a multiplex, real- time reverse transcriptase PCR assay intended for the qualitative detection of nucleic acid from SARS-CoV-2, influenza A, influenza B, and respiratory syncytial virus. This assay has been cleared by the [place] Food and Drug administration. The performance characteristics have been verified by the [facility]. Results must be considered in the clinical context, and a negative result does not rule out infection. Interpretive Data last revised 2023 Nasopharyngeal 12/24/2024 4: 34 PM CDT 12/24/2024 4:37 PM CDT Narrative [facility] ([place]) - 12/24/2024 5:15 PM CDT Is the Patient experiencing symptoms consistent with COVID?->Unknown Simon Barajas MD LAB MICROBIOLOGY - GENERAL O RDERABLES Final Result [facility] ([place]) 1 [facility] Department [place] [address] * (ABNORMAL) Troponin T high-sensitivity series (baseline, 2hr, 4hr, 6hr) (12/24/2024 4:32 PM CDT) Pathologist [facility] Trop T hs 27(H) <=22 ng/L Comment: Interpretive Data For further hscTnT resources including the diagnostic algorithm and an aid in interpretation, copy and paste this link: https://nrl.testcatalog.org/show/hsTrop Current Interpretive Data last revised 2020. Blood 12/24/2024 4:32 PM CDT 12/24/2024 4:34 PM CDT Simon Barajas MD LAB BLOOD ORDERABLES Final R esult [facility] ([place]) [address] [place] [address] [place] [address] * Sepsis Lactate w/ Reflex (12/24/2024 4:32 PM CDT) [facility] Sepsis Lactate 2.0 0.7 - 2.0 mmol/L Blood 12/24/2024 4:32 PM CDT 12/24/2024 4:34 PM CDT Simon Barajas MD LAB BLOOD ORDERABLES Final R esult [facility] ([place]) [address] [place] [address] [employer] [place] [address] * (ABNORMAL) eGFR (12/24/2024 4:32 PM CDT) [facility] eGFR 55(L) >=60 mL/min/1. 73 m2 Comment: Interpretive Data Reference Interval Normal >/= 90 mL/min/1.73m2 Mildly decreased* 60 - 89 mL/min/1.73m2 Mildly to moderately decreased 45 - 59 mL/min/1.73m2 Moderately to severely decreased 30 - 44 mL/min/1.73m2 Severely decreased 15 - 29 mL/min/1.73m2 Kidney Failure < 15 mL/min/1.73m2 *Relative to young adult level Estimated glomerular filtration rate is determined by the 2020 CKD-EPI equation recommended by the National Kidney Foundation (A Unifying Approach to GFR Estimation: Recommendations of the NKF-ASK Task Force on Reassessing the Inclusion of Race in Diagnosing Kidney Disease, JASN 2020). The CKD-EPI equation should not be used for patients with unstable renal function and has not been validated in children and those over 70. Current interpretive data was last reviewed 2021. Blood 12/24/2024 4:32 PM CDT 12/24/2024 5:04 PM CDT us Simon Barajas MD LAB BLOOD ORDERABLES Final R esult [facility] ([place]) 1 [facility] Department [place] [address] * (ABNORMAL) Differential, auto (12/24/2024 4:32 PM CDT) Neutrophil abs 10.42(H) 1.50 - 6.50 K/cumm Imm gran abs 0.07 0.00 - 0.10 K/cumm [facility] ([place]) Lymphocyte abs 1.59 0.80 - 3.30 K/cumm [facility] ([place]) Monocyte abs 0.72 0.20 - 0.80 K/cumm [facility] ([place]) Eosinophil abs 0.08 0.00 - 0.50 K/cumm [facility] ([place]) Basophil abs 0.09 0.00 - 0.10 K/cumm [facility] ([place]) Neutrophil pct 80.3 % [facility] ([place]) Comment: Interpretive Data Percent cell count reference ranges are not reported, since discordance with absolute values may lead to misinterpretation of CBC data. Current Interpretive Data was last revised on 2017. Imm gran pct 0.5 % [facility] ([place]) Comment: Interpretive Data Percent cell count reference ranges are not reported, since discordance with absolute values may lead to misinterpretation of CBC data. Current Interpretive Data was last revised on 2017. Lymphocyte pct 12.3 % [facility] ([place]) Comment: Interpretive Data Percent cell count reference ranges are not reported, since discordance with absolute values may lead to misinterpretation of CBC data. Current Interpretive Data was last revised on 2017. Monocyte pct 5.6 % [facility] ([place]) Comment: Interpretive Data Percent cell count reference ranges are not reported, since discordance with absolute values may lead to misinterpretation of CBC data. Current Interpretive Data was last revised on 2017. Eosinophil pct 0.6 % [facility] ([place]) Comment: Interpretive Data Percent cell count reference ranges are not reported, since discordance with absolute values may lead to misinterpretation of CBC data. Current Interpretive Data was last revised on 2017. Basophil pct 0.7 % [facility] ([place]) Comment: Interpretive Data Percent cell count reference ranges are not reported, since discordance with absolute values may lead to misinterpretation of CBC data. Current Interpretive Data was last revised on 2017. Blood 12/24/2024 4:32 PM CDT 12/24/2024 4:34 PM CDT Simon Barajas MD LAB BLOOD ORDERABLES Final R esult [facility] ([place]) 1 [facility] [place] [address] * Pro B-type natriuretic peptide (12/24/2024 4:32 PM CDT) NT-proBNP 285 <=300 pg/mL Comment: Interpretive Comments: A. Dyspnea in Acute Care Setting All Ages: < 300 pg/ml, acute heart failure unlikely. < 50 yrs: 300 - 450 pg/ml, further investigation warranted. > 450 pg/ml, acute heart failure likely. 50 - 74 yrs: 300 - 900 pg/ml, further investigation warranted. > 900 pg/ml, acute heart failure likely . > or = 75 yrs: 450 - 1800 pg/ml, further investigation warranted. > 1800 pg/ml, acute heart failure likely. B. Non-acute Setting < 75 yrs < 125 pg/ml, rules out heart failure. > or = 125 pg/ml, further investigation warranted. > or = 75 yrs < 450 pg/ml, rules out heart failure. > or = 450 pg/ml, further investigation warranted. - Knowledge of each individual patient's NT-proBNP range may be more useful than using similar cut-points for every patient. Please note that marked elevations in NT-proBNP levels may be observed in state other than Left Ventricular Congestive Failure, including: acute coronary syndromes, right heart strain/failure (including pulmonary embolism and cor pulmonale), critical illness, renal failure, as well as advanced age. - References: 1. Rachael DRAPER et.al. Eur Heart J. 2006:27:330-337. 2. Josh RW, Genie BARTHOLOMEW. J. AM Eduarda Cardiol: Cardiovasc Imag. 2009;2: 216- 225. Interpretive Data Last Revised Date: 2017. Blood 12/24/2024 4:32 PM CDT 12/24/2024 4:34 PM CDT us Simon Barajas MD LAB BLOOD ORDERABLES Final R esult [facility] ([place]) 1 [facility] Department [place] [address] * (ABNORMAL) CBC with auto differential (12/24/2024 4:32 PM CDT) WBC 12.97(H) 3.80 - 9.90 K/cumm Hgb 12.8(L) 13.0 - 17.5 g/dL [facility] ([place]) Hct 38.8(L) 38.9 - 50.3 % [facility] ([place]) Plt 444(H) 150 - 400 K/cumm [facility] ([place]) MPV 11.8 9.1 - 12.3 fL [facility] ([place]) RBC 4.03(L) 4.30 - 5.80 M/cumm [facility] ([place]) MCV 96.3 81.3 - 96.4 fL [facility] ([place]) MCH 31.8 27.1 - 33.3 pg [facility] ([place]) MCHC 33.0 32.3 - 35.7 g/dL [facility] ([place]) RDW CV 14.5 11.1 - 14.9 % [facility] ([place]) RDW SD 48.7(H) 35.7 - 48.1 fL [facility] ([place]) NRBC abs 0.00 0.00 - 0.01 K/cumm [facility] ([place]) Blood 12/24/2024 4:32 PM CDT 12/24/2024 4:34 PM CDT Simon Barajas MD LAB BLOOD ORDERABLES Final R esult Performing Organization Address City/[facility]/ZIP Co de Phone Number [facility]E [facility] ([place]) [address] [facility] [place] [address] * Magnesium (12/24/2024 4:32 PM CDT) Magnesium 2.0 1.4 - 2.5 mg/dL Blood 12/24/2024 4:32 PM CDT 12/24/2024 4:34 PM CDT Simon Barajas MD LAB BLOOD ORDERABLES Final R esult Performing Organization Address [facility] Co de Phone Number [facility]E [facility] ([place]) [address] [facility] [place] [address] * Ethanol (12/24/2024 4:32 PM CDT) Ethanol <10 <=10 mg/dL Comment: Interpretive Data Legal limit of intoxication > or = 80 mg/dL Levels > or = 400 mg/dL are potentially TOXIC. Current interpretive data was last revised on 2018. Blood 12/24/2024 4:32 PM CDT 12/24/2024 4:34 PM CDT Simon Barajas MD LAB BLOOD ORDERABLES Final R esult Performing Organization Address City/[facility]/ZIP Co de Phone Number [facility]E [facility] ([place]) [address] [facility] [place] [address] * (ABNORMAL) Comprehensive metabolic panel (12/24/2024 4:32 PM CDT) Sodium 132(L) 135 - 145 mmol/L Potassium, pl 2.3(C) 3.3 - 4.9 mmol/L [facility] ([place]) Comment:Critical Result call ed by [id number] at 2024-12-24 17:08:47. Result Read Back by Dale Adams ER charge Chloride 96(L) 97 - 110 mmol/L [facility] ([place]) CO2 17(L) 22 - 32 mmol/L [facility] ([place]) Anion gap 19(H) 2 - 15 mmol/L [facility] ([place]) BUN 8 6 - 25 mg/dL [facility] ([place]) Creatinine 1.46(H) 0.80 - 1.30 mg/dL [facility] ([place]) Glucose 126 70 - 199 mg/dL [facility] ([place]) Comment: Interpretive Data Fasting glucose >/= 126 mg/dl is diagnostic for diabetes. Fasting is defined as no caloric intake for at least 8 hours. Fasting glucose between 100 mg/dl to 125 mg/dl is diagnostic of prediabetes. In a patient with classic symptoms of hyperglycemia or hyperglycemic crisis, a random glucose >/= 200 mg/dl is diagnostic for diabetes. In the absence of unequivocal hyperglycemia, results should be confirmed by repeat testing. The classification and Diagnosis of Diabetes Diabetes Care 2021; 46: S19-S40. Current interpretive data was last revised 2022. Calcium 9.5 8.5 - 10.3 mg/dL [facility] ([place]) Bilirubin, total 0.9 0.1 - 1.2 mg/dL [facility] ([place]) Protein, pl 8.0 6.5 - 8.5 g/dL [facility] ([place]) Albumin 3.9 3.5 - 5.0 g/dL [facility] ([place]) Alk phos 154(H) 40 - 130 Units/L [facility] ([place]) ALT 50 7 - 55 Units/L [facility] ([place]) AST 119(H) 10 - 50 Units/L [facility] ([place]) Blood 12/24/2024 4:32 PM CDT 12/24/2024 4:34 PM CDT us Simon Barajas MD LAB BLOOD ORDERABLES Final R esult [facility] ([place]) 1 [facility] Department [place] [address] * XR Chest 1 Vw Portable (12/24/2024 3:48 PM CDT) Anatomical Region Laterality Modality Body, Chest N/A Computed Radiogr aphy 12/24/2024 3:55 PM CDT Narrative 12/24/2024 3:56 PM CDT EXAM DESCRIPTION: XR CHEST 1 VIEW REASON FOR STUDY: general weakness Family reports pt admitted to [place] a few weeks ago. Family reports n/v after eating, diarrhea daily and weight loss over the past few months. Pt arrives by [facility] for shortness of breath worsening with exertion and movement. TECHNIQUE: Single frontal radiographic view(s) of the chest. COMPARISON: 12/29/2016 FINDINGS: The heart, mediastinum, and pulmonary vasculature are grossly unremarkable. There is no definite evidence of a pneumothorax. There is no definite evidence of a focal consolidation or pleural effusion. The osseous structures are acutely grossly stable. IMPRESSION: 1. No acute cardiopulmonary abnormality. THIS IS AN ELECTRONICALLY VERIFIED FINAL REPORT 12/24/2024 3:56 PM - Electronically signed by Demetria Bianchi D.O. PS: PS Report ID: [id number] Reading Location: [id number] Procedure Note Demetria Bianchi, DO - 12/24/2024 EXAM DESCRIPTION: XR CHEST 1 VIEW REASON FOR STUDY: general weakness Family reports pt admitted to [place] a few weeks ago. Family reports n/v after eating, diarrhea daily and weight loss over the past few months.Pt arrives by [facility] for shortness of breath worsening with exertion and movement. TECHNIQUE: Single frontal radiographic view(s) of the chest. COMPARISON: 12/29/2016 FINDINGS: The heart, mediastinum, and pulmonary vasculature are grosslyunremarkable. There is no definite evidence of a pneumothorax. There is no definite evidence of a focal consolidation or pleural effusion. The osseous structures are acutely grossly stable. IMPRESSION: 1. No acute cardiopulmonary abnormality. THIS IS AN ELECTRONICALLY VERIFIED FINAL REPORT 12/24/2024 3:56 PM - Electronically signed by Demetria Bianchi D.O. PS: PS Report ID: [id number] Reading Location: [id number] Simon Barajas MD IMG XR PROCEDURES Final Resu lt * ECG 12 lead (12/24/2024 3:14 PM CDT) 12/24/2024 3:14 PM CDT Narrative [facility] - 12/24/2024 6:35 PM CDT Vent Rate: 106 bpm RR Interval: 566 msec DE Interval: 137 msec QRS Duration: 94 msec QT Interval: 347 msec QTC Interval: 409 msec P-R-T [place]: 90 - 70 - 255 degrees IMPRESSION: SINUS TACHYCARDIA WITH OCCASIONAL SUPRAVENTRICULAR PREMATURE COMPLEXES ST DEVIATION AND MARKED T-WAVE ABNORMALITY, CONSIDER ANTEROLATERAL ISCHEMIA [-0.5+ mV T-WAVE IN I/aVL/V3-V6] ST DEVIATION AND MARKED T-WAVE ABNORMALITY, CONSIDER INFERIOR ISCHEMIA [-0.5+ mV T-WAVE IN II/aVF] ABNORMAL ECG Electronically Signed By: Ole Freeman MD Simon Barajas MD ECG ORDERABLES Final Result [facility] from Last 3 Months Insurance [employer] [facility] Advance Directives For more information, please contact: [phone] * Full Code (Latest Code Status on File) Date Activated Date Inactivated Comments 12/26/2024 10:40 AM 12/28/2024 9:41 PM * Full Code Date Activated Date Inactivated Comments 12/24/2024 7:10 PM 12/26/2024 10:40 AM Care Teams Binding Cutter Relationship Specialty Start Date End Date Clifton Garcia MD [address] [place] [address] [place] [address] PCP - General Family Practice 06/05/23 Ron Lee PA [address] [place] [address] [address] [place] [address] Physician Clinique Counter Manager Orthopedic Surgery 08/11/21 Austin Campos MD [address] [place] [address] [address] [place] [address] Consulting Physician Gastroenterology 12/28/24
[2025-01-10 19:45] LABS: Hematocrit 39.1 % (42.0-52.0); Hemoglobin 12.1 g/dL (14.0-18.0); Immature Granulocyte Percent A 0.4 % (0-0.5); Lymphocytes Absolute Auto 1.55 K/mm3 (0.9-3.2); Mean Corpuscular HGB Conc 30.9 g/dl (32-36); Mean Corpuscular Hemoglobin 31.5 pg (26-34); Mean Corpuscular Volume 101.8 fl (80-100); Nucleated Red Blood Cells Absolute Auto 0.000 K/mm3 (0.0-0.012); Nucleated Red Blood Cells Perc 0.0 % (0.0-0.2); Platelet Count Result 333 k/mm3 (150-375); Red Blood Count 3.84 M/mm3 (4.6-6.20); White Blood Count 7.4 K/mm3 (4.5-10.0)
[2025-01-10 19:58] LABS: Alanine Aminotransferase 44 U/L (6-50); Albumin Level 4.0 g/dL (3.5-5.1); Alkaline Phosphatase 118 U/L (38-126); Anion Gap 8 mmol/L (4-12); Aspartate Amino Transferase 177 U/L (17-59); Bilirubin,Total 0.8 mg/dL (0.2-1.3); Blood Urea Nitrogen 7 mg/dL (9-20); Calcium 9.3 mg/dL (8.4-10.2); Carbon Dioxide 23 mmol/L (22-30); Chloride 102 mmol/L (98-107); Cholesterol 147 mg/dL (0-200); Estimated Glomerular Filt Rate > 60; Glucose 91 mg/dL (65-110); HDL Direct 25 mg/dL; Potassium 3.3 mmol/L (3.4-5.0); Sodium 133 mmol/L (137-145); Total Protein 7.6 g/dL (6.3-8.2); Triglycerides 102 mg/dL (<150)
[2025-01-10 20:35] LABS: Prostate Specific Antigen 1.5 ng/mL (< OR = 4.0)
[2025-01-10 21:43] LABS: Vitamin B12 627.0 pg/mL (239-931)
[2025-01-11 10:08] LABS: GGT 179 IU/L (0-65)
== END 2025-01-10 11:16 | disposition home or self-care (01) ==
LOC: ANHBWCLAB 11:16
PROVIDERS: PCP Nurse Practitioner Family; Visit Provider Nurse Practitioner Family
DX: F12.90 Cannabis use, unspecified, uncomplicated (principal); F10.11 Alcohol abuse, in remission; I10 Essential (primary) hypertension; E78.5 Hyperlipidemia, unspecified; D69.6 Thrombocytopenia, unspecified; K76.0 Fatty (change of) liver, not elsewhere classified; K52.9 Noninfective gastroenteritis and colitis, unspecified; E87.6 Hypokalemia; E87.1 Hypo-osmolality and hyponatremia; Z12.5 Encounter for screening for malignant neoplasm of prostate
CPT/HCPCS: 36415; 80053; 80061; 82306; 82607; 82746; 82977; 84153; 85025; G0103